=== PATIENT | male | born 1955 | race Caucasian/White ===

== ENCOUNTER → 2018-04-20 07:41 | Outpatient (CLI) | payer OTHER, SELFPAY ==
[2018-04-20 09:57] LABS: AST(SGOT) 35 U/L (15-37); Alanine Aminotransfer ALT/SGPT 36 U/L (16-61); Albumin, Serum 3.7 g/dL (3.2-5.0); Alkaline Phosphatase 50 U/L (45-117); Cholesterol 110 mg/dL (200); Globulin 3.1 g/dL (2.2-4.2); High Density Lipoprotein 46 mg/dL; Protein, Total 6.8 g/dL (6.4-8.2); Triglycerides 45 mg/dL; Very Low Density Lipoprotein 9 mg/dL (5-40)
== END ==
PROVIDERS: Family Provider Internal Medicine; PCP Internal Medicine; Visit Provider Internal Medicine Cardiovascular Disease
DX: I25.810 Atherosclerosis of coronary artery bypass graft(s) without angina pectoris (principal); E78.5 Hyperlipidemia, unspecified; I10 Essential (primary) hypertension; Z95.5 Presence of coronary angioplasty implant and graft
CPT/HCPCS: 36415; 80061; 80076

== ENCOUNTER → 2018-06-20 12:20 | Outpatient (CLI) | payer OTHER, SELFPAY ==
--- NOTE | 2018-06-20 12:24 | US_ITS ---
STUDY: RENAL ULTRASOUND - COMPLETE REASON FOR EXAM: Male, 62 years old. Frequency. Benign prostatic hypertrophy. TECHNIQUE: Ultrasound evaluation of the kidneys was performed with real-time and static belle-scale imaging. COMPARISON: None. FINDINGS: RIGHT KIDNEY: Normal location of the right kidney, which is normal in size. The right kidney measures 13.1 x 5.6 x 6.6 cm. There is a normal cortex of the right kidney. The renal cortex measures 2.1 cm. Simple parapelvic cyst measuring 2.2 x 2.0 x 1.4 cm There are no right renal calculi. There is no right hydronephrosis. DISTAL RIGHT URETER: There is non-visualization of the distal right ureter. There is no demonstrated right ureterovesical junction calculus. There is a visualized right ureteral jet. LEFT KIDNEY: Normal location of the left kidney, which is normal in size. The left kidney measures 12.4 x 5.4 x 6.6 cm. There is a normal cortex of the left kidney. The renal cortex measures 1.7 cm. There is no left renal mass or cyst. There are no left renal calculi. There is no left hydronephrosis. DISTAL LEFT URETER: There is non-visualization of the distal left ureter. There is no demonstrated left ureterovesical junction calculus. There is a visualized left ureteral jet. BLADDER: The distended urinary bladder has a volume of 211 ml. The empty urinary bladder has a volume of 70 ml. There is a normal wall thickness of the distended urinary bladder. There is no demonstrated mass within the urinary bladder. There are no demonstrated bladder calculi. US/Kidney and Bladder IMPRESSION: No hydronephrosis. Simple right renal cyst. No significant postvoid bladder residual. Electronically Signed: Luis F Rae MD at 6:05 EST , Service support ,
== END ==
PROVIDERS: Family Provider Internal Medicine; PCP Internal Medicine; Referring Provider Internal Medicine; Visit Provider Internal Medicine
DX: N40.1 Benign prostatic hyperplasia with lower urinary tract symptoms (principal)
CPT/HCPCS: 76770

== ENCOUNTER → 2018-08-17 09:05 | Outpatient (CLI) | payer OTHER, SELFPAY ==
--- NOTE | 2018-08-17 09:19 | RAD_ITS ---
STUDY: X-RAY - LEFT KNEE REASON FOR EXAM: Male, 63 years old. Pain TECHNIQUE: 4 view(s) of the knee. COMPARISON: None. FINDINGS: Normal visualized distal femur. Normal visualized proximal tibia and fibula. Normal proximal tibiofibular articulation. Normal medial femorotibial compartment. Normal lateral femorotibial compartment. Normal patellofemoral articulation. The soft tissue structures are unremarkable. RAD/Knee 4 or More Views IMPRESSION: Normal x-ray examination of the knee. No fracture. No osteoarthritis. Electronically Signed: Gopi Vera MD at 7:30 EST Tel , Service support ,
--- NOTE | 2018-08-17 09:19 | RAD_ITS ---
STUDY: X-RAY - LEFT HIP REASON FOR EXAM: Male, 63 years old. Pain TECHNIQUE: 2 views of the hip. COMPARISON: None. FINDINGS: The sacroiliac joints are normal. Moderate osteoarthritis of both hips with buttressing of the femoral necks and narrowing of the joint spaces. There are no acute fractures. Numerous springlike metallic densities projecting over the pelvis. RAD/HIP, UNI W/ Pelvis 2-3 Views IMPRESSION: Osteoarthritis of the hips. No fractures Electronically Signed: Gopi Vera MD at 7:13 EST Tel , Service support ,
== END ==
PROVIDERS: Family Provider Internal Medicine; PCP Internal Medicine
DX: M25.552 Pain in left hip (principal); M25.562 Pain in left knee
CPT/HCPCS: 73502; 73564

== ENCOUNTER → 2018-09-05 12:56 | Outpatient (CLI) | payer OTHER, SELFPAY ==
[2018-04-12 15:58] VITALS: BMI 28.1
--- NOTE | 2018-09-05 13:00 | CDU_ITS ---
Reason For Study: Carotid Stenosis Rt. Velocities/BP Lt. Velocities/BP Prox CCA 134/23.6 cm/sec. Prox CCA 137/25.9 cm/sec. Mid CCA 120/24.4 cm/sec. Mid CCA 127/31.4 cm/sec. Dist CCA 91.9/22 cm/sec. Dist CCA 109/33.8 cm/sec. Prox ICA 73.3/25.8 cm/sec. Prox ICA 50.3/16.9 cm/sec. Mid ICA 91.5/31.7 cm/sec. Mid ICA 84.4/31.7 cm/sec. Dist ICA 87.4/34 cm/sec. Dist ICA 85/34 cm/sec. Rt. ICA/CCA = 0.76. Lt. ICA/CCA = 0.67. Prox ECA 118/20.4 cm/sec. Prox ECA 125/33 cm/sec. Rt. Vert. 57/12.6 cm/sec. Lt. Vert. 54.6/17.7 cm/sec. Right Extracranial There is intimal thickening but no significant atherosclerotic plaque noted in the right common carotid artery. There is intimal thickening but no significant atherosclerotic plaque noted in the right internal carotid artery. There is intimal thickening but no significant atherosclerotic plaque noted in the right external carotid artery. Antegrade flow is noted in the right vertebral artery. Left Extracranial There is intimal thickening but no significant atherosclerotic plaque noted in the left common carotid artery. There is intimal thickening but no significant atherosclerotic plaque noted in the left internal carotid artery. There is no significant atherosclerotic plaque noted in the left external carotid artery. Antegrade flow is noted in the left vertebral artery. Procedure Carotid Duplex [id number]. Exam performed in department. Interpretation Summary Mild (<50%) stenosis right extracranial internal carotid. Mild (<50%) stenosis left extracranial internal carotid. Flow within the vertebral arteries is antegrade bilaterally. Ordering Physician: Ela Salgado Referring Physician: Ela Salgado Performed By: Elvia Wilson RVT and Student
--- OUTSIDE RECORDS SUMMARY | 2018-11-07 17:06 | XMS RPT_ITS | Continuity of Care Document ---
:1955 Author Organization [facility] Address [address] [facility] [address] [place] [address] Phone Care Team Providers Name Role Phone Ela Salgado MD Unavailable Laureen HERNANDEZ, Franky Lindsay Unavailable Ela Salgado MD Unavailable Bienvenido Kelly Unavailable Mariam Samuel Unavailable Unavailable JELANI Goodman Unavailable Unavailable Unavailable Unavailable Problems Name Dates Details Abnormal cardiac function test (R94.30, 794.30) Comments: seen with CAD. 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 Status: Active Allergic rhinitis (J30.9, 477.9) Comments: if not better in 1 weekt hen will get atb nasal rinses educate on allergies handout given told to get mattress voer hepa filter. Status: Active Back spasm (M62.830, 724.8) Comments: took muslce relaxant and help toradol help rest heat biofreeze Status: Active Backache (M54.9, 724.5) Comments: had in 20s herniated disc. on and off spasm since. acting up now use muscle relaxants prn and heat. tight hamstring and need to stretch. handout given on execises and [id number] if not better rexray send PT Status: Active BMI 28.0-28.9,adult (Z68.28, V85.24) Status: Active BPH (benign prostatic hypertrophy) with urinary obstruction (Renamed from BPH with urinary obstruction) (N40.1, 600.01) Comments: willhold testosterone not know that nees anymore anyways. will use flomax if completely block and cannot urinate then will go to ER Status: Active Carotid stenosis, asymptomatic, bilateral (I65.23, 433.10) Comments: 04-30 mild Status: Active Cervical strain, acute (S16.1XXA, 847.0) Comments: discussed cervical xray and PT not wanting at this time but if not improved with meds, will call or come back Status: Active Coronary artery disease (I25.10, 414.00) Comments: had CP with URI found 1995. Cath at [facility] 12-01-95 with coronary artery vasospasm (took adderall then), HI with PTCA, circ 2003, see Dr. sky 2016 stress good Status: Active Elevated LFTs (R94.5, 790.6) Status: Active Encounter for health maintenance examination with abnormal findings (Z00.01, V70.0) Comments: 08-10-17 [facility]. colonoscopy 05-30 good, PSA 07-31, Hep C screening negative, immunizations are up to date hep C test neg Status: Active Fatigue, unspecified type (R53.83, 780.79) Comments: more stamina off lexapro. better than was. 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 if aches backthen willstop reveiwed with patient recent tests and ldl back up and small ldl high. if still bother ? repathea. Status: Active Hyperlipidemia, unspecified (E78.5, 272.4) Comments: With elevated triglycerides Status: Active IBS (irritable bowel syndrome) (K58.9, 564.1) Comments: stable Status: Active IFG (impaired fasting glucose) (R73.01, 790.21) Status: Active Left hip pain (M25.552, 719.45) Status: Active Left knee pain (M25.562, 719.46) Status: Active Low back pain (M54.5, 724.2) Comments: stable on and off years nothing severe. if toradol and flexeril not help then xray nsaidssince 1976. had MRi in past. Status: Active Neck stiffness (M43.6, 723.5) Status: Active Need for prophylactic vaccination and inoculation against influenza (Z23, V04.81) Status: Active Need for Tdap vaccination (Renamed from Need for tkdbplklxy-fobqahg-iyrzpejfs (Tdap) vaccine, adult/adolescent) (Z23, V06.1) Status: Active Neoplasm of uncertain behavior of skin (D48.5, 238.2) Comments: two areas done: 4 mm on right thigh and 6 mm on back. these look abnormal. Status: Active Obesity (BMI 30.0-34.9) (E66.9, 278.00) Status: Active Pneumococcal vaccination given (Z23, V06.6) Status: Active Screening for prostate cancer (Z12.5, V76.44) Comments: scope 1-06 Status: Active Testosterone deficiency (E34.9, 257.2) Comments: better now symptoms and wellbeing on testosterone. notice more exercise stamina. Status: Active Tobacco abuse, in remission (Renamed from Tobacco dependence in remission) (F17.201, V15.82) Comments: quit over 15 years. no indication for LDCT. Status: Active Urinary frequency (R35.0, 788.41) Comments: had most of life so think related to irritable bladder. if bother and want treated. Status: Active Verrucous keratosis (L82.1, 702.8) Status: Active Vitamin D insufficiency (E55.9, 268.9) Status: Active Medications Name Dates Details Altace 2.5 MG Oral Capsule 1 Capsule AM for 0 days Quantity: 90 {Capsule} Refills: 3 Ordered:10-Aug-2018 Zackary HERNANDEZ, Ela Quigley MD, Ela Lr Start : 10-Aug-2018 Active ASPIRIN LOW DOSE, 81MG (Oral Tablet) 1 QD for 0 days Refills: 0 Ordered:27-Jun-2009 Sunni Coates Crestor 20 MG Oral Tablet 1 (one) Tablet qd for 0 days Quantity: 90 {Tablet} Refills: 0 Ordered:03-Apr-2018 Ela Salgado MD, MD, Dana M Start : 03-Apr-2018 Active Dispense as Written Comments: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 Dicyclomine HCl 10 MG Oral Capsule 1 Capsule qid/prn for 0 days Quantity: 30 {Capsule} Refills: 1 Ordered:28-Mar-2018 Ela Salgado MD, MD, Dana M Start : 28-Mar-2018 Active Comments:thirty Flomax 0.4 MG Oral Capsule 1 (one) Capsule start when get it and then one tonight and every night for 0 days Quantity: 30 {Capsule} Refills: 5 Ordered:19-Jun-2018 Ela Salgado MD, MD, Dana M Start : 19-Jun-2018 Active Mobic 7.5 MG Oral Tablet 1 (one) Tablet Tablet bid prn for 0 days Quantity: 30 {Tablet} Refills: 1 Ordered:23-Jan-2018 Ela Salgado MD, MD, Dana M Start : 23-Jan-2018 Active Toprol XL 25 MG Oral Tablet Extended Release 24 Hour 1 Tablet PM for 0 days Quantity: 90 {Tablet} Refills: 3 Ordered:10-Aug-2018 Ela Salgado MD, MD, Dana M Start : 10-Aug-2018 Active Vitamin D3 Super Strength 2000 UNIT Oral Capsule 1 (one) Capsule Capsule in am for 0 days Quantity: 30 {Capsule} Refills: 0 Ordered:12-Oct-2017 Slarb Aniyah POOL Start : 10-Aug-2017 Active Augmentin 875-125 MG Oral Tablet 1 (one) Tablet bid for 0 days Quantity: 20 {Tablet} Refills: 0 Ordered:04-Jan-2018 Antoni Kendrick Start : 18-Oct-2017 End : 04-Jan-2018 Inactive Comments:will call if need Benadryl Allergy 25 MG Oral Capsule 1 (one) Capsule at night for 0 days Quantity: 30 {Capsule} Refills: 0 Ordered:04-Jan-2018 Antoni Kendrick Start : 18-Oct-2017 End : 04-Jan-2018 Inactive Cyclobenzaprine HCl 10 MG Oral Tablet 1 (one) Tablet tid prn for muscle relaxation for 0 days Quantity: 20 {Tablet} Refills: 0 Ordered:19-Jun-2018 Mariam Samuel Start : 12-Jun-2018 End : 19-Jun-2018 Inactive , 16.2MG/5ML (Oral Elixir) 5-10 Elixir milliliters prn tid for 0 days Quantity: 1 {Bottle} Refills: 3 Ordered:23-Sep-2015 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 Staci L Start : 22-Apr-2014 End : 23-Sep-2015 Inactive Flonase 50 MCG/ACT Nasal Suspension 1 (one) Delphos 2 sprays each nostril daily for 0 days Quantity: 1 {Delphos} Refills: 2 Ordered:04-Jan-2018 Antoni Kendrick Start : 18-Oct-2017 End : 04-Jan-2018 Inactive Lexapro 10 MG Oral Tablet 1/2 (one half) Tablet QD for 0 days Quantity: 90 {Tablet} Refills: 3 Ordered:04-Jan-2018 Antoni Kendrick Start : 14-Sep-2016 End : 04-Jan-2018 Inactive MEDROL (ALEX), 4MG (Oral Tablet) 1 Tablet TAD for 0 days Quantity: 1 {Package(s)} Refills: 0 Ordered:23-Sep-2015 Geoff Spann LPNn L Start : 14-Nov-2012 End : 23-Sep-2015 Inactive Comments:take with food Medrol 4 MG Oral Tablet Therapy Pack 1 (one) Milligram Milligram TAD for 0 days Quantity: 1 {Package} Refills: 0 Ordered:19-Jun-2018 Mariam Samuel Start : 12-Jun-2018 End : 19-Jun-2018 Inactive Comments:take with food Multivitamin Oral Liquid for 0 days Refills: 0 Ordered:27-Apr-2016 JELANI Goodman End : 27-Apr-2016 Inactive NASACORT AQ, 55MCG/ACT (Nasal Aerosol Solution) 2 (two) Aerosol Soln qd for 0 days Refills: 0 Ordered:01-Jan-2009 JELANI Goodman Start : 01-Jan-2009 End : 07-May-2009 Inactive PredniSONE 20 MG Oral Tablet 1 (one) Tablet uad for 16 days Refills: 0 Ordered:18-Oct-2017 Ela Salgado MD, MD, Dana M Start : 18-Oct-2017 End : 03-Nov-2017 Inactive Comments:2 a d for 5 d, 1 a d for 5d, 1/2 a d for 6 d PROTONIX, 40MG (Oral Tablet Delayed Release) Tablet DR BID for 0 days Refills: 0 Ordered:18-Nov-2009 JELANI Goodman Start : 23-Jun-2009 Inactive ZETIA, 10MG (Oral Tablet) 1 qd (10 MG) Inactive ZyrTEC Allergy 10 MG Oral Tablet 1 (one) Tablet in am for 0 days Quantity: 30 {Tablet} Refills: 0 Ordered:04-Jan-2018 Antoni Kendrick Start : 18-Oct-2017 End : 04-Jan-2018 Inactive FLEXERIL, 10MG (Oral Tablet) 1 Tablet tid prn for 0 days Quantity: 30 {Tablet} Refills: 0 Ordered:14-Nov-2012 Staci Spann LPN Start : 14-Nov-2012 End : 23-Sep-2015 Discontinued Comments:This order discontinued per [facility]. LIPITOR, 40MG (Oral Tablet) 1 QD for 0 days Refills: 0 Ordered:16-Aug-2007 JELANI Goodman End : 16-Aug-2007 Discontinued Testosterone 25 MG/2.5GM (1%) Transdermal Gel uad Gel 2 pumps transdermally qd for 90 days Refills: 1 Ordered:19-Jun-2018 Ela Salgado MD, MD, Dana M Start : 19-Jun-2018 End : 19-Jun-2018 Discontinued Comments:DX: E34.9 Allergies and Adverse Reactions Name Dates Details Codeine/Codeine Derivatives (Allergy) Status: Active Morphine Derivatives (Allergy) Status: Active Past Medical History Name Dates Details Anxiety (F41.9, 300.00) Comments: right now off lexapro and seeoning how does. some sleep issue and some rlds atrt ngiht willsee how pans out in time. little ore iritabledominant father not like, marriage grown apart. Status: Resolved as of 10-Aug-2017 BMI 30.0-30.9,adult (Z68.30, V85.30) Comments: good at 190-195. will exercise cut back sweets starches Status: Resolved as of 10-Aug-2017 BMI 31.0-31.9,adult (Z68.31, V85.31) Status: Resolved as of 10-Aug-2017 Epigastric pain (R10.13, 789.06) Comments: ? PUD ? GB Status: Resolved as of 18-Nov-2009 Hemorrhoids (K64.9, 455.6) Status: Inactive as of 22-Mar-2016 Knee internal derangement, left (M23.92, 717.9) Comments: years ago pop and think tore disc when biking. at this point not want to work up further would need MRI and to orthosx seen jeanne in past. would want someone else like knapic Status: Resolved as of 10-Aug-2017 Left hip pain (M25.552, 719.45) Comments: not have good socket and see gesler and exercise alot to stabilize Status: Resolved as of 10-Aug-2017 Muscle spasm of back (724.8) Status: Inactive as of 22-Mar-2016 Need for hepatitis C screening test (Z11.59, V73.89) Status: Resolved as of 10-Aug-2017 Need for zoster vaccination (Z23, V04.89) Status: Resolved as of 10-Aug-2017 Nonsmoker (Z78.9, V49.89) Status: Resolved as of 10-Aug-2017 Nonsmoker (Z78.9, V49.89) Status: Resolved as of 03-Aug-2018 Numbness and tingling of right leg (R20.0, 782.0) Comments: ? meralgia paresthecia vs back pinched nerve will take aleve helps. ncs negative show old in past radiculopathy. Status: Resolved as of 10-Aug-2017 Pharyngitis, acute (J02.9, 462) Status: Resolved as of 03-Jan-2009 Prediabetes (R73.03, 790.29) Status: Resolved as of 10-Aug-2017 Sprain of right ankle, initial encounter (S93.401A, 845.00) Comments: think sprained EMILE willruleout fracture if not fracture will do camboot and then aircat and elastic wrap with partial weight bearing if fracture to orthosx Status: Resolved as of 10-Aug-2017 Tobacco use (Z72.0, 305.1) Comments: quit years ago Status: Resolved as of 18-Nov-2009 VASOSPASM, NOS Status: Inactive as of 22-Mar-2016 Wrist pain, acute, right (M25.531, 719.43) Comments: slept on wrong and been 2 weeks. not better. get wrist splint. Status: Resolved as of 10-Aug-2017 Procedures Procedure Dates Details COLONOSCOPY, NOS Completed Comments: 2003 Double Henia Repair Completed Comments: Inguinal Dr. Pretty Date Value Details 20-Jun-2018 Kidney and Bladder Result: Comments: See Note; NOTES: [facility] Imaging Services [address] [place] [address] Kidney and Bladder MR#: [id number] Acct: [id number] Name: DRAGAN FORREST Rep #: [id number] : 1955 M 62 From: Luis F Rae PCP: Ela Salgado MD Status: REG CLI Study: Kidney and Bladder Date of Exam: 06/20/18 Exam# [id number] Ordering Dr: Ela Salgado MD STUDY: RENAL ULTRASOUN D - COMPLETE REASON FOR EXAM: Male, 62 years old. Frequency. Benign prostatic hypertrophy. TECHNIQUE: Ultrasound evaluation of the kidneys was performed with real-time and static belle-scale imaging. COMPARISON: None. FINDINGS: RIGHT KIDNEY: Normal location of the right kidney, which is normal in size. The right kidney measures 13.1 x 5.6 x 6.6 cm. There is a no rmal cortex of the right kidney. The renal cortex measures 2.1 cm. Simple parapelvic cyst measuring 2.2 x 2.0 x 1.4 cm There are no right renal calculi. There is no right hydronephrosis. DISTAL RIGHT U RETER: There is non-visualization of the distal right ureter. There is no demonstrated right ureterovesical junction calculus. There is a visualized right ureteral jet. LEFT KIDNEY: Normal location of the left kidney, which is normal in size. The left kidney measures 12.4 x 5.4 x 6.6 cm. There is a normal cortex of the left kidney. The renal cortex measures 1.7 cm. There is no left renal mass or cyst . There are no left renal calculi. There is no left hydronephrosis. DISTAL LEFT URETER: There is non-visualization of the distal left ureter. There is no demonstrated left ureterovesical junction calcu hollis. There is a visualized left ureteral jet. BLADDER: The distended urinary bladder has a volume of 211 ml. The empty urinary bladder has a volume of 70 ml. There is a normal wall thickness of the dis tended urinary bladder. There is no demonstrated mass within the urinary bladder. There are no demonstrated bladder calculi. US/Kidney and Bladde r IMPRESSION: No hydronephrosis. Simple right renal cyst. No significant postvoid bladder residual. Electronically Signed: Luis F Rae MD at 6:05 EST , Service support , CC: Ela Salgado MD [employer] Cutting Machine Operator: Signed 12-Apr-2018 Cardiology Visit Report Result: Comments: See Note; NOTES: [facility] [address] [place] [address]. [address] [place] [address] OFFICE VISIT Date of Service: 04/12/18 MR#: [id number] Acct: [id number] Name: MEKA FORREST Rep #: [id number] : 1955 Provider: Barry Sky MD Age/Sex: 62/M [place] [facility] [place] Status: Signed HPI [facility] Chief Complaint: Follow-up visit. Details: DRAGAN FORREST, is a 62 M who presents to the office today for a yearly follow-up visit. He is a gentleman with a history of coronary artery disease status post angioplasty and stenting of the circumflex artery over 10 years ago. He returns for routine follow-up visit he says he has lost some weight since last visit. He still remains quite active on his bike. His last stress test was in 2013 where he exercised to a high metabolic workload without any symptoms. He denies any neck arm or jaw discomfort suggest angina no dizziness or diaphoresis no near syncope or syncope. His physical exam today demonstrates clear lung narayan regular rate and rhythm no pedal edema and his blood pressure is under excellent control. Intake Vital Signs04/12/18 Height 5 ft 11 in 04/12/18 Weight: 202 lb 04/12/18 Body Mass Index (BMI) 28.1 04/12/18 Blood Pre ssure 108/58 04/12/18 Respiratory Rate 16 04/12/18 Pulse Rate 60 Intake Visit Reasons: 1 Y FU (we r/s from 03-21) needs a Weds appt Allergies codeine Adverse Reaction (Verified 04/12/18 15:53) GI Upset morphine Adverse Reaction (Verified 04/12/18 15:53) GI Upset Medications aspirin 81 mg tablet,delayed release 81 mg PO DAILY 04/11/18 [History Confirmed 04/12/18] multivitamin tablet 1 tab PO DAILY 04/11/18 [History Confirmed 04/12/18] nitroglycerin 0.4 mg sublingual tablet 0.4 mg SUBLINGUAL Q5-15M PRN 04/11/18 [History Confirmed 04/12/18] ramipril 2.5 mg capsule 2.5 mg PO .QD 90 Days cap 04/11/18 [History Confirmed 04/12/18] metoprolol succinate ER 25 mg tablet,extended release 24 hr 25 mg PO QPM 90 Days #90 tab 04/12/18 [History Confirmed 04/12/18] rosuvastatin 20 mg tablet 20 mg PO DAILY 03/16 05/02 [History Confirmed 04/12/18] [facility] Medical History Hypertension (Chronic) Hyperlipidemia (Chronic) History of coronary artery stent placement (Reso lved 05/29/04) Atherosclerosis of coronary artery bypass graft without angina pectoris (Chronic) Surgical History H/O bilateral inguinal hernia repair ( Resolved) H/O hemorrhoidectomy (Resolved) Family History Father CAD (coronary artery disease) Mother CAD (coronary artery disease) Social History Smoki ng Status: Never smoker ROS Const Const: Negative for fatigue, weakness, difficulty sleeping, frequent falls, excessive sweating or headache(s) Eyes Eyes: Negative for loss of peripheral vision, tr ansient loss of vision, blurry vision, tunnel vision or double vision ENT ENT: Negative for headache(s), dizziness, Nosebleed/epistaxis or balance problems Cardio Chest Pain: No Palpitations: No Edema: None Muscle aches with walking: None Resp Respiratory: Negative for SOB with activity, SOB at rest, SOB orthopnea\SOB lying down, paroxysmal nocturnal dyspnea or Cough GI GI: Negative nausea, heartburn, black,tarry stools or vomiting : Negative for hematuria Musc Musc: Negative for balance problems, muscle aches/ myalgia, muscle weakness or joint pain Skin Skin: Negative non-healing lesions, unus ual bruising or rash Neuro Neuro: Negative for weakness, frequent falls, headache(s), blurry vision, double vision, dizziness, lightheadedness, orthostatic symptoms, near syncope, syncope or lack of severity of illness coordinator rdination Chris Hematologic/Lymphatic: Negative for easy bruising or easy bleeding Endo Endo: Negative for fatigue, excessive sweating or increased thirst/drinking Psych Psych: Negative for anxiety or de pression Allergy Allergy/Immunology: Negative for hives, Negative for rash Cardiology Exam Const Appearance: cooperative, healthy appearing, well developed, well groomed and no acute distress Nutritio nal Appearance: well nourished and average body habitus Orientation: alert, awake and oriented x3 Head Head: normal to inspection, normocephalic and atraumatic Ears: hearing grossly normal bilaterally a nd external ears normal Nose: external nose normal, nasal mucous membranes and turbinates normal, nares normal, septum normal, no nasal discharge Face and Sinus: face symmetric Mouth: oral mucosae francesca l, tongue normal, oropharynx normal and moist mucous membranes Teeth and gingiva: dentition normal Throat: posterior oropharynx normal, tonsils normal and uvula midline Eyes General: appearance normal, both eyes and all related structures Eyelids: eyelids normal Conjunctivae: conjunctivae normal Pupils: PERRL, normal by confrontation and accommodation normal EOM: EOM intact bilaterally Neck Neck: norm al visual inspection, trachea midline and no JVD JVD: +5 Carotids: normal carotid upstroke and bounding pulses Chest Chest inspection: normal inspection of the chest, symmetric chest movement and normal respiratory effort Auscultation: Bilateral: Clear to Auscultation Cardio Palpation: normal PMI Rate: regular rate Rhythm: regular rhythm Heart sounds: S1 normal, S2 normal and normal, physiologic split S2; negative rub, gallop or murmur GI GI: normal to inspection, soft, no hepatosplenomegaly and bowel sounds present Neuro General: alert, awake, oriented x3, no focal sensory deficit, gait normal and moves all extremities Skin Skin: no rashes or lesions noted Extremities Pulses: Normal: Right Femoral Pulse, Left Femoral Pulse, Right Dorsalis Pedis Pulse, Left Dorsalis Pedis Pulse, Right Posterior Ti bial Pulse, Left Posterior Tibial Pulse, Right Radial Pulse, Left Radial Pulse Lower Extremity Edema: None: Bilateral Musculoskel Musculoskeletal: No joint tenderness Psych Psychological: normal affect Assessment AND Plan 1. 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 Orders Orders: 2. Essential hypertension I10 Plan His blood pressure remains under excellent control on the current medical therapy and no changes will need to be made at this time. Orders Orders: 3. Pure hypercholesterolemia E78.00; E78.0 Plan He does have a history of hyperli pidemia and has been having lipid profiles performed through your office. He may however be prudent to obtain a more recent one. Overall he is doing remarkably well and I would not make any changes. Fidel nk you for allowing me to participate in his care. Plan Detail Other Orders Orders: Follow Up 1 Year (echo vasc tech) Coding Level of Care Code Off vis,est,level 3 Diagnoses History of coronary artery stent pl acement Z95.5 Essential hypertension I10 Hypertension type: essential hypertension Pure hypercholesterolemia E78.00; E78.0 Hyperlipidemia type: pure hypercholesterolemia Coding Level of Care Code Off vis,est,level 3 Diagnoses History of coronary artery stent placement Z95.5 Essential hypertension I10 Hypertension type: essential hypertension Pure hypercholesterolemia E78.00; E78.0 Hyperlipidemia ty pe: pure hypercholesterolemia 04/12/18 1615 <Electronically signed by Barry Sky MD> Date Barry Xavier Signature: Date (if applicable) CC: Ela Salgado MD 06-Jul-2017 Foot min 3 Views Result: Comments: See Note; NOTES: [facility] Imaging Services [address] [place] [address] Foot min 3 Views MR#: [id number] Acct: [id number] Name: DRAGAN FORREST Rep #: [id number] : 1955 M 61 From: Vikas Hummel MD PCP: Ela Salgado MD Status: REG CLI Study: Foot min 3 Views Date of Exam: 07/06/17 Exam# [id number] Ordering Dr: Agapito Don DO STUDY: X-RAY - RIG HT FOOT CLINICAL: Male, 61 years old. Lateral foot pain following injury. TECHNIQUE: 3 view(s) of the foot. COMPARISON: None. FINDINGS: There is an enthesophyte i nvolving the posterior superior calcaneus at the site of insertion of the Achilles tendon. Normal visualized subtalar, talonavicular, calcaneocuboid, tarsal and tarsometatarsal articulations. Normal m etatarsi. Normal metatarsophalangeal joint of the great toe. Normal tibial and fibular sesamoid bones. Normal interphalangeal joint of the great toe. Normal phalanges of the great toe. Normal second t hrough fifth metatarsophalangeal joints. Normal interphalangeal joints and phalanges of the lesser toes. The soft tissue structures are unremarkable. -0026 RAD/Foot min 3 Views IMPRESSION: No acute abnormality is seen. Electronically Signed: Vikas Hummel MD at 14:20 EST Tel [phone], Service support , Fax CC: Ela Salgado MD; Agapito Don DO [employer] Cutting Machine Operator: Signed 05-Jul-2017 Ankle min 3 Views Result: Comments: See Note; NOTES: [facility] Imaging Services [address] [place] [address] Ankle min 3 Views MR#: [id number] Acct: [id number] Name: DRAGAN FORREST Rep #: [id number] : 1955 M 61 From: Vikas Hummel MD PCP: Ela Salgado MD Status: REG CLI Study: Ankle min 3 Views Date of Exam: 07/05/17 Exam# [id number] Ordering Dr: Ela Salgado MD STUDY: X-RAY - R IGHT ANKLE REASON FOR EXAM: Male, 61 years old. Pain following a twisting injury. TECHNIQUE: 3 view(s) of the ankle. COMPARISON: None. FINDINGS: Normal visualized distal tibia and fibula. Normal medial and lateral malleoli. Normal tibiotalar articulation and ankle mortise. A spur is seen at the insertion of the Achilles tendon. Presents of an avulsion fracture arising from the lateral aspect of the tarsal navicular bone. Overlying soft tissue swelling. RAD/Ankle min 3 Views IMPRESSION: Avulsion fractu re overlying the lateral aspect of the tarsal navicular bone with overlying soft tissue swelling. Electronically Signed: Vikas Hummel MD at 15:29 EST Tel [phone], Service support [phone], CC: Ela Salgado MD [employer]ting Machine Operator: Signed 17-Feb-2017 NCS and/or EMG Patient Result: Comments: See Note; NOTES: [facility] Pulmonary Services/Neurology [address] [place] [address] NCS and/or EMG Patient MR#: [id number] Acct: [id number] Name: DRAGAN FORREST Rep #: [id number] : 1955 61 From: Donnie Smith Referring Dr: Ela Salgado MD Status: REG CLI Ordering Dr: Ela Salgado MD Date: 02/16/17 Location: [facility] Sex: M C DATE OF SERVICE: February 16, 2017 HISTORY: Dragan Forrest is a 61-year-old gentleman referred by Dr. Salgado for electrodiagnostic evaluation of the right leg. He reports numbness in the right thigh. ELECTRODIAGNOSTIC FINDINGS : Normal nerve stimulation studies in areas tested, right leg. There is some slowing of both H- reflexes which may correlate with previous disc disease. Normal EMG in areas tested, right leg and back without membrane irritability or motor unit changes. IMPRESSION: No significant electrodiagnostic findings of acute or chronic lumbosacral radiculopathy. No evidence of nerve entrapment or polyneuropa thy changes. The slowed H-reflexes are not felt to represent any evidence of significant S1 radiculopathy or polyneuropathy; most likely they reflect previous lumbar disc disease. In the absence of any significant electrodiagnostic abnormalities, consider referred paresthesias from lumbar, sacroiliac, inguinal or hip areas. He ll follow-up with Dr. Salgado for further review. Thank you for this refer ral. 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 One-month history of pain. TECHNIQUE: 4 view(s) of the wrist were obtained including the navicular view. COMPARISON: None. FINDINGS: Normal visualized distal radius and ulna. Normal radiocarpal articulation. Normal distal radioulnar articulation. Normal carpal bones. Normal carpal articulations. Normal carpometacarpal articulation of the thumb. Normal second through fifth carpometacarpal articulations. Normal visualized metacarpal bones. There is calcification of the triangular fibrocartilage. RAD/Wrist min 3 Views IMPRESSION: Calcification of the triangular fibrocartilage. Electronically Signed: Vikas Hummel MD at 12:[address] Tel [phone], Service support [phone], CC: Ela Salgado MD [employer] Machine Operator: Signed 12-May-2016 Carotid Duplex Ultrasound Result: Comments: See Note; NOTES: [facility] Cardiovascular Services [address] [place] [address] Carotid Duplex Ultrasound 05/05/16 1237 MR#: [id number] Acct: [id number] Name: DRAGAN FULLER Rep #: [id number] : 1955 60 From: Tyrone Daniels MD Attending Dr: Ela Salgado MD Status: REG CLI Ordering Dr: Ela Salgado MD Date: 05/05/16 Location: [facility] Sex: M C Admitted: Reason For Study: Abnormal cardiac function test Rt. Velocities/BP Lt. Velocities/BP Prox CCA 100.0/19.9 cm/sec. Prox CCA 111.0/27.6 cm/sec. Mid CCA 87.4/17.0 cm/sec. Mid CCA 104.0/22.9 cm/sec. Dis t CCA 80.3/21.1 cm/sec. Dist CCA 81.5/24.0 cm/sec. Prox ICA 71.5/25.8 cm/sec. Prox ICA 61.0/22.9 cm/sec. Mid ICA 73.9/25.2 cm/sec. Mid ICA 64.0/22.0 cm/sec. Dist ICA 70.9/27.0 cm/sec. Dist ICA 54.3/23.8 cm/sec. Rt. ICA/CCA = .85. Lt. ICA/CCA = .62. Prox ECA 93.8/16.4 cm/sec. Prox ECA 96.2/21.1 cm/sec. Rt. Vert. 38.7/12.3 cm/sec. Lt. Vert. 49.2/18.8 cm/sec. Right Extracranial There is intimal thickeni ng but no significant atherosclerotic plaque noted in the right common carotid artery. There is intimal thickening but no significant atherosclerotic plaque noted in the right internal carotid artery. T here is no significant atherosclerotic plaque noted in the right external carotid artery. Antegrade flow is noted in the right vertebral artery. Left Extracranial There is intimal thickening but no sig nificant atherosclerotic plaque noted in the left common carotid artery. There is intimal thickening but no significant atherosclerotic plaque noted in the left internal carotid artery. There is no sign ificant atherosclerotic plaque noted in the left external carotid artery. Antegrade flow is noted in the left vertebral artery. Procedure Carotid Duplex 89566. Exam performed in department. Interpreta tion Summary Mild (<50%) stenosis right extracranial internal carotid. Mild (<50%) stenosis left extracranial internal carotid. Flow within the vertebral arteries is antegrade bilaterall y. Ordering Physician: Ela Salgado Performed By: Elvia Wilson RVT 05/12/16 0843 Date Tyrone Daniels MD CC: Ela Salgado MD Date Dictated: 05/05/16 1237 Date Transcribed: 05/12/16842 [employer] Machine Operator: Signed Family History Unknown Family Member Name Dates Details Brother 1 Comments: lives [facility], lives with parents hx. Drug addiction Status: Active Daughter 1 Comments: lives in [place] Status: Active Daughter 2 Comments: lives in [place] Status: Active Father Comments: after age 60 had CABG, lung cancer (heavy smoker) emphysema Status: Active First Degree Relatives Comments: Heart/Lung dx, HBP, high cholesterol Status: Active Maternal Grandfather Comments: alcoholic Status: Active Mother Comments: Dementia, heart disease Status: Active Sister 1 Comments: Catalina Swanson Status: Active Social History Name Dates Details Alcohol Use Comments: from 16- 56yo drink. 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 18 years 11/2 pack stop at 36yo Status: Active Vital Signs Date Test Result Details [id number] Temperature 98.3 f Comments: Method: Temporal Pulse 72 /min Comments: Pattern: Regular Respiration Rate 16 /min Comments: Pattern: Unlabored O2 SAT 98 % Comments: Room air BP Systolic 142 mm[Hg] Comments: Patient Position: Sitting; Cuff Location: Left Arm; Cuff Size: Standard BP Diastolic 78 mm[Hg] Comments: Patient Position: Sitting; Cuff Location: Left Arm; Cuff Size: Standard Weight 207 lb Height 71 in Body Mass Index Calculated 28.87 kg/m2 Body Surface Area Calculated 2.14 m2 :00 Pulse 72 /min Comments: Pattern: Regular Respiration Rate 16 /min Comments: Pattern: Unlabored O2 SAT 98 % Comments: Room air BP Systolic 120 mm[Hg] Comments: Patient Position: Sitting; Cuff Location: Left Arm; Cuff Size: Standard BP Diastolic 62 mm[Hg] Comments: Patient Position: Sitting; Cuff Location: Left Arm; Cuff Size: Standard Weight 207 lb Height 71 in Body Mass Index Calculated 28.87 kg/m2 Body Surface Area Calculated 2.14 m2 :23 Temperature 97 f Pulse 62 /min Comments: Pattern: Regular Respiration Rate 18 /min Comments: Pattern: Unlabored O2 SAT 99 % Comments: Room air BP Systolic 106 mm[Hg] Comments: Patient Position: Sitting; Cuff Location: Left Arm; Cuff Size: Standard BP Diastolic 78 mm[Hg] Comments: Patient Position: Sitting; Cuff Location: Left Arm; Cuff Size: Standard Weight 207 lb Height 71 in Body Mass Index Calculated 28.87 kg/m2 Body Surface Area Calculated 2.14 m2 :37 Temperature 97.6 f Comments: Method: Temporal Pulse 76 /min Comments: Pattern: Regular Respiration Rate 20 /min Comments: Pattern: Unlabored O2 SAT 98 % Comments: Room air BP Systolic 120 mm[Hg] Comments: Patient Position: Sitting; Cuff Location: Left Arm; Cuff Size: Standard BP Diastolic 78 mm[Hg] Comments: Patient Position: Sitting; Cuff Location: Left Arm; Cuff Size: Standard Weight 207 lb Height 71 in Body Mass Index Calculated 28.87 kg/m2 Body Surface Area Calculated 2.14 m2 :13 Temperature 97.5 f Pulse 67 /min Comments: Pattern: Regular Respiration Rate 17 /min Comments: Pattern: Unlabored O2 SAT 98 % Comments: Room air BP Systolic 118 mm[Hg] Comments: Patient Position: Sitting; Cuff Location: Left Arm; Cuff Size: Standard BP Diastolic 78 mm[Hg] Comments: Patient Position: Sitting; Cuff Location: Left Arm; Cuff Size: Standard Weight 207 lb Height 71 in Body Mass Index Calculated 28.87 kg/m2 Body Surface Area Calculated 2.14 m2 :26 Temperature 97.9 f Comments: Method: Temporal Pulse 76 /min Comments: Pattern: Regular Respiration Rate 20 /min Comments: Pattern: Unlabored O2 SAT 98 % Comments: Room air BP Systolic 140 mm[Hg] Comments: Patient Position: Sitting; Cuff Location: Left Arm; Cuff Size: Standard BP Diastolic 78 mm[Hg] Comments: Patient Position: Sitting; Cuff Location: Left Arm; Cuff Size: Standard Weight 207 lb Height 71 in Body Mass Index Calculated 28.87 kg/m2 Body Surface Area Calculated 2.14 m2 :35 Pulse 60 /min Comments: Pattern: Regular Respiration Rate 16 /min Comments: Pattern: Unlabored O2 SAT 98 % Comments: Room air BP Systolic 142 mm[Hg] Comments: Patient Position: Sitting; Cuff Location: Left Arm; Cuff Size: Standard BP Diastolic 82 mm[Hg] Comments: Patient Position: Sitting; Cuff Location: Left Arm; Cuff Size: Standard Weight 216 lb :13 Temperature 97.8 f Comments: Method: Temporal Pulse 68 /min Comments: Pattern: Regular Respiration Rate 16 /min Comments: Pattern: Unlabored O2 SAT 98 % Comments: Room air BP Systolic 122 mm[Hg] Comments: Patient Position: Sitting; Cuff Location: Left Arm; Cuff Size: Standard BP Diastolic 68 mm[Hg] Comments: Patient Position: Sitting; Cuff Location: Left Arm; Cuff Size: Standard Weight 216 lb :38 Pulse 66 /min Comments: Pattern: Regular Respiration Rate 16 /min O2 SAT 96 % Comments: Room air BP Systolic 120 mm[Hg] Comments: Patient Position: Sitting BP Diastolic 60 mm[Hg] Comments: Patient Position: Sitting Weight 216 lb :21 Temperature 97.9 f Comments: Method: Temporal Pulse 70 /min Comments: Pattern: Regular Respiration Rate 20 /min Comments: Pattern: Unlabored O2 SAT 97 % Comments: Room air BP Systolic 120 mm[Hg] Comments: Patient Position: Sitting; Cuff Location: Left Arm; Cuff Size: Standard BP Diastolic 80 mm[Hg] Comments: Patient Position: Sitting; Cuff Location: Left Arm; Cuff Size: Standard Weight 222 lb Height 70 in Body Mass Index Calculated 31.85 kg/m2 Body Surface Area Calculated 2.18 m2 :32 Temperature 97.6 f Comments: Method: Temporal Pulse 74 /min Comments: Pattern: Regular Respiration Rate 20 /min Comments: Pattern: Unlabored O2 SAT 97 % Comments: Room air BP Systolic 120 mm[Hg] Comments: Patient Position: Sitting; Cuff Location: Left Arm; Cuff Size: Standard BP Diastolic 76 mm[Hg] Comments: Patient Position: Sitting; Cuff Location: Left Arm; Cuff Size: Standard Weight 211 lb Height 70 in Body Mass Index Calculated 30.28 kg/m2 Body Surface Area Calculated 2.14 m2 :23 Temperature 97.6 f Comments: Method: Temporal Pulse 74 /min Comments: Pattern: Regular Respiration Rate 18 /min Comments: Pattern: Unlabored O2 SAT 97 % Comments: Room air BP Systolic 140 mm[Hg] Comments: Patient Position: Sitting; Cuff Location: Left Arm; Cuff Size: Standard BP Diastolic 70 mm[Hg] Comments: Patient Position: Sitting; Cuff Location: Left Arm; Cuff Size: Standard Weight 211 lb Height 70 in Body Mass Index Calculated 30.28 kg/m2 Body Surface Area Calculated 2.14 m2 :39 Temperature 98 f Comments: Method: Temporal Pulse 67 /min Comments: Pattern: Regular Respiration Rate 16 /min Comments: Pattern: Unlabored O2 SAT 95 % Comments: Room air BP Systolic 122 mm[Hg] Comments: Patient Position: Sitting; Cuff Location: Left Arm; Cuff Size: Standard BP Diastolic 74 mm[Hg] Comments: Patient Position: Sitting; Cuff Location: Left Arm; Cuff Size: Standard Weight 211 lb Height 71.5 in Body Mass Index Calculated 29.02 kg/m2 Body Surface Area Calculated 2.17 m2 :11 Temperature 98 f Comments: Method: Oral Pulse 74 /min Comments: Pattern: Regular Respiration Rate 18 /min O2 SAT 97 % Comments: Room air BP Systolic 132 mm[Hg] Comments: Patient Position: Sitting; Cuff Location: Left Arm; Cuff Size: Standard BP Diastolic 80 mm[Hg] Comments: Patient Position: Sitting; Cuff Location: Left Arm; Cuff Size: Standard Weight 220 lb Height 71.5 in Body Mass Index Calculated 30.26 kg/m2 Body Surface Area Calculated 2.21 m2 :26 Temperature 97.8 f Comments: Method: Oral Pulse 70 /min Comments: Pattern: Regular Respiration Rate 18 /min Comments: Pattern: Unlabored BP Systolic 120 mm[Hg] Comments: Patient Position: Sitting; Cuff Location: Left Arm; Cuff Size: Standard BP Diastolic 76 mm[Hg] Comments: Patient Position: Sitting; Cuff Location: Left Arm; Cuff Size: Standard Weight 220 lb Height 71.5 in Body Mass Index Calculated 30.26 kg/m2 Body Surface Area Calculated 2.21 m2 :45 Temperature 97.6 f Comments: Method: Oral Pulse 68 /min Comments: Pattern: Regular Respiration Rate 18 /min Comments: Pattern: Unlabored BP Systolic 120 mm[Hg] Comments: Patient Position: Sitting; Cuff Location: Left Arm; Cuff Size: Standard BP Diastolic 74 mm[Hg] Comments: Patient Position: Sitting; Cuff Location: Left Arm; Cuff Size: Standard Weight 220 lb Height 71.5 in Body Mass Index Calculated 30.26 kg/m2 Body Surface Area Calculated 2.21 m2 :55 Pulse 68 /min Comments: Pattern: Regular Respiration Rate 18 /min Comments: Pattern: Unlabored BP Systolic 118 mm[Hg] Comments: Patient Position: Sitting; Cuff Location: Left Arm; Cuff Size: Standard BP Diastolic 78 mm[Hg] Comments: Patient Position: Sitting; Cuff Location: Left Arm; Cuff Size: Standard Weight 214 lb :12 Temperature 95.4 f Comments: Method: Oral Pulse 80 /min Comments: Pattern: Regular Respiration Rate 20 /min Comments: Pattern: Unlabored BP Systolic 124 mm[Hg] Comments: Patient Position: Sitting; Cuff Location: Left Arm; Cuff Size: Large BP Diastolic 82 mm[Hg] Comments: Patient Position: Sitting; Cuff Location: Left Arm; Cuff Size: Large Weight 214 lb Height 0 in Head Circumference 0.00 cm :06 Temperature 98.3 f Comments: Method: Oral Pulse 70 /min Comments: Pattern: Regular Respiration Rate 16 /min Comments: Pattern: Unlabored BP Systolic 120 mm[Hg] Comments: Patient Position: Sitting; Cuff Location: Left Arm; Cuff Size: Standard BP Diastolic 80 mm[Hg] Comments: Patient Position: Sitting; Cuff Location: Left Arm; Cuff Size: Standard Weight 0 lb Height 0 in Head Circumference 0.00 cm :51 Pulse 68 /min Comments: Pattern: Regular Respiration Rate 16 /min Comments: Pattern: Unlabored BP Systolic 114 mm[Hg] Comments: Patient Position: Sitting; Cuff Location: Left Arm; Cuff Size: Standard BP Diastolic 78 mm[Hg] Comments: Patient Position: Sitting; Cuff Location: Left Arm; Cuff Size: Standard Weight 214 lb Height 0 in Head Circumference 0.00 cm :08 Temperature 98.4 f Comments: Method: Oral Pulse 68 /min Comments: Pattern: Regular Respiration Rate 16 /min Comments: Pattern: Unlabored BP Systolic 112 mm[Hg] Comments: Patient Position: Sitting; Cuff Location: Left Arm; Cuff Size: Standard BP Diastolic 76 mm[Hg] Comments: Patient Position: Sitting; Cuff Location: Left Arm; Cuff Size: Standard Weight 211 lb Height 0 in Head Circumference 0.00 cm :40 Temperature 98.1 f Comments: Method: Undefined Pulse 84 /min Comments: Pattern: Regular Respiration Rate 16 /min Comments: Pattern: Undefined BP Systolic 124 mm[Hg] Comments: Patient Position: Sitting; Cuff Location: Left Arm; Cuff Size: Large BP Diastolic 90 mm[Hg] Comments: Patient Position: Sitting; Cuff Location: Left Arm; Cuff Size: Large Weight 0 lb Height 0 in Head Circumference 0.00 cm :57 Temperature 98.4 f Comments: Method: Oral Pulse 60 /min Comments: Pattern: Regular Respiration Rate 18 /min Comments: Pattern: Unlabored BP Systolic 122 mm[Hg] Comments: Patient Position: Sitting; Cuff Location: Left Arm; Cuff Size: Standard BP Diastolic 78 mm[Hg] Comments: Patient Position: Sitting; Cuff Location: Left Arm; Cuff Size: Standard Weight 212 lb Height 0 in Head Circumference 0.00 cm Results Date Description Value Details [id number] Urinalysis, Office (90732) UA - LEUKOCYTE ESTERASE Negative (Normal) UA - NITRITE Negative (Normal) URINE UROBILINGN DEE TIMED 2 mg/dL (Normal) UA - PROTEIN Negative mg/dL (Normal) UA - PH 6.5 (Normal) UA - BLOOD Hemolyzed Trace (Normal) UA - SPECIFIC GRAVITY 1.010 (Normal) UA - KETONES Negative mg/dL (Normal) UA - BILIRUBIN Negative (Normal) UA - GLUCOSE Negative (Normal) :43 Lipid Profile Comments: [facility] [id number] [place], [address] VLDL 9 mg/dL (Normal) Range: 5-40 LDL 55 mg/dL (Normal) Range: 0-130 HDL 46 mg/dL (Normal) Comments: The drugs N-Acetylcysteine and Metamizole may falselydepress this assay. Reference Range HDL <40 mg/dL Low HDL Cholesterol HDL >or= 60 mg/dL High HDL Cholesterol TRIG 45 mg/dL (Normal) Comments: The drugs N-Acetylcysteine and Metamizole may falselydepress this assay.Serum Triglycerides Reference Interval Normal <150 mg/dL Borderline high 150 - 199 mg/dL High 200 - 499 mg/dL Very High > or = 500 mg/dL CHOL 110 mg/dL (Normal) Comments: <200 mg/dL Desirable 200-240 mg/dL Borderline >240 mg/dL High Risk 20-Apr-20187:43 Liver Profile Comments: [facility] [id number] [place], [place], [address] D BILI 0.20 mg/dL (Normal) Range: 0.00-0.30 T BILI 0.70 mg/dL (Normal) Range: 0.20-1.00 ALT 36 U/L (Normal) Range: 16-61 ALK P 50 U/L (Normal) Range: 45-117 AST 35 U/L (Normal) Range: 15-37 GLOB 3.1 g/dL (Normal) Range: 2.2-4.2 ALB 3.7 g/dL (Normal) Range: 3.2-5.0 T PROT 6.8 g/dL (Normal) Range: 6.4-8.2 18-Oct-20179:22 Allergan with IGE Area 5 Comments: PATIENT NOT FASTINGPERFORMED BY: [facility] [id number] ([place]) ([address]) B014-CvA Mouse Urine <0.10 kU/L (Normal) D316-NuO Sheep [place] <0.10 kU/L (Normal) Q455-QpK Pigweed, Common <0.10 kU/L (Normal) J444-OhY Thistle, Egyptian <0.10 kU/L (Normal) P117-SrV Ragweed, Short <0.10 kU/L (Normal) V006-RoD White Lysite <0.10 kU/L (Normal) U776-CvH Pecan, [place] <0.10 kU/L (Normal) K723-SgY Joshua, White <0.10 kU/L (Normal) M719-SkO [place] <0.10 kU/L (Normal) B540-AiI Maple [place] <0.10 kU/L (Normal) G747-RxM [place] <0.10 kU/L (Normal) S792-PaL Elm, Ecuadorean <0.10 kU/L (Normal) H884-UaS [place], White <0.10 kU/L (Normal) A887-FfO [place], Mountain <0.10 kU/L (Normal) B906-OuJ Common Silver Birch <0.10 kU/L (Normal) Y659-IyZ Maple/[place] <0.10 kU/L (Normal) Q635-JgP Alternaria alternata <0.10 kU/L (Normal) S463-EjO Aspergillus fumigatus <0.10 kU/L (Normal) X356-RoC Cladosporium herbarum <0.10 kU/L (Normal) F856-GdB Penicillium chrysogen <0.10 kU/L (Normal) U087-NjB Cockroach, Citizen Of [place] <0.10 kU/L (Normal) Z683-QcY Soy Grass <0.10 kU/L (Normal) O679-RaQ [place] Grass <0.10 kU/L (Normal) R302-SpJ Dog Dander <0.10 kU/L (Normal) E929-GnQ Cat Dander <0.10 kU/L (Normal) H952-FaH D farinae <0.10 kU/L (Normal) T182-DjJ D pteronyssinus <0.10 kU/L (Normal) Immunoglobulin E, Total 33 {IU/mL} (Normal) Range: 0-100 Class Description SPRCS (Normal) Comments: Levels of Specific IgE Class Description of Class ----- < 0.10 0 Negative 0.10 - 0.31 0/I Equivocal/Low 0.32 - 0.55 I Low 0.56 - 1.40 II Moderate 1.41 - 3.90 III High 3.91 - 19.00 IV Very High 19.01 - 100.00 V Very High >100.00 Very High :48 TESTOSTERONE FREE (19444) Comments: PATIENT NOT FASTINGPERFORMED BY: [facility] [id number] BY: [address] [id number] Free Testosterone(Direct) 17.2 pg/mL (Normal) Range: 6.6-18.1 :48 HEPATITIS C ANTIBODY Comments: PATIENT NOT FASTINGPERFORMED BY: [facility] [id number] BY: [address] [id number] ([address]) Hep C Virus Ab <0.1 {s/co_ratio} (Normal) Range: 0.0-0.9 Comments: Negative: < 0.8 Indeterminate: 0.8 - 0.9 Positive: > 0.9 . The CDC recommends that a positive HCV antibody result be followed up with a HCV Nucleic Acid Amplification test (140068). :48 URINALYSIS (43011) Comments: PATIENT NOT FASTINGPERFORMED BY: [facility] [id number] BY: [address] [id number] Microscopic Examination MICNIP (Normal) Comments: Microscopic not indicated and not performed. Nitrite, Urine Negative (Normal) Urobilinogen,Semi-Qn 1.0 mg/dL (Normal) Range: 0.2-1.0 Bilirubin Negative (Normal) Occult Blood Negative (Normal) Ketones Negative (Normal) Glucose Negative (Normal) Protein Negative (Normal) WBC Esterase Negative (Normal) Appearance Clear (Normal) Urine-Color Yellow (Normal) pH 5.5 (Normal) Range: 5.0-7.5 Specific [place] 1.022 (Normal) Range: 1.005-1.030 :48 CBC WITH MANUAL DIFF Comments: PATIENT NOT FASTINGPERFORMED BY: [address] [id number] BY: BN [facility] [id number] Inf ormation: NURSE DRAW (54611) Immature Grans (Abs) 0.0 {x10E3/uL} (Normal) Range: 0.0-0.1 Immature Granulocytes 0 % (Normal) Baso (Absolute) 0.0 {x10E3/uL} (Normal) Range: 0.0-0.2 Eos (Absolute) 0.1 {x10E3/uL} (Normal) Range: 0.0-0.4 Monocytes(Absolute) 0.4 {x10E3/uL} (Normal) Range: 0.1-0.9 Lymphs (Absolute) 1.8 {x10E3/uL} (Normal) Range: 0.7-3.1 Neutrophils (Absolute) 4.1 {x10E3/uL} (Normal) Range: 1.4-7.0 Basos 0 % (Normal) Eos 1 % (Normal) Monocytes 7 % (Normal) Lymphs 28 % (Normal) Neutrophils 64 % (Normal) Platelets 258 {x10E3/uL} (Normal) Range: 150-379 RDW 13.5 % (Normal) Range: 12.3-15.4 MCHC 34.7 g/dL (Normal) Range: 31.5-35.7 MCH 32.4 pg (Normal) Range: 26.6-33.0 MCV 93 fL (Normal) Range: 79-97 Hematocrit 44.7 % (Normal) Range: 37.5-51.0 Hemoglobin 15.5 g/dL (Normal) Range: 13.0-17.7 Comments: Please note reference interval change RBC 4.79 {x10E6/uL} (Normal) Range: 4.14-5.80 WBC 6.5 {x10E3/uL} (Normal) Range: 3.4-10.8 2-Voy-322133:48 Metabolic Panel, Comments: PATIENT NOT FASTINGPERFORMED BY: [facility] [id number] [facility] [id number] BY: [facility] [id number] Comprehensive (75358) ALT (SGPT) 29 [iU]/L (Normal) Range: 0-44 AST (SGOT) 36 [iU]/L (Normal) Range: 0-40 Alkaline Phosphatase, S 55 [iU]/L (Normal) Range: 39-117 Bilirubin, Total 0.7 mg/dL (Normal) Range: 0.0-1.2 A/G Ratio 1.6 (Normal) Range: 1.2-2.2 Globulin, Total 2.6 g/dL (Normal) Range: 1.5-4.5 Albumin, Serum 4.2 g/dL (Normal) Range: 3.6-4.8 Protein, Total, Serum 6.8 g/dL (Normal) Range: 6.0-8.5 Calcium, Serum 9.7 mg/dL (Normal) Range: 8.6-10.2 Carbon Dioxide, Total 27 mmol/L (Normal) Range: 18-29 Chloride, Serum 99 mmol/L (Normal) Range: 96-106 Potassium, Serum 4.7 mmol/L (Normal) Range: 3.5-5.2 Sodium, Serum 140 mmol/L (Normal) Range: 134-144 BUN/Creatinine Ratio 16 (Normal) Range: 10-24 eGFR If Africn Am 102 mL/min/1.73 (Normal) eGFR If NonAfricn Am 88 mL/min/1.73 (Normal) Creatinine, Serum 0.93 mg/dL (Normal) Range: 0.76-1.27 BUN 15 mg/dL (Normal) Range: 8-27 Glucose, Serum 97 mg/dL (Normal) Range: 65-99 66-Thj-76144:33 CBC W/Diff, Automated Comments: [facility] [id number] [place], [place], [id number] ; will review on 02/28 Absolute Lymph 1.49 {X10_3/ul} (Normal) Range: 0.83-4.51 Absolute Neut 3.5 {X10_3/uL} (Normal) Range: 2.0-7.7 IM GRAN % 0.000 % (Normal) Range: 0.0-0.9 Comments: IG% - Immature Granulocytes (promyelocytes, myelocytes andmetamyelocytes) > 1% indicates that a LEFT SHIFT is Present. BASO% 0.2 % (Normal) Range: 0-1 EO% 1.5 % (Normal) Range: 0-5 MONO% 7.8 % (Normal) Range: 0-10 LY% 27.0 % (Normal) Range: 19-41 NEUT% 63.5 % (Normal) Range: 47-70 MPV 10.3 fL (Normal) Range: 6.2-12.0 PLT 226 K/mm3 (Normal) Range: 150-450 RDW SD 43.9 fL (Normal) Range: 35.1-43.9 RDW CV 12.8 % (Normal) Range: 11.6-14.6 MCHC 33.0 {g/gl} (Normal) Range: 32-36 MCH 31.0 pg (Normal) Range: 27.0-32.0 MCV 93.9 fL (Normal) Range: 80-94 HCT 44.5 % (Normal) Range: 40-54 HGB 14.7 g/dL (Normal) Range: 13.0-16.5 RBC 4.74 {M/mm3} (Normal) Range: 4.6-6.2 WBC 5.5 K/mm3 (Normal) Range: 4.4-11.0 19-Fpi-90347:33 Comprehensive Metabolic Profil Comments: [facility] [address] Re[place], [place], [id number] GAP 4 (Abnormal) Range: 5-15 CO2 29.0 mmol/L (Normal) Range: 21.0-32.0 CL 107 mmol/L (Normal) Range: 98-107 K 3.8 mmol/L (Normal) Range: 3.5-5.1 NA 140 mmol/L (Normal) Range: 136-145 T BILI 0.90 mg/dL (Normal) Range: 0.20-1.00 ALT 29 U/L (Normal) Range: 12-78 ALK P 55 U/L (Normal) Range: 45-117 AST 29 U/L (Normal) Range: 15-37 CA 9.0 mg/dL (Normal) Range: 8.5-10.1 A/G 1.1 {RATIO} (Normal) Range: 0.9-2.4 GLOB 3.2 g/dL (Normal) Range: 2.3-3.5 ALB 3.6 g/dL (Normal) Range: 3.4-5.0 T PROT 6.8 g/dL (Normal) Range: 6.4-8.2 BUN/CRE 17.1 {RATIO} (Normal) Range: 10-20 EST GFR - AA 113 mL/min (Normal) Comments: GFR Calc EST GFR 94 mL/min (Normal) Comments: Non- GFR Calc CREAT,SERUM 0.88 mg/dL (Normal) Range: 0.70-1.30 Comments: The validity of the calculated GFR AND GFRAA in patients over70 years has not been determined. Clinical correlation isessential. BUN 15 mg/dL (Normal) Range: 7-18 GLU 99 mg/dL (Normal) Range: 70-110 :33 CPK Total, Creatine Kinase Comments: [facility] [address] [facility]. [place], [place], [id number] CPK TOTAL 176 U/L (Normal) Range: 39-308 :33 Homocysteine Comments: [facility] [address] [facility]. [place], [place], [id number] HOMOCYSTEINE 7.1 umol/L (Normal) Range: 3.2-10.7 :33 NMR Lipoprofile Comments: [facility] (refer to report for specific site)refer to report for address and phone number; 02-28 LP-IR SCORE 84 (Abnormal) Comments: INSULIN RESISTANCE MARKER <--Insulin Sensitive Insulin Resistant--> Percentile in Reference PopulationInsulin Resistance ScoreLP-IR Score Low 25th 50th 75th High <27 27 45 63 >63LP-IR Score is inaccurate if patient is non-fasting.The LP-IR score is a laboratory developed index that hasbeen associated with insulin resistance and diabetes riskand should be used as one component of a physician'sclinical assessment. The LP-IR score listed above has notbeen cleared by the US Food and Drug Administration.Performed at: [facility] [address] [place] [id number] Director: Francois Davis MD, Phone: [phone] INS RES/DIAB RK . (Normal) LDL SIZE 20.2 nm (Normal) Comments: INTERPRETATIVE INFORMATION PARTICLE CONCENTRATION AND SIZE <--Lower CVD Risk Highe r CVD Risk--> LDL AND HDL PARTICLES Percentile in Reference Population HDL-P (total) High 75th 50th 25th Low >34.9 34.9 30.5 26.7 <26.7 Small LDL-P Low 25th 50th 75th High <117 117 527 839 >839 LDL Size <-Large (Pattern A)-> <-Small (Pattern B)-> 23.0 20.6 20.5 19.0 Small LDL-P and LDL Size are associated with CVD risk, butnot after LDL-P is taken into account .These assays were developed and their performancecharacteristics determined by [employer]. These assayshave not been cleared by the US Food and DrugAdministration. The clinical utility of these laboratoryvalues have not been fully established. SMALL LDL-P 1160 nmol/L (Abnormal) HDL-P TOTAL 29.5 umol/L (Abnormal) LD HD PARTICLES . (Normal) LDL-P 2173 nmol/L (Abnormal) Comments: Low < 1000 Moderate 1000 - 1299 Borderline-High 1300 - 1599 High 1600 - 2000 Very High > 2000 TRIGLYCERIDES 233 mg/dL (Abnormal) Range: 0-149 HDL-C 37 mg/dL (Abnormal) LDL-C 148 mg/dL (Abnormal) Range: 0-99 Comments: Optimal < 100 Above optimal 100 - 129 Borderline 130 - 159 High 160 - 189 Very high > 189LDL-C is inaccurate if patient is non-fasting. CHOLESTEROL TOT 232 mg/dL (Abnormal) Range: 100-199 LIPIDS . (Normal) 08-Vqm-70791:33 Testosterone Free Comments: [facility] (refer to report for specific site)refer to report for address and phone number TEST FR [id number] 15.2 pg/mL (Normal) Range: 6.6-18.1 Comments: Performed at: [address] [place] [id number] Director: Francois Davis MD, Phone: [phone] 17-May-20164:30 Pathology Report Comments: PERFORMED BY: [facility] [place] Cyto Hjppa64386 [facility] [id number] Information: [id number] See MATER Comments: Material submitted: .PART A: PUNCH BIOPSY BACKPART B: SKIN PUNCH BIOPSY THIGH RIGHTClinician provided ICD-10:D49.2Clinical history: Note (Normal) .A: CHANGING MOLE ON BACK, BLEED.B: DARK ABNORMAL MOLE.CLIENT CONTACTED. SPECIMEN B VERIFIED RIGHT THIGH ROSANNE Pablo 05/19/16 1115 KYT Diagnosis:PART A: BIOPSY BACK::HEMANGIOMA (BENIGN).PART B: THIGH RIGHT::HEMANGIOMA (BENIGN)...05/21/2016Elect ro nically signed: .Roberto Bazzi MD, PathologistGross description: .2 CONTAINERS, FORMALIN-FILLED, LABELED WITH PATIENT MAJO NTIFICATION.Part A: PUNCH BIOPSY BACK:1 PUNCH BIOPSY OF SOARES-YELLOW SKIN MEASURING 0.4 X 0.4 X 0.5 CM. ONTHE SURFACE IS A RAISED SOARES-YOU 0.3 CM LESION. THE SURGICAL MARGINIS INKED BLUE AND THE SPECIMEN IS BISECTED. THE SPECIMEN IS SUBMITTEDIN CASSETTE(S) A.Part B: SKIN PUNCH BIOPSY THIGH RIGHT:1 PUNCH BIOPSY OF SOARES-YELLOW SKIN MEASURING 0.3 X 0.3 X 0.5 CM. ONTHE SURFACE IS A RAISED SOARES-YOU 0.2 CM LES ION. THE SURGICAL MARGINIS INKED GREEN AND THE SPECIMEN IS BISECTED. THE SPECIMEN ISSUBMITTED IN CASSETTE(S) B./LMSLMS/LMSPathologist provided ICD-10:D18.01, L98.9, D49.2CPT .747173, 091181 95-Cfr-089903:31 ESTRADIOL (42226) Comments: recheck in 3 months; PATIENT NOT FASTINGPERFORMED BY: [facility] [id number] BY: Cuyana[address] [id number] Information: NURSE DRAW Estradiol 17.5 pg/mL (Normal) Range: 7.6-42.6 Comments: [employer] MooseIA methodology 91-Vnm-736890:31 TESTOSTERONE FREE (87555) Comments: recheck in 3 months; PATIENT NOT FASTINGPERFORMED BY: Bouflin6370 [facility] [id number] BY: Cuy[address] [id number] Free Testosterone(Direct) 14.6 pg/mL (Normal) Range: 6.6-18.1 30-Fcr-354710:31 PSA (Prostate Specific Comments: re check in 3 months; PATIENT NOT FASTINGPERFORMED BY: Bouflin6370 [facility] [id number] BY: Cuy[address] [id number]; 09-14 Antigen), Diagnostic (21804) Prostate Specific Ag, 0.6 ng/mL (Normal) Range: 0.0-4.0 Serum Comments: Tahir ECLIA methodology. .According to the [place] [employer], Serum PSA shoulddecrease and remain at undetectable levels after radicalprostatectomy. The AUA defines biochemical recurrence as an initialPSA value 0.2 ng/mL or greater followed by a subsequent confirmatoryPSA value 0.2 ng/mL or greater.Values obtained with d ifferent assay methods or kits cannot be usedinterchangeably. Results cannot be interpreted as absolute evidenceof the presence or absence of malignant disease. 59-Ciz-865144:05 FSH and LH Comments: PATIENT NOT FASTINGPERFORMED BY: [facility] Njgpsp[address] [place] [id number] Information: [id number], [id number]; will f/u on 05/17 FSH 9.6 m[iU]/mL Range: 1.5-12.4 (Normal) LH 6.3 m[iU]/mL Range: 1.7-8.6 (Normal) Written Authorization WAR (Normal) Comments: PATIENT NOT FASTINGPERFORMED BY: CB [facility] Ofnsxy2268 [address]za RoadDublin [place] [id number] 4:05 Comments: Written Authorization Received.Authorization received from SIGNATURE ON FILE [id number] by Yanna Matos :05 Methymalonic Acid, Serum Comments: PATIENT NOT FASTINGPERFORMED BY: [facility] [id number] BY: [facility] Cqlsfh[address] [facility] [place] [id number] ([address]) Methylmalonic Acid, Serum 202 nmol/L (Normal) Range: 0-378 42-Rzm-704090:05 Vitamin B-12 Comments: PATIENT NOT FASTINGPERFORMED BY: [facility] [address] [id number] BY: [facility] Rqdwza[address] [facility] [place] [id number] (cyanocobalamin) (03596) Vitamin B12 724 pg/mL (Normal) Range: 211-946 55-Php-081361:05 TESTOSTERONE FREE (66476) Comments: in am; PATIENT NOT FASTINGPERFORMED BY: [facility] [id number] BY: [facility] O[address]lb[address] [facility] [place] [id number] Information: [id number], [id number] Free Testosterone(Direct) 5.6 pg/mL (Abnormal) Range: 6.6-18.1 14-Eed-37114:44 PSA (Prostate Specific Comments: PATIENT NOT FASTINGPERFORMED BY: CB [facility] [address] [place] [id number] Information: [id number],NURSE DRAW Antigen), Screening (56609) Prostate Specific Ag, 0.6 ng/mL (Normal) Range: 0.0-4.0 Serum Comments: Tahir ECLIA methodology. .According to the [place] [employer], Serum PSA shoulddecrease and remain at undetectable levels after radicalprostatectomy. The AUA defines biochemical recurrence as an initialPSA value 0.2 ng/mL or greater followed by a subsequent confirmatoryPSA value 0.2 ng/mL or greater.Values obtained with d ifferent assay methods or kits cannot be usedinterchangeably. Results cannot be interpreted as absolute evidenceof the presence or absence of malignant disease. :19 Lipid Profile Comments: Test performed at:[facility] [address] [place] [address] VLDL 10 mg/dL (Normal) Range: 5-40 LDL 56 mg/dL (Normal) Range: 0-130 HDL 42 mg/dL (Normal) Comments: Reference Range HDL <40 mg/dL Low HDL Cholesterol HDL >or= 60 mg/dL High HDL Cholesterol TRIG 51 mg/dL (Normal) Range: 0-199 Comments: Serum Triglycerides Reference Interval Normal <150 mg/dL Borderline high 150 - 199 mg/dL High 200 - 499 mg/dL Very High > or = 500 mg/dL CHOL 108 mg/dL (Normal) Comments: <200 mg/dL Desirable 200-240 mg/dL Borderline >240 mg/dL High Risk :19 Liver Profile Comments: Test performed at:[facility] [address]orm[address] [facility]. [place], [place] [id number] D BILI 0.25 mg/dL (Normal) Range: 0.00-0.30 T BILI 1.00 mg/dL (Normal) Range: 0.20-1.00 ALT 45 U/L (Normal) Range: 12-78 ALK P 56 U/L (Normal) Range: 50-136 AST 41 U/L (Abnormal) Range: 15-37 GLOB 2.9 g/dL (Normal) Range: 2.7-4.2 ALB 3.9 g/dL (Normal) Range: 3.4-5.0 T PROT 6.8 g/dL (Normal) Range: 6.4-8.2 :12 A1C 5.9 % (Normal) Range: 4.2-6.3 :49 Hemoglobin Glyclated (HGB Comments: PATIENT NOT FASTINGPERFORMED BY: [facility] Uiakjq0106 [facility] [id number] Information: [id number] A1C) (54961) Hemoglobin A1c 6.0 % (Abnormal) Range: 4.8-5.6 Comments: . Increased risk for diabetes: 5.7 - 6.4 Diabetes: >6.4 Glycemic control for adults with diabetes: <7.0 :03 BMP CO2 30.0 mmol/L (Normal) Range: 21.0-32.0 GAP 9 (Normal) Range: 5-15 CL 104 mmol/L (Normal) Range: 98-107 K 4.6 mmol/L (Normal) Range: 3.5-5.1 NA 143 mmol/L (Normal) Range: 136-145 BC 14.0 {RATIO} (Normal) Range: 10-20 CA 9.4 mg/dL (Normal) Range: 8.5-10.1 GFRAA 99 mL/min (Normal) GFR 82 mL/min (Normal) CREAT 1.0 mg/dL (Normal) Range: 0.8-1.3 BUN 14 mg/dL (Normal) Range: 7-18 GLU 114 mg/dL (Abnormal) Range: 70-110 Comments: Fasting Glucose result from 110 to <126 mg/dLsuggests IMPAIRED HOMEOSTASIS per A.D.A. criteria. :03 CBC MPV 10.3 fL (Normal) Range: 6.2-12.0 PLT 240 K/mm3 (Normal) Range: 150-450 RDWCV 12.3 % (Normal) Range: 11.6-14.6 RDWSD 39.7 fL (Normal) Range: 35.1-43.9 MCHC 33.9 g/dL (Normal) Range: 32-36 MCH 30.4 pg (Normal) Range: 27.0-32.0 MCV 89.7 fL (Normal) Range: 80-94 HCT 44.5 % (Normal) Range: 40-54 HGB 15.1 g/dL (Normal) Range: 13.0-16.5 RBC 4.96 {M/mm3} (Normal) Range: 4.6-6.2 WBC 6.0 {k/mm3} (Normal) Range: 4.4-11.0 :03 LIPID VLDL 27 mg/dL (Normal) Range: 5-40 LDL 49 mg/dL (Normal) Range: 0-130 HDL 41 mg/dL (Normal) Comments: Reference RangeHDL <40 mg/dL Low HDL CholesterolHDL >or= 60 mg/dL High HDL Cholesterol TRIG 136 mg/dL (Normal) Comments: Serum Triglycerides Reference IntervalNormal <150 mg/dLBorderline high 150 - 199 mg/dLHigh 200 - 499 mg/ dLVery High > or = 500 mg/dL CHOL 117 mg/dL (Normal) Comments: <200 mg/dL Pqvooxvza110-560 mg/dL Borderline>240 mg/dL High Risk :03 LIVER BID 0.17 mg/dL (Normal) Range: 0.00-0.30 ALK 45 U/L (Abnormal) Range: 50-136 ALT 58 U/L (Normal) Range: 12-78 BIT 0.60 mg/dL (Normal) Range: 0.00-1.00 ALB 4.0 g/dL (Normal) Range: 3.4-5.0 AST 44 U/L (Abnormal) Range: 15-37 TPROT 7.0 g/dL (Normal) Range: 6.4-8.2 :03 PSA 0.66 ng/mL (Normal) Range: 0.00-4.00 :03 TSH 1.84 {uIU/mL} (Normal) Range: 0.358-3.74 :37 BMP GAP 7 (Normal) Range: 5-15 CO2 30.0 mmol/L (Normal) Range: 21.0-32.0 CL 103 mmol/L (Normal) Range: 98-107 K 4.3 mmol/L (Normal) Range: 3.5-5.1 NA 140 mmol/L (Normal) Range: 136-145 CA 9.6 mg/dL (Normal) Range: 8.5-10.1 BUN/CRE 14.5 {RATIO} (Normal) Range: 10-20 EST GFR - AA 90 mL/min (Normal) EST GFR 74 mL/min (Normal) CREAT,SERUM 1.1 mg/dL (Normal) Range: 0.8-1.3 BUN 16 mg/dL (Normal) Range: 7-18 GLU 108 mg/dL (Normal) Range: 70-110 :37 CBCD ABSOLUTE NEUT 4.6 3/uL (Normal) Range: 2.0-7.7 BASO% 0.3 % (Normal) Range: 0-1 EO% 2.0 % (Normal) Range: 0-5 MONO% 6.9 % (Normal) Range: 0-10 LY% 23.6 % (Normal) Range: 19-41 NEUT% 67.2 % (Normal) Range: 47-70 MPV 8.8 fL (Normal) Range: 6.5-12.0 PLT 236 K/mm3 (Normal) Range: 150-450 RDW 13.1 % (Normal) Range: 11.6-14.6 MCHC 34.9 g/dL (Normal) Range: 32-36 MCH 32.7 pg (Abnormal) Range: 27.0-32.0 MCV 93.8 fL (Normal) Range: 80-94 HCT 43.8 % (Normal) Range: 40-54 HGB 15.3 g/dL (Normal) Range: 14.0-18.0 RBC 4.67 {M/mm3} (Normal) Range: 4.6-6.2 WBC 6.8 K/mm3 (Normal) Range: 4.4-11.0 :37 LIPID VLDL 26 mg/dL (Normal) Range: 5-40 LDL 49 mg/dL (Normal) Range: 0-130 HDL 41 mg/dL (Normal) Comments: Reference Range HDL <40 mg/dL Low HDL Cholesterol HDL >or= 60 mg/dL High HDL Cholesterol TRIG 128 mg/dL (Normal) Comments: Serum Triglycerides Reference Interval Normal <150 mg/dL Borderline high 150 - 199 mg/dL High 200 - 499 mg/dL Very High > or = 500 mg/dL CHOL 116 mg/dL (Normal) Comments: <200 mg/dL Desirable 200-240 mg/dL Borderline >240 mg/dL High Risk :37 LIVER D BILI 0.17 mg/dL (Normal) Range: 0.00-0.30 T BILI 0.60 mg/dL (Normal) Range: 0.00-1.00 ALT 65 U/L (Normal) Range: 12-78 ALK P 66 U/L (Normal) Range: 50-136 AST 50 U/L (Abnormal) Range: 15-37 ALB 4.1 g/dL (Normal) Range: 3.4-5.0 T PROT 7.5 g/dL (Normal) Range: 6.4-8.2 :37 PSA, SCREEN 0.3 ng/mL (Normal) Range: 0.0-4.0 :37 TSH 3.04 {uIU/mL} (Normal) Range: 0.358-3.74 :43 LIPID HDL 42 mg/dL (Normal) Comments: Reference RangeHDL <40 mg/dL Low HDL CholesterolHDL >or= 60 mg/dL High HDL Cholesterol LDL 79 mg/dL (Normal) Range: 0-130 TRIG 120 mg/dL (Normal) Comments: Serum Triglycerides Reference IntervalNormal <150 mg/dLBorderline high 150 - 199 mg/dLHigh 200 - 499 mg/ dLVery High > or = 500 mg/dL VLDL 24 mg/dL (Normal) Range: 5-40 CHOL 145 mg/dL (Normal) Comments: <200 mg/dL Ynusmktsm228-316 mg/dL Borderline>240 mg/dL High Risk :43 LIVER D BILI 0.20 mg/dL (Normal) Range: 0.00-0.30 T BILI 0.80 mg/dL (Normal) Range: 0.00-1.00 ALB 3.9 g/dL (Normal) Range: 3.4-5.0 ALK P 63 U/L (Normal) Range: 50-136 ALT 45 U/L (Normal) Range: 12-78 AST 41 U/L (Abnormal) Range: 15-37 T PROT 7.4 g/dL (Normal) Range: 6.4-8.2 :50 LIPID VLDL 12 mg/dL (Normal) Range: 5-40 CHOL 100 mg/dL (Normal) Comments: <200 mg/dL Ubmnooafv584-924 mg/dL Borderline>240 mg/dL High Risk HDL 37 mg/dL (Normal) Comments: Reference RangeHDL <40 mg/dL Low HDL CholesterolHDL >or= 60 mg/dL High HDL Cholesterol LDL 51 mg/dL (Normal) Range: 0-130 TRIG 59 mg/dL (Normal) Comments: Serum Triglycerides Reference IntervalNormal <150 mg/dLBorderline high 150 - 199 mg/dLHigh 200 - 499 mg/ dLVery High > or = 500 mg/dL 02-Tzt-119555:50 LIVER ALT 49 U/L (Normal) Range: 12-78 D BILI 0.22 mg/dL (Normal) Range: 0.00-0.30 T BILI 0.80 mg/dL (Normal) Range: 0.00-1.00 ALB 3.7 g/dL (Normal) Range: 3.4-5.0 ALK P 49 U/L (Abnormal) Range: 50-136 AST 42 U/L (Abnormal) Range: 15-37 T PROT 7.0 g/dL (Normal) Range: 6.4-8.2 51-Pnl-287238:51 ACUTE ABDOMEN, INC CHEST ([place]) Radiology Report See Note (Normal) Comments: Exam Number: [id number] ACUTE ABDOMINAL SERIES WITH PA CHEST INDICATIONSevere abdominal pain. Pain radiating laterally to the right. FINDINGSPA chest is normal. There is no infiltrate or effusion. C ardiac andmediastinal outlines are unremarkable. Evaluation of the abdomen reveals a mild ileus pattern seen in theperiumbilical location. No free air, organomegaly, or pathologicupper abdominal calc ifications are present. In the pelvis, there is alarge calcification in the lower right pelvis and calcified pelvicphleboliths on the right. I suspect that the calcification at theright pelvis is also a calcified phlebolith; however, if symptomsreferable to possible ureteral calculus are present, CT urogram isrecommended for localization of this 1 cm x 0.5 cm calcification. IMPRESSION 1. Normal c hest. 2. Calcification in the low right pelvis, which conceivably couldrepresent a distal ureteral calculus. Clinical correlation isrecommended, and CT urogram is suggested for further evaluation ifc linical symptoms are suggestive of ureteral calculus. No renalcalculus identified. 3. Mild ileus pattern seen in the periumbilical location of theabdomen. Reported By: DEVIN SANDHU M.D. 61-Kcw-573109:55 ABDOMEN LIMITED US () Radiology Report See Note (Normal) Comments: Exam Number: [id number] LIMITED ABDOMINAL ULTRASOUND HISTORYRight upper quadrant pain. TECHNIQUEHigh- resolution, real-time sector images were obtained. FINDINGSThe gallbladder is within normal limit s in size. The wall is notthickened. No stones are seen. Common duct is normal at 5 mm. Theliver is homogeneous in echotexture. There are no dilatedintrahepatic ducts identified. What is seen of t he pancreas isnormal. The right kidney is normal in size. There is thinning ofright renal cortex. The right renal pelvis appear prominent; however,there is no dilatation of calices. This may therefo re represent anextrarenal pelvis as a normal variant. IMPRESSION 1. Gallbladder, liver, biliary duct and pancreas are within normallimits. 2. There is thinning of right renal cortex. 3. The right renal pelvis is prominent in size; however, there is nodilatation of calices, and this finding is likely to represent anextrarenal pelvis as a normal variant. Reported By: MELLISA BARRETO M.D. JAEL 29 U/L (Normal) Range: 25-115 :42 :42 CBCD,SMEAR DIFF CELLS COUNTED 100 (Normal) HCT 46.3 % (Normal) Range: 40-54 HGB 15.3 g/dL (Normal) Range: 14.0-18.0 LYMPH 36 % (Normal) Range: 19-41 MCH 32.0 pg (Normal) Range: 27.0-32.0 MCHC 32.9 g/dL (Normal) Range: 32-36 MCV 97.2 fL (Abnormal) Range: 80-94 MONOCYTE 6 % (Normal) Range: 0-10 PLT 222 K/mm3 (Normal) Range: 150-450 PLT EST SeeNote (Normal) Comments: Result: ADEQUATE RBC 4.77 {M/mm3} (Normal) Range: 4.6-6.2 RDW 12.7 % (Normal) Range: 11.6-14.6 RED CELL MORPH SeeNote {NORMAL} (Normal) Comments: Result: NORM C+C SEGS 58 % (Normal) Range: 47-70 WBC 5.8 K/mm3 (Normal) Range: 4.4-11.0 :42 COMP METABOLIC ALK P 53 U/L (Normal) Range: 50-136 ALT 60 U/L (Normal) Range: 30-65 CL 106 mmol/L (Normal) Range: 98-107 CO2 30.0 mmol/L (Normal) Range: 21.0-32.0 GAP 6 (Normal) Range: 5-15 K 4.6 mmol/L (Normal) Range: 3.5-5.1 NA 142 mmol/L (Normal) Range: 136-145 T BILI 0.50 mg/dL (Normal) Range: 0.00-1.00 A/G 1.3 {RATIO} (Normal) Range: 0.9-2.4 ALB 4.1 g/dL (Normal) Range: 3.4-5.0 AST 39 U/L (Abnormal) Range: 15-37 BUN 16 mg/dL (Normal) Range: 7-18 BUN/CRE 16.0 {RATIO} (Normal) Range: 10-20 CA 9.7 mg/dL (Normal) Range: 8.5-10.1 CREAT,SERUM 1.0 mg/dL (Normal) Range: 0.8-1.3 EST GFR 83 mL/min (Normal) EST GFR - AA 101 mL/min (Normal) GLOB 3.1 g/dL (Normal) Range: 2.7-4.2 GLU 101 mg/dL (Normal) Range: 70-110 T PROT 7.2 g/dL (Normal) Range: 6.4-8.2 :42 LIPASE 148 U/L (Normal) Range: 114-286 :25 CBCD Comments: DR. MENG ORDERED LIPID/LPDR.LIPID CMP CBCD PSA UA BASO% 0.3 % (Normal) Range: 0-1 EO% 0.8 % (Normal) Range: 0-5 LY% 32.8 % (Normal) Range: 19-41 MCHC 34.5 g/dL (Normal) Range: 32-36 MONO% 9.1 % (Normal) Range: 0-10 MPV 8.8 fL (Normal) Range: 6.5-12.0 NEUT% 57.0 % (Normal) Range: 47-70 PLT 230 K/mm3 (Normal) Range: 150-450 RDW 12.9 % (Normal) Range: 11.6-14.6 HCT 41.8 % (Normal) Range: 40-54 HGB 14.4 g/dL (Normal) Range: 14.0-18.0 MCH 31.8 pg (Normal) Range: 27.0-32.0 MCV 92.3 fL (Normal) Range: 80-94 RBC 4.53 {M/mm3} (Abnormal) Range: 4.6-6.2 WBC 5.3 K/mm3 (Normal) Range: 4.4-11.0 60-Ewr-002131:25 COMP METABOLIC Comments: DR. MENG ORDERED LIPID/LPDR.LIPID CMP CBCD PSA UA A/G 1.1 {RATIO} (Normal) Range: 0.9-2.4 ALB 3.8 g/dL (Normal) Range: 3.4-5.0 ALK P 65 U/L (Normal) Range: 50-136 ALT 50 U/L (Normal) Range: 30-65 AST 42 U/L (Abnormal) Range: 15-37 BUN 18 mg/dL (Normal) Range: 7-18 BUN/CRE 18.0 {RATIO} (Normal) Range: 10-20 CA 9.1 mg/dL (Normal) Range: 8.5-10.1 CL 104 mmol/L (Normal) Range: 98-107 CO2 27.0 mmol/L (Normal) Range: 21.0-32.0 CREAT,SERUM 1.0 mg/dL (Normal) Range: 0.8-1.3 EST GFR 83 mL/min (Normal) EST GFR - AA 101 mL/min (Normal) GAP 8 (Normal) Range: 5-15 GLOB 3.6 g/dL (Normal) Range: 2.7-4.2 GLU 93 mg/dL (Normal) Range: 70-110 K 4.1 mmol/L (Normal) Range: 3.5-5.1 NA 139 mmol/L (Normal) Range: 136-145 T BILI 0.80 mg/dL (Normal) Range: 0.00-1.00 T PROT 7.4 g/dL (Normal) Range: 6.4-8.2 66-Fmx-724268:25 D BILI 0.15 mg/dL (Normal) Comments: DR. MENG ORDERED LIPID/LPDR.LIPID CMP CBCD PSA UA Range: 0.00-0.30 18-Vnw-349390:25 LIPID Comments: DR. MENG ORDERED LIPID/LPDR.LIPID CMP CBCD PSA UA CHOL 141 mg/dL (Normal) Comments: <200 mg/dL Desirable 200-240 mg/dL Borderline >240 mg/dL High Risk HDL 46 mg/dL (Normal) Comments: Reference Range HDL <40 mg/dL Low HDL Cholesterol HDL >or= 60 mg/dL High HDL Cholesterol LDL 83 mg/dL (Normal) Range: 0-130 TRIG 60 mg/dL (Normal) Comments: Serum Triglycerides Reference Interval Normal <150 mg/dL Borderline high 150 - 199 mg/dL High 200 - 499 mg/dL Very High > or = 500 mg/dL VLDL 12 mg/dL (Normal) Range: 5-40 :25 PSA, SCREEN 0.3 ng/mL (Normal) Comments: DR. MENG ORDERED LIPID/LPDR.LIPID CMP CBCD PSA UA Range: 0.0-4.0 86-Rcy-438705:25 ROUTINE UA Comments: DR. MENG ORDERED LIPID/LPDR.LIPID CMP CBCD PSA UA BILIRUBIN URINE SeeNote (Normal) Comments: Result: NEGATIVE CLARITY CLEAR (Normal) COLOR YELLOW (Normal) GLUCOSE, UR SeeNote (Normal) Comments: Result: NEGATIVE KETONE UR SeeNote mg/dL Comments: Result: NEGATIVE (Normal) LEUK ESTERASE SeeNote (Normal) Comments: Result: NEGATIVE NITRITE UR SeeNote (Normal) Comments: Result: NEGATIVE OCCULT BLOOD-UR SeeNote (Normal) Comments: Result: NEGATIVE pH UR 6.0 (Normal) Range: 5.0-8.0 PROT DIPSTX SeeNote (Normal) Comments: Result: NEGATIVE SP.GR. DIPSTX 1.025 (Normal) Range: 1.002-1.030 UROBILI 0.2 EU/dl (Normal) Range: 0.2 - 1.0 : CULTURE, THROAT See Note (Normal) Comments: No Group A Beta Streptococcus isolated. # 1 Ampicillin can be used for Beta-Lactamase negativeisolates. Trimeth/Sulfa, Chloramphenicol, Cefotaxime, Ciprofloxacin,Amoxicillin/Clavulanic Acid,and Oral 2n 28 d/3rd GenerationCephlosporins are effective against both Beta-Lactamasepositive and Beta-Lactamase negative isolates. TRUPTI (REPORTABLE) NEGATIVE AMOUNT GROWTH 3+ ORGANISM 1: HAEMOPHILUS INFLUENZA [id number] Rapid Strep Test, Office ([id number]) Rapid Strep Test, Office Negative (Normal) :23 CBCD,SMEAR DIFF CELLS COUNTED 100 (Normal) LYMPH 40 % (Normal) Range: 19-41 MONOCYTE 4 % (Normal) Range: 0-10 PLT EST SeeNote (Normal) Comments: Result: ADEQUATE REACTIVE LYMPH RARE (Normal) RED CELL MORPH SeeNote {NORMAL} (Normal) Comments: Result: NORM C+C SEGS 56 % (Normal) Range: 47-70 HCT 42.1 % (Normal) Range: 40-54 HGB 15.0 g/dL (Normal) Range: 14.0-18.0 MCH 32.3 pg (Abnormal) Range: 27.0-32.0 MCHC 35.7 g/dL (Normal) Range: 32-36 MCV 90.5 fL (Normal) Range: 80-94 PLT 257 K/mm3 (Normal) Range: 150-450 RBC 4.66 {M/mm3} (Normal) Range: 4.6-6.2 RDW 12.3 % (Normal) Range: 11.6-14.6 WBC 4.7 K/mm3 (Normal) Range: 4.4-11.0 :23 COMP METABOLIC A/G 1.0 {RATIO} (Normal) Range: 0.9-2.4 ALB 3.6 g/dL (Normal) Range: 3.4-5.0 ALK P 67 U/L (Normal) Range: 50-136 ALT 61 [iU]/L (Normal) Range: 30-65 AST 52 U/L (Abnormal) Range: 15-37 BUN 20 mg/dL (Abnormal) Range: 7-18 BUN/CRE 18.2 {RATIO} (Normal) Range: 10-20 CA 9.6 mg/dL (Normal) Range: 8.5-10.1 CL 104 mmol/L (Normal) Range: 98-107 CO2 30.4 mmol/L (Normal) Range: 21.0-32.0 Comments: Please Note Reference Interval Change CREAT,SERUM 1.1 mg/dL (Normal) Range: 0.8-1.3 GAP 5 (Normal) Range: 5-15 GLOB 3.6 g/dL (Normal) Range: 2.7-4.2 Comments: Please Note Reference Interval Change GLU 100 mg/dL (Normal) Range: 70-110 K 4.3 mmol/L (Normal) Range: 3.5-5.1 NA 139 mmol/L (Normal) Range: 136-145 T BILI 0.66 mg/dL (Normal) Range: 0.00-1.00 T PROT 7.2 g/dL (Normal) Range: 6.4-8.2 :23 LIPID CHOL 150 mg/dL (Normal) Comments: <200 mg/dL Desirable 200-240 mg/dL Borderline >240 mg/dL High Risk HDL 35 mg/dL (Normal) Comments: Reference Range HDL <40 mg/dL Low HDL Cholesterol HDL >or= 60 mg/dL High HDL Cholesterol LDL 100 mg/dL (Normal) Range: 0-130 TRIG 74 mg/dL (Normal) Comments: Serum Triglycerides Reference Interval Normal <150 mg/dL Borderline high 150 - 199 mg/dL High 200 - 499 mg/dL Very High > or = 500 mg/dL VLDL 15 mg/dL (Normal) Range: 5-40 :23 PSA,TOT SCREEN 0.32 ng/mL (Normal) Range: 0.00-4.00 Comments: This test was performed using the TPSA method for the[employer] chemistry system.Values obtained with different assay methods cannot be usedinterchangably.When changing PSA assays in the course of monito ring apatient, additional sequential testing should be carriedout to confirm baseline values. Plan of Care Name Dates Details Instructions BPH (benign prostatic hypertrophy) with urinary obstruction (Renamed from BPH with urinary obstruction) : Eprescribed prescriptions (G8553) Indication: BPH (benign prostatic hypertrophy) with urinary obstruction (Renamed from BPH with urinary obstruction) Backache : Eprescribed prescriptions (G8553) Indication: Backache Low back pain : Eprescribed prescriptions (G8553) Indication: Low back pain Nonsmoker : Follow up if no improvement or if symptoms worsen Indication: Nonsmoker Neck stiffness : Eprescribed prescriptions (G8553) Indication: Neck stiffness Verrucous keratosis : Histofreeze - Wart Indication: Verrucous keratosis BMI 31.0-31.9,adult : Eprescribed prescriptions (G8553) Indication: BMI 31.0-31.9,adult Nonsmoker : Eprescribed prescriptions (G8553) Indication: Nonsmoker Neoplasm of uncertain behavior of skin : Punch Biopsy with Epi Indication: Neoplasm of uncertain behavior of skin Nonsmoker : Eprescribed prescriptions (G8553) Indication: Nonsmoker Need for prophylactic vaccination and inoculation against influenza : Flu (Influenza) *: flu Indication: Need for prophylactic vaccination and inoculation against influenza Need for prophylactic vaccination and inoculation against influenza : Flu (Influenza) *: flu shot Indication: Need for prophylactic vaccination and inoculation against influenza Muscle spasm of back : Follow up if no improvement or if symptoms worsen Indication: Muscle spasm of back Allergic rhinitis : Allergic Rhinitis *: allergic rhinitis Indication: Allergic rhinitis Epigastric pain : Reviewed Lab Indication: Epigastric pain Epigastric pain : GERD Education Indication: Epigastric pain Pharyngitis, acute : Antibiotic Usage Education - Male Indication: Pharyngitis, acute Pharyngitis, acute : Sore throat: diagnosis and treatment Indication: Pharyngitis, acute Planned Observations PSA (Prostate Specific Antigen), Screening (97388)Indication: Screening for prostate cancer On: 62-Twa-603995:50 Request URINALYSIS (17701)Indication: Elevated LFTs On: 42-Dpf-508478:48 Request Metabolic Panel, Comprehensive (67701)Indication: Elevated LFTs On: :48 Request CBC WITH MANUAL DIFF (52811)Indication: Elevated LFTs On: :48 Request CALCIFIDIOL (79270) VIT D 25Indication: Vitamin D insufficiency On: 94-Xnv-567763:44 Request METABOLIC PANEL, COMPREHENSIVE (62574)Indication: Hyperlipidemia, unspecified On: :43 Request LIPOPROTEIN, BLD, BY NMR (17392)Indication: Hyperlipidemia, unspecified On: :43 Request Homocysteine, Plasma (14038)Indication: Homozygous MTHFR mutation [id number] On: 13-Fgm-411882:40 Request METABOLIC PANEL, COMPREHENSIVE (43016)Indication: Hypercholesterolemia On: 7-Quk-359866:55 Request TESTOSTERONE FREE (20959)Indication: Testosterone deficiency On: :27 Request CBC, Platelets & Auto Diff (75400)Indication: Testosterone deficiency On: :27 Request Creatine Kinase Total (61881)Indication: Hypercholesterolemia On: :18 Request LIPOPROTEIN, BLD, BY NMR (43342)Indication: Hypercholesterolemia On: :18 Request Homocysteine, Plasma (76614)Indication: Homozygous MTHFR mutation [id number] On: :17 Request CBC WITH MANUAL DIFF (15665)Indication: Testosterone deficiency On: :41 Request Comments: re check in 3 months CBC with auto diff (06346)Indication: Elevated LFTs On: :49 Request Comments: copy to Dr. sky URINALYSIS, W/ MICRO ([id number])Indication: Coronary artery disease On: :39 Request METABOLIC PANEL, COMPREHENSIVE ([id number])Indication: Elevated LFTs On: :38 Request LIPID PANEL (48564)Indication: Coronary artery disease On: 3-Qyg-385657:38 Request Hemoglobin Glyclated (HGB A1C) (60199)Indication: IFG (impaired fasting glucose) On: :06 Request Comments: recheck in 3 months LIPID PANEL (39710)Indication: Hypercholesterolemia On: : Request PSA (PROSTATE SPECIFIC ANTIGEN) (V76.44)Indication: Encounter for health maintenance examination with abnormal findings On: : Request CBC (Auto) ([id number])Indication: Coronary artery disease On: : Request Metabolic Panel, Basic (95698)Indication: Coronary artery disease On: 5-Tyz-640576:01 Request TSH (36449)Indication: Anxiety On: : Request CBC & PLATELETS (AUTO) (24414)Indication: Hypercholesterolemia On: :56 Request LIPID PANEL (22183)Indication: Hypercholesterolemia On: :56 Request METABOLIC PANEL, COMPREHENSIVE (69377)Indication: Hypercholesterolemia On: :55 Request Metabolic Panel, Basic (17995)Indication: Hypercholesterolemia On: :31 Request Lipid Panel ([id number])Indication: Hypercholesterolemia On: 60-Iew-81426:30 Request PSA (PROSTATE SPECIFIC ANTIGEN) (V76.44)Indication: Encounter for health maintenance examination with abnormal findings On: : Request CBC (Auto) (59197)Indication: Coronary artery disease On: :28 Request Metabolic Panel, Basic (77190)Indication: Coronary artery disease On: :28 Request TSH (87834)Indication: Anxiety On: :28 Request PSA (PROSTATE SPECIFIC ANTIGEN) (V76.44)Indication: Encounter for health maintenance examination with abnormal findings On: :30 Request TSH ([id number])Indication: Anxiety On: :30 Request METABOLIC PANEL, COMPREHENSIVE (10203)Indication: Hypercholesterolemia On: 0-Rkd-022406:30 Request LIPID PANEL (41554)Indication: Hypercholesterolemia On: :30 Request CBC WITH MANUAL DIFF (75481)Indication: Hypercholesterolemia On: :30 Request Lipase (64389)Indication: Epigastric pain On: 1-Wng-796935:24 Request Amylase (92016)Indication: Epigastric pain On: 6-Jbe-113564:24 Request Metabolic Panel, Comprehensive ([id number])Indication: Epigastric pain On: 7-Hwr-104906:24 Request CBC with manual diff (75514)Indication: Epigastric pain On: 6-Drk-401117:24 Request Metabolic Panel, Comprehensive ([id number])Indication: Coronary artery disease On: 82-Mjh-427710:13 Request URINALYSIS (72833)Indication: Coronary artery disease On: 15-Bag-143267:30 Request CBC (Auto) (90353)Indication: Coronary artery disease On: 19-Cef-951629:30 Request Lipid Panel (06322)Indication: Coronary artery disease On: 40-Quv-074599:30 Request Metabolic Panel, Comprehensive ([id number])Indication: Coronary artery disease On: 53-Sfu-065987:30 Request PSA (PROSTATE SPECIFIC ANTIGEN) (V76.44)Indication: Screening for prostate cancer On: 72-Btl-913625:29 Request JOANA CULTURE-OTHER (86757)Indication: Pharyngitis, acute On: 55-Pxg-120367:46 Request PSA (PROSTATE SPECIFIC ANTIGEN)Indication: Screening for prostate cancer On: 9-Sua-604981:05 Request CBC WITH MANUAL DIFF ([id number])Indication: Coronary artery disease On: 4-Kcs-124610:05 Request LIPID PANEL ([id number])Indication: Coronary artery disease On: 6-Sgi-509494:05 Request METABOLIC PANEL, COMPREHENSIVE ([id number])Indication: Coronary artery disease On: 7-Lmy-677227:05 Request Planned Encounters Medical; [facility] (Doctor) - On: 04-Sep-2018 8:00 [facility] Ela Salgado MD, MD, Dana M Planned Procedures Radiology - Hip - LeftBy: Zackary On: 17-Aug-2018 Intent Ela HERNANDEZ MD, Dana M Comments: call with wet read [phone] Radiology - Knee - Left - Weight On: 17-Aug-2018 Intent BearingBy: lEa Salgado MD Comments: call with wet read [phone] Ela Salgado MD BLADDER ULTRASOUND SCAN WITH On: 19-Jun-2018 Intent MEASUREMENT OF POST-VOID RESIDUAL URINE VOLUME (68537)By: Ela Salgado MD, MD, Dana M Flu Vaccine (Quadrivalent) On: 12-Jun-2018 Intent [id number]: Ela Salgado MD Comments: Lot #[id number]/30/2019Site-L dltd, IMDose prefilled syringegiven by: CManchakVIS reviewed and ABN signed Ela Salgado MD Toradol Injection, 30 mg On: 12-Jun-2018 Intent (J1885)By: Ela Salgado MD Comments: lot: [id number]: 01/2020site/route: RGM/IMamt: 1mLVIS signed when applicableSAGE Becerra MD, Dana M Toradol Injection, 30 mg On: 04-Jan-2018 Intent (J1885)By: Ela Salgado MD, MD, Dana M Toradol Injection, 30 mg On: 12-Oct-2017 Intent (J1885)By: Zana LOOMIS, Negar Weber PNEUM VAC ADLT/IMUMNOSPR, On: 10-Aug-2017 Intent SBC/INTRM (01942)By: Zackary HERNANDEZ, Comments: lot:[id number]:IM right deltoid dose:0.5ml given by:CORINE Oconnor MD, Dana M Radiology - Ankle - RightBy: On: 05-Jul-2017 Intent Ela Salgado MD, MD, Comments: call wet read [phone] Dr. zackary Lr EMGBy: Ela Salgado MD On: 17-Jan-2017 Intent Ela HERNANDEZ Nerve ConductionBy: Zackary HERNANDEZ, On: 17-Jan-2017 Intent Ela Galarza MD Comments: right leg Radiology - Wrist - RightBy: On: 14-Sep-2016 Intent Ela Salgado MD, MD, Comments: do scaphoid views Ela Lr US DOPPLER CAROTID BILATERAL On: 27-Apr-2016 Intent ([id number])By: Ela Salgado MD, MD, Dana M ZOSTER VACC, SC ([id number])By: Zackary On: 27-Apr-2016 Intent Ela HERNANDEZ MD, Dana M Comments: lot:[id number]:22-31-9286owf:SC right arm dose:0.65mlgiven by:Praveen Casey LPN TDAP VACCINE >7 IM ([id number])By: On: 27-Apr-2016 Intent Ela Salgado MD, MD, Comments: lot:[id number]:09-05-18rte:IM left deltoid dose:0.5ml given by:CORINE Oconnor FLU VAC, SPLIT, >3 YEARS, On: 22-May-2013 Intent INTRAMUSC (85513)By: Lizzie, Comments: lot [id number] 2014site/route R erik, IMamt 0.5mlVIS and ABN signed when applicableChelsea, WEB[employer] COMMER[employer] DEVELOPER Mariam IMMUNIZ ADMNIN, 1 VAC, SNGL/COMBO On: 22-May-2013 Intent ([id number])By: Mariam Samuel Toradol Injection, 30 mg On: 14-Nov-2012 Intent (J1885)By: Negar Spann CNP Ultrasound - GallbladderBy: Joon On: 27-Jun-2009 Intent Cari BARRON Radiology - Abdomen SeriesBy: On: 27-Jun-2009 Intent Cari Dupree DO Planned Medications INJECTION, KETOROLAC TROMETHAMINE, PER 15 MG Ordered: 14-Nov-2012 Pending Negar Spann CNP INJECTION, KETOROLAC TROMETHAMINE, PER 15 MG Ordered: 12-Oct-2017 Pending Negar Spann CNP INJECTION, KETOROLAC TROMETHAMINE, PER 15 MG Ordered: 04-Jan-2018 Pending Zackary HERNANDEZ, Ela Salgado MD, Ela Lr INJECTION, KETOROLAC TROMETHAMINE, PER 15 MG Ordered: 12-Jun-2018 Pending Zackary HERNANDEZ, Ela Salgado MD, Ela Lr Instructions Name Dates Details BPH (benign prostatic hypertrophy) with urinary obstruction (Renamed from BPH with urinary obstruction) : How to access health information online Indication: BPH (benign prostatic hypertrophy) with urinary obstruction (Renamed from BPH with urinary obstruction) BPH (benign prostatic hypertrophy) with urinary obstruction (Renamed from BPH with urinary obstruction) : How to access health information online - Detail Indication: BPH (benign prostatic hypertrophy) with urinary obstruction (Renamed from BPH with urinary obstruction) BPH (benign prostatic hypertrophy) with urinary obstruction (Renamed from BPH with urinary obstruction) : Patient Instructions Indication: BPH (benign prostatic hypertrophy) with urinary obstruction (Renamed from BPH with urinary obstruction) Backache : How to access health information online Indication: Backache Backache : How to access health information online - Detail Indication: Backache Backache : Patient Instructions Indication: Backache Low back pain : How to access health information online Indication: Low back pain Low back pain : How to access health information online - Detail Indication: Low back pain Low back pain : Patient Instructions Indication: Low back pain Allergic rhinitis : How to access health information online Indication: Allergic rhinitis Allergic rhinitis : How to access health information online - Detail Indication: Allergic rhinitis Allergic rhinitis : Patient Instructions Indication: Allergic rhinitis Neck stiffness : How to access health information online Indication: Neck stiffness Neck stiffness : How to access health information online - Detail Indication: Neck stiffness Neck stiffness : Patient Instructions Indication: Neck stiffness BMI 31.0-31.9,adult : How to access health information online Indication: BMI 31.0-31.9,adult BMI 31.0-31.9,adult : How to access health information online - Detail Indication: BMI 31.0-31.9,adult BMI 31.0-31.9,adult : Patient Instructions Indication: BMI 31.0-31.9,adult Nonsmoker : How to access health information online Indication: Nonsmoker Nonsmoker : How to access health information online - Detail Indication: Nonsmoker Nonsmoker : Patient Instructions Indication: Nonsmoker Hypercholesterolemia : Patient Instructions Indication: Hypercholesterolemia BMI 31.0-31.9,adult : How to access health information online Indication: BMI 31.0-31.9,adult BMI 31.0-31.9,adult : How to access health information online - Detail Indication: BMI 31.0-31.9,adult BMI 31.0-31.9,adult : Patient Instructions Indication: BMI 31.0-31.9,adult Encounter for health maintenance examination with abnormal findings : How to access health information online Indication: Encounter for health maintenance examination with abnormal findings Encounter for health maintenance examination with abnormal findings : How to access health information online - Detail Indication: Encounter for health maintenance examination with abnormal findings Encounter for health maintenance examination with abnormal findings : Patient Instructions Indication: Encounter for health maintenance examination with abnormal findings Nonsmoker : How to access health information online Indication: Nonsmoker Nonsmoker : How to access health information online - Detail Indication: Nonsmoker Nonsmoker : Patient Instructions Indication: Nonsmoker Allergic rhinitis : Patient Instructions Indication: Allergic rhinitis Advance Directives Name Dates Details Living Will - Effective on 07/03/2018. Expiration Effective: 03-Jul-2018 date unspecified. Scanned Document is available upon request. Encounters Phone Encounter On: 17-Aug-2018 8:55 Encounter Diagnosis: Left knee pain, Left hip pain End: 17-Aug-2018 9:00 [facility] Lab Order On: 03-Aug-2018 14:47 Encounter Diagnosis: Elevated LFTs, Screening for prostate cancer End: 03-Aug-2018 14:51 [facility] Office Visit On: 19-Jun-2018 10:28 Encounter Reason: Polyuria - The onset of the polyuria has been gradual (last week) and has been occurring in a persistent pattern. The course has been increasing. The volume of urine per voiding is small. The symptoms h End: 19-Jun-2018 11:03 ave been associated with change in character of stream (has the feeling and urgency to go but will not produce a large amont of urine), while the symptoms have not been associated with chills, dysuria or suprapubic pain.Encounter Diagnosis: BMI 28.0-28.9,adult, BPH (benign prostatic hypertrophy) with urinary obstruction (Renamed from BPH with urinary obstruction), Urinary frequency [facility] Office Visit On: 12-Jun-2018 8:57 Encounter Reason: Back Pain Lumbar, Chronic - This condition occurred without any known injury. Symptoms include pain, stiffness and decreased range of motion. Symptoms are located in the low back. There is no radiation. End: 13-Jun-2018 15:07 The patient describes the pain as sharp. Onset was 3 day(s) ago. The patient describes symptoms as unchanged. Current treatment includes muscle relaxants.Encounter Diagnosis: BMI 28.0-28.9,adult, Nonsmoker, Backache, Need for prophylactic vaccination and inoculation against influenza [facility] Office Visit On: 04-Jan-2018 8:22 Encounter Reason: Muscle pain - The onset of the muscle pain has been sudden and has been occurring in a persistent pattern for 3 days. The course has been increasing. The muscle pain is described as a moderate cramping. End: 04-Jan-2018 8:49 The symptoms have no aggravating factors. The symptoms have no relieving factors. The symptoms have been associated with muscle cramps, while the symptoms have not been associated with cough, fatigue o r headache. Note for Muscle pain: Lower back spasm ??do alot standing and walking doing work on concrete floor. ??put fence around pool doing alot. no b/b incontinence. nothing down legs no leg weakne ss. at times gets sciatica does piriformis stretchesEncounter Diagnosis: BMI 28.0- 28.9,adult, Nonsmoker, Low back pain, Back spasm [facility] Office Visit On: 18-Oct-2017 8:36 Encounter Reason: Allergy Evaluation - Symptoms include itchy eyes, red eyes, nasal itching, nasal congestion, rhinorrhea and sneezing.Encounter Diagnosis: BMI 28.0-28.9,adult, Allergic rhinitis End: 18-Oct-2017 9:17 [facility] Annotation/Addendum On: 12-Oct-2017 16:16 Encounter Diagnosis: Low back pain End: 12-Oct-2017 16:19 [facility] Office Visit On: 12-Oct-2017 8:04 Encounter Reason: Neck Stiffness - The onset of the neck stiffness has been sudden and has been occurring in a persistent pattern for 3 days. Associated features include: neck pain. Note for Neck stiffness: Fell asleep End: 12-Oct-2017 8:51 with head down watching Olympics for about an hour. Thereafter, unable to move head. No tingling or weakness in arms. Just unable to turn head.Taking aleve.Encounter Diagnosis: BMI 28.0-28.9,adult, Nonsmoker, Neck stiffness, Cervical strain, acute [facility] Office Visit On: 10-Aug-2017 13:26 Encounter Reason: Physical male exam - Last seen between 1-3 months ago. General health: feels well with minor complaints and is sleeping well. The patient's appetite is normal. Nutrition: normal/adequate. Exercises 0 da End: 11-Aug-2017 13:27 ys per week. Sleeps on average 7 hours per night. Normal bowel and bladder habits. Safety measures include appropriate use of safety belts and home smoke detectors. Current emotional problems include an xiety. The patient's libido is absent. Preventative measures done by patient are screening, colonoscopy (2015) and PSA (2016).Encounter Diagnosis: Carotid stenosis, asymptomatic, bilateral, GERD (gastroesophageal reflux disease), IBS (irritable bowel syndrome), Neoplasm of uncertain behavior of skin, IFG (impaired fasting glucose), Abnormal cardiac function test, Fatigue, unspecified type, Tobacco abuse, in remission (Renamed from Tobacco dependence in remission), Elevated LFTs, Allergic rhinitis, Alcohol abuse, in remission, Coronary artery disease, Low back pain, Testosterone deficiency, Homozygous MTHFR mutation [id number], Encounter for health maintenance examination with abnormal findings, BMI 28.0-28.9,adult , Pneumococcal vaccination given, Hyperlipidemia, unspecified, Vitamin D insufficiency, Verrucous keratosis [facility] Lab Order On: 13-Jul-2017 15:37 Encounter Diagnosis: Coronary artery disease, Homozygous MTHFR mutation [id number], Need for hepatitis C screening test, Testosterone deficiency End: 13-Jul-2017 15:43 [facility] Office Visit On: 05-Jul-2017 14:30 Encounter Reason: Ankle Sprain/Strain - The patient sustained an injury to the right ankle. This occurred hour(s) ago at home. The injury resulted from twisting the ankle. Symptoms include pain and swelling. Symptoms are End: 05-Jul-2017 15:02 located in the right ankle. The patient describes the pain as aching. Onset was immediately after the injury. The patient describes symptoms as worsening. Associated symptoms include instability at the ankle, stiffness at the ankle, difficulty bearing weight and difficulty ambulating.Encounter Diagnosis: Nonsmoker, BMI 31.0-31.9,adult, Sprain of right ankle, initial encounter [facility] Office Visit On: 28-Feb-2017 10:09 Encounter Reason: Follow up tests - Date: (02/23 blood work and 02/17 EMG).Encounter Diagnosis: BMI 30.0-30.9,adult, Nonsmoker, Hypercholesterolemia, Carotid stenosis, asymptomatic, bilateral, Numbness and tingling of right leg, Testosterone deficiency End: 28-Feb-2017 10:48 , Coronary artery disease [facility] Office Visit On: 17-Jan-2017 15:32 Encounter Diagnosis: Tobacco abuse, in remission (Renamed from Tobacco dependence in remission), Prediabetes, Fatigue, unspecified type, Elevated LFTs, Alcohol abuse, in remission, Allergic rhinitis, Obesity (BMI 30.0-34.9), LOW BACK PAIN (724.2), End: 17-Jan-2017 16:45 Knee internal derangement, left, Abnormal cardiac function test, Left hip pain, Coronary artery disease, GERD (gastroesophageal reflux disease), Anxiety, Testosterone deficiency, Homozygous MTHFR mutation [id number], Wrist pain, acute, right, Hypercholesterolemia, BMI 31.0-31.9,adult, IFG (impaired fasting glucose), IBS (irritable bowel syndrome), Nonsmoker, Neoplasm of uncertain behavior of skin, Carotid stenosis, asymptomatic, bilateral, BMI 30.0-30.9,adult, Numbness and tingling of right leg [facility] Office Visit On: 14-Sep-2016 11:21 Encounter Reason: Follow up, Diagnostic Procedure Results - Diagnostic tests include other ([facility] ). Date: (09-05-16). Current symptoms include joint pains (right wrist ).Encounter Diagnosis: BMI 31.0-31.9,adult, Hypercholesterolemia, End: 14-Sep-2016 12:27 Wrist pain, acute, right, Testosterone deficiency, Anxiety, Homozygous MTHFR mutation [id number] [facility] Office Visit On: 17-May-2016 15:32 Encounter Diagnosis: Neoplasm of uncertain behavior of skin End: 18-May-2016 12:30 [facility] Lab Order On: 13-May-2016 7:40 Encounter Diagnosis: Testosterone deficiency End: 13-May-2016 7:46 [facility] Historical Summary On: 12-May-2016 20:38 Encounter Diagnosis: Carotid stenosis, asymptomatic, bilateral End: 12-May-2016 20:41 [facility] Office Visit On: 27-Apr-2016 13:22 Encounter Diagnosis: Encounter for health maintenance examination with abnormal findings, Tobacco abuse, in remission (Renamed from Tobacco dependence in remission), BMI 30.0-30.9,adult, End: 30-Apr-2016 7:00 Need for Tdap vaccination (Renamed from Need for hckispurhk-wlyiwtz-blnpyhcpm (Tdap) vaccine, adult/adolescent), Need for zoster vaccination, Elevated LFTs, Allergic rhinitis, Coronary artery disease, Alcohol abuse, in remission, GERD (gastroesophageal reflux disease), Nonsmoker, Hypercholesterolemia, IFG (impaired fasting glucose), IBS (irritable bowel syndrome), Anxiety, Obesity (BMI 30.0- 34.9), LOW BACK PAIN (724.2), Backache, Knee internal derangement, left, Left hip pain , Fatigue, unspecified type, Prediabetes, Abnormal cardiac function test [facility] Lab Order On: 02-Apr-2016 7:25 Encounter Diagnosis: Screening for prostate cancer End: 02-Apr-2016 7:26 [facility] Office Visit On: 23-Sep-2015 14:34 Encounter Reason: Follow up for chronic medical issues - The patient feels well with minor complaints, has good energy level and is sleeping well. Patient has been compliant with instructions. Current medication use: no End: 23-Sep-2015 15:49 side effects, compliant with dosing regimen and considered effective by patient. Patient sleeps 7 hours per night. Impact of disease: emotional impact-mild. Nutrition: balanced diet and supplemental vit amins. The medical issues the patient is following up for include gastric reflux, high cholesterol and other (anxiety, allergic rhinitis, elevated lft's, IBS).Encounter Diagnosis: Hypercholesterolemia, Alcohol abuse, in remission, GERD (gastroesophageal reflux disease), Nonsmoker, Muscle spasm of back (724.8), LOW BACK PAIN (724.2), Irritable bowel syndrome (564.1), Impaired fasting blood sugar (790.21), Anxiety (300.00), Elevated LFTs, Coronary artery disease, Allergic rhinitis, Backache, Obesity (BMI 30.0-34.9) [facility] Phone Encounter On: 14-Jun-2013 10:56 Encounter Diagnosis: Anxiety (300.00) End: 14-Jun-2013 11:04 [facility] Office Visit On: 22-May-2013 14:26 Encounter Reason: Injections - The medication the patient is here to receive is other (influenza).Encounter Diagnosis: NEED FOR PROPHYLACTIC VACCINATION AND INOCULATION AGAINST INFLUENZA (V04.81) End: 22-May-2013 17:38 [facility] Office Visit On: 14-Nov-2012 9:05 Encounter Reason: Muscle pain - The onset of the muscle pain has been sudden and has been occurring in a persistent pattern for 4 days. The course has been increasing. The muscle pain is described as a moderate cramping. End: 14-Nov-2012 9:53 The muscle pain is located in the foot. The symptoms have no aggravating factors. The symptoms have no relieving factors. The symptoms have been associated with muscle cramps, while the symptoms have n ot been associated with cough, fatigue or headache.Encounter Diagnosis: LOW BACK PAIN (724.2), Muscle spasm of back (724.8) [facility] Lab Order On: 10-Nov-2012 8:06 Encounter Diagnosis: Impaired fasting blood sugar (790.21) End: 10-Nov-2012 8:08 [facility] Lab Order On: 07-Nov-2012 10:06 Encounter Diagnosis: Impaired fasting blood sugar (790.21) End: 07-Nov-2012 10:07 [facility] Office Visit On: 15-Sep-2012 10:23 Encounter Reason: Follow up for chronic medical issues - The patient feels well with minor complaints, has good energy level and is sleeping well. Patient has been compliant with instructions. Current medication use: no End: 19-Sep-2012 8:03 side effects, compliant with dosing regimen and considered effective by patient. Patient sleeps 7 hours per night. Impact of disease: emotional impact-mild. Nutrition: balanced diet and supplemental vit amins. The medical issues the patient is following up for include gastric reflux, high cholesterol and other (anxiety, allergic rhinitis, elevated lft's, IBS).Encounter Diagnosis: Irritable bowel syndrome (564.1), Allergic Rhinitis(477.9), GERD (530.81), Hemorrhoids (455.8), VASOSPASM, NOS, Elevated LFT (790.6), Coronary Artery Disease (414.00), Hypercholesterolemia (272.0), Backache, unspecified (724.5), Anxiety (300.00), ABUSE, ALCOHOL, IN REMISSION (305.03), Well Male Exam (V70.0) [facility] Phone Encounter On: 29-Feb-2012 12:55 Encounter Diagnosis: Hypercholesterolemia (272.0) End: 29-Feb-2012 12:56 [facility] Phone Encounter On: 04-May-2011 9:29 Encounter Diagnosis: Hypercholesterolemia (272.0) End: 04-May-2011 9:31 [facility] Office Visit On: 23-Feb-2011 11:45 Encounter Reason: Follow up for chronic medical issues - The patient feels well with no complaints, has good energy level and is sleeping well. Patient has been compliant with instructions. Current medication use: no odilon End: 23-Feb-2011 12:29 e effects, compliant with dosing regimen and considered effective by patient. Patient sleeps 8 hours per night. Impact of disease: emotional impact-mild. Nutrition: balanced diet and supplemental vitami ns. The medical issues the patient is following up for include cardiac issues, depression (anxiety), gastric reflux, high blood pressure, high cholesterol and other (IBS, elevated LFT's ).Encounter Diagnosis: Anxiety (300.00), Irritable bowel syndrome (564.1), Coronary Artery Disease (414.00), Hypercholesterolemia (272.0), Well Male Exam (V70.0) [facility] Office Visit On: 18-Nov-2009 9:55 Encounter Reason: Follow up for chronic medical issues - The patient feels well with no complaints ,has good energy level and is sleeping well. Patient has been compliant with instructions. Current medication use: no odilon End: 18-Nov-2009 10:36 e effects ,compliant with dosing regimen and considered effective by patient. Patient sleeps 7 hours per night. Impact of disease: emotional impact-mild. Nutrition: balanced diet and supplemental vitami ns. The medical issues the patient is following up for include cardiac issues ,depression (anxiety) ,gastric reflux ,high blood pressure ,high cholesterol and other (IBS, elevated lft's). Encounter Diagnosis: Hypercholesterolemia (272.0), Hyperlipidemia, Unspecified (272.4), Backache, unspecified (724.5), GERD (530.81), Anxiety (300.00), Tobacco Use (305.1), Irritable bowel syndrome (564.1), Epigastric pain (789.06), Hemorrhoids (455.8), Allergic Rhinitis(477.9), Coronary Artery Disease (414.00), VASOSPASM, NOS, Elevated LFT (790.6), Well Male Exam (V70.0) [facility] Office Visit On: 27-Jun-2009 13:09 Encounter Reason: Abdominal pain - The onset of the pain has been gradual and has been occurring in a persistent pattern for weeks. The course has been constant. The pain is described as a severe burning ,sharp pain ,sta End: 27-Jun-2009 13:47 bbing and crampy. The pain is described as being located in the entire abdomen. The pain radiates to the back. The symptoms are aggravated by meals (1/2 to 1 hour after eating). The symptoms have no rel ieving factors. There has been no associated bloating ,constipation or diarrhea. Encounter Diagnosis: Epigastric pain (789.06) [facility] Office Visit On: 23-Jun-2009 10:04 Encounter Diagnosis: Epigastric pain (789.06), Anxiety (300.00) End: 23-Jun-2009 10:30 [facility] Office Visit On: 07-May-2009 9:51 Encounter Reason: Follow up for chronic medical issues - The patient feels well with no complaints ,has good energy level and is sleeping well. Patient has been compliant with instructions. Current medication use: no odilon End: 07-May-2009 10:15 e effects ,compliant with dosing regimen and considered effective by patient. Patient sleeps 7 hours per night. Impact of disease: emotional impact-mild. Nutrition: balanced diet and supplemental vitami ns. The medical issues the patient is following up for include cardiac issues ,depression (anxiety) ,gastric reflux ,high blood pressure ,high cholesterol and other (IBS, tob. use ). Encounter Diagnosis: Irritable bowel syndrome (564.1), GERD (530.81), Anxiety (300.00), Hyperlipidemia, Unspecified (272.4), Tobacco Use (305.1), Coronary Artery Disease (414.00), Elevated LFT (790.6), Well Male Exam (V70.0) [facility] Office Visit On: 03-Jan-2009 14:04 Encounter Reason: Follow up for chronic medical issues - The patient feels well with minor complaints (getting over sore throat--on augmentin). Patient has been compliant with instructions. Current medication use: no odilon End: 03-Jan-2009 14:37 e effects. Patient sleeps 8 hours per night. Nutrition: balanced diet. The medical issues the patient is following up for include All identified problems below ,gastric reflux ,high blood pressure ,high cholesterol and other (IBS). Encounter Diagnosis: GERD (530.81), ACUTE PHARYNGITIS (462.), Hyperlipidemia, Unspecified (272.4), Backache, unspecified (724.5), Tobacco Use (305.1), Hemorrhoids (455.8), Coronary Artery Disease (414.00), VASOSPASM, NOS, Allergic Rhinitis(477.9), Irritable bowel syndrome (564.1), Anxiety (300.00), Hypercholesterolemia (272.0), SCREENING FOR CANCER OF THE PROSTATE (V76.44), Urinary frequency (788.41) [facility] Office Visit On: 01-Jan-2009 15:40 Encounter Reason: Sore throat - The onset of the sore throat has been gradual and has been occurring in a persistent pattern for 4 days. The course has been worsening. The symptoms have been associated with cough ,diffic End: 01-Jan-2009 16:07 ulty in swallowing ,ear pain ,post-nasal drip ,purulent sputum ,runny nose ,sinus pain and swelling of neck glands, while the symptoms have not been associated with change in voice ,chills ,fever ,non-p urulent sputum or recent contact with a person with sore throat. Encounter Diagnosis: ACUTE PHARYNGITIS (462.) [facility] Office Visit On: 16-Aug-2007 9:56 Encounter Reason: Follow up for chronic medical issues - The patient feels well with minor complaints ,has decreased energy level and is sleeping well. Patient has been compliant with instructions. Current medication use End: 16-Aug-2007 10:12 : no side effects ,compliant with dosing regimen and considered effective by patient. Patient sleeps 8 hours per night. Impact of disease: emotional impact-mild. Nutrition: balanced diet. The medical is sues the patient is following up for include cardiac issues ,depression ,gastric reflux ,high blood pressure and high cholesterol. Encounter Diagnosis: GERD (530.81), Allergic Rhinitis(477.9), Hemorrhoids (455.8), Coronary Artery Disease (414.00), VASOSPASM, NOS, Hyperlipidemia, Unspecified (272.4), Backache, unspecified (724.5), Anxiety (300.00), Tobacco Use (305.1), Irritable bowel syndrome (564.1), SCREENING FOR CANCER OF THE PROSTATE (V76.44) [facility] Historical Summary On: 11-Aug-2007 8:26 [facility] End: 11-Aug-2007 8:35 Historical Summary On: 19-Dec-2006 16:40 [facility] End: 19-Dec-2006 16:40 [facility] Mignon FORREST; randi guarantor
--- OUTSIDE RECORDS SUMMARY | 2018-11-07 17:07 | XMS RPT_ITS | Continuity of Care Document ---
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 Status: Active Allergic rhinitis (J30.9, 477.9) Comments: if not better in 1 weekt hen will get atb nasal rinses educate on allergies handout given told to get mattress voer hepa filter. Status: Active Back spasm (M62.830, 724.8) Comments: took muslce relaxant and help toradol help rest heat biofreeze Status: Active BMI 28.0-28.9,adult (Z68.28, V85.24) Status: Active BMI 30.0-30.9,adult (Z68.30, V85.30) Comments: good at 190-195. will exercise cut back sweets starches Status: Active BMI 31.0-31.9,adult (Z68.31, V85.31) Status: Active BPH (benign prostatic hypertrophy) with urinary obstruction (Renamed from BPH with urinary obstruction) (N40.1, 600.01) Comments: willhold testosterone not know that nees anymore anyways. will use flomax if completely block and cannot urinate then will go to ER Status: Active Carotid stenosis, asymptomatic, bilateral (I65.23, 433.10) Comments: 9- mild Status: Active Cervical strain, acute (S16.1XXA, 847.0) Comments: discussed cervical xray and PT not wanting at this time but if not improved with meds, will call or come back Status: Active Coronary artery disease (I25.10, 414.00) Comments: had CP with URI found 1995. Cath at [facility] 12-01-95 with coronary artery vasospasm (took adderall then), [place] with PTCA, circ 2003, see Dr. sky 2016 stress good Status: Active Elevated LFTs (R94.5, 790.6) Status: Active Encounter for health maintenance examination with abnormal findings (Z00.01, V70.0) Comments: 09-04-18 [facility]. colonoscopy - good, PSA , Hep C screening negative, immunizations are up to date, 6CIT= Status: Active Fatigue, unspecified type (R53.83, 780.79) Comments: more stamina off lexapro. better than was. 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 not change aches. back on now. Status: Active Hyperlipidemia, unspecified (E78.5, 272.4) Comments: With elevated triglycerides Status: Active IBS (irritable bowel syndrome) (K58.9, 564.1) Comments: stable Status: Active IFG (impaired fasting glucose) (R73.01, 790.21) Status: Active Knee internal derangement, left (M23.92, 717.9) Comments: years ago pop and think tore disc when biking. at this point not want to work up further would need MRI and to orthosx seen jeanne in past. would want someone else like kamla will start with PT in knee then MRI Status: Active Left hip pain (M25.552, 719.45) Comments: seen Dr. angel years ago xray not cartilage there. with leg muscle strengthing with biking help alot. on and off if not rife Status: Active Left knee pain (M25.562, 719.46) Comments: on and off pull knee on bike ride years ago still have issue with completely bend it.? tear meniscus Status: Active Low back pain (M54.5, 724.2) Comments: stable on and off years nothing severe. if toradol and flexeril not help then xray nsaidssince 1976. had MRi in past. Status: Active Neck stiffness (M43.6, 723.5) Status: Active Need for hepatitis C screening test (Z11.59, V73.89) Status: Active Need for Tdap vaccination (Renamed from Need for ntzgzurqrs-aqrpphs-ejqfbuduz (Tdap) vaccine, adult/adolescent) (Z23, V06.1) Status: Active Nonsmoker (Z78.9, V49.89) Status: Active Numbness and tingling of right leg (R20.0, 782.0) Comments: ? meralgia paresthecia vs back pinched nerve will take aleve helps. ncs negative show old in past radiculopathy. Status: Active Obesity (BMI 30.0-34.9) (E66.9, 278.00) Status: Active Plantar fasciitis, bilateral (M72.2, 728.71) Comments: seen Dr. kingsley and on and off Status: Active Pneumococcal vaccination given (Z23, V06.6) Status: Active Prediabetes (R73.03, 790.29) Status: Active Sprain of right ankle, initial encounter (S93.401A, 845.00) Comments: think sprained EMILE willruleout fracture if not fracture will do camboot and then aircat and elastic wrap with partial weight bearing if fracture to orthosx Status: Active Testosterone deficiency (E34.9, 257.2) Comments: off testosterone notice more exercise stamina. Status: Active Tobacco abuse, in remission (Renamed from Tobacco dependence in remission) (F17.201, V15.82) Comments: quit over 15 years. no indication for LDCT. Status: Active Verrucous keratosis (L82.1, 702.8) Status: Active Vitamin D insufficiency (E55.9, 268.9) Status: Active Wrist pain, acute, right (M25.531, 719.43) Comments: slept on wrong and been 2 weeks. not better. get wrist splint. Status: Active Medications Name Dates Details Altace 2.5 MG Oral Capsule 1 Capsule AM for 0 days Quantity: 90 {Capsule} Refills: 3 Ordered:21-Aug-2018 Zackary HERNANDEZ, Ela Pizano MD Start : 21-Aug-2018 Active ASPIRIN LOW DOSE, 81MG (Oral Tablet) 1 QD for 0 days Refills: 0 Ordered:27-Jun-2009 Sunni Coatestive Crestor 20 MG Oral Tablet 1 (one) Tablet qd for 0 days Quantity: 90 {Tablet} Refills: 0 Ordered:03-Apr-2018 Zackary HERNANDEZ, Ela Pizano MD Start : 03-Apr-2018 Active Dispense as Written Comments: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 Dicyclomine HCl 10 MG Oral Capsule 1 Capsule qid/prn for 0 days Quantity: 30 {Capsule} Refills: 1 Ordered:28-Mar-2018 Zackary HERNANDEZ, Ela Pizano MD Start : 28-Mar-2018 Active Comments:thirty Toprol XL 25 MG Oral Tablet Extended Release 24 Hour 1 Tablet PM for 0 days Quantity: 90 {Tablet} Refills: 3 Ordered:21-Aug-2018 Ela Salgado MD, MD, Dana M Start : 21-Aug-2018 Active Vitamin D3 Super Strength 2000 UNIT Oral Capsule 1 (one) Capsule Capsule in am for 0 days Quantity: 30 {Capsule} Refills: 0 Ordered:12-Oct-2017 Aniyah Morejon LPN Start : 10-Aug-2017 Active Augmentin 875-125 MG [...] 0 days Quantity: 20 {Tablet} Refills: 0 Ordered:04-Sep-2018 Ela Salgado MD, MD, Ela Lr Start : 04-Sep-2018 End : 04-Sep-2018 Inactive , 16.2MG/5ML (Oral Elixir) 5-10 Elixir milliliters prn tid for 0 days Quantity: 1 {Bottle} Refills: 3 Ordered:23-Sep-2015 Staci Spann LPN Start : 22-Apr-2014 End : 23-Sep-2015 Inactive Flomax 0.4 MG Oral Capsule 1 (one) Capsule start when get it and then one tonight and every night for 0 days Quantity: 30 {Capsule} Refills: 5 Ordered:04-Sep-2018 JELANI Goodman Start : 19-Jun-2018 End : 04-Sep-2018 Inactive Flonase 50 MCG/ACT Nasal Suspension 1 (one) [place] 2 sprays each nostril daily for 0 days Quantity: 1 {[place]} Refills: 2 Ordered:04-Jan-2018 Antoni Kendrick Start : 18-Oct-2017 End : 04-Jan-2018 Inactive Lexapro 10 MG Oral Tablet 1/2 (one half) Tablet QD for 0 days Quantity: 90 {Tablet} Refills: 3 Ordered:04-Jan-2018 Antoni Kendrick Start : 14-Sep-2016 End : 04-Jan-2018 Inactive MEDROL (ALEX), 4MG (Oral Tablet) 1 Tablet TAD for 0 days Quantity: 1 {Package(s)} Refills: 0 Ordered:23-Sep-2015 Staci Spann LPN Start : 14-Nov-2012 End : 23-Sep-2015 Inactive Comments:take with food Medrol 4 MG Oral Tablet Therapy Pack 1 (one) Milligram Milligram TAD for 0 days Quantity: 1 {Package} Refills: 0 Ordered:19-Jun-2018 Mariam Samuel Start : 12-Jun-2018 End : 19-Jun-2018 Inactive Comments:take with food Mobic 7.5 MG Oral Tablet 1 (one) Tablet Tablet bid prn for 0 days Quantity: 30 {Tablet} Refills: 1 Ordered:04-Sep-2018 JELANI Goodman Start : 23-Jan-2018 End : 04-Sep-2018 Inactive Multivitamin Oral Liquid for 0 days Refills: 0 Ordered:27-Apr-2016 JELANI Goodman End : 27-Apr-2016 Inactive NASACORT AQ, 55MCG/ACT (Nasal Aerosol Solution) 2 (two) Aerosol Soln qd for 0 days Refills: 0 Ordered:01-Jan-2009 JELANI Goodman Start : 01-Jan-2009 End : 07-May-2009 Inactive PredniSONE 20 MG Oral Tablet 1 (one) Tablet uad for 16 days Refills: 0 Ordered:18-Oct-2017 Zackary HERNANDEZ, Ela Quigley MD, Ela Lr Start : 18-Oct-2017 End : 03-Nov-2017 Inactive [...] days Quantity: 30 {Tablet} Refills: 0 Ordered:14-Nov-2012 Long [employer], Staci L Start : 14-Nov-2012 End : 23-Sep-2015 Discontinued Comments:This order discontinued per [employer]. LIPITOR, 40MG (Oral Tablet) 1 QD for 0 days Refills: 0 Ordered:16-Aug-2007 JELANI Goodman End : 16-Aug-2007 Discontinued Testosterone 25 MG/2.5GM (1%) Transdermal Gel uad Gel 2 pumps transdermally qd for 90 days Refills: 1 Ordered:19-Jun-2018 Zackary HERNANDEZ, Ela Quigley MD, Ela Lr Start : 19-Jun-2018 End : 19-Jun-2018 Discontinued Comments:DX: E34.9 Allergies and Adverse Reactions Name Dates Details Codeine/Codeine Derivatives (Allergy) Status: Active Morphine Derivatives (Allergy) Status: Active Past Medical History Name Dates Details Abnormal cardiac function test (R94.30, 794.30) Comments: seen with CAD. needs carotids Status: Resolved as of 04-Sep-2018 Anxiety (F41.9, 300.00) Comments: right now off lexapro and seeoning how does. some sleep issue and some rlds atrt ngiht willsee how pans out in time. little ore iritabledominant father not like, marriage grown apart. Status: Resolved as of 10-Aug-2017 Backache (M54.9, 724.5) Comments: had in 20s herniated disc. on and off spasm since. acting up now use muscle relaxants prn and heat. tight hamstring and need to stretch. handout given on execises and [id number] if not better rexray send PT Status: Resolved as of 04-Sep-2018 Epigastric pain (R10.13, 789.06) Comments: ? PUD ? GB Status: Resolved as of 18-Nov-2009 Hemorrhoids (K64.9, 455.6) Status: Inactive as of 22-Mar-2016 Left hip pain (M25.552, 719.45) Comments: not have good socket and see gesler and exercise alot to stabilize Status: Resolved as of 10-Aug-2017 Muscle spasm of back (724.8) Status: Inactive as of 22-Mar-2016 Need for prophylactic vaccination and inoculation against influenza (Z23, V04.81) Status: Resolved as of 04-Sep-2018 Need for zoster vaccination (Z23, V04.89) Status: Resolved as of 10-Aug-2017 Neoplasm of uncertain behavior of skin (D48.5, 238.2) Comments: two areas done: 4 mm on right thigh and 6 mm on back. these look abnormal. Status: Resolved as of 04-Sep-2018 Nonsmoker (Z78.9, V49.89) Status: Resolved as of 10-Aug-2017 Pharyngitis, acute (J02.9, 462) Status: Resolved as of 03-Jan-2009 Screening for prostate cancer (Z12.5, V76.44) Comments: scope 08-20 Status: Resolved as of 04-Sep-2018 Tobacco use (Z72.0, 305.1) Comments: quit years ago Status: Resolved as of 18-Nov-2009 Urinary frequency (R35.0, 788.41) Comments: had most of life so think related to irritable bladder. if bother and want treated. Status: Resolved as of 04-Sep-2018 VASOSPASM, NOS Status: Inactive as of 22-Mar-2016 Procedures Procedure Dates Details COLONOSCOPY, NOS Completed Comments: 2003 Double Henia Repair Completed Comments: Inguinal Dr. Pretty Date Value Details 17-Aug-2018 HIP, UNI W/ Pelvis 2-3 Views Result: Comments: See Note; NOTES: [facility] Services [address] [place] [address] HIP, UNI W/ Pelvis 2-3 Views MR#: [id number] Acct: [id number] Name: DRAGAN FORREST Rep #: [id number] : 1955 63 From: Gopi Vera MD PCP: Ela Salgado MD Status: REG CLI Study: HIP, UNI W/ Pelvis 2-3 Views Date of Exam: 08/17/18 Exam# [id number] Ordering Dr: Berto Salgado MD STUDY: X-RAY - LEFT HIP REASON FOR EXAM: Male, 63 years old. Pain TECHNIQUE: 2 views of the hip. COMPARISON: None. FINDINGS: The sacroiliac joints are n ormal. Moderate osteoarthritis of both hips with buttressing of the femoral necks and narrowing of the joint spaces. There are no acute fractures. Numerous springlike metallic densities projecting over the pelvis. RAD/HIP, UNI W/ Pelvis 2-3 Views IMPRESSION: Osteoarthritis of the hips. No fractures Electronically Signed: Gopi Vera MD at 7:13 EST Tel , Service support , CC: Ela Salgado MD Blocker Hand: Signed 17-Aug-2018 Knee 4 or More Views Result: Comments: See Note; NOTES: [facility] Imaging Services [address] [place] [address] Knee 4 or More Views MR#: [id number] Acct: [id number] Name: DRAGAN FORREST Rep #: [id number] : 1955 M 63 From: Gopi Vera MD PCP: Ela Salgado MD Status: REG CLI Study: Knee 4 or More Views Date of Exam: 08/17/18 Exam# [id number] Ordering Dr: Ela Salgado MD STUDY: X-RAY - LEFT KNEE REASON FOR EXAM: Male, 63 years old. Pain TECHNIQUE: 4 view(s) of the knee. COMPARISON: None. FINDINGS: Normal visualized distal femur. Normal v isualized proximal tibia and fibula. Normal proximal tibiofibular articulation. Normal medial femorotibial compartment. Normal lateral femorotibial compartment. Normal patellofemoral articulation. The soft tissue structures are unremarkable. RAD/Knee 4 or More Views IMPRESSION: Normal x-ray examination of the knee. No fracture. No osteoarthrit is. Electronically Signed: Gopi Vera MD at 7:30 EST Tel , Service support , CC: Ela Salgado MD Blocker Hand: Signed 20-Jun-2018 Kidney and Bladder Result: Comments: See Note; NOTES: [facility] [address] [place] [address] Kidney and Bladder MR#: [id number] Acct: [id number] Name: DRAGAN FORREST Rep #: [id number] : 1955 M 62 From: Luis F Rae PCP: Ela Salgado MD Status: REG CLI Study: Kidney and Bladder Date of Exam: 06/20/18 Exam# [id number] Ordering Dr: Ela Salgado MD STUDY: RENAL [...] are no demonstrated bladder calculi. US/Kidney and Fredo r IMPRESSION: No hydronephrosis. Simple right renal cyst. No significant postvoid bladder residual. Electronically Signed: Luis F Rae MD at 6:05 EST , Service support , CC: Ela Salgado MD Blocker Hand: Signed 12-Apr-2018 Cardiology Visit Report Result: Comments: See Note; NOTES: [facility] [address] [place] [address] OFFICE VISIT Date of Service: 04/12/18 MR#: [id number] Acct: [id number] Name: MEKA FORREST Rep #: [id number] : 1955 Provider: Barry Sky MD Age/Sex: 62/M [place] [facility] [place] Status: Signed HPI HPI Chief Complaint: Follow-up visit. 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) Coding Level of Care Code Off vis,est,level [...] signed by Barry Sky MD> Date Barry Sky MD Cosigner Signature: Date (if applicable) CC: Ela Salgado MD 06-Jul-2017 Foot min 3 Views Result: Comments: See Note; NOTES: [facility] Imaging Services [address] [place] [address] Foot min 3 Views MR#: [id number] Acct: [id number] Name: DRAGAN FORREST Rep #: [id number] : 1955 M 61 From: Vikas Hummel MD PCP: Ela Salgado MD Status: REG CLI Study: Foot min 3 Views Date of Exam: 07/06/17 Exam# [id number] Ordering Dr: Agapito Don DO STUDY: X-RAY [...] Vikas Hummel MD at 14:20 EST Tel [phone], Service support , Fax CC: Ela Salgado MD; Agapito Don DO Blocker Hand: Signed 05-Jul-2017 Ankle min 3 Views Result: Comments: See Note; NOTES: [facility] Imaging Services [address] [place] [address] Ankle min 3 Views MR#: [id number] Acct: [id number] Name: DRAGAN FORREST Rep #: [id number] : 1955 M 61 From: Vikas Hummel MD PCP: Ela Salgado MD Status: REG CLI Study: Ankle min 3 Views Date of Exam: 07/05/17 Exam# [id number] Ordering Dr: Ela Salgado MD STUDY: X-RAY [...] Vikas Hummel MD at 15:29 EST Tel [phone], Service support [phone], CC: Ela Salgado MD Blocker Hand: Signed 17-Feb-2017 NCS and/or EMG Patient Result: Comments: See Note; NOTES: [facility] Pulmonary Services/Neurology [address] [place] [address] NCS and/or EMG Patient MR#: [id number] Acct: [id number] Name: DRAGAN FORREST Rep #: [id number] : 1955 61 From: Donnie Smith Referring Dr: Ela Salgado MD Status: REG CLI Ordering Dr: Ela Salgado MD Date: 02/16/17 Location: [facility] Sex: M C DATE OF SERVICE: February [...] Date Dictated: 02/17/17 Date Transcribed: 02/17/17 0710 Blocker Hand: LEYDI Signed 14-Sep-2016 Wrist min 3 Views Result: Comments: See Note; NOTES: [facility] Imaging Services [address] [place] [address] Verda 4d Wrist min 3 Views MR#: [id number] Acct: [id number] Name: DRAGAN FORREST Rep #: [id number] : 1955 M 61 From: Vikas Hummel MD PCP: Ela Salgado MD Status: REG CLI Study: Wrist min 3 Views Date of Exam: 09/14/16 Exam# [id number] Ordering Dr: Ela Salgado MD STUDY : [...] Hummel MD at 12:[address] Tel [phone], Service support [phone], CC: Ela Salgado MD Blocker Hand: Signed 12-May-2016 Carotid Duplex Ultrasound Result: Comments: See Note; NOTES: [facility] Cardiovascular Services [address] [place] [address] Carotid Duplex Ultrasound 05/05/16 1237 MR#: [id number] Acct: [id number] Name: RK MARIODRAGAN Bergman Rep #: [id number] : 1955 60 From: Tyrone Daniels MD Attending Dr: Ela Salgado MD Status: REG CLI Ordering Dr: Ela Salgado MD Date: 05/05/16 Location: [facility] Sex: M C Admitted: Reason For [...] the left vertebral artery. Procedure Carotid Duplex 69029. Exam performed in department. Interpreta tion Summary Mild (<50%) stenosis right extracranial internal carotid. Mild (<50%) stenosis left extracranial internal carotid. Flow within the vertebral arteries is antegrade bilaterall y. Ordering Physician: Ela Salgado Performed By: Elvia Wilson RVT 05/12/16 0843 Date Tyrone Daniels MD CC: Ela Salgado MD Date Dictated: 05/05/16 1237 Date Transcribed: 05/12/16 0843 Blocker Hand: Signed Family History Unknown Family Member Name Dates Details Brother 1 Comments: lives in area, lives with parents hx. Drug addiction Status: Active Daughter 1 Comments: lives in [place] Status: Active Daughter 2 Comments: lives in [place] Status: Active Father Comments: after age 60 [...] Living Situation Comments: , heterosexual, grow apart. 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 18 years / pack stop at 36yo Status: Active Vital Signs Date Test Result Details :52 Temperature 97.6 f Comments: Method: Temporal Pulse 64 /min Comments: Pattern: Regular Respiration Rate 20 /min Comments: Pattern: Unlabored O2 SAT 98 % Comments: Room air BP Systolic 120 mm[Hg] Comments: Patient Position: Sitting; Cuff Location: Left Arm; Cuff Size: Standard BP Diastolic 76 mm[Hg] Comments: Patient Position: Sitting; Cuff Location: Left Arm; Cuff Size: Standard Weight 201 lb Height 71 in Body Mass Index Calculated 28.03 kg/m2 Body Surface Area Calculated 2.11 m2 :30 Temperature 98.3 f Comments: Method: Temporal Pulse [...] 0.00 cm Results Date Description Value Details :23 PSA (Prostate Specific Comments: PATIENT NOT FASTINGPERFORMED BY: [email or web address] [place] [id number] Antigen), Screening (90124) Prostate Specific Ag, 0.7 ng/mL (Normal) Range: 0.0-4.0 Serum Comments: LabMindsIA methodology. .According to the [place] [employer], Serum PSA shoulddecrease and remain at undetectable levels after radicalprostatectomy. The AUA defines biochemical recurrence as an initialPSA value 0.2 ng/mL or greater followed by a subsequent confirmatoryPSA value 0.2 ng/mL or greater.Values obtained with d ifferent assay methods or kits cannot be usedinterchangeably. Results cannot be interpreted as absolute evidenceof the presence or absence of malignant disease. [id number] URINALYSIS (56583) Comments: PATIENT NOT FASTINGPERFORMED BY: [email or web address] [place] [id number] Microscopic Examination MICNIP (Normal) Comments: Microscopic not indicated and not performed. Nitrite, Urine Negative (Normal) Urobilinogen,Semi-Qn 0.2 mg/dL (Normal) Range: 0.2-1.0 Bilirubin Negative (Normal) Occult Blood Negative (Normal) Ketones Negative (Normal) Glucose Negative (Normal) Protein Negative (Normal) WBC Esterase Negative (Normal) Appearance Clear (Normal) Urine-Color Yellow (Normal) pH 7.0 (Normal) Range: 5.0-7.5 Specific [place] 1.019 (Normal) Range: 1.005-1.030 [id number]-[id number] Metabolic Panel, Comprehensive Comments: PATIENT NOT FASTINGPERFORMED BY: [facility] [id number] [facility] [id number] (85089) ALT (SGPT) 30 [iU]/L (Normal) Range: 0-44 AST (SGOT) 34 [iU]/L (Normal) Range: 0-40 Alkaline Phosphatase 67 [iU]/L (Normal) Range: 39-117 Bilirubin, Total 0.9 mg/dL (Normal) Range: 0.0-1.2 A/G Ratio 1.8 (Normal) Range: 1.2-2.2 Globulin, Total 2.5 g/dL (Normal) Range: 1.5-4.5 Albumin 4.4 g/dL (Normal) Range: 3.6-4.8 Protein, Total 6.9 g/dL (Normal) Range: 6.0-8.5 Calcium 10.3 mg/dL (Abnormal) Range: 8.6-10.2 Carbon Dioxide, Total 24 mmol/L (Normal) Range: 20-29 Chloride 102 mmol/L (Normal) Range: 96-106 Potassium 4.5 mmol/L (Normal) Range: 3.5-5.2 Sodium 142 mmol/L (Normal) Range: 134-144 BUN/Creatinine Ratio 17 (Normal) Range: 10-24 eGFR If Africn Am 105 mL/min/1.73 (Normal) eGFR If NonAfricn Am 91 mL/min/1.73 (Normal) Creatinine 0.89 mg/dL (Normal) Range: 0.76-1.27 BUN 15 mg/dL (Normal) Range: 8-27 Glucose 98 mg/dL (Normal) Range: 65-99 [id number]-[id number] CBC WITH MANUAL DIFF Comments: PATIENT NOT FASTINGPERFORMED BY: [employer] [id number] [facility] [id number] Information: NURSE DRAW (90328) Immature Grans (Abs) 0.0 {x10E3/uL} (Normal) Range: 0.0-0.1 Immature Granulocytes 0 % (Normal) Baso (Absolute) 0.0 {x10E3/uL} (Normal) Range: 0.0-0.2 Eos (Absolute) 0.0 {x10E3/uL} (Normal) Range: 0.0-0.4 Monocytes(Absolute) 0.6 {x10E3/uL} (Normal) Range: 0.1-0.9 Lymphs (Absolute) 1.5 {x10E3/uL} (Normal) Range: 0.7-3.1 Neutrophils (Absolute) 4.1 {x10E3/uL} (Normal) Range: 1.4-7.0 Basos 0 % (Normal) Eos 1 % (Normal) Monocytes 10 % (Normal) Lymphs 24 % (Normal) Neutrophils 65 % (Normal) Platelets 263 {x10E3/uL} (Normal) Range: 150-379 RDW 13.5 % (Normal) Range: 12.3-15.4 MCHC 33.9 g/dL (Normal) Range: 31.5-35.7 MCH 32.4 pg (Normal) Range: 26.6-33.0 MCV 95 fL (Normal) Range: 79-97 Hematocrit 45.4 % (Normal) Range: 37.5-51.0 Hemoglobin 15.4 g/dL (Normal) Range: 13.0-17.7 RBC 4.76 {x10E6/uL} (Normal) Range: 4.14-5.80 WBC 6.3 {x10E3/uL} (Normal) Range: 3.4-10.8 6-Dse-[id number]:52 Urinalysis, Office (80237) UA - LEUKOCYTE ESTERASE Negative (Normal) UA - NITRITE Negative (Normal) URINE UROBILINGN DEE TIMED 2 mg/dL (Normal) UA - PROTEIN Negative mg/dL (Normal) UA - PH 6.5 (Normal) UA - BLOOD Hemolyzed Trace (Normal) UA - SPECIFIC GRAVITY 1.010 (Normal) UA - KETONES Negative mg/dL (Normal) UA - BILIRUBIN Negative (Normal) UA - GLUCOSE Negative (Normal) :43 Lipid Profile Comments: [facility] [id number] [place], [place], [address] VLDL 9 mg/dL (Normal) Range: 5-40 LDL [...] 200-240 mg/dL Borderline >240 mg/dL High Risk :43 Liver Profile Comments: [facility] [id number] [place], [place], [address] D BILI 0.20 mg/dL (Normal) Range: 0.00-0.30 T BILI 0.70 mg/dL (Normal) Range: 0.20-1.00 ALT 36 U/L (Normal) Range: 16-61 ALK P 50 U/L (Normal) Range: 45-117 AST 35 U/L (Normal) Range: 15-37 GLOB 3.1 g/dL (Normal) Range: 2.2-4.2 ALB 3.7 g/dL (Normal) Range: 3.2-5.0 T PROT 6.8 g/dL (Normal) Range: 6.4-8.2 :22 Allergan with IGE Area 5 Comments: PATIENT NOT FASTINGPERFORMED BY: [facility] [address] [id number] ([place]) ([address]) [id number] Mouse Urine <0.10 kU/L (Normal) Y471-EqQ Sheep [place] <0.10 kU/L (Normal) Q480-HaQ Pigweed, Common <0.10 kU/L (Normal) H234-LbJ Thistle, Palauan <0.10 kU/L (Normal) C946-TqD Ragweed, Short <0.10 kU/L (Normal) U512-LqT White [place] <0.10 kU/L (Normal) N916-FiC Pecan, Antelope <0.10 kU/L (Normal) K107-UwX Joshua, White <0.10 kU/L (Normal) O264-RtO George <0.10 kU/L (Normal) C886-GrE Maple [place] <0.10 kU/L (Normal) R435-EeP [place] <0.10 kU/L (Normal) H857-GuI Elm, Nam[place]ian <0.10 kU/L (Normal) B776-DyB Gary, White <0.10 kU/L (Normal) C794-JwO Hinds, Mountain <0.10 kU/L (Normal) H019-VyJ Common Silver Birch <0.10 kU/L (Normal) M469-AbF Maple/[place] <0.10 kU/L (Normal) C775-HuR Alternaria alternata <0.10 kU/L (Normal) Q544-LaS Aspergillus fumigatus <0.10 kU/L (Normal) Z985-WkP Cladosporium herbarum <0.10 kU/L (Normal) N452-VkG Penicillium chrysogen <0.10 kU/L (Normal) I581-ZbC Cockroach, Swiss <0.10 kU/L (Normal) O020-CkF Soy Grass <0.10 kU/L (Normal) Q817-TpG Bermuda Grass <0.10 kU/L (Normal) F068-MxA Dog Dander <0.10 kU/L (Normal) Q605-BkW Cat Dander <0.10 kU/L (Normal) H695-DzD D farinae <0.10 kU/L (Normal) U766-WlJ D pteronyssinus <0.10 kU/L (Normal) Immunoglobulin E, [...] High >100.00 Very High :48 TESTOSTERONE FREE (22247) Comments: PATIENT NOT FASTINGPERFORMED BY: [employer] [facility] [id number] BY: [employer] [id number] Free Testosterone(Direct) 17.2 pg/mL (Normal) Range: 6.6-18.1 :48 HEPATITIS C ANTIBODY Comments: PATIENT NOT FASTINGPERFORMED BY: [facility] [id number] BY: [employer] [id number] (94337) Hep C Virus Ab <0.1 {s/co_ratio} (Normal) Range: 0.0-0.9 Comments: Negative: < 0.8 Indeterminate: 0.8 - 0.9 Positive: > 0.9 . The CDC recommends that a positive HCV antibody result be followed up with a HCV Nucleic Acid Amplification test (978996). 2-Dsn-161857:48 URINALYSIS (75770) Comments: PATIENT NOT FASTINGPERFORMED BY: GHash.IO70 [facility] [id number] BY: [facility] [id number] Microscopic Examination MICNIP (Normal) Comments: Microscopic not indicated and not performed. Nitrite, Urine Negative (Normal) Urobilinogen,Semi-Qn 1.0 mg/dL (Normal) Range: 0.2-1.0 Bilirubin Negative (Normal) Occult Blood Negative (Normal) Ketones Negative (Normal) Glucose Negative (Normal) Protein Negative (Normal) WBC Esterase Negative (Normal) Appearance Clear (Normal) Urine-Color Yellow (Normal) pH 5.5 (Normal) Range: 5.0-7.5 Specific [place] 1.022 (Normal) Range: 1.005-1.030 9-Smg-074862:48 CBC WITH MANUAL DIFF Comments: PATIENT NOT FASTINGPERFORMED BY: CB [facility] Wgvdtb4537 [facility] [id number] BY: BN [facility] Vlrhshwquk0097 [facility] [id number] Inf ormation: NURSE DRAW (30869) Immature Grans (Abs) 0.0 {x10E3/uL} (Normal) Range: [...] 4.14-5.80 WBC 6.5 {x10E3/uL} (Normal) Range: 3.4-10.8 :48 Metabolic Panel, Comments: PATIENT NOT FASTINGPERFORMED BY: CB [facility] Pyaiaj4919 [place] [id number] BY: BN [facility] Vutqewleev6178 [facility] [id number] Comprehensive (01267) ALT (SGPT) 29 [iU]/L (Normal) Range: 0-44 [...] Glucose, Serum 97 mg/dL (Normal) Range: 65-99 :33 CBC W/Diff, Automated Comments: [facility] Bcpbjjwbuf1117 [address] [place], [place], [id number] ; will review on 02/28 Absolute Lymph [...] 4.6-6.2 WBC 5.5 K/mm3 (Normal) Range: 4.4-11.0 69-Cub-87533:33 Comprehensive Metabolic Profil Comments: [facility] Lrierxnhjk3411 [address] [place], [place], [id number] GAP 4 (Abnormal) Range: 5-15 CO2 29.0 [...] 70-110 :33 CPK Total, Creatine Kinase Comments: [facility] Qnqqxtrhgr0552 [facility]. [place], [place], [id number] CPK TOTAL 176 U/L (Normal) Range: 39-308 :33 Homocysteine Comments: [facility] Aneqkvkuaq2572 [facility]. [place], [place], [id number] HOMOCYSTEINE 7.1 umol/L (Normal) Range: 3.2-10.7 :33 NMR Lipoprofile Comments: [facility] (refer to report for specific site)refer to report for address and phone number; 7 LP-IR SCORE 84 (Abnormal) Comments: INSULIN RESISTANCE [...] the US Food and Drug Administration.Performed at: [facility] [id number] [place], [place] [id number] Director: Francois Davis MD, Phone: [phone] INS RES/DIAB RK . (Normal) LDL SIZE [...] mg/dL (Abnormal) Range: 100-199 LIPIDS . (Normal) 01-Hdd-26371:33 Testosterone Free Comments: [facility] (refer to report for specific site)refer to report for address and phone number TEST FR 254640 15.2 pg/mL (Normal) Range: 6.6-18.1 Comments: Performed at: [facility] Lab[address] [id number] Director: Francois Davis MD, Phone: [phone] 17-May-20164:30 Pathology Report Comments: PERFORMED BY: [facility] LabCoARH [facility] Sczho84171 [facility] [id number] Information: [id number] See MATER Comments: Material submitted: .PART A: [...] IN CASSETTE(S) B./LMSLMS/LMSPathologist provided ICD-10:D18.01, L98.9, D49.2CPT .153018, 458645 46-Xoj-431109:31 ESTRADIOL (54190) Comments: recheck in 3 months; PATIENT NOT FASTINGPERFORMED BY: [employer] [facility] [id number] BY: rumr [address] [id number] Information: NURSE DRAW Estradiol 17.5 pg/mL (Normal) Range: 7.6-42.6 Comments: Tahir ECLIA methodology 17-Gao-413021:31 TESTOSTERONE FREE (70824) Comments: recheck in 3 months; PATIENT NOT FASTINGPERFORMED BY: [facility] [id number] BY: [employer] [address] [id number] Free Testosterone(Direct) 14.6 pg/mL (Normal) Range: 6.6-18.1 63-Ujr-856058:31 PSA (Prostate Specific Comments: re check in 3 months; PATIENT NOT FASTINGPERFORMED BY: [facility] [id number] BY: rumr [address] [id number]; 09-14 Antigen), Diagnostic (20473) Prostate Specific Ag, 0.6 ng/mL (Normal) Range: 0.0-4.0 Serum Comments: Tahir ECLIA methodology. .According to the [place] U[employer] Association, Serum PSA shoulddecrease and remain at undetectable levels after radicalprostatectomy. The AUA defines biochemical recurrence as an initialPSA value 0.2 ng/mL or greater followed by a subsequent confirmatoryPSA value 0.2 ng/mL or greater.Values obtained with d ifferent assay methods or kits cannot be usedinterchangeably. Results cannot be interpreted as absolute evidenceof the presence or absence of malignant disease. 76-Fud-189051:05 FSH and LH Comments: PATIENT NOT FASTINGPERFORMED BY: [employer] Klzmav0545 Pedroza RoadDublin [place] [id number] Information: [id number], 169622; will f/u on 05/17 FSH 9.6 m[iU]/mL Range: 1.5-12.4 (Normal) LH 6.3 m[iU]/mL Range: 1.7-8.6 (Normal) Written Authorization WAR (Normal) Comments: PATIENT NOT FASTINGPERFORMED BY: [facility] Ceqvpc8579 Pedroza RoadDublin [place] [id number] 4:05 Comments: Written Authorization Received.Authorization received from SIGNATURE ON FILE [id number] by Yanna Matos :05 Methymalonic Acid, Serum Comments: PATIENT NOT FASTINGPERFORMED BY: [employer] Nxctrnskli0417 [facility] [id number] BY: [facility] Bhxuep4876 [address] EnergyClimate Solutionsblin [place] [id number] (15616) Methylmalonic Acid, Serum 202 nmol/L (Normal) Range: 0-378 22-Mph-801437:05 Vitamin B-12 Comments: PATIENT NOT FASTINGPERFORMED BY: [employer] Pikwzunsgu1994 [facility] [id number] BY: [facility] Jududi[address] [facility] [place] [id number] (cyanocobalamin) (35961) Vitamin B12 724 pg/mL (Normal) Range: 211-946 83-Trl-495120:05 TESTOSTERONE FREE (56491) Comments: in am; PATIENT NOT FASTINGPERFORMED BY: [facility]1447 [facility] [id number] BY: [facility]6370 [facility] [id number] Information: R72198, 646310 Free Testosterone(Direct) 5.6 pg/mL (Abnormal) Range: 6.6-18.1 05-Adh-65586:44 PSA (Prostate Specific Comments: PATIENT NOT FASTINGPERFORMED BY: LabCoVirt[facility] MarltonPestjd7712 [facility] [id number] Information: C06111,NURSE DRAW Antigen), Screening (91831) Prostate Specific Ag, 0.6 ng/mL (Normal) Range: 0.0-4.0 Serum Comments: LabMindsIA methodology. .According to the [place] U[employer] Association, Serum PSA shoulddecrease and remain [...] disease. :19 Lipid Profile Comments: Test performed at:[facility] Rtffqsaypw6232 [facility]. [place], [place] [address] VLDL 10 mg/dL (Normal) Range: 5-40 LDL [...] Risk :19 Liver Profile Comments: Test performed at:[facility] Lfntzzmyiu8965 [facility] [place] [address] D BILI 0.25 mg/dL (Normal) Range: 0.00-0.30 [...] Comments: PATIENT NOT FASTINGPERFORMED BY: EDNA [facility] Nlpsai3909 [facility] [id number] Information: 677018,[id number] A1C) (49056) Hemoglobin A1c 6.0 % (Abnormal) Range: 4.8-5.6 [...] CHOL 117 mg/dL (Normal) Comments: <200 mg/dL Mamkgwvar229-743 mg/dL Borderline>240 mg/dL High Risk :03 LIVER [...] CHOL 145 mg/dL (Normal) Comments: <200 mg/dL Qxnksylfq385-858 mg/dL Borderline>240 mg/dL High Risk :43 LIVER D BILI 0.20 mg/dL (Normal) Range: 0.00-0.30 T BILI 0.80 mg/dL (Normal) Range: 0.00-1.00 ALB 3.9 g/dL (Normal) Range: 3.4-5.0 ALK P 63 U/L (Normal) Range: 50-136 ALT 45 U/L (Normal) Range: 12-78 AST 41 U/L (Abnormal) Range: 15-37 T PROT 7.4 g/dL (Normal) Range: 6.4-8.2 93-Gzs-024001:50 LIPID VLDL 12 mg/dL (Normal) Range: 5-40 CHOL 100 mg/dL (Normal) Comments: <200 mg/dL Vmkpadxhr072-578 mg/dL Borderline>240 mg/dL High Risk HDL 37 mg/dL (Normal) Comments: Reference RangeHDL <40 mg/dL Low HDL CholesterolHDL >or= 60 mg/dL High HDL Cholesterol LDL 51 mg/dL (Normal) Range: 0-130 TRIG 59 mg/dL (Normal) Comments: Serum Triglycerides Reference IntervalNormal <150 mg/dLBorderline high 150 - 199 mg/dLHigh 200 - 499 mg/ dLVery High > or = 500 mg/dL 77-Ist-424732:50 LIVER ALT 49 U/L (Normal) Range: 12-78 D BILI 0.22 mg/dL (Normal) Range: 0.00-0.30 T BILI 0.80 mg/dL (Normal) Range: 0.00-1.00 ALB 3.7 g/dL (Normal) Range: 3.4-5.0 ALK P 49 U/L (Abnormal) Range: 50-136 AST 42 U/L (Abnormal) Range: 15-37 T PROT 7.0 g/dL (Normal) Range: 6.4-8.2 06-Ikz-497534:51 ACUTE ABDOMEN, INC CHEST (MT) Radiology Report See Note (Normal) Comments: Exam Number: [id number] ACUTE ABDOMINAL SERIES WITH PA CHEST INDICATIONSevere [...] of theabdomen. Reported By: DEVIN SANDHU M.D. 32-Yow-647556:55 ABDOMEN LIMITED US () Radiology Report See Note (Normal) Comments: Exam Number: [id number] LIMITED ABDOMINAL ULTRASOUND HISTORYRight upper quadrant pain. [...] T PROT 7.2 g/dL (Normal) Range: 6.4-8.2 6-Cwi-317508:42 LIPASE 148 U/L (Normal) Range: 114-286 04-Tae-697551:25 CBCD Comments: DR. MENG ORDERED LIPID/LPDR.LIPID CMP [...] 4.6-6.2 WBC 5.3 K/mm3 (Normal) Range: 4.4-11.0 04-Jqq-956516:25 COMP METABOLIC Comments: DR. MENG ORDERED LIPID/LPDR.LIPID [...] T PROT 7.4 g/dL (Normal) Range: 6.4-8.2 :25 D BILI 0.15 mg/dL (Normal) Comments: DR. MENG ORDERED LIPID/LPDR.LIPID CMP CBCD PSA UA Range: 0.00-0.30 :25 LIPID Comments: DR. MENG ORDERED LIPID/LPDR.LIPID CMP [...] LIPID/LPDR.LIPID CMP CBCD PSA UA Range: 0.0-4.0 :25 ROUTINE UA Comments: DR. MENG ORDERED LIPID/LPDR.LIPID [...] AMOUNT GROWTH 3+ ORGANISM 1: HAEMOPHILUS INFLUENZA :46 Rapid Strep Test, Office (54155) Rapid Strep Test, Office Negative (Normal) :23 [...] was performed using the TPSA method for theDimension chemistry system.Values obtained with different assay methods [...] and treatment Indication: Pharyngitis, acute Planned Observations HGB A1C (94043)Indication: IFG (impaired fasting glucose) On: :37 Request LIPID PANEL (95616)Indication: Coronary artery disease On: :36 Request METABOLIC PANEL, COMPREHENSIVE (29896)Indication: Coronary artery disease On: :36 Request CALCIFIDIOL (90384) VIT D 25Indication: Vitamin D insufficiency On: 24-Gpy-872062:44 Request METABOLIC PANEL, COMPREHENSIVE (89469)Indication: Hyperlipidemia, unspecified On: 02-Mkd-681381:43 Request LIPOPROTEIN, BLD, BY NMR (91131)Indication: Hyperlipidemia, unspecified On: :43 Request Homocysteine, Plasma (52041)Indication: Homozygous MTHFR mutation C1234L On: 79-Itb-655815:40 Request METABOLIC PANEL, COMPREHENSIVE (90485)Indication: Hypercholesterolemia On: 7-Zfd-457498:55 Request TESTOSTERONE FREE (31169)Indication: Testosterone deficiency On: : Request CBC, Platelets & Auto Diff (23234)Indication: Testosterone deficiency On: : Request Creatine Kinase Total (67953)Indication: Hypercholesterolemia On: :18 Request LIPOPROTEIN, BLD, BY NMR (28247)Indication: Hypercholesterolemia On: :18 Request Homocysteine, Plasma (79792)Indication: Homozygous MTHFR mutation L7501H On: :17 Request CBC WITH MANUAL DIFF (76367)Indication: Testosterone deficiency On: :41 Request Comments: re check in 3 months CBC with auto diff (81529)Indication: Elevated LFTs On: :49 Request Comments: copy to Dr. sky URINALYSIS, W/ MICRO (68004)Indication: Coronary artery disease On: :39 Request METABOLIC PANEL, COMPREHENSIVE (61394)Indication: Elevated LFTs On: 0-Ezk-687290:38 Request LIPID PANEL (96628)Indication: Coronary artery disease On: 5-Oeq-394272:38 Request Hemoglobin Glyclated (HGB A1C) (36269)Indication: IFG (impaired fasting glucose) On: :06 Request Comments: recheck in 3 months LIPID PANEL (28399)Indication: Hypercholesterolemia On: : Request PSA (PROSTATE SPECIFIC ANTIGEN) (V76.44)Indication: Encounter for health maintenance examination with abnormal findings On: : Request CBC (Auto) (11815)Indication: Coronary artery disease On: : Request Metabolic Panel, Basic (23138)Indication: Coronary artery disease On: : Request TSH (76290)Indication: Anxiety On: :01 Request CBC & PLATELETS (AUTO) (28004)Indication: Hypercholesterolemia On: :56 Request LIPID PANEL (39864)Indication: Hypercholesterolemia On: :56 Request METABOLIC PANEL, COMPREHENSIVE (98597)Indication: Hypercholesterolemia On: 52-F[address]-921784:55 Request Metabolic Panel, Basic (83731)Indication: Hypercholesterolemia On: :31 Request Lipid Panel (10903)Indication: Hypercholesterolemia On: :30 Request PSA (PROSTATE SPECIFIC ANTIGEN) (V76.44)Indication: Encounter for health maintenance examination with abnormal findings On: :28 Request CBC (Auto) (58000)Indication: Coronary artery disease On: :28 Request Metabolic Panel, Basic (93652)Indication: Coronary artery disease On: :28 Request TSH (88981)Indication: Anxiety On: :28 Request PSA (PROSTATE SPECIFIC ANTIGEN) (V76.44)Indication: Encounter for health maintenance examination with abnormal findings On: 4-Xil-711912:30 Request TSH (47032)Indication: Anxiety On: 0-Lxj-882531:30 Request METABOLIC PANEL, COMPREHENSIVE (82802)Indication: Hypercholesterolemia On: 8-Bwt-542709:30 Request LIPID PANEL (40960)Indication: Hypercholesterolemia On: 6-Zak-615983:30 Request CBC WITH MANUAL DIFF (55358)Indication: Hypercholesterolemia On: 0-Coj-925491:30 Request Lipase (94223)Indication: Epigastric pain On: 9-Fov-932065:24 Request Amylase (26979)Indication: Epigastric pain On: 8-Hub-328940:24 Request Metabolic Panel, Comprehensive (71555)Indication: Epigastric pain On: 2-Ily-044402:24 Request CBC with manual diff (04796)Indication: Epigastric pain On: 4-Cdp-057891:24 Request Metabolic Panel, Comprehensive (35795)Indication: Coronary artery disease On: 11-Plj-825871:13 Request URINALYSIS (30989)Indication: Coronary artery disease On: 30-Gop-523306:30 Request CBC (Auto) (72318)Indication: Coronary artery disease On: 72-Hbt-351592:30 Request Lipid Panel (52197)Indication: Coronary artery disease On: 10-Rol-955378:30 Request Metabolic Panel, Comprehensive (50876)Indication: Coronary artery disease On: 05-Aet-410902:30 Request PSA (PROSTATE SPECIFIC ANTIGEN) (V76.44)Indication: Screening for prostate cancer On: 79-Hlj-895925:29 Request JOANA CULTURE-OTHER (64780)Indication: Pharyngitis, acute On: 07-Ztq-182276:46 Request PSA (PROSTATE SPECIFIC ANTIGEN)Indication: Screening for prostate cancer On: 8-Iyx-630355:05 Request CBC WITH MANUAL DIFF (72722)Indication: Coronary artery disease On: 2-Wjz-614039:05 Request LIPID PANEL (64607)Indication: Coronary artery disease On: 9-Vkh-361885:05 Request METABOLIC PANEL, COMPREHENSIVE (74026)Indication: Coronary artery disease On: 9-Yaz-929523:05 Request Planned Encounters Medical; [facility] 6 Month Fu - On: 08-Mar-2019 8:45 [facility] Ela Salgado MD, MD, Dana M Planned Procedures US DOPPLER CAROTID BILATERAL On: 04-Sep-2018 Intent (62520)By: Ela Salgado MD, MD, Dana M Radiology - Hip - LeftBy: Zackary On: 17-Aug-2018 Intent Ela HERNANDEZ MD, Dana M Comments: call with wet read [phone] Radiology - Knee - Left - Weight On: 17-Aug-2018 Intent BearingBy: Ela Salgado MD Comments: call with wet read [phone] Ela Salgado MD BLADDER ULTRASOUND SCAN WITH On: 19-Jun-2018 Intent MEASUREMENT OF POST-VOID RESIDUAL URINE VOLUME (97380)By: Ela Salgado MD, MD, Dana M Flu Vaccine (Quadrivalent) On: 12-Jun-2018 Intent 29422Gt: Ela Salgado MD Comments: Lot #[id number]/30/2019Site-L dltd, IMDose prefilled syringegiven by: CManchakVIS reviewed and ABN signed Ela Salgado MD Toradol Injection, 30 mg On: 12-Jun-2018 Intent (J1885)By: Ela Salgado MD Comments: lot: [id number]: 01/2020site/route: RGM/IMamt: 1mLVIS signed when applicableSAGE Becerra MD, Dana M Toradol Injection, 30 mg On: 04-Jan-2018 Intent (J1885)By: Ela Salgado MD, MD, Dana M Toradol Injection, 30 mg On: 12-Oct-2017 Intent (J1885)By: Zana LOOMIS, Aga PNEUM VAC ADLT/IMUMNOSPR, On: 10-Aug-2017 Intent SBC/INTRM (56280)By: Zackary HERNANDEZ, Comments: lot:[id number]:4-08-7259txy:IM right deltoid dose:0.5ml given by:CORINE Oconnor MD, Dana M Radiology - Ankle - RightBy: On: 05-Jul-2017 Intent Ela Salgado MD, MD, Comments: call wet read [phone] Dr. zackary Lr EMGBy: Ela Salgado MD On: 17-Jan-2017 Intent Ela HERNANDEZ Nerve ConductionBy: Zackary HERNANDEZ, On: 17-Jan-2017 Intent Ela Galarza MD Comments: right leg Radiology - Wrist - RightBy: On: 14-Sep-2016 Intent Ela Salgado MD, MD, Comments: do scaphoid views Ela Lr US DOPPLER CAROTID BILATERAL On: 27-Apr-2016 Intent (43909)By: Ela Salgado MD, MD, Dana M ZOSTER VACC, SC (63530)By: Zackary On: 27-Apr-2016 Intent Ela HERNANDEZ MD, Dana M Comments: lot:[id number]:82-17-2875brp:SC right arm dose:0.65mlgiven by:Praveen signedER, CORINE TDAP VACCINE >7 IM (38742)By: On: 27-Apr-2016 Intent Ela Salgado MD, MD, Comments: lot:[id number]:09-05-18rte:IM left deltoid dose:0.5ml given by:mayra LUZ signedER, CORINE Lr FLU VAC, SPLIT, >3 YEARS, On: 22-May-2013 Intent INTRAMUSC (49849)By: Lizzie, Comments: lot [id number] 2014site/route R erik, IMamt 0.5mlVIS and ABN signed when applicableChelsbrittani, SAGE Mariam IMMUNIZ ADMNIN, 1 VAC, SNGL/COMBO On: 22-May-2013 Intent (51210)By: Mariam Samuel Toradol Injection, 30 mg On: [...] MG Ordered: 04-Jan-2018 Pending Zackary HERNANDEZ, Ela Galarza MD INJECTION, KETOROLAC TROMETHAMINE, PER 15 MG Ordered: 12-Jun-2018 Pending Zackary HERNANDEZ, Ela Galarza MD Instructions Name Dates Details Encounter for health maintenance examination with abnormal [...] for health maintenance examination with abnormal findings BPH (benign prostatic hypertrophy) with urinary obstruction [...] Scanned Document is available upon request. Encounters Review On: 04-Sep-2018 7:51 Encounter Reason: Physical male exam - Last seen between 3-6 months ago. General health: feels well with minor complaints, has good energy level and is sleeping well. The patient's appetite is normal. Nutrition: normal/a dequate. Exercises 0 days per week. Sleeps on average 7 hours per night. Normal bowel and bladder habits. Safety measures include appropriate use of safety belts and home smoke detectors. Current emotio nal problems include anxiety. The patient's libido is absent. Preventative measures done by patient are PSA (08-18-18).Encounter Diagnosis: BMI 28.0-28.9,adult, Encounter for health maintenance examination with abnormal findings, Tobacco abuse, in remission (Renamed from Tobacco dependence in remission), GERD (gastroesophageal reflux disease), Verrucous keratosis, Hyperlipidemia, unspecified, Coronary artery disease, Vitamin D insufficiency, Alcohol abuse, in remission, Carotid stenosis, asymptomatic, bilateral, Homozygous MTHFR mutation U4545A, Testosterone deficiency, Obesity (BMI 30.0-34.9), IFG (impaired fasting glucose), IBS (irritable bowel syndrome), BPH (benign prostatic hypertrophy) with urinary obstruction (Renamed from BPH with urinary obstruction), Neck stiffness, Left knee pain, Elevated LFTs, Allergic rhinitis, Cervical strain, acute, Low back pain, Fatigue, unspecified type, Back spasm, Numbness and tingling of right leg, Need for hepatitis C screening test, Knee internal derangement, left, BMI 30.0-30.9,adult, BMI 31.0-31.9,adult, Sprain of right ankle, initial encounter, Hypercholesterolemia, Nonsmoker, Left hip pain, Wrist pain, acute, right, Prediabetes, Plantar fasciitis, bilateral [facility] Phone Encounter On: 17-Aug-2018 8:55 Encounter Diagnosis: [...] patient are screening, colonoscopy (2015) and PSA (2017).Encounter Diagnosis: Carotid stenosis, asymptomatic, bilateral, GERD (gastroesophageal reflux disease), IBS (irritable bowel syndrome), Neoplasm of uncertain behavior of skin, IFG (impaired fasting glucose), Abnormal cardiac function test, Fatigue, unspecified type, Tobacco abuse, in remission (Renamed from Tobacco dependence in remission), Elevated LFTs, Allergic rhinitis, Alcohol abuse, in remission, Coronary artery disease, Low back pain, Testosterone deficiency, Homozygous MTHFR mutation R1778T, Encounter for health maintenance examination with abnormal findings, BMI 28.0-28.9,adult , Pneumococcal vaccination given, Hyperlipidemia, unspecified, Vitamin D insufficiency, Verrucous keratosis [facility] Lab Order On: 13-Jul-2017 15:37 Encounter Diagnosis: Coronary artery disease, Homozygous MTHFR mutation P5915N, Need for hepatitis C screening test, Testosterone [...] disease), Anxiety, Testosterone deficiency, Homozygous MTHFR mutation Q2223O, Wrist pain, acute, right, Hypercholesterolemia, BMI 31.0-31.9,adult, [...] right, Testosterone deficiency, Anxiety, Homozygous MTHFR mutation B7033F [facility] Office Visit On: 17-May-2016 [...] for Tdap vaccination (Renamed from Need for ndmopyjtna-bkeebbo-vncsilwdf (Tdap) vaccine, adult/adolescent), Need for zoster vaccination, [...] 16:40 [facility] End: 19-Dec-2006 16:40 Payers [facility] [place] [facility] [employer]; randi guarantor
--- OUTSIDE RECORDS SUMMARY | 2018-11-07 17:08 | XMS RPT_ITS | Continuity of Care Document ---
:1955 Author Organization [facility] Address [address] [facility] [address] [place] [address] Phone Care Team Providers Name Role Phone [...] CP with URI found 1995. Cath at [place] 12-01-95 with coronary artery vasospasm (took adderall then), [place] with PTCA, circ 2003, see Dr. sky 2016 stress good Status: Active Elevated LFTs (R94.5, 790.6) Status: Active Encounter for health maintenance examination with abnormal findings (Z00.01, V70.0) Comments: 08-10-17 M[facility] Wellness Physical. colonoscopy 05-30 good, PSA 07-31, Hep C screening negative, immunizations are up to date hep C test neg Status: Active Fatigue, unspecified type (R53.83, 780.79) Comments: more stamina off lexapro. better than was. 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 if toradol and flexeril not help then xray nsaidssince 1976. had MRi in past. Status: Active Neck stiffness (M43.6, 723.5) Status: Active Need for Tdap vaccination (Renamed from Need for cdfnobakiz-mwuggyf-kurzmpisd (Tdap) vaccine, adult/adolescent) (Z23, V06.1) Status: Active Obesity (BMI 30.0-34.9) (E66.9, 278.00) Status: Active Pneumococcal vaccination given (Z23, V06.6) Status: Active Testosterone deficiency (E34.9, 257.2) Comments: [...] days Quantity: 90 {Capsule} Refills: 3 Ordered:21-Aug-2018 Ela Salgado MD, MD, Dana M Start : 21-Aug-2018 Active ASPIRIN LOW DOSE, [...] days Quantity: 90 {Tablet} Refills: 3 Ordered:21-Aug-2018 Zackary HERNANDEZ, Ela Quigley MD, Ela Lr Start : 21-Aug-2018 Active Vitamin D3 Super Strength 2000 UNIT Oral Capsule 1 (one) Capsule Capsule in am for 0 days Quantity: 30 {Capsule} Refills: 0 Ordered:12-Oct-2017 Slarb CORINE Aniyah Start : 10-Aug-2017 Active Augmentin 875-125 MG [...] Quantity: 1 {Bottle} Refills: 3 Ordered:23-Sep-2015 Long ORACLE DEVELOPER, Staci L Start : 22-Apr-2014 End : 23-Sep-2015 Inactive Flonase 50 MCG/ACT Nasal Suspension 1 (one) Seward 2 sprays each nostril daily for 0 days Quantity: 1 {Seward} Refills: 2 Ordered:04-Jan-2018 Antoni Kendrick Start : [...] to stretch. handout given on execises and lhymr8nsy if not better rexray send PT Status: Resolved as of 04-Sep-2018 BMI 30.0-30.9,adult (Z68.30, V85.30) Comments: good at 190-195. will exercise cut back sweets starches Status: Resolved as of 10-Aug-2017 BMI 31.0-31.9,adult (Z68.31, V85.31) Status: Resolved as of 10-Aug-2017 Epigastric pain (R10.13, 789.06) Comments: ? PUD ? GB Status: Resolved as of 18-Nov-2009 Hemorrhoids (K64.9, 455.6) Status: Inactive as of 22-Mar-2016 Hypercholesterolemia (E78.00, 272.0) Comments: have muscle aches crestor 40 mg...will get through summer then restart in fall with coenzyme q10. if aches backthen willstop reveiwed with patient recent tests and ldl back up and small ldl high. if still bother ? repathea. Status: Resolved as of 17-Aug-2018 Knee internal derangement, left (M23.92, 717.9) Comments: years ago pop and think tore disc when biking. at this point not want to work up further would need MRI and to orthosx seen jeanne in past. would want someone else like knapic Status: Resolved as of 10-Aug-2017 Left hip pain (M25.552, 719.45) Status: Resolved as of 04-Sep-2018 Left hip pain (M25.552, 719.45) Comments: not have good socket and see gesler and exercise alot to stabilize Status: Resolved as of 10-Aug-2017 Muscle spasm of back (724.8) Status: Inactive as of 22-Mar-2016 Need for hepatitis C screening test (Z11.59, V73.89) Status: Resolved as of 10-Aug-2017 Need for prophylactic vaccination and inoculation against [...] (Z78.9, V49.89) Status: Resolved as of 03-Aug-2018 Nonsmoker (Z78.9, V49.89) Status: Resolved as of 10-Aug-2017 Numbness and tingling of right leg (R20.0, 782.0) Comments: ? meralgia paresthecia vs back pinched nerve will take aleve helps. ncs negative show old in past radiculopathy. Status: Resolved as of 10-Aug-2017 Pharyngitis, acute (J02.9, 462) Status: Resolved as of 03-Jan-2009 Prediabetes (R73.03, 790.29) Status: Resolved as of 10-Aug-2017 Screening for prostate cancer (Z12.5, V76.44) Comments: scope 1-06 Status: Resolved as of 04-Sep-2018 Sprain of right ankle, initial encounter (S93.401A, [...] 2-3 Views Result: Comments: See Note; NOTES: [facility] Imaging Services [address] [place] [address] HIP, UNI W/ Pelvis 2-3 Views MR#: [id number] Acct: [id number] Name: DRAGAN FORREST Rep #: [id number] : 1955 M 63 From: Gopi Vera MD PCP: Ela Salgado MD Status: REG CLI Study: HIP, UNI W/ Pelvis 2-3 Views Date of Exam: 08/17/18 Exam# [id number] Ordering Dr: Berto Salgado MD STUDY: X-RAY [...] Service support , CC: Ela Salgado MD Price Economist: Signed 17-Aug-2018 Knee 4 or More Views Result: Comments: See Note; NOTES: [facility] Imaging Services [address] [place] [address] Knee 4 or More Views MR#: [id number] Acct: [id number] Name: DRAGAN FORREST Rep #: [id number] : 1955 63 From: Gopi Vera MD PCP: Ela Salgado MD Status: REG CLI Study: Knee 4 or More Views Date of Exam: 08/17/18 Exam# [id number] Ordering Dr: Ela Salgado MD STUDY: X-RAY [...] Service support , CC: Ela Salgado MD Price Economist: Signed 20-Jun-2018 Kidney and Bladder Result: Comments: See Note; NOTES: [facility] Imaging Services [address] [place] [address] Kidney and Bladder MR#: [id number] Acct: [id number] Name: DRAGAN FORREST Rep #: [id number] : 1955 M 62 From: Luis F Rae PCP: Ela Salgado MD Status: REG CLI Study: Kidney and Bladder Date of Exam: 06/20/18 Exam# [id number] Ordering Dr: Ela Salgado MD STUDY: RENAL [...] Service support , CC: Ela Salgado MD Price Economist: Signed 12-Apr-2018 Cardiology Visit Report Result: Comments: See Note; NOTES: [facility] [address] [place] [address]. [address] [place] [address] OFFICE VISIT Date of Service: 04/12/18 MR#: [id number] Acct: [id number] Name: MEKA FORREST Rep #: [id number] : 1955 Provider: Barry Sky MD Age/Sex: 62/M Location: [facility] Status: Signed HPI HPI Chief Complaint: Follow-up [...] PO DAILY 03/16 05/02 [History Confirmed 04/12/18] [facility] Medical History Hypertension (Chronic) Hyperlipidemia (Chronic) History [...] symptoms, near syncope, syncope or lack of corn cooker rdination Chris Hematologic/Lymphatic: Negative for easy bruising [...] PCI- Cx w/ 3.0 x 24 mm Hide Salter Stent Plan He is status post coronary [...] Other Orders Orders: 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) Coding Level of Care Code Off vis,est,level [...] 3 Views Result: Comments: See Note; NOTES: [facility] Imaging Services [address] [place] [address] Foot min 3 Views MR#: [id number] Acct: [id number] Name: DRAGAN FORREST Rep #: [id number] : 1955 M 61 From: Vikas Hummel MD PCP: Ela Salgado MD Status: REG CLI Study: Foot min 3 Views Date of Exam: 07/06/17 Exam# [id number] Ordering Dr: Agapito Don DO STUDY: X-RAY [...] Vikas Hummel MD at 14:20 EST Tel [phone], Service support , Fax CC: Ela Salgado MD; Agapito Don DO Price Economist: Signed 05-Jul-2017 Ankle min 3 Views Result: Comments: See Note; NOTES: [facility] Imaging Services [address] [place] [address] Ankle min 3 Views MR#: [id number] Acct: [id number] Name: DRAGAN FORREST Rep #: [id number] : 1955 M 61 From: Vikas Hummel MD PCP: Ela Salgado MD Status: REG CLI Study: Ankle min 3 Views Date of Exam: 07/05/17 Exam# [id number] Ordering Dr: Ela Salgado MD STUDY: X-RAY [...] Vikas Hummel MD at 15:29 EST Tel [phone], Service support [phone], CC: Ela Salgado MD Price Economist: Signed 17-Feb-2017 NCS and/or EMG Patient Result: Comments: See Note; NOTES: [facility] Pulmonary Services/Neurology [address] [place] [address] NCS and/or EMG Patient MR#: [id number] Acct: [id number] Name: DRAGAN FORREST Rep #: [id number] : 1955 61 From: Donnie Smith Referring [...] Date Dictated: 02/17/17 Date Transcribed: 02/17/17 0710 Price Economist: MB Signed 14-Sep-2016 Wrist min 3 Views Result: Comments: See Note; NOTES: [facility] Imaging Services [address] [place] [address] Verdana 4d Wrist min 3 Views MR#: [id number] Acct: [id number] Name: DRAGAN FORREST Rep #: [id number] : 1955 M 61 From: Vikas Hummel MD PCP: Ela Salgado MD Status: REG CLI Study: Wrist min 3 Views Date of Exam: 09/14/16 Exam# [id number] Ordering Dr: Ela Salgado MD STUDY : [...] Hummel MD at 12:[address] Tel [phone], Service support [phone], CC: Ela Salgado MD Price Economist: Signed 12-May-2016 Carotid Duplex Ultrasound Result: Comments: See Note; NOTES: [facility] Cardiovascular Services [address] [place] [address] Carotid Duplex Ultrasound 05/05/16 1237 MR#: [id number] Acct: [id number] Name: DRAGAN FULLER Rep #: [id number] : 1955 60 From: Tyrone Daniels MD Attending Dr: Ela Salgado MD Status: REG I Ordering Dr: Ela Salgado MD Date: 05/05/16 Location: [facility] Sex: M C Admitted: Reason For Study: [...] the left vertebral artery. Procedure Carotid Duplex 18444. Exam performed in department. Interpreta tion Summary Mild (<50%) stenosis right extracranial internal carotid. Mild (<50%) stenosis left extracranial internal carotid. Flow within the vertebral arteries is antegrade bilaterall y. Ordering Physician: Ela Salgado Performed By: Elvia Wilson RVT 05/12/16 0843 Date Tyrone Daniels MD CC: Ela Salgado MD Date Dictated: 05/05/16 1237 Date Transcribed: 05/12/16 0843 Price Economist: Signed Family History Unknown Family Member Name Dates Details Brother 1 Comments: lives in area, lives with parents hx. Drug addiction Status: Active Daughter 1 Comments: lives in [place] Status: Active Daughter 2 Comments: [place] in [place] Status: Active Father Comments: after age 60 [...] Living Situation Comments: , heterosexual, grow apart. 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 18 years 11/2 pack stop at 36yo Status: Active Vital Signs Date Test Result Details :52 Weight 201 lb Height 71 in Body Mass Index Calculated 28.03 kg/m2 Body Surface Area Calculated 2.11 m2 7-Geh-560721:30 Temperature 98.3 f Comments: Method: Temporal Pulse [...] Height 0 in Head Circumference 0.00 cm 00-Gjn-925274:40 Temperature 98.1 f Comments: Method: Undefined Pulse [...] 0.00 cm Results Date Description Value Details 2-Vpy-770782:23 PSA (Prostate Specific Comments: PATIENT NOT FASTINGPERFORMED BY: [employer] [place] [id number] Antigen), Screening (38763) Prostate Specific Ag, 0.7 ng/mL (Normal) Range: 0.0-4.0 Serum Comments: STORYS.JPIA methodology. .According to the [employer] [employer] Association, Serum PSA shoulddecrease and remain at undetectable levels after radicalprostatectomy. The AUA defines biochemical recurrence as an initialPSA value 0.2 ng/mL or greater followed by a subsequent confirmatoryPSA value 0.2 ng/mL or greater.Values obtained with d ifferent assay methods or kits cannot be usedinterchangeably. Results cannot be interpreted as absolute evidenceof the presence or absence of malignant disease. 6-Ojk-885000:23 URINALYSIS (55696) Comments: PATIENT NOT FASTINGPERFORMED BY: Spark Authors6370 [facility]ble[facility] TechnologiesCritical access hospital [id number] Microscopic Examination MICNIP (Normal) Comments: Microscopic not indicated and not performed. Nitrite, Urine Negative (Normal) Urobilinogen,Semi-Qn 0.2 mg/dL (Normal) Range: 0.2-1.0 Bilirubin Negative (Normal) Occult Blood Negative (Normal) Ketones Negative (Normal) Glucose Negative (Normal) Protein Negative (Normal) WBC Esterase Negative (Normal) Appearance Clear (Normal) Urine-Color Yellow (Normal) pH 7.0 (Normal) Range: 5.0-7.5 Specific Mena 1.019 (Normal) Range: 1.005-1.030 8-Uzm-109818:23 Metabolic Panel, Comprehensive Comments: PATIENT NOT FASTINGPERFORMED BY: PostRocketWe[facility] Rehabilitation HospitalBtgadn1017 [facility] [id number] (86691) ALT (SGPT) 30 [iU]/L (Normal) Range: 0-44 [...] 8-27 Glucose 98 mg/dL (Normal) Range: 65-99 9-Awf-917184:23 CBC WITH MANUAL DIFF Comments: PATIENT NOT FASTINGPERFORMED BY: PostRocketWe[facility] Rehabilitation HospitalTbwlmi0577 [facility] [id number] Information: NURSE DRAW (24221) Immature Grans (Abs) 0.0 {x10E3/uL} (Normal) Range: [...] 4.14-5.80 WBC 6.3 {x10E3/uL} (Normal) Range: 3.4-10.8 2-Scw-592305:52 Urinalysis, Office (60569) UA - LEUKOCYTE ESTERASE Negative (Normal) UA - NITRITE Negative (Normal) URINE UROBILINGN DEE TIMED 2 mg/dL (Normal) UA - PROTEIN Negative mg/dL (Normal) UA - PH 6.5 (Normal) UA - BLOOD Hemolyzed Trace (Normal) UA - SPECIFIC GRAVITY 1.010 (Normal) UA - KETONES Negative mg/dL (Normal) UA - BILIRUBIN Negative (Normal) UA - GLUCOSE Negative (Normal) 20-Apr-20187:43 Lipid Profile Comments: [facility] [address] [place], [place], [id number] VLDL 9 mg/dL (Normal) Range: 5-40 LDL [...] mg/dL High Risk :43 Liver Profile Comments: [facility] Jzjmnfaheo5996 [facility] [address] [place], [place], [id number] D BILI 0.20 mg/dL (Normal) Range: 0.00-0.30 T BILI 0.70 mg/dL (Normal) Range: 0.20-1.00 ALT 36 U/L (Normal) Range: 16-61 ALK P 50 U/L (Normal) Range: 45-117 AST 35 U/L (Normal) Range: 15-37 GLOB 3.1 g/dL (Normal) Range: 2.2-4.2 ALB 3.7 g/dL (Normal) Range: 3.2-5.0 T PROT 6.8 g/dL (Normal) Range: 6.4-8.2 18-Oct-20179:22 Allergan with IGE Area 5 Comments: PATIENT NOT FASTINGPERFORMED BY: [facility] [id number] ([place]) ([address]) F967-PtA Mouse Urine <0.10 kU/L (Normal) O213-ZtW Sheep Perrin <0.10 kU/L (Normal) F944-KbG Pigweed, Common <0.10 kU/L (Normal) H825-OsA Thistle, Kazakh <0.10 kU/L (Normal) W788-MeK Ragweed, Short <0.10 kU/L (Normal) P281-AvQ White [place] <0.10 kU/L (Normal) U632-ZhO Pecan, [place] <0.10 kU/L (Normal) J682-RwQ Joshua, White <0.10 kU/L (Normal) S074-FeJ Coles <0.10 kU/L (Normal) Q338-HeU Maple [place] <0.10 kU/L (Normal) I538-KyW Wolford <0.10 kU/L (Normal) C664-FmP Elm, Georgian <0.10 kU/L (Normal) W402-AjM Swoope, White <0.10 kU/L (Normal) Y762-IrS [place], Mountain <0.10 kU/L (Normal) E835-BlL Common Silver Birch <0.10 kU/L (Normal) M752-IcH Maple/[place] <0.10 kU/L (Normal) L871-FzW Alternaria alternata <0.10 kU/L (Normal) A932-PnE Aspergillus fumigatus <0.10 kU/L (Normal) M926-MhG Cladosporium herbarum <0.10 kU/L (Normal) T588-ZbC Penicillium chrysogen <0.10 kU/L (Normal) F937-IxR Cockroach, Kuwaiti <0.10 kU/L (Normal) F345-EwK Soy Grass <0.10 kU/L (Normal) A208-DbL Bermuda Grass <0.10 kU/L (Normal) R822-HyI Dog Dander <0.10 kU/L (Normal) J808-GmW Cat Dander <0.10 kU/L (Normal) D360-JbG D farinae <0.10 kU/L (Normal) M334-AfW D pteronyssinus <0.10 kU/L (Normal) Immunoglobulin E, [...] High >100.00 Very High :48 TESTOSTERONE FREE (00685) Comments: PATIENT NOT FASTINGPERFORMED BY: [address] [id number] BY: [address] [id number] Free Testosterone(Direct) 17.2 pg/mL (Normal) Range: 6.6-18.1 :48 HEPATITIS C ANTIBODY Comments: PATIENT NOT FASTINGPERFORMED BY: [address] [id number] BY: [address] [id number] (69424) Hep C Virus Ab <0.1 {s/co_ratio} (Normal) Range: 0.0-0.9 Comments: Negative: < 0.8 Indeterminate: 0.8 - 0.9 Positive: > 0.9 . The CDC recommends that a positive HCV antibody result be followed up with a HCV Nucleic Acid Amplification test (846240). :48 URINALYSIS (36241) Comments: PATIENT NOT FASTINGPERFORMED BY: [address] [id number] BY: [address] [id number] Microscopic Examination MICNIP (Normal) Comments: Microscopic not indicated and not performed. Nitrite, Urine Negative (Normal) Urobilinogen,Semi-Qn 1.0 mg/dL (Normal) Range: 0.2-1.0 Bilirubin Negative (Normal) Occult Blood Negative (Normal) Ketones Negative (Normal) Glucose Negative (Normal) Protein Negative (Normal) WBC Esterase Negative (Normal) Appearance Clear (Normal) Urine-Color Yellow (Normal) pH 5.5 (Normal) Range: 5.0-7.5 Specific Mena 1.022 (Normal) Range: 1.005-1.030 :48 CBC WITH MANUAL DIFF Comments: PATIENT NOT FASTINGPERFORMED BY: PostRocketWe[facility] Rehabilitation HospitalBqjavv2727 [facility] [id number] BY: [place] 09[address] [facility][1] [id number] Inf ormation: NURSE DRAW (41471) Immature Grans (Abs) 0.0 {x10E3/uL} (Normal) Range: [...] Metabolic Panel, Comments: PATIENT NOT FASTINGPERFORMED BY: [facility]ocketWe[facility] Rehabilitation HospitalWumkso4516 [facility] [id number] BY: [facility] [address] [id number] [facility] (58575) ALT (SGPT) 29 [iU]/L (Normal) Range: 0-44 [...] Glucose, Serum 97 mg/dL (Normal) Range: 65-99 73-Cht-68097:33 CBC W/Diff, Automated Comments: [facility] [address] [place], [place], [id number] ; will review on 02/28 Absolute Lymph [...] 4.6-6.2 WBC 5.5 K/mm3 (Normal) Range: 4.4-11.0 97-Otq-03215:33 Comprehensive Metabolic Profil Comments: [facility] [address] [place], [address] GAP 4 (Abnormal) Range: 5-15 CO2 29.0 [...] 70-110 :33 CPK Total, Creatine Kinase Comments: [facility] Authpcrouy[address] [facility] [address] [place], [place], [address] CPK TOTAL 176 U/L (Normal) Range: 39-308 :33 Homocysteine Comments: [facility] [address] [place], [place], [id number] HOMOCYSTEINE 7.1 umol/L (Normal) Range: 3.2-10.7 :33 [...] the US Food and Drug Administration.Performed at: [address] [id number] Director: Francois Davis MD, Phone: [phone] INS RES/DIAB RK . (Normal) LDL SIZE [...] mg/dL (Abnormal) Range: 100-199 LIPIDS . (Normal) :33 Testosterone Free Comments: [facility] (refer to report for specific site)refer to report for address and phone number TEST FR [id number] 15.2 pg/mL (Normal) Range: 6.6-18.1 Comments: Performed at: [facility] [address] [id number] Director: Francois Davis MD, Phone: [phone] 17-May-20164:30 Pathology Report Comments: PERFORMED BY: [facility] Hjnry94772 [facility] [id number] Information: [id number] See MATER Comments: Material submitted: .PART A: [...] IN CASSETTE(S) B./LMSLMS/LMSPathologist provided ICD-10:D18.01, L98.9, D49.2CPT .836554, 848748 21-Ani-895783:31 ESTRADIOL (89984) Comments: recheck in 3 months; PATIENT NOT FASTINGPERFORMED BY: [facility] [id number] BY: [employer] [address] [id number] Information: NURSE DRAW Estradiol 17.5 pg/mL (Normal) Range: 7.6-42.6 Comments: STORYS.JPIA methodology 34-Uvs-429721:31 TESTOSTERONE FREE (77227) Comments: recheck in 3 months; PATIENT NOT FASTINGPERFORMED BY: [facility] [id number] BY: [employer] [address] [id number] Free Testosterone(Direct) 14.6 pg/mL (Normal) Range: 6.6-18.1 29-Ykt-649027:31 PSA (Prostate Specific Comments: re check in 3 months; PATIENT NOT FASTINGPERFORMED BY: [facility] [id number] BY: [employer] [address] [id number]; fu 09-14 Antigen), Diagnostic (25979) Prostate Specific Ag, 0.6 ng/mL (Normal) Range: 0.0-4.0 Serum Comments: Tahir ECLIA methodology. .According to the [employer] Association, Serum PSA shoulddecrease and remain at undetectable levels after radicalprostatectomy. The AUA defines biochemical recurrence as an initialPSA value 0.2 ng/mL or greater followed by a subsequent confirmatoryPSA value 0.2 ng/mL or greater.Values obtained with d ifferent assay methods or kits cannot be usedinterchangeably. Results cannot be interpreted as absolute evidenceof the presence or absence of malignant disease. 90-Ddc-331040:05 FSH and LH Comments: PATIENT NOT FASTINGPERFORMED BY: CB [facility] Qcsism6866 [address]za RoadDublin [place] [id number] Information: S60446, 440995; will f/u on 05/17 FSH 9.6 m[iU]/mL Range: 1.5-12.4 (Normal) LH 6.3 m[iU]/mL Range: 1.7-8.6 (Normal) Written Authorization WAR (Normal) Comments: PATIENT NOT FASTINGPERFORMED BY: CB [facility] Noegxu2991 Pedroza RoadDublin [place] [id number] 4:05 Comments: Written Authorization Received.Authorization received from SIGNATURE ON FILE 13-21-5728Vzcfwt by Yanna Maots 53-Tdf-977076:05 Methymalonic Acid, Serum Comments: PATIENT NOT FASTINGPERFORMED BY: [facility] [id number] BY: [facility] Ralhmm0626 [address] RoadDublin [place] [id number] ([address]554) Methylmalonic Acid, Serum 202 nmol/L (Normal) Range: 0-378 34-Ahb-985466:05 Vitamin B-12 Comments: PATIENT NOT FASTINGPERFORMED BY: [facility] [id number] BY: [facility] Vduwow4[address]Dublin [place] [id number] (cyanocobalamin) (48089) Vitamin B12 724 pg/mL (Normal) Range: 211-946 34-Ccm-858454:05 TESTOSTERONE FREE (56183) Comments: in am; PATIENT NOT FASTINGPERFORMED BY: [facility] [id number] BY: [facility] Jlnqjh9[address] RoadDublin [place] [id number] Information: [id number], 745888 Free Testosterone(Direct) 5.6 pg/mL (Abnormal) Range: 6.6-18.1 82-Rgl-73059:44 PSA (Prostate Specific Comments: PATIENT NOT FASTINGPERFORMED BY: [facility] [address] [place] [id number] Information: U75002,NURSE DRAW Antigen), Screening (85473) Prostate Specific Ag, 0.6 ng/mL (Normal) Range: 0.0-4.0 Serum Comments: Lima ECLIA methodology. .According to the [employer], Serum PSA shoulddecrease and remain [...] disease. :19 Lipid Profile Comments: Test performed at:[facility] [address]fxfbkcpca[address] [facility] [place] [address] VLDL 10 mg/dL (Normal) Range: [...] Risk :19 Liver Profile Comments: Test performed at:[facility] Nzseozuhwq16[address] [place] [address] D BILI 0.25 mg/dL (Normal) Range: 0.00-0.30 [...] (HGB Comments: PATIENT NOT FASTINGPERFORMED BY: EDNA LabCoWeisman [facility] Rehabilitation HospitalTkaqtt9264 [facility] [id number] Information: 307295,Y59229 A1C) (26706) Hemoglobin A1c 6.0 % (Abnormal) Range: 4.8-5.6 [...] CHOL 117 mg/dL (Normal) Comments: <200 mg/dL Jurfjbkbe908-313 mg/dL Borderline>240 mg/dL High Risk :03 LIVER [...] 4.6-6.2 WBC 6.8 K/mm3 (Normal) Range: 4.4-11.0 39-Sdn-536227:37 LIPID VLDL 26 mg/dL (Normal) Range: 5-40 [...] CHOL 145 mg/dL (Normal) Comments: <200 mg/dL Csffpyvuq029-240 mg/dL Borderline>240 mg/dL High Risk :43 LIVER D BILI 0.20 mg/dL (Normal) Range: 0.00-0.30 T BILI 0.80 mg/dL (Normal) Range: 0.00-1.00 ALB 3.9 g/dL (Normal) Range: 3.4-5.0 ALK P 63 U/L (Normal) Range: 50-136 ALT 45 U/L (Normal) Range: 12-78 AST 41 U/L (Abnormal) Range: 15-37 T PROT 7.4 g/dL (Normal) Range: 6.4-8.2 59-Zdf-269614:50 LIPID VLDL 12 mg/dL (Normal) Range: 5-40 CHOL 100 mg/dL (Normal) Comments: <200 mg/dL Vmizthdha672-043 mg/dL Borderline>240 mg/dL High Risk HDL 37 mg/dL (Normal) Comments: Reference RangeHDL <40 mg/dL Low HDL CholesterolHDL >or= 60 mg/dL High HDL Cholesterol LDL 51 mg/dL (Normal) Range: 0-130 TRIG 59 mg/dL (Normal) Comments: Serum Triglycerides Reference IntervalNormal <150 mg/dLBorderline high 150 - 199 mg/dLHigh 200 - 499 mg/ dLVery High > or = 500 mg/dL 21-Dog-787370:50 LIVER ALT 49 U/L (Normal) Range: 12-78 D BILI 0.22 mg/dL (Normal) Range: 0.00-0.30 T BILI 0.80 mg/dL (Normal) Range: 0.00-1.00 ALB 3.7 g/dL (Normal) Range: 3.4-5.0 ALK P 49 U/L (Abnormal) Range: 50-136 AST 42 U/L (Abnormal) Range: 15-37 T PROT 7.0 g/dL (Normal) Range: 6.4-8.2 60-Ypw-913700:51 ACUTE ABDOMEN, INC CHEST (MT) Radiology Report See Note (Normal) Comments: Exam Number: [id number] ACUTE ABDOMINAL SERIES WITH PA CHEST INDICATIONSevere [...] of theabdomen. Reported By: DEVIN SANDHU M.D. 55-Vjp-560416:55 ABDOMEN LIMITED US () Radiology Report See Note (Normal) Comments: Exam Number: [id number] LIMITED ABDOMINAL ULTRASOUND HISTORYRight upper quadrant pain. [...] JAEL 29 U/L (Normal) Range: 25-115 :42 4-Gis-229522:42 CBCD,SMEAR DIFF CELLS COUNTED 100 (Normal) HCT [...] 4.6-6.2 WBC 5.3 K/mm3 (Normal) Range: 4.4-11.0 65-Imq-051311:25 COMP METABOLIC Comments: DR. MENG ORDERED LIPID/LPDR.LIPID [...] AMOUNT GROWTH 3+ ORGANISM 1: HAEMOPHILUS INFLUENZA 08-Uqa-866837:46 Rapid Strep Test, Office (12889) Rapid Strep Test, Office Negative (Normal) :23 [...] was performed using the TPSA method for the[employer] chemistry system.Values obtained with different assay methods [...] and treatment Indication: Pharyngitis, acute Planned Observations CALCIFIDIOL (24039) VIT D 25Indication: Vitamin D insufficiency On: 86-Pnu-980416:44 Request METABOLIC PANEL, COMPREHENSIVE (73563)Indication: Hyperlipidemia, unspecified On: 42-Rym-865807:43 Request LIPOPROTEIN, BLD, BY NMR ([id number])Indication: Hyperlipidemia, unspecified On: 87-Zin-335915:43 Request Homocysteine, Plasma (77550)Indication: Homozygous MTHFR mutation P6271B On: 84-Tar-832845:40 Request METABOLIC PANEL, COMPREHENSIVE (37854)Indication: Hypercholesterolemia On: 5-Lpd-365558:55 Request TESTOSTERONE FREE (54489)Indication: Testosterone deficiency On: :27 Request CBC, Platelets & Auto Diff (39599)Indication: Testosterone deficiency On: :27 Request Creatine Kinase Total (06263)Indication: Hypercholesterolemia On: 37-Yec-234703:18 Request LIPOPROTEIN, BLD, BY NMR (86157)Indication: Hypercholesterolemia On: 04-Yjb-208956:18 Request Homocysteine, Plasma (26823)Indication: Homozygous MTHFR mutation B5940S On: :17 Request CBC WITH MANUAL DIFF (11333)Indication: Testosterone deficiency On: :41 Request Comments: re check in 3 months CBC with auto diff (19280)Indication: Elevated LFTs On: :49 Request Comments: copy to Dr. sky URINALYSIS, W/ MICRO (58001)Indication: Coronary artery disease On: :39 Request METABOLIC PANEL, COMPREHENSIVE (48439)Indication: Elevated LFTs On: :38 Request LIPID PANEL (74116)Indication: Coronary artery disease On: :38 Request Hemoglobin Glyclated (HGB A1C) (31149)Indication: IFG (impaired fasting glucose) On: :06 Request Comments: recheck in 3 months LIPID PANEL (03302)Indication: Hypercholesterolemia On: 0-Tmq-822814: Request PSA (PROSTATE SPECIFIC ANTIGEN) (V76.44)Indication: Encounter for health maintenance examination with abnormal findings On: : Request CBC (Auto) (36988)Indication: Coronary artery disease On: 1-Aqu-652388:01 Request Metabolic Panel, Basic (26471)Indication: Coronary artery disease On: 8-Zxi-823785:01 Request TSH (73071)Indication: Anxiety On: 7-Kvb-698558:01 Request CBC & PLATELETS (AUTO) (80815)Indication: Hypercholesterolemia On: 04-Wpd-190503:56 Request LIPID PANEL (06189)Indication: Hypercholesterolemia On: 36-Sog-347841:56 Request METABOLIC PANEL, COMPREHENSIVE (67695)Indication: Hypercholesterolemia On: :55 Request Metabolic Panel, Basic (84994)Indication: Hypercholesterolemia On: :31 Request Lipid Panel (27558)Indication: Hypercholesterolemia On: :30 Request PSA (PROSTATE SPECIFIC ANTIGEN) (V76.44)Indication: Encounter for health maintenance examination with abnormal findings On: :28 Request CBC (Auto) (45542)Indication: Coronary artery disease On: :28 Request Metabolic Panel, Basic (88447)Indication: Coronary artery disease On: :28 Request TSH (17227)Indication: Anxiety On: :28 Request PSA (PROSTATE SPECIFIC ANTIGEN) (V76.44)Indication: Encounter for health maintenance examination with abnormal findings On: 6-Ytw-087042:30 Request TSH (62652)Indication: Anxiety On: 3-Bju-189979:30 Request METABOLIC PANEL, COMPREHENSIVE (96785)Indication: Hypercholesterolemia On: 3-Vyl-093174:30 Request LIPID PANEL (40258)Indication: Hypercholesterolemia On: :30 Request CBC WITH MANUAL DIFF ([id number])Indication: Hypercholesterolemia On: 8-Yqj-598418:30 Request Lipase (53644)Indication: Epigastric pain On: 1-Gjw-505806:24 Request Amylase (48347)Indication: Epigastric pain On: 9-Nmz-072163:24 Request Metabolic Panel, Comprehensive (45303)Indication: Epigastric pain On: 8-Pbn-148545:24 Request CBC with manual diff (88662)Indication: Epigastric pain On: 6-Lny-356660:24 Request Metabolic Panel, Comprehensive (11284)Indication: Coronary artery disease On: 41-Yel-561418:13 Request URINALYSIS (51012)Indication: Coronary artery disease On: 94-Jcn-291525:30 Request CBC (Auto) (30091)Indication: Coronary artery disease On: 11-Amo-162028:30 Request Lipid Panel (68777)Indication: Coronary artery disease On: 93-Fcr-365732:30 Request Metabolic Panel, Comprehensive ([id number])Indication: Coronary artery disease On: 55-Zde-704166:30 Request PSA (PROSTATE SPECIFIC ANTIGEN) (V76.44)Indication: Screening for prostate cancer On: 40-Ulw-581555:29 Request JOANA CULTURE-OTHER (26057)Indication: Pharyngitis, acute On: 36-Hti-318675:46 Request PSA (PROSTATE SPECIFIC ANTIGEN)Indication: Screening for prostate cancer On: 2-Tvr-945461:05 Request CBC WITH MANUAL DIFF (28446)Indication: Coronary artery disease On: 4-Wfn-053864:05 Request LIPID PANEL (93338)Indication: Coronary artery disease On: 6-Lyf-420077:05 Request METABOLIC PANEL, COMPREHENSIVE (39202)Indication: Coronary artery disease On: 2-Zpn-882392:05 Request Planned Procedures Radiology - Hip - LeftBy: Zackary On: 17-Aug-2018 Intent Ela HERNANDEZ MD, Dana M Comments: call with wet read [phone] Radiology - Knee - Left - Weight On: 17-Aug-2018 Intent BearingBy: Ela Salgado MD Comments: call with wet read [phone] Ela Salgado MD BLADDER ULTRASOUND SCAN WITH On: 19-Jun-2018 Intent MEASUREMENT OF POST-VOID RESIDUAL URINE VOLUME (58596)By: Ela Salgado MD, MD, Dana M Flu Vaccine (Quadrivalent) On: 12-Jun-2018 Intent 60985Lq: Ela Salgado MD Comments: Lot #[id number]/30/2019Site-L dltd, IMDose prefilled syringegiven by: CekVIS reviewed and ABN signed Ela Salgado MD Toradol Injection, 30 mg On: 12-Jun-2018 Intent (J1885)By: Ela Salgado MD Comments: lot: [id number]: 01/2020site/route: RGM/IMamt: 1mLVIS signed when applicableChelsSAGE peter MD, Dana M Toradol Injection, 30 mg On: 04-Jan-2018 Intent (J1885)By: Ela Salgado MD, MD, Dana M Toradol Injection, 30 mg On: 12-Oct-2017 Intent (J1885)By: Zana LOOMIS, Aga PNEUM VAC ADLT/IMUMNOSPR, On: 10-Aug-2017 Intent SBC/INTRM (80960)By: Zackary HERNANDEZ, Comments: lot:[id number]:[id number]:IM right deltoid dose:0.5ml given by:mayra ABN signedER, Ela Grewal MD Radiology - Ankle - RightBy: On: 05-Jul-2017 Intent Ela Salgado MD, MD, Comments: call wet read [phone] Dr. zackary Lr EMGBy: Ela Salgado MD On: 17-Jan-2017 Intent Ela HERNANDEZ Nerve ConductionBy: Zackary HERNANDEZ, On: 17-Jan-2017 Intent Ela Galarza MD Comments: right leg Radiology - Wrist - RightBy: On: 14-Sep-2016 Intent Ela Salgado MD, MD, Comments: do scaphoid views Ela Lr US DOPPLER CAROTID BILATERAL On: 27-Apr-2016 Intent (08462)By: Ela Salgado MD, MD, Dana M ZOSTER VACC, SC (10638)By: Zackary On: 27-Apr-2016 Intent Ela HERNANDEZ MD, Dana M Comments: lot:[id number]:13-44-0710fdz:SC right arm dose:0.65mlgiven by:Praveen Casey LPN TDAP VACCINE >7 IM (58626)By: On: 27-Apr-2016 Intent Ela Salgado MD, MD, Comments: lot:[id number]:09-05-18rte:IM left deltoid dose:0.5ml given by:mayra LUZ signedERCORINE FLU VAC, SPLIT, >3 YEARS, On: 22-May-2013 Intent INTRAMUSC (56854)By: Lizzie, Comments: lot [id number]/route R erik, IMamt 0.5mlVIS and ABN signed when applicableChelsea, SCREEDMAN Mariam IMMUNIZ ADMNIN, 1 VAC, SNGL/COMBO On: 22-May-2013 Intent (00479)By: Mariam Samuel Toradol Injection, 30 mg On: 14-Nov-2012 Intent (J1885)By: Zana LOOMIS, Negar Weber Ultrasound - GallbladderBy: Joon On: 27-Jun-2009 Intent Cari BARRON Radiology - Abdomen SeriesBy: On: 27-Jun-2009 Intent Joon DO, Cari Planned Medications INJECTION, KETOROLAC TROMETHAMINE, PER 15 MG Ordered: 14-Nov-2012 Pending Zana LOOMIS Aga INJECTION, KETOROLAC TROMETHAMINE, PER 15 MG Ordered: 12-Oct-2017 Pending Zana LOOMIS Aga INJECTION, KETOROLAC TROMETHAMINE, PER 15 MG Ordered: 04-Jan-2018 Pending Zackary HERNANDEZ, Ela Galarza MD INJECTION, KETOROLAC TROMETHAMINE, PER 15 MG Ordered: 12-Jun-2018 Pending Ela Salgado MD, MD, Dana M Instructions Name Dates Details Encounter for health [...] request. Encounters Review On: 04-Sep-2018 7:51 Encounter Diagnosis: BMI 28.0-28.9,adult, Encounter for health maintenance examination with abnormal findings, Tobacco abuse, in remission (Renamed from Tobacco dependence in remission) [facility] Phone Encounter On: 17-Aug-2018 [...] back pain, Testosterone deficiency, Homozygous MTHFR mutation X8296N, Encounter for health maintenance examination with abnormal findings, BMI 28.0-28.9,adult , Pneumococcal vaccination given, Hyperlipidemia, unspecified, Vitamin D insufficiency, Verrucous keratosis [facility] Lab Order On: 13-Jul-2017 15:37 Encounter Diagnosis: Coronary artery disease, Homozygous MTHFR mutation X7210S, Need for hepatitis C screening test, Testosterone [...] disease), Anxiety, Testosterone deficiency, Homozygous MTHFR mutation C5669Z, Wrist pain, acute, right, Hypercholesterolemia, BMI 31.0-31.9,adult, [...] right, Testosterone deficiency, Anxiety, Homozygous MTHFR mutation U8350Q [facility] Office Visit On: 17-May-2016 [...] for Tdap vaccination (Renamed from Need for qsqrcdzksb-cefjfgk-wucjkxoon (Tdap) vaccine, adult/adolescent), Need for zoster vaccination, [...] Internal Medicine End: 19-Dec-2006 16:40 Payers [employer]; randi guarantor
--- OUTSIDE RECORDS SUMMARY | 2018-11-07 17:08 | XMS RPT_ITS | Continuity of Care Document ---
:1955 Author Organization [facility] Address [address] [facility] [address] [place] [address] Phone Care Team Providers Name Role Phone [...] to stretch. handout given on execises and zrfya9vpg if not better rexray send PT Status: [...] CP with URI found 1995. Cath at [facility] 12-01-95 with coronary artery vasospasm (took adderall then), [place] with PTCA, circ 2003, see Dr. 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 these look abnormal. Status: Active Obesity (BMI 30.0-34.9) (E66.9, 278.00) Status: Active Pneumococcal vaccination given (Z23, V06.6) Status: Active Screening for prostate cancer (Z12.5, V76.44) Comments: scope 08-20 Status: Active Testosterone deficiency (E34.9, 257.2) Comments: [...] {Capsule} Refills: 3 Ordered:21-Aug-2018 Zackary HERNANDEZ, Ela Quigley MD, Ela Lr Start : 21-Aug-2018 Active ASPIRIN LOW DOSE, 81MG (Oral Tablet) 1 QD for 0 days Refills: 0 Ordered:27-Jun-2009 Sunni Coates LPNActive Crestor 20 MG Oral Tablet 1 (one) Tablet qd for 0 days Quantity: 90 {Tablet} Refills: 0 Ordered:03-Apr-2018 BonezzEla paul MD, MD, Dana M Start : 03-Apr-2018 Active Dispense as Written Comments: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 Dicyclomine HCl 10 MG Oral Capsule 1 Capsule qid/prn for 0 days Quantity: 30 {Capsule} Refills: 1 Ordered:28-Mar-2018 Zackary HERNANDEZ, Ela Quigley MD, Ela Lr Start : 28-Mar-2018 Active Comments:thirty Flomax 0.4 MG Oral Capsule 1 (one) Capsule start when get it and then one tonight and every night for 0 days Quantity: 30 {Capsule} Refills: 5 Ordered:19-Jun-2018 Zackary HERNANDEZ, Ela Quigley MD, Ela Lr Start : 19-Jun-2018 Active Mobic 7.5 MG [...] days Quantity: 30 {Capsule} Refills: 0 Ordered:12-Oct-2017 SlaAniyah macedo LPN Start : 10-Aug-2017 Active Augmentin 875-125 [...] days Quantity: 20 {Tablet} Refills: 0 Ordered:19-Jun-2018 Mairam Samuel Start : 12-Jun-2018 End : 19-Jun-2018 Inactive , 16.2MG/5ML (Oral Elixir) 5-10 Elixir milliliters prn tid for 0 days Quantity: 1 {Bottle} Refills: 3 Ordered:23-Sep-2015 Zana CORINEGeoffn Eugenia Start : 22-Apr-2014 End : 23-Sep-2015 Inactive Flonase 50 MCG/ACT Nasal Suspension 1 (one) [place] 2 sprays each nostril daily for 0 days Quantity: 1 {Framingham} Refills: 2 Ordered:04-Jan-2018 Antoni Kendrick Start : 18-Oct-2017 End : 04-Jan-2018 Inactive Lexapro 10 MG Oral Tablet 1/2 (one half) Tablet QD for 0 days Quantity: 90 {Tablet} Refills: 3 Ordered:04-Jan-2018 Antoni Kendrick Start : 14-Sep-2016 End : 04-Jan-2018 Inactive MEDROL (ALEX), 4MG (Oral Tablet) 1 Tablet TAD for 0 days Quantity: 1 {Package(s)} Refills: 0 Ordered:23-Sep-2015 Zana POOLGeoffsvetlana Bello Start : 14-Nov-2012 End : 23-Sep-2015 Inactive [...] Quantity: 30 {Tablet} Refills: 0 Ordered:14-Nov-2012 Long Staci POOL L Start : 14-Nov-2012 End : 23-Sep-2015 [...] 2-3 Views Result: Comments: See Note; NOTES: [facility] Imaging Services [address] [place] [address] HIP, UNI W/ Pelvis 2-3 Views MR#: [id number] Acct: [id number] Name: ANALY FORREST Rep #: [id number] : 1955 63 From: Gopi Vera MD PCP: Ela Salgado MD Status: REG CLI Study: HIP, UNI W/ Pelvis 2-3 Views Date of Exam: 08/17/18 Exam# [id number] Ordering Dr: Berto Salgado MD STUDY: X-RAY [...] Service support , CC: Ela Salgado MD Circuit Board Inspector: Signed 17-Aug-2018 Knee 4 or More Views Result: Comments: See Note; NOTES: [facility] Imaging Services [address] [place] [address] Knee 4 or More Views MR#: [id number] Acct: [id number] Name: ANALY FORREST Rep #: [id number] : 1955 M 63 From: Gopi Vera MD PCP: Ela Salgado MD Status: REG CLI Study: Knee 4 or More Views Date of Exam: 08/17/18 Exam# [id number] Ordering Dr: Ela Salgado MD STUDY: X-RAY [...] Service support , CC: Ela Salgado MD Circuit Board Inspector: Signed 20-Jun-2018 Kidney and Bladder Result: Comments: See Note; NOTES: [facility] Imaging Services [address] [place] [address] Kidney and Bladder MR#: [id number] Acct: [id number] Name: ANALY FORREST Rep #: [id number] : 1955 M 62 From: Luis F Rae PCP: Ela Salgado MD Status: REG CLI Study: Kidney and Bladder Date of Exam: 06/20/18 Exam# [id number] Ordering Dr: Ela Salgado MD STUDY: RENAL [...] Service support , CC: Ela Salgado MD Circuit Board Inspector: Signed 12-Apr-2018 Cardiology Visit Report Result: Comments: See Note; NOTES: [facility] [address] [place] [address] OFFICE VISIT Date of Service: 04/12/18 MR#: [id number] Acct: [id number] Name: MEKA FORREST Rep #: [id number] : 1955 Provider: Barry Sky MD Age/Sex: 62/M Location: [facility] Status: Signed HPI HPI Chief Complaint: Follow-up visit. 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 Stent Plan He is status post coronary [...] Other Orders Orders: Follow Up 1 Year (sap bw architect) Coding Level of Care Code Off vis,est,level [...] 3 Views Result: Comments: See Note; NOTES: [facility] Imaging Services [address] [place] [address] Foot min 3 Views MR#: [id number] Acct: [id number] Name: ANALY FORREST Rep #: [id number] : 1955 M 61 From: Vikas Hummel MD PCP: Ela Salgado MD Status: REG CLI Study: Foot min 3 Views Date of Exam: 07/06/17 Exam# [id number] Ordering Dr: Agapito Don DO STUDY: X-RAY [...] Vikas Hummel MD at 14:20 EST Tel [phone], Service support , Fax CC: Ela Salgado MD; Agapito Don DO Circuit Board Inspector: Signed 05-Jul-2017 Ankle min 3 Views Result: Comments: See Note; NOTES: [facility] Imaging Services [address] [place] [address] Ankle min 3 Views MR#: [id number] Acct: [id number] Name: ANALY FORREST Rep #: [id number] : 1955 M 61 From: Vikas Hummel MD PCP: Ela Salgado MD Status: REG CLI Study: Ankle min 3 Views Date of Exam: 07/05/17 Exam# [id number] Ordering Dr: Ela Salgado MD STUDY: X-RAY [...] Vikas Hummel MD at 15:29 EST Tel [phone], Service support [phone], CC: Ela Salgado MD Circuit Board Inspector: Signed 17-Feb-2017 NCS and/or EMG Patient Result: Comments: See Note; NOTES: [facility] Pulmonary Services/Neurology [address] [place] [address] NCS and/or EMG Patient MR#: [id number] Acct: [id number] Name: ANALY FORREST Rep #: [id number] : 1955 61 From: Donnie Smith Referring Dr: Ela Salgado MD Status: REG CLI Ordering Dr: Ela Salgado MD Date: 02/16/17 Location: [facility] Sex: M C DATE OF SERVICE: February 16, 2017 HISTORY: Analy Forrest is a 61-year-old gentleman referred by [...] Date Dictated: 02/17/17 Date Transcribed: 02/17/17 0710 Circuit Board Inspector: LEYDI Signed 14-Sep-2016 Wrist min 3 Views Result: Comments: See Note; NOTES: [facility] Imaging Services [address] [place] [address] Verdana 4d Wrist min 3 Views MR#: [id number] Acct: [id number] Name: ANALY FORREST Rep #: [id number] : 1955 61 From: Vikas Hummel MD PCP: Ela Salgado MD Status: REG CLI Study: Wrist min 3 Views Date of Exam: 09/14/16 Exam# [id number] Ordering Dr: Ela Salgado MD STUDY : [...] Hummel MD at 12:[address] Tel [phone], Service support [phone], CC: Ela Salgado MD Circuit Board Inspector: Signed 12-May-2016 Carotid Duplex Ultrasound Result: Comments: See Note; NOTES: [facility] Cardiovascular Services [address] [place] [address] Carotid Duplex Ultrasound 05/05/16 1237 MR#: [id number] Acct: [id number] Name: RK MARIOANALY Madalyn Rep #: [id number] : 1955 60 From: Tyrone Daniels MD Attending Dr: Ela Salgado MD Status: REG CLI Ordering Dr: Ela Salgado MD Date: 05/05/16 Location: [facility] Sex: M C Admitted: Reason For [...] the left vertebral artery. Procedure Carotid Duplex 58607. Exam performed in department. Interpreta tion Summary Mild (<50%) stenosis right extracranial internal carotid. Mild (<50%) stenosis left extracranial internal carotid. Flow within the vertebral arteries is antegrade bilaterall y. Ordering Physician: Ela Salgado Performed By: Elvia Wilson RVT 05/12/16 0843 Date Tyorne Daniels MD CC: Ela Salgado MD Date Dictated: 05/05/16 1237 Date Transcribed: 05/12/16 0843 Circuit Board Inspector: Signed Family History Unknown Family Member Name Dates Details Brother 1 Comments: lives in [facility] [place], lives with parents hx. Drug addiction Status: Active Daughter 1 Comments: lives in [place] Status: Active Daughter 2 Comments: lives in [place] Status: Active Father Comments: after age 60 [...] Living Situation Comments: , heterosexual, grow apart. 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 18 years / pack stop at 36yo Status: Active Vital Signs Date Test Result Details :30 Temperature 98.3 f Comments: Method: Temporal [...] (Prostate Specific Comments: PATIENT NOT FASTINGPERFORMED BY: [facility] [id number] Antigen), Screening (02152) Prostate Specific Ag, 0.7 ng/mL (Normal) Range: 0.0-4.0 Serum Comments: Narvii ECLIA methodology. .According to the [place] [employer], Serum PSA shoulddecrease and remain at undetectable levels after radicalprostatectomy. The AUA defines biochemical recurrence as an initialPSA value 0.2 ng/mL or greater followed by a subsequent confirmatoryPSA value 0.2 ng/mL or greater.Values obtained with d ifferent assay methods or kits cannot be usedinterchangeably. Results cannot be interpreted as absolute evidenceof the presence or absence of malignant disease. :23 URINALYSIS (98347) Comments: PATIENT NOT FASTINGPERFORMED BY: EventMama6370 [place] [facility] [id number] Microscopic Examination MICNIP (Normal) Comments: Microscopic not indicated and not performed. Nitrite, Urine Negative (Normal) Urobilinogen,Semi-Qn 0.2 mg/dL (Normal) Range: 0.2-1.0 Bilirubin Negative (Normal) Occult Blood Negative (Normal) Ketones Negative (Normal) Glucose Negative (Normal) Protein Negative (Normal) WBC Esterase Negative (Normal) Appearance Clear (Normal) Urine-Color Yellow (Normal) pH 7.0 (Normal) Range: 5.0-7.5 Specific [place] 1.019 (Normal) Range: 1.005-1.030 2-Jjm-779521:23 Metabolic Panel, Comprehensive Comments: PATIENT NOT FASTINGPERFORMED BY: LabCoJFK Johnson Rehabilitation InstituteMsrpja7353 [facility] [id number] (42300) ALT (SGPT) 30 [iU]/L (Normal) Range: 0-44 [...] 8-27 Glucose 98 mg/dL (Normal) Range: 65-99 8-Sxg-820592:23 CBC WITH MANUAL DIFF Comments: PATIENT NOT FASTINGPERFORMED BY: LabCoJFK Johnson Rehabilitation InstituteYdhqup2857 [facility] [id number] Information: NURSE DRAW (60959) Immature Grans (Abs) 0.0 {x10E3/uL} (Normal) Range: [...] 4.14-5.80 WBC 6.3 {x10E3/uL} (Normal) Range: 3.4-10.8 9-Jvx-707305:52 Urinalysis, Office (35289) UA - LEUKOCYTE ESTERASE Negative (Normal) UA - NITRITE Negative (Normal) URINE UROBILINGN DEE TIMED 2 mg/dL (Normal) UA - PROTEIN Negative mg/dL (Normal) UA - PH 6.5 (Normal) UA - BLOOD Hemolyzed Trace (Normal) UA - SPECIFIC GRAVITY 1.010 (Normal) UA - KETONES Negative mg/dL (Normal) UA - BILIRUBIN Negative (Normal) UA - GLUCOSE Negative (Normal) 20-Apr-20187:43 Lipid Profile Comments: [facility] [address] [place], [address] VLDL 9 mg/dL (Normal) Range: 5-40 LDL [...] mg/dL High Risk :43 Liver Profile Comments: [facility] [address] [place], [address] D BILI 0.20 mg/dL (Normal) Range: 0.00-0.30 [...] 5 Comments: PATIENT NOT FASTINGPERFORMED BY: [facility] [address] [id number] ([place]) ([address]) M455-SjV Mouse Urine <0.10 kU/L (Normal) J833-DyS Sheep [place]a [place] <0.10 kU/L (Normal) I516-GaD Pigweed, Common <0.10 kU/L (Normal) K305-YiY Thistle, Wallisian <0.10 kU/L (Normal) X435-HsB Ragweed, Short <0.10 kU/L (Normal) T355-NyN [place] <0.10 kU/L (Normal) O217-WeE Pecan, Kennebec <0.10 kU/L (Normal) C326-XuH Joshua, White <0.10 kU/L (Normal) N231-RmD Elaine <0.10 kU/L (Normal) T236-DyD Maple Concrete Dougherty <0.10 kU/L (Normal) B866-RxP [place] <0.10 kU/L (Normal) V195-CnI Elm, Zimbabwean <0.10 kU/L (Normal) K863-BsY [place], White <0.10 kU/L (Normal) F300-SxA Lansing, Mountain <0.10 kU/L (Normal) Y974-EcS Common Silver Birch <0.10 kU/L (Normal) H599-LxY Maple/Hurst <0.10 kU/L (Normal) G049-JpQ Alternaria alternata <0.10 kU/L (Normal) V528-FqD Aspergillus fumigatus <0.10 kU/L (Normal) P336-BiK Cladosporium herbarum <0.10 kU/L (Normal) O043-XgJ Penicillium chrysogen <0.10 kU/L (Normal) L396-OdJ Cockroach, Yakut <0.10 kU/L (Normal) N827-BhR Soy Grass <0.10 kU/L (Normal) L647-XuG Bermuda Grass <0.10 kU/L (Normal) J219-BrW Dog Dander <0.10 kU/L (Normal) I987-HmZ Cat Dander <0.10 kU/L (Normal) A979-VvJ D farinae <0.10 kU/L (Normal) O945-UiG D pteronyssinus <0.10 kU/L (Normal) Immunoglobulin E, [...] 100.00 V Very High >100.00 Very High 2-Nxw-418282:48 TESTOSTERONE FREE (96346) Comments: PATIENT NOT FASTINGPERFORMED BY: The [facility] BakerTerri V[place] 2665570 [facility] [id number] BY: [address] [id number] Free Testosterone(Direct) 17.2 pg/mL (Normal) Range: 6.6-18.1 0-Gfa-745586:48 HEPATITIS C ANTIBODY Comments: PATIENT NOT FASTINGPERFORMED BY: [facility] [employer] Baker[address] [id number] BY: [address] [id number] ([address]) Hep C Virus Ab <0.1 {s/co_ratio} (Normal) Range: 0.0-0.9 Comments: Negative: < 0.8 Indeterminate: 0.8 - 0.9 Positive: > 0.9 . The CDC recommends that a positive HCV antibody result be followed up with a HCV Nucleic Acid Amplification test (671050). :48 URINALYSIS (75040) Comments: PATIENT NOT FASTINGPERFORMED BY: [employer] Smart Baker[address] [id number] BY: [address] [id number] Microscopic Examination MICNIP (Normal) Comments: Microscopic not indicated and not performed. Nitrite, Urine Negative (Normal) Urobilinogen,Semi-Qn 1.0 mg/dL (Normal) Range: 0.2-1.0 Bilirubin Negative (Normal) Occult Blood Negative (Normal) Ketones Negative (Normal) Glucose Negative (Normal) Protein Negative (Normal) WBC Esterase Negative (Normal) Appearance Clear (Normal) Urine-Color Yellow (Normal) pH 5.5 (Normal) Range: 5.0-7.5 Specific [place] 1.022 (Normal) Range: 1.005-1.030 :48 CBC WITH MANUAL DIFF Comments: PATIENT NOT FASTINGPERFORMED BY: [address] [id number] BY: [address] [id number] Inf ormation: NURSE DRAW (39424) Immature Grans (Abs) 0.0 {x10E3/uL} (Normal) Range: [...] 4.14-5.80 WBC 6.5 {x10E3/uL} (Normal) Range: 3.4-10.8 7-Dal-548440:48 Metabolic Panel, Comments: PATIENT NOT FASTINGPERFORMED BY: CB [facility] Vecmgt6834 [facility] [id number] BY: BN [facility] [address] [id number] Comprehensive (60274) ALT (SGPT) 29 [iU]/L (Normal) Range: 0-44 [...] Glucose, Serum 97 mg/dL (Normal) Range: 65-99 26-Xtc-48695:33 CBC W/Diff, Automated Comments: [facility] [address] [place], [place], [address] ; will review on 02/28 Absolute Lymph [...] 4.6-6.2 WBC 5.5 K/mm3 (Normal) Range: 4.4-11.0 27-Fkt-89130:33 Comprehensive Metabolic Profil Comments: [facility] [address] [place], [address] GAP 4 (Abnormal) Range: 5-15 CO2 29.0 [...] 70-110 :33 CPK Total, Creatine Kinase Comments: [facility] [address] [facility]. [place], [place], [address] CPK TOTAL 176 U/L (Normal) Range: 39-308 :33 Homocysteine Comments: [facility] [address] [place], [place], [address] HOMOCYSTEINE 7.1 umol/L (Normal) Range: 3.2-10.7 :33 [...] the US Food and Drug Administration.Performed at: [facility] n14[address] [place], [place] [id number] Director: Francois Davis MD, Phone: [phone] INS RES/DIAB RK . (Normal) LDL SIZE [...] LIPIDS . (Normal) :33 Testosterone Free Comments: [facility] (refer to report for specific site)refer to report for address and phone number TEST FR 647575 15.2 pg/mL (Normal) Range: 6.6-18.1 Comments: Performed at: [address] [id number] Director: Francois Davis MD, Phone: [phone] 17-May-20164:30 Pathology Report Comments: PERFORMED BY: [facility] [place] Cyto Hxbma71852 [facility] [id number] Information: [id number] See MATER Comments: Material submitted: .PART A: [...] IN CASSETTE(S) B./LMSLMS/LMSPathologist provided ICD-10:D18.01, L98.9, D49.2CPT .364289, 459496 88-Dyb-431088:31 ESTRADIOL (00643) Comments: recheck in 3 months; PATIENT NOT FASTINGPERFORMED BY: [employer] K[address]ed[address] [place] [id number] BY: CoWare[address] [id number] Information: NURSE DRAW Estradiol 17.5 pg/mL (Normal) Range: 7.6-42.6 Comments: [employer]IA methodology 56-Oah-348593:31 TESTOSTERONE FREE (87682) Comments: recheck in 3 months; PATIENT NOT FASTINGPERFORMED BY: Ebid.[employer].zw LabDigitalsmithsrp [address] [place] [id number] BY: [address] [id number] Free Testosterone(Direct) 14.6 pg/mL (Normal) Range: 6.6-18.1 01-Alo-424190:31 PSA (Prostate Specific Comments: re check in 3 months; PATIENT NOT FASTINGPERFORMED BY: RIGID70 [place] [facility] [id number] BY: CoW[address] [id number]; fu 1 Antigen), Diagnostic (45198) Prostate Specific Ag, 0.6 ng/mL (Normal) Range: 0.0-4.0 Serum Comments: [employer]IA methodology. .According to the [place] [employer], Serum PSA shoulddecrease and remain at undetectable levels after radicalprostatectomy. The AUA defines biochemical recurrence as an initialPSA value 0.2 ng/mL or greater followed by a subsequent confirmatoryPSA value 0.2 ng/mL or greater.Values obtained with d ifferent assay methods or kits cannot be usedinterchangeably. Results cannot be interpreted as absolute evidenceof the presence or absence of malignant disease. 76-Apg-021204:05 FSH and LH Comments: PATIENT NOT FASTINGPERFORMED BY: RIGID70 [facility] [id number] Information: L93109, 951016; will f/u on 05/17 FSH 9.6 m[iU]/mL Range: 1.5-12.4 (Normal) LH 6.3 m[iU]/mL Range: 1.7-8.6 (Normal) Written Authorization WAR (Normal) Comments: PATIENT NOT FASTINGPERFORMED BY: [facility] Rdogzt[address] [facility] [place] [id number] 4:05 Comments: Written Authorization Received.Authorization received from SIGNATURE ON FILE [id number] by Yanna Matos 13-Kyl-777238:05 Methymalonic Acid, Serum Comments: PATIENT NOT FASTINGPERFORMED BY: The Smart BakerCo[address] [id number] BY: [facility] Ggojco[address] [facility] [id number] (95039) Methylmalonic Acid, Serum 202 nmol/L (Normal) Range: 0-378 77-Cwb-343779:05 Vitamin B-12 Comments: PATIENT NOT FASTINGPERFORMED BY: [facility] [id number] BY: [facility] Ygljjb[address] [facility] [place] [id number] (cyanocobalamin) (72679) Vitamin B12 724 pg/mL (Normal) Range: 211-946 82-Pxw-721543:05 TESTOSTERONE FREE (89215) Comments: in am; PATIENT NOT FASTINGPERFORMED BY: [facility] [id number] BY: [facility] Ucvtbg7[address] [facility] [place] [id number] Information: K33127, 186597 Free Testosterone(Direct) 5.6 pg/mL (Abnormal) Range: 6.6-18.1 83-Aig-69572:44 PSA (Prostate Specific Comments: PATIENT NOT FASTINGPERFORMED BY: [facility] Ajkkus[address] [facility] [id number] Information: Q55591,NURSE DRAW Antigen), Screening (52096) Prostate Specific Ag, 0.6 ng/mL (Normal) Range: 0.0-4.0 Serum Comments: Tahir ECLIA methodology. .According to the [place] U[employer] Association, Serum PSA shoulddecrease and remain [...] disease. :19 Lipid Profile Comments: Test performed at:[facility] [address] [place], [place] [address] VLDL 10 mg/dL (Normal) Range: 5-40 LDL [...] Risk :19 Liver Profile Comments: Test performed at:[facility] [address]zumntt[address] [facility]. [place], [place] [address] D BILI 0.25 mg/dL (Normal) Range: 0.00-0.30 T BILI 1.00 mg/dL (Normal) Range: 0.20-1.00 ALT 45 U/L (Normal) Range: 12-78 ALK P 56 U/L (Normal) Range: 50-136 AST 41 U/L (Abnormal) Range: 15-37 GLOB 2.9 g/dL (Normal) Range: 2.7-4.2 ALB 3.9 g/dL (Normal) Range: 3.4-5.0 T PROT 6.8 g/dL (Normal) Range: 6.4-8.2 95-Bxi-656408:12 A1C 5.9 % (Normal) Range: 4.2-6.3 :49 Hemoglobin Glyclated (HGB Comments: PATIENT NOT FASTINGPERFORMED BY: E[facility] R[address]vqc[address] [place] [id number] Information: 856174,L90088 A1C) (36391) Hemoglobin A1c 6.0 % (Abnormal) Range: 4.8-5.6 [...] CHOL 117 mg/dL (Normal) Comments: <200 mg/dL Zukkebbbj694-389 mg/dL Borderline>240 mg/dL High Risk :03 LIVER [...] CHOL 145 mg/dL (Normal) Comments: <200 mg/dL Lnbnkvdjr415-007 mg/dL Borderline>240 mg/dL High Risk :43 LIVER [...] CHOL 100 mg/dL (Normal) Comments: <200 mg/dL Kustdyvmr250-891 mg/dL Borderline>240 mg/dL High Risk HDL 37 mg/dL (Normal) Comments: Reference RangeHDL <40 mg/dL Low HDL CholesterolHDL >or= 60 mg/dL High HDL Cholesterol LDL 51 mg/dL (Normal) Range: 0-130 TRIG 59 mg/dL (Normal) Comments: Serum Triglycerides Reference IntervalNormal <150 mg/dLBorderline high 150 - 199 mg/dLHigh 200 - 499 mg/ dLVery High > or = 500 mg/dL 14-Smc-676087:50 LIVER ALT 49 U/L (Normal) Range: 12-78 D BILI 0.22 mg/dL (Normal) Range: 0.00-0.30 T BILI 0.80 mg/dL (Normal) Range: 0.00-1.00 ALB 3.7 g/dL (Normal) Range: 3.4-5.0 ALK P 49 U/L (Abnormal) Range: 50-136 AST 42 U/L (Abnormal) Range: 15-37 T PROT 7.0 g/dL (Normal) Range: 6.4-8.2 01-Exe-461286:51 ACUTE ABDOMEN, INC CHEST (MT) Radiology Report See Note (Normal) Comments: Exam Number: [id number] ACUTE ABDOMINAL SERIES WITH PA CHEST INDICATIONSevere [...] the periumbilical location of theabdomen. Reported By: DEIVN SANDHU M.D. 92-Zxd-815005:55 ABDOMEN LIMITED US () Radiology Report See Note (Normal) Comments: Exam Number: [id number] LIMITED ABDOMINAL ULTRASOUND HISTORYRight upper quadrant pain. [...] JAEL 29 U/L (Normal) Range: 25-115 :42 4-Cli-683553:42 CBCD,SMEAR DIFF CELLS COUNTED 100 (Normal) HCT [...] :42 LIPASE 148 U/L (Normal) Range: 114-286 89-Tmw-483527:25 CBCD Comments: DR. MENG ORDERED LIPID/LPDR.LIPID CMP [...] 4.6-6.2 WBC 5.3 K/mm3 (Normal) Range: 4.4-11.0 17-Pis-939067:25 COMP METABOLIC Comments: DR. MENG ORDERED LIPID/LPDR.LIPID [...] LIPID/LPDR.LIPID CMP CBCD PSA UA Range: 0.00-0.30 29-Qko-635208:25 LIPID Comments: DR. MENG ORDERED LIPID/LPDR.LIPID CMP [...] LIPID/LPDR.LIPID CMP CBCD PSA UA Range: 0.0-4.0 78-Cxu-347887:25 ROUTINE UA Comments: DR. MENG ORDERED LIPID/LPDR.LIPID [...] AMOUNT GROWTH 3+ ORGANISM 1: HAEMOPHILUS INFLUENZA 07-Vmg-017576:46 Rapid Strep Test, Office (22007) Rapid Strep Test, Office Negative (Normal) :23 [...] was performed using the TPSA method for the[facility] chemistry system.Values obtained with different assay methods [...] treatment Indication: Pharyngitis, acute Planned Observations CALCIFIDIOL (26780) VIT D 25Indication: Vitamin D insufficiency On: 90-Qwa-182332:44 Request METABOLIC PANEL, COMPREHENSIVE (95309)Indication: Hyperlipidemia, unspecified On: 43-Zks-420480:43 Request LIPOPROTEIN, BLD, BY NMR ([id number])Indication: Hyperlipidemia, unspecified On: 16-Pfq-370969:43 Request Homocysteine, Plasma (23113)Indication: Homozygous MTHFR mutation X2710Y On: 64-Wiu-159188:40 Request METABOLIC PANEL, COMPREHENSIVE (29912)Indication: Hypercholesterolemia On: 2-Bem-167224:55 Request TESTOSTERONE FREE (27305)Indication: Testosterone deficiency On: 75-Tmv-990899:27 Request CBC, Platelets & Auto Diff (22328)Indication: Testosterone deficiency On: 69-Jgw-564264:27 Request Creatine Kinase Total (95789)Indication: Hypercholesterolemia On: 39-Dcx-171922:18 Request LIPOPROTEIN, BLD, BY NMR ([id number])Indication: Hypercholesterolemia On: 56-Tyl-650996:18 Request Homocysteine, Plasma (78457)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 sky URINALYSIS, W/ MICRO ([id number])Indication: Coronary artery disease On: :39 Request METABOLIC PANEL, COMPREHENSIVE ([id number])Indication: Elevated LFTs On: :38 Request LIPID PANEL (65050)Indication: Coronary artery disease On: :38 Request Hemoglobin Glyclated (HGB A1C) (26436)Indication: IFG (impaired fasting glucose) On: :06 Request Comments: recheck in 3 months LIPID PANEL (47747)Indication: Hypercholesterolemia On: : Request PSA (PROSTATE SPECIFIC ANTIGEN) (V76.44)Indication: Encounter for health maintenance examination with abnormal findings On: : Request CBC (Auto) (89960)Indication: Coronary artery disease On: : Request Metabolic Panel, Basic (08591)Indication: Coronary artery disease On: : Request TSH (50369)Indication: Anxiety On: : Request CBC & PLATELETS (AUTO) (66743)Indication: Hypercholesterolemia On: 62-Ajp-086957:56 Request LIPID PANEL (46588)Indication: Hypercholesterolemia On: :56 Request METABOLIC PANEL, COMPREHENSIVE (03716)Indication: Hypercholesterolemia On: 74-Aet-245979:55 Request Metabolic Panel, Basic (41384)Indication: Hypercholesterolemia On: :31 Request Lipid Panel (85891)Indication: Hypercholesterolemia On: 42-Fim-45839:30 Request PSA (PROSTATE SPECIFIC ANTIGEN) (V76.44)Indication: Encounter for health maintenance examination with abnormal findings On: : Request CBC (Auto) ([id number])Indication: Coronary artery disease On: :28 Request Metabolic Panel, Basic (37730)Indication: Coronary artery disease On: :28 Request TSH (74404)Indication: Anxiety On: 66-Qmt-274585:28 Request PSA (PROSTATE SPECIFIC ANTIGEN) (V76.44)Indication: Encounter for health maintenance examination with abnormal findings On: 2-Xdy-972858:30 Request TSH (25188)Indication: Anxiety On: 5-Lic-075432:30 Request METABOLIC PANEL, COMPREHENSIVE (39827)Indication: Hypercholesterolemia On: 1-Eep-906975:30 Request LIPID PANEL (00317)Indication: Hypercholesterolemia On: 9-Smo-664753:30 Request CBC WITH MANUAL DIFF ([id number])Indication: Hypercholesterolemia On: 4-Gen-200397:30 Request Lipase (77888)Indication: Epigastric pain On: 5-Jez-908507:24 Request Amylase (69058)Indication: Epigastric pain On: 1-Amq-146536:24 Request Metabolic Panel, Comprehensive ([id number])Indication: Epigastric pain On: 2-Cow-888078:24 Request CBC with manual diff ([id number])Indication: Epigastric pain On: 2-Huy-905652:24 Request Metabolic Panel, Comprehensive ([id number])Indication: Coronary artery disease On: 84-Lsf-164450:13 Request URINALYSIS ([id number])Indication: Coronary artery disease On: 68-Mmh-442502:30 Request CBC (Auto) ([id number])Indication: Coronary artery disease On: 38-Frz-013713:30 Request Lipid Panel (93035)Indication: Coronary artery disease On: 49-Mds-938479:30 Request Metabolic Panel, Comprehensive (17287)Indication: Coronary artery disease On: 54-Vnl-530979:30 Request PSA (PROSTATE SPECIFIC ANTIGEN) (V76.44)Indication: Screening for prostate cancer On: 92-Tui-424379:29 Request JOANA CULTURE-OTHER (03941)Indication: Pharyngitis, acute On: 42-Sha-374676:46 Request PSA (PROSTATE SPECIFIC ANTIGEN)Indication: Screening for prostate cancer On: 7-Glu-300229:05 Request CBC WITH MANUAL DIFF ([id number])Indication: Coronary artery disease On: 9-Fxb-590111:05 Request LIPID PANEL (55222)Indication: Coronary artery disease On: 9-Txp-824148:05 Request METABOLIC PANEL, COMPREHENSIVE ([id number])Indication: Coronary artery disease On: 3-Eyl-124618:05 Request Planned Encounters Medical; [facility] (Doctor) - On: 04-Sep-2018 8:00 [facility] Ela Salgado MD, MD, Dana M Planned Procedures Radiology - Hip - LeftBy: Zackary On: 17-Aug-2018 Intent Ela HERNANDEZ MD, Dana M Comments: call with wet read [phone] Radiology - Knee - Left - Weight On: 17-Aug-2018 Intent BearingBy: Ela Salgado MD Comments: call with wet read [phone] Ela Saglado MD BLADDER ULTRASOUND SCAN WITH On: 19-Jun-2018 Intent MEASUREMENT OF POST-VOID RESIDUAL URINE VOLUME (41381)By: Ela Salgado MD, MD, Dana M Flu Vaccine (Quadrivalent) On: 12-Jun-2018 Intent [id number]: Ela Salgado MD Comments: Lot #[id number]-5/30/2019Site-L dltd, IMDose prefilled syringegiven by: EssienchakVIS reviewed and ABN signed Ela Salgado MD Toradol Injection, 30 mg On: 12-Jun-2018 Intent (J1885)By: Ela Salgado MD Comments: lot: [id number]: 01/2020site/route: RGM/IMamt: 1mLVIS signed when applicableESSIE Becerra MD, Dana M Toradol Injection, 30 mg On: 04-Jan-2018 Intent (J1885)By: Ela Salgado MD, MD, Dana M Toradol Injection, 30 mg On: 12-Oct-2017 Intent (J1885)By: Zana LOOMIS, Negar Weber PNEUM VAC ADLT/IMUMNOSPR, On: 10-Aug-2017 Intent SBC/INTRM (12021)By: Zackary HERNANDEZ, Comments: lot:[id number]:6-22-5030lwx:IM right deltoid dose:0.5ml given by:mayra ABN signedER, Ela Grewal MD Radiology - Ankle - RightBy: On: 05-Jul-2017 Intent Ela Salgado MD, MD, Comments: call wet read [phone] Dr. zackary Lr EMGBy: Ela Salgado MD On: 17-Jan-2017 Intent Ela HERNANDEZ Nerve ConductionBy: Zackary HERNANDEZ, On: 17-Jan-2017 Intent Ela Galarza MD Comments: right leg Radiology - Wrist - RightBy: On: 14-Sep-2016 Intent Ela Salgado MD, MD, Comments: do scaphoid views Ela Lr US DOPPLER CAROTID BILATERAL On: 27-Apr-2016 Intent ([id number])By: Zackary HERNANDEZ, Ela Galarza MD ZOSTER VACC, [place] ([id number])By: Zackary On: 27-Apr-2016 Intent Ela HERNANDEZ MD, Dana M Comments: lot:[id number]:01-09-6008lgp:SC right arm dose:0.65mlgiven by:Praveen signedERCORINE TDAP VACCINE >7 IM (73247)By: On: 27-Apr-2016 Intent Ela Salgado MD, MD, Comments: lot:[id number]:09-05-18rte:IM left deltoid dose:0.5ml given by:mayra LUZ signedERCORINE FLU VAC, SPLIT, >3 YEARS, On: 22-May-2013 Intent INTRAMUSC (44851)By: Lizzie, Comments: lot [id number] 2014site/route R erik, IMamt 0.5mlVIS and ABN signed when applicableChelsea, [employer] Mariam IMMUNIZ ADMNIN, 1 VAC, SNGL/COMBO On: 22-May-2013 Intent (07200)By: Mariam Samuel Toradol Injection, 30 mg On: [...] back pain, Testosterone deficiency, Homozygous MTHFR mutation Z5842M, Encounter for health maintenance examination with abnormal findings, BMI 28.0-28.9,adult , Pneumococcal vaccination given, Hyperlipidemia, unspecified, Vitamin D insufficiency, Verrucous keratosis [facility] Lab Order On: 13-Jul-2017 15:37 Encounter Diagnosis: Coronary artery disease, Homozygous MTHFR mutation B1341G, Need for hepatitis C screening test, Testosterone [...] disease), Anxiety, Testosterone deficiency, Homozygous MTHFR mutation I1142V, Wrist pain, acute, right, Hypercholesterolemia, BMI 31.0-31.9,adult, [...] right, Testosterone deficiency, Anxiety, Homozygous MTHFR mutation T5931Q [facility] Office Visit On: 17-May-2016 [...] for Tdap vaccination (Renamed from Need for lewhzcbbvu-qqrtoof-rxapufmbo (Tdap) vaccine, adult/adolescent), Need for zoster vaccination, [...] Internal Medicine End: 19-Dec-2006 16:40 Payers [facility] [employer]; madalyn guarantor
--- OUTSIDE RECORDS SUMMARY | 2018-11-07 17:09 | XMS RPT_ITS | Continuity of Care Document ---
:1955 Author Organization [facility] Address [address] [facility] [address] [place] [address] Phone Care Team Providers Name Role Phone [...] to stretch. handout given on execises and oprnd3fws if not better rexray send PT Status: [...] CP with URI found 1995. Cath at [place] 12-01-95 with coronary artery vasospasm (took adderall then), ME with PTCA, circ 2003, see Dr. 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 (E72.12, 270.4) Comments: homocystiene slightly elevated so [...] for Tdap vaccination (Renamed from Need for uwmnvwdbby-voujlpk-gmmcjlrrs (Tdap) vaccine, adult/adolescent) (Z23, V06.1) Status: Active [...] {Capsule} Refills: 5 Ordered:19-Jun-2018 Zackary HERNANDEZ, Ela Pizano MD Start : 19-Jun-2018 Active Mobic 7.5 MG Oral Tablet 1 (one) Tablet Tablet bid prn for 0 days Quantity: 30 {Tablet} Refills: 1 Ordered:23-Jan-2018 Ela Salgado MD, MD, Dana M Start : 23-Jan-2018 Active Toprol XL 25 MG Oral Tablet Extended Release 24 Hour 1 Tablet PM for 0 days Quantity: 90 {Tablet} Refills: 3 Ordered:10-Aug-2018 Zackary HERNANDEZ, Ela Quigley MD, Ela Lr Start : 10-Aug-2018 Active Vitamin D3 Super [...] Flonase 50 MCG/ACT Nasal Suspension 1 (one) [place] 2 sprays each nostril daily for 0 days Quantity: 1 {[place]} Refills: 2 Ordered:04-Jan-2018 Antoni Kendrick Start : [...] and Bladder Result: Comments: See Note; NOTES: [facility] Imaging Services [address] [place] [address] Kidney and Bladder MR#: [id number] Acct: [id number] Name: DRAGAN FORREST Rep #: [id number] : 1955 M 62 From: Luis F Rae PCP: Ela Salgado MD Status: REG CLI Study: Kidney and Bladder Date of Exam: 06/20/18 Exam# [id number] Ordering Dr: Ela Salgado MD STUDY: RENAL [...] Service support , CC: Ela Salgado MD Auto Machinist: Signed 12-Apr-2018 Cardiology Visit Report Result: Comments: See Note; NOTES: [facility] [place] [address] OFFICE VISIT Date of Service: 04/12/18 MR#: [id number] Acct: [id number] Name: MEKA FORREST Rep #: [id number] : 1955 Provider: Barry Sky MD Age/Sex: 62/M Location[facility] Status: Signed HPI HPI Chief [...] DAILY 03/16 05/02 [History Confirmed 04/12/18] [facility] Medical History Hypertension (Chronic) Hyperlipidemia (Chronic) [...] symptoms, near syncope, syncope or lack of furnace cooler rdination Chris Hematologic/Lymphatic: Negative for easy bruising [...] PCI- Cx w/ 3.0 x 24 mm Shelter Monitor Stent Plan He is status post coronary [...] Other Orders Orders: Follow Up 1 Year (etched circuit processor) Coding Level of Care Code Off vis,est,level [...] 3 Views Result: Comments: See Note; NOTES: [facility] Imaging Services [address] [place] [address] Foot min 3 Views MR#: [id number] Acct: [id number] Name: DRAGAN FORREST Rep #: [id number] : 1955 M 61 From: Vikas Hummel MD PCP: Ela Salgado MD Status: REG CLI Study: Foot min 3 Views Date of Exam: 07/06/17 Exam# [id number] Ordering Dr: Agapito Don DO STUDY: X-RAY [...] Vikas Hummel MD at 14:20 EST Tel [phone], Service support , Fax CC: Ela Salgado MD; Agapito Don DO Auto Machinist: Signed 05-Jul-2017 Ankle min 3 Views Result: Comments: See Note; NOTES: [facility] Imaging Services [address] [facility] [place] [address] Ankle min 3 Views MR#: [id number] Acct: [id number] Name: DRAGAN FORREST Rep #: [id number] : 1955 61 From: Vikas Hummel MD PCP: Ela Salgado MD Status: REG CLI Study: Ankle min 3 Views Date of Exam: 07/05/17 Exam# [id number] Ordering Dr: Ela Salgado MD STUDY: X-RAY [...] Vikas Hummel MD at 15:29 EST Tel [phone], Service support [phone], CC: Ela Salgado MD Auto Machinist: Signed 17-Feb-2017 NCS and/or EMG Patient Result: Comments: See Note; NOTES: [facility] Pulmonary Services/Neurology [address] [place] [address] NCS and/or EMG Patient MR#: [id number] Acct: [id number] Name: DRAGAN FORREST Rep #: [id number] : 1955 61 From: Donnie Smith Referring Dr: Ela Salgado MD Status: REG CLI Ordering Dr: Ela Salgado MD Date: 02/16/17 Location: [facility] Sex: M C DATE OF SERVICE: February [...] Date Dictated: 02/17/17 Date Transcribed: 02/17/17 0710 Auto Machinist: LEYDI Signed 14-Sep-2016 Wrist min 3 Views Result: Comments: See Note; NOTES: [facility] Imaging Services [address] [place] [address] Verdana 4d Wrist min 3 Views MR#: [id number] Acct: [id number] Name: DRAGAN FORREST Rep #: [id number] : 1955 M 61 From: Vikas Hummel MD PCP: Ela Salgado MD Status: REG CLI Study: Wrist min 3 Views Date of Exam: 09/14/16 Exam# [id number] Ordering Dr: Ela Salgado MD STUDY : [...] Hummel MD at 12:[address] Tel [phone], Service support [phone], CC: Ela Salgado MD Auto Machinist: Signed 12-May-2016 Carotid Duplex Ultrasound Result: Comments: See Note; NOTES: [facility] Cardiovascular Services [address] [place] [address] Carotid Duplex Ultrasound 05/05/16 1237 MR#: [id number] Acct: [id number] Name: DRAGAN FULLER Rep #: [id number] : 1955 60 From: Tyrone Daniels MD Attending Dr: Ela Salgado MD Status: REG CLI Ordering Dr: Ela Salgado MD Date: 05/05/16 Location: [facility] Sex: M C Admitted: Reason For [...] the left vertebral artery. Procedure Carotid Duplex 20638. Exam performed in department. Interpreta tion Summary Mild (<50%) stenosis right extracranial internal carotid. Mild (<50%) stenosis left extracranial internal carotid. Flow within the vertebral arteries is antegrade bilaterall y. Ordering Physician: Ela Salgado Performed By: Elvia Wilson RVT 05/12/16 0843 Date Tyrone Daniels MD CC: Ela Salgado MD Date Dictated: 05/05/16 1237 Date Transcribed: 05/12/16 0843 Auto Machinist: Signed Family History Unknown Family Member Name Dates Details Brother 1 Comments: lives [place], lives with parents hx. Drug addiction Status: Active Daughter 1 Comments: lives in [place] Status: Active Daughter 2 Comments: lives in [place] Status: Active Father Comments: after age 60 [...] Living Situation Comments: , heterosexual, grow apart. 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 18 years 11/2 pack stop at 36yo Status: Active Vital Signs Date Test Result Details 1-Itx-366391:30 Temperature 98.3 f Comments: Method: Temporal Pulse [...] 0.00 cm Results Date Description Value Details 6-Twh-169664:52 Urinalysis, Office (46977) UA - LEUKOCYTE ESTERASE Negative (Normal) UA - NITRITE Negative (Normal) URINE UROBILINGN DEE TIMED 2 mg/dL (Normal) UA - PROTEIN Negative mg/dL (Normal) UA - PH 6.5 (Normal) UA - BLOOD Hemolyzed Trace (Normal) UA - SPECIFIC GRAVITY 1.010 (Normal) UA - KETONES Negative mg/dL (Normal) UA - BILIRUBIN Negative (Normal) UA - GLUCOSE Negative (Normal) :43 Lipid Profile Comments: [facility] [address] [place], [place], [address](661) VLDL 9 mg/dL (Normal) Range: 5-40 LDL [...] mg/dL High Risk :43 Liver Profile Comments: [facility] [address] [place], [address] D BILI 0.20 mg/dL (Normal) Range: 0.00-0.30 T BILI 0.70 mg/dL (Normal) Range: 0.20-1.00 ALT 36 U/L (Normal) Range: 16-61 ALK P 50 U/L (Normal) Range: 45-117 AST 35 U/L (Normal) Range: 15-37 GLOB 3.1 g/dL (Normal) Range: 2.2-4.2 ALB 3.7 g/dL (Normal) Range: 3.2-5.0 T PROT 6.8 g/dL (Normal) Range: 6.4-8.2 18-Oct-20179:22 Allergan with IGE Area 5 Comments: PATIENT NOT FASTINGPERFORMED BY: [facility] [id number] ([place]) ([address]) F846-SnM Mouse Urine <0.10 kU/L (Normal) L403-GlO Sheep Chamois <0.10 kU/L (Normal) Q945-BfV Pigweed, Common <0.10 kU/L (Normal) L039-AgF Thistle, Djiboutian <0.10 kU/L (Normal) K547-JlE Ragweed, Short <0.10 kU/L (Normal) T114-FmT White [place] <0.10 kU/L (Normal) I317-WcI Pecan, Wilbarger <0.10 kU/L (Normal) C738-RnJ Joshua, White <0.10 kU/L (Normal) M277-KvK Hedley <0.10 kU/L (Normal) M277-QlA Maple Bergen [place] <0.10 kU/L (Normal) N238-MlB Brandamore <0.10 kU/L (Normal) W873-YlH Elm, Haitian <0.10 kU/L (Normal) P295-JtD [place], White <0.10 kU/L (Normal) Q850-MdS Mccurtain, Mountain <0.10 kU/L (Normal) R981-EsX Common Silver Birch <0.10 kU/L (Normal) Q732-FfU Maple/Gaston <0.10 kU/L (Normal) N840-GrV Alternaria alternata <0.10 kU/L (Normal) K976-GwL Aspergillus fumigatus <0.10 kU/L (Normal) H362-SqP Cladosporium herbarum <0.10 kU/L (Normal) G748-VlX Penicillium chrysogen <0.10 kU/L (Normal) L923-NhU Cockroach, Comoran <0.10 kU/L (Normal) B686-ErP Soy Grass <0.10 kU/L (Normal) H843-IrY Bermuda Grass <0.10 kU/L (Normal) F159-YvK Dog Dander <0.10 kU/L (Normal) H742-TlS Cat Dander <0.10 kU/L (Normal) Y047-LkZ D farinae <0.10 kU/L (Normal) A029-VbV D pteronyssinus <0.10 kU/L (Normal) Immunoglobulin E, [...] High >100.00 Very High :48 TESTOSTERONE FREE (16471) Comments: PATIENT NOT FASTINGPERFORMED BY: [facility] [id number] BY: [address] [id number] Free Testosterone(Direct) 17.2 pg/mL (Normal) Range: 6.6-18.1 :48 HEPATITIS C ANTIBODY Comments: PATIENT NOT FASTINGPERFORMED BY: [facility] [id number] BY: [facility] [id number] ([address]) Hep C Virus Ab <0.1 {s/co_ratio} (Normal) Range: 0.0-0.9 Comments: Negative: < 0.8 Indeterminate: 0.8 - 0.9 Positive: > 0.9 . The CDC recommends that a positive HCV antibody result be followed up with a HCV Nucleic Acid Amplification test (634895). :48 URINALYSIS (86564) Comments: PATIENT NOT FASTINGPERFORMED BY: [employer] [id number] BY: [address] [id number] Microscopic Examination MICNIP (Normal) Comments: Microscopic not indicated and not performed. Nitrite, Urine Negative (Normal) Urobilinogen,Semi-Qn 1.0 mg/dL (Normal) Range: 0.2-1.0 Bilirubin Negative (Normal) Occult Blood Negative (Normal) Ketones Negative (Normal) Glucose Negative (Normal) Protein Negative (Normal) WBC Esterase Negative (Normal) Appearance Clear (Normal) Urine-Color Yellow (Normal) pH 5.5 (Normal) Range: 5.0-7.5 Specific Caspian 1.022 (Normal) Range: 1.005-1.030 :48 CBC WITH MANUAL DIFF Comments: PATIENT NOT FASTINGPERFORMED BY: [facility] [id number] BY: [facility] [id number] Inf ormation: NURSE DRAW (94177) Immature Grans (Abs) 0.0 {x10E3/uL} (Normal) Range: [...] 4.14-5.80 WBC 6.5 {x10E3/uL} (Normal) Range: 3.4-10.8 5-Qdh-068825:48 Metabolic Panel, Comments: PATIENT NOT FASTINGPERFORMED BY: [facility]CoSaint [facility] CenterSohvho27[address] [facility] [id number] BY: [facility] [id number] Comprehensive (02912) ALT (SGPT) 29 [iU]/L (Normal) Range: 0-44 [...] Glucose, Serum 97 mg/dL (Normal) Range: 65-99 02-Ujr-36328:33 CBC W/Diff, Automated Comments: [facility] [address] [place], [place], [id number] ; will review on 02/28 Absolute Lymph [...] 4.6-6.2 WBC 5.5 K/mm3 (Normal) Range: 4.4-11.0 12-Pxg-80606:33 [facility] Metabolic Profil Comments: [facility] [address] [place], [place], [address] GAP 4 (Abnormal) Range: 5-15 CO2 29.0 [...] 70-110 :33 CPK Total, Creatine Kinase Comments: [facility] [address] [facility]. [place], [place], [address] CPK TOTAL 176 U/L (Normal) Range: 39-308 :33 Homocysteine Comments: [facility] [address] [facility]. [place], [place], [address] HOMOCYSTEINE 7.1 umol/L (Normal) Range: 3.2-10.7 :33 [...] the US Food and Drug Administration.Performed at: [facility] [address] [place], [place] [address]Xbo Director: Francois Davis MD, Phone: [phone] INS RES/DIAB RK . (Normal) LDL SIZE [...] for address and phone number TEST FR 493029 15.2 pg/mL (Normal) Range: 6.6-18.1 Comments: Performed at: [facility] [place] [address] [place], [place] [address]Vsh Director: Francois Davis MD, Phone: [phone] 17-May-20164:30 Pathology Report Comments: PERFORMED BY: [facility] Cyto Nsklw[address]19 [facility] [id number] Information: [id number] See MATER Comments: Material submitted: .PART A: PUNCH BIOPSY BACKPART B: SKIN PUNCH BIOPSY THIGH RIGHTClinician provided ICD-10:D49.2Clinical history: Note (Normal) .A: CHANGING MOLE ON BACK, BLEED.B: DARK ABNORMAL MOLE.CLIENT CONTACTED. SPECIMEN B VERIFIED RIGHT THIGH ROSANNE Pablo 05/19/16 1115 KYT Diagnosis:PART A: BIOPSY BACK::HEMANGIOMA (BENIGN).PART B: THIGH RIGHT::HEMANGIOMA (BENIGN).../05/21/2016Elect ro nically signed: .Roberto Bazzi MD, PathologistGross [...] IN CASSETTE(S) B./LMSLMS/LMSPathologist provided ICD-10:D18.01, L98.9, D49.2CPT .356509, 070765 47-Zyv-293953:31 ESTRADIOL (43805) Comments: recheck in 3 months; PATIENT NOT FASTINGPERFORMED BY: [employer] [facility] [id number] BY: [employer] [id number] Information: NURSE DRAW Estradiol 17.5 pg/mL (Normal) Range: 7.6-42.6 Comments: SyC[employer] LocalIA methodology 79-Tkv-793143:31 TESTOSTERONE FREE (25753) Comments: recheck in 3 months; PATIENT NOT FASTINGPERFORMED BY: [employer] [facility] [id number] BY: [employer] [id number] Free Testosterone(Direct) 14.6 pg/mL (Normal) Range: 6.6-18.1 23-Ppb-819313:31 PSA (Prostate Specific Comments: re check in 3 months; PATIENT NOT FASTINGPERFORMED BY: [employer] [facility] [id number] BY: [employer] [id number]; 09-14 Antigen), Diagnostic (12379) Prostate Specific Ag, 0.6 ng/mL (Normal) Range: 0.0-4.0 Serum Comments: Tahir ECLIA methodology. .According to the [place] U[employer] Association, Serum PSA shoulddecrease and remain at undetectable levels after radicalprostatectomy. The AUA defines biochemical recurrence as an initialPSA value 0.2 ng/mL or greater followed by a subsequent confirmatoryPSA value 0.2 ng/mL or greater.Values obtained with d ifferent assay methods or kits cannot be usedinterchangeably. Results cannot be interpreted as absolute evidenceof the presence or absence of malignant disease. 70-Mdp-596185:05 FSH and LH Comments: PATIENT NOT FASTINGPERFORMED BY: [facility] [address]ycw[address] [place] [id number] Information: [id number], 728782; will f/u on 05/17 FSH 9.6 m[iU]/mL Range: 1.5-12.4 (Normal) LH 6.3 m[iU]/mL Range: 1.7-8.6 (Normal) Written Authorization WAR (Normal) Comments: PATIENT NOT FASTINGPERFORMED BY: CB [facility] Jwlvzx3346 [address]za RoadDublin [place] [id number] 4:05 Comments: Written Authorization Received.Authorization received from SIGNATURE ON FILE [id number] by Yanna Matos :05 Methymalonic Acid, Serum Comments: PATIENT NOT FASTINGPERFORMED BY: [employer] [id number] BY: [facility] Hwqptt[address] [facility] [place] [id number] ([address]) Methylmalonic Acid, Serum 202 nmol/L (Normal) Range: 0-378 90-Zji-458446:05 Vitamin B-12 Comments: PATIENT NOT FASTINGPERFORMED BY: [facility] [address] [id number] BY: [facility] Zvdlbm[address] [facility] [place] [id number] (cyanocobalamin) (51470) Vitamin B12 724 pg/mL (Normal) Range: 211-946 77-Chf-999496:05 TESTOSTERONE FREE (09576) Comments: in am; PATIENT NOT FASTINGPERFORMED BY: [facility] [id number] BY: [facility] Fkaosn[address] [facility] [place] [id number] Information: [id number], 962221 Free Testosterone(Direct) 5.6 pg/mL (Abnormal) Range: 6.6-18.1 27-Swg-15167:44 PSA (Prostate Specific Comments: PATIENT NOT FASTINGPERFORMED BY: [facility] [address] [place] [id number] Information: M00299,NURSE DRAW Antigen), Screening (59283) Prostate Specific Ag, 0.6 ng/mL (Normal) Range: 0.0-4.0 Serum Comments: Tahir ECLIA methodology. .According to the [place] U[employer] Association, Serum PSA shoulddecrease and remain [...] disease. :19 Lipid Profile Comments: Test performed at:[facility] Orftxoeoag[address] [facility] [place] [address] VLDL 10 mg/dL (Normal) Range: [...] Risk :19 Liver Profile Comments: Test performed at:[facility] [address] [place], [place] [address] D BILI 0.25 mg/dL (Normal) Range: 0.00-0.30 [...] Glyclated (HGB Comments: PATIENT NOT FASTINGPERFORMED BY: [facility]CoSaint [facility]abas Medical CenterZppduw16[address] [facility] [id number] Information: [id number],V29614 A1C) (64335) Hemoglobin A1c 6.0 % (Abnormal) Range: 4.8-5.6 [...] CHOL 117 mg/dL (Normal) Comments: <200 mg/dL Dxorpzzdh921-157 mg/dL Borderline>240 mg/dL High Risk :03 LIVER [...] CHOL 145 mg/dL (Normal) Comments: <200 mg/dL Vglqjvbsk308-849 mg/dL Borderline>240 mg/dL High Risk :43 LIVER [...] CHOL 100 mg/dL (Normal) Comments: <200 mg/dL Iolgtgebv679-987 mg/dL Borderline>240 mg/dL High Risk HDL 37 mg/dL (Normal) Comments: Reference RangeHDL <40 mg/dL Low HDL CholesterolHDL >or= 60 mg/dL High HDL Cholesterol LDL 51 mg/dL (Normal) Range: 0-130 TRIG 59 mg/dL (Normal) Comments: Serum Triglycerides Reference IntervalNormal <150 mg/dLBorderline high 150 - 199 mg/dLHigh 200 - 499 mg/ dLVery High > or = 500 mg/dL 50-Fot-040387:50 LIVER ALT 49 U/L (Normal) Range: 12-78 D BILI 0.22 mg/dL (Normal) Range: 0.00-0.30 T BILI 0.80 mg/dL (Normal) Range: 0.00-1.00 ALB 3.7 g/dL (Normal) Range: 3.4-5.0 ALK P 49 U/L (Abnormal) Range: 50-136 AST 42 U/L (Abnormal) Range: 15-37 T PROT 7.0 g/dL (Normal) Range: 6.4-8.2 14-Yjw-653546:51 ACUTE ABDOMEN, INC CHEST (MT) Radiology Report See Note (Normal) Comments: Exam Number: [id number] ACUTE ABDOMINAL SERIES WITH PA CHEST INDICATIONSevere [...] of theabdomen. Reported By: DEVIN SANDHU M.D. 91-Rkx-158286:55 ABDOMEN LIMITED US () Radiology Report See Note (Normal) Comments: Exam Number: [id number] LIMITED ABDOMINAL ULTRASOUND HISTORYRight upper quadrant pain. [...] JAEL 29 U/L (Normal) Range: 25-115 :42 4-Mwj-127416:42 CBCD,SMEAR DIFF CELLS COUNTED 100 (Normal) HCT [...] 4.6-6.2 WBC 5.3 K/mm3 (Normal) Range: 4.4-11.0 66-Sbf-629010:25 COMP METABOLIC Comments: DR. MENG ORDERED LIPID/LPDR.LIPID [...] LIPID/LPDR.LIPID CMP CBCD PSA UA Range: 0.00-0.30 50-Lus-093950:25 LIPID Comments: DR. MENG ORDERED LIPID/LPDR.LIPID CMP [...] AMOUNT GROWTH 3+ ORGANISM 1: HAEMOPHILUS INFLUENZA 21-Vts-080125:46 Rapid Strep Test, Office (97981) Rapid Strep Test, Office Negative (Normal) :23 [...] was performed using the TPSA method for the[employer] chemistry system.Values obtained with different assay methods [...] Planned Observations PSA (Prostate Specific Antigen), Screening (32953)Indication: Screening for prostate cancer On: :50 Request URINALYSIS (50599)Indication: Elevated LFTs On: :48 Request Metabolic Panel, Comprehensive (51364)Indication: Elevated LFTs On: :48 Request CBC WITH MANUAL DIFF (54211)Indication: Elevated LFTs On: :48 Request CALCIFIDIOL (16506) VIT D 25Indication: Vitamin D insufficiency On: 47-Wrg-514837:44 Request METABOLIC PANEL, COMPREHENSIVE (54820)Indication: Hyperlipidemia, unspecified On: :43 Request LIPOPROTEIN, BLD, BY NMR (72927)Indication: Hyperlipidemia, unspecified On: :43 Request Homocysteine, Plasma (48459)Indication: Homozygous MTHFR mutation Z1887N On: 11-Ebw-609935:40 Request METABOLIC PANEL, COMPREHENSIVE (13685)Indication: Hypercholesterolemia On: 1-Ktu-290964:55 Request TESTOSTERONE FREE (20557)Indication: Testosterone deficiency On: :27 Request CBC, Platelets & Auto Diff (92301)Indication: Testosterone deficiency On: :27 Request Creatine Kinase Total (40180)Indication: Hypercholesterolemia On: :18 Request LIPOPROTEIN, BLD, BY NMR (34770)Indication: Hypercholesterolemia On: :18 Request Homocysteine, Plasma (87676)Indication: Homozygous MTHFR mutation A7691Y On: :17 Request CBC WITH MANUAL DIFF (64374)Indication: Testosterone deficiency On: :41 Request Comments: re check in 3 months CBC with auto diff (45382)Indication: Elevated LFTs On: :49 Request Comments: copy to Dr. sky URINALYSIS, W/ MICRO (92456)Indication: Coronary artery disease On: :39 Request METABOLIC PANEL, COMPREHENSIVE (74905)Indication: Elevated LFTs On: :38 Request LIPID PANEL (98046)Indication: Coronary artery disease On: 9-Wdx-653693:38 Request Hemoglobin Glyclated (HGB A1C) (41153)Indication: IFG (impaired fasting glucose) On: :06 Request Comments: recheck in 3 months LIPID PANEL (88364)Indication: Hypercholesterolemia On: : Request PSA (PROSTATE SPECIFIC ANTIGEN) (V76.44)Indication: Encounter for health maintenance examination with abnormal findings On: : Request CBC (Auto) (80750)Indication: Coronary artery disease On: : Request Metabolic Panel, Basic (64828)Indication: Coronary artery disease On: : Request TSH (70013)Indication: Anxiety On: : Request CBC & PLATELETS (AUTO) (87652)Indication: Hypercholesterolemia On: :56 Request LIPID PANEL (11668)Indication: Hypercholesterolemia On: :56 Request METABOLIC PANEL, COMPREHENSIVE (99087)Indication: Hypercholesterolemia On: :55 Request Metabolic Panel, Basic (03963)Indication: Hypercholesterolemia On: :31 Request Lipid Panel (38975)Indication: Hypercholesterolemia On: :30 Request PSA (PROSTATE SPECIFIC ANTIGEN) (V76.44)Indication: Encounter for health maintenance examination with abnormal findings On: : Request CBC (Auto) (57815)Indication: Coronary artery disease On: : Request Metabolic Panel, Basic (30344)Indication: Coronary artery disease On: : Request TSH (77267)Indication: Anxiety On: : Request PSA (PROSTATE SPECIFIC ANTIGEN) (V76.44)Indication: Encounter for health maintenance examination with abnormal findings On: :30 Request TSH (59657)Indication: Anxiety On: :30 Request METABOLIC PANEL, COMPREHENSIVE (33753)Indication: Hypercholesterolemia On: :30 Request LIPID PANEL (57911)Indication: Hypercholesterolemia On: :30 Request CBC WITH MANUAL DIFF (84012)Indication: Hypercholesterolemia On: :30 Request Lipase (71922)Indication: Epigastric pain On: 8-Qxf-754352:24 Request Amylase (67712)Indication: Epigastric pain On: 3-Fao-244827:24 Request Metabolic Panel, Comprehensive (80468)Indication: Epigastric pain On: 0-Quk-773776:24 Request CBC with manual diff (90054)Indication: Epigastric pain On: 7-Opv-943596:24 Request Metabolic Panel, Comprehensive (22039)Indication: Coronary artery disease On: 25-Pkl-000464:13 Request URINALYSIS (31611)Indication: Coronary artery disease On: 66-Rjr-321681:30 Request CBC (Auto) (71793)Indication: Coronary artery disease On: 79-Rsa-817596:30 Request Lipid Panel (06689)Indication: Coronary artery disease On: 40-Cbi-299346:30 Request Metabolic Panel, Comprehensive (96134)Indication: Coronary artery disease On: 40-Ysa-296966:30 Request PSA (PROSTATE SPECIFIC ANTIGEN) (V76.44)Indication: Screening for prostate cancer On: 09-Xen-441179:29 Request JOANA CULTURE-OTHER (33707)Indication: Pharyngitis, acute On: 49-Nlt-134710:46 Request PSA (PROSTATE SPECIFIC ANTIGEN)Indication: Screening for prostate cancer On: 0-Pwr-899438:05 Request CBC WITH MANUAL DIFF (95142)Indication: Coronary artery disease On: 5-Soi-779224:05 Request LIPID PANEL (47276)Indication: Coronary artery disease On: 1-Oag-435892:05 Request METABOLIC PANEL, COMPREHENSIVE (00895)Indication: Coronary artery disease On: 5-Gge-644458:05 Request Planned Encounters Medical; [facility] Exam (Doctor) - On: 04-Sep-2018 8:00 [facility] Ela Salgado MD, MD, Dana M Planned Procedures Radiology - Hip - LeftBy: Zackary On: 17-Aug-2018 Intent Ela HERNANDEZ MD, Dana M Comments: call with wet read [phone] Radiology - Knee - Left - Weight On: 17-Aug-2018 Intent BearingBy: Ela Salgado MD Comments: call with wet read [phone] Ela Salgado MD BLADDER ULTRASOUND SCAN WITH On: 19-Jun-2018 Intent MEASUREMENT OF POST-VOID RESIDUAL URINE VOLUME (75423)By: Ela Salgado MD, MD, Dana M Flu Vaccine (Quadrivalent) On: 12-Jun-2018 Intent [id number]: Ela Salgado MD Comments: Lot #[id number]/30/2019Site-L dltd, IMDose prefilled syringegiven by: CManchakVIS reviewed and ABN signed Ela Salgado MD Toradol Injection, 30 mg On: 12-Jun-2018 Intent (J1885)By: Ela Salgado MD Comments: lot: [id number]: 01/2020site/route: RGM/IMamt: 1mLVIS signed when applicableSAGE Becerra MD, Dana M Toradol Injection, 30 mg On: 04-Jan-2018 Intent (J1885)By: Ela Salgado MD, MD, Dana M Toradol Injection, 30 mg On: 12-Oct-2017 Intent (J1885)By: Zana LOOMIS, Aga PNEUM VAC ADLT/IMUMNOSPR, On: 10-Aug-2017 Intent SBC/INTRM (03926)By: Zackary HERNANDEZ, Comments: lot:[id number]:IM right deltoid dose:0.5ml given by:mayra LUZ signedERCORINE MD, Dana M Radiology - Ankle - RightBy: On: 05-Jul-2017 Intent Ela Salgado MD, MD, Comments: call wet read [phone] Dr. zackary Lr EMGBy: Ela Salgado MD On: 17-Jan-2017 Intent Ela HERNANDEZ Nerve ConductionBy: Zackary HERNANDEZ, On: 17-Jan-2017 Intent Ela Galarza MD Comments: right leg Radiology - Wrist - RightBy: On: 14-Sep-2016 Intent Ela Salgado MD, MD, Comments: do scaphoid views Ela Lr US DOPPLER CAROTID BILATERAL On: 27-Apr-2016 Intent ([id number])By: Ela Salgado MD, MD, Dana M ZOSTER VACC, [place] ([id number])By: Zackary On: 27-Apr-2016 Intent Ela HERNANDEZ MD, Dana M Comments: lot:[id number]:SC right arm dose:0.65mlgiven by:Praveen Casey LPN TDAP VACCINE >7 IM ([id number])By: On: 27-Apr-2016 Intent Ela Salgado MD, MD, Comments: lot:[id number]:[id number]:IM left deltoid dose:0.5ml given by:mayra LUZ signedERCORINE FLU VAC, SPLIT, >3 YEARS, On: 22-May-2013 Intent INTRAMUSC (84668)By: Lizzie, Comments: lot [id number] 2014site/route R erik, IMamt 0.5mlVIS and ABN signed when applicableChelsea, CLIENT SERVICE REPRESENTATIVE Mariam IMMUNIZ ADMNIN, 1 VAC, SNGL/COMBO On: 22-May-2013 Intent ([id number])By: Mariam Samuel Toradol Injection, 30 mg On: [...] back pain, Testosterone deficiency, Homozygous MTHFR mutation [id number], Encounter for health maintenance examination with abnormal findings, BMI 28.0-28.9,adult , Pneumococcal vaccination given, Hyperlipidemia, unspecified, Vitamin D insufficiency, Verrucous keratosis [facility] Lab Order On: 13-Jul-2017 15:37 Encounter Diagnosis: Coronary artery disease, Homozygous MTHFR mutation [id number], Need for hepatitis C screening test, Testosterone [...] disease), Anxiety, Testosterone deficiency, Homozygous MTHFR mutation [id number], Wrist pain, acute, right, Hypercholesterolemia, BMI 31.0-31.9,adult, [...] wrist ).Encounter Diagnosis: BMI 31.0-31.9,adult, Hypercholesterolemia, End: 31-Harsh-2017 12:27 Wrist pain, acute, right, Testosterone deficiency, Anxiety, Homozygous MTHFR mutation Q8150L [facility] Office Visit On: 17-May-2016 [...] for Tdap vaccination (Renamed from Need for uzdntefnkv-onjiajd-lzrojgwqx (Tdap) vaccine, adult/adolescent), Need for zoster vaccination, [...] 16:40 [facility] End: 19-Dec-2006 16:40 [facility] Mignon FORREST; randi guarantor
--- OUTSIDE RECORDS SUMMARY | 2018-11-07 17:10 | XMS RPT_ITS | Continuity of Care Document ---
:1955 Author Organization [facility] Address [address] [place] [address] Phone Care Team Providers Name Role Phone [...] to stretch. handout given on execises and cfbnb7zun if not better rexray send PT Status: [...] CP with URI found 1995. Cath at [facility] 12-01-95 with coronary artery vasospasm (took adderall then), NE with PTCA, circ 2003, see Dr. 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 if toradol and flexeril not help then xray nsaidssince 1976. had MRi in past. Status: Active Neck stiffness (M43.6, 723.5) Status: Active Need for prophylactic vaccination and inoculation against influenza (Z23, V04.81) Status: Active Need for Tdap vaccination (Renamed from Need for ifbjskoniu-smdpkuf-dgpehniie (Tdap) vaccine, adult/adolescent) (Z23, V06.1) Status: Active [...] for 0 days Quantity: 90 {Capsule} Refills: 0 Ordered:28-Mar-2018 Zackary HERNANDEZ, Ela Quigley MD, Ela Lr Start : 28-Mar-2018 Active ASPIRIN LOW DOSE, 81MG (Oral Tablet) [...] 0 days Quantity: 90 {Tablet} Refills: 0 Ordered:28-Mar-2018 Ela Salgado MD, MD, Dana M Start : 28-Mar-2018 Active Vitamin D3 Super Strength 2000 UNIT [...] Flonase 50 MCG/ACT Nasal Suspension 1 (one) Fisher 2 sprays each nostril daily for 0 days Quantity: 1 {Fisher} Refills: 2 Ordered:04-Jan-2018 Antoni Kendrick Start : 18-Oct-2017 End : 04-Jan-2018 Inactive Lexapro 10 MG Oral Tablet 1/2 (one half) Tablet QD for 0 days Quantity: 90 {Tablet} Refills: 3 Ordered:04-Jan-2018 Antoni Kendrick Start : 14-Sep-2016 End : 04-Jan-2018 Inactive MEDROL (ALEX), 4MG (Oral Tablet) 1 Tablet TAD for 0 days Quantity: 1 {Package(s)} Refills: 0 Ordered:23-Sep-2015 Staic Spann LPN Start : 14-Nov-2012 End : [...] {Tablet} Refills: 0 Ordered:14-Nov-2012 Long Staci POOL Start : 14-Nov-2012 End : 23-Sep-2015 Discontinued [...] Comments: not have good socket and see jeanne and exercise alot to stabilize Status: Resolved [...] and Bladder Result: Comments: See Note; NOTES: [facility] Imaging Services [address] [place] [address] Kidney and Bladder MR#: [id number] Acct: [id number] Name: DRAGAN FORREST Rep #: [id number] : 1955 M 62 From: Luis F Rae PCP: Ela Salgado MD Status: REG CLI Study: Kidney and Bladder Date of Exam: 06/20/18 Exam# [id number] Ordering Dr: Ela Salgado MD STUDY: RENAL [...] Service support , CC: Ela Salgado MD Preschool Assistant Teacher: Signed 12-Apr-2018 Cardiology Visit Report Result: Comments: See Note; NOTES: [facility] [place] [address] OFFICE VISIT Date of Service: 04/12/18 MR#: [id number] Acct: [id number] Name: MEKA FORREST Rep #: [id number] : 1955 Provider: Barry Sky MD Age/Sex: 62/M [place] [facility] [place] Signed [facility] Chief Complaint: Follow-up visit. 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) Coding Level of Care Code Off vis,est,level [...] 3 Views Result: Comments: See Note; NOTES: [facility] Imaging Services [address] [place] [address] Foot min 3 Views MR#: [id number] Acct: [id number] Name: DRAGAN FORREST Rep #: [id number] : 1955 M 61 From: Vikas Hummel MD PCP: Ela Salgado MD Status: REG CLI Study: Foot min 3 Views Date of Exam: 07/06/17 Exam# [id number] Ordering Dr: Agapito Don DO STUDY: X-RAY [...] Vikas Hummel MD at 14:20 EST Tel [phone], Service support , Fax CC: Ela Salgado MD; Agapito Don DO Preschool Assistant Teacher: Signed 05-Jul-2017 Ankle min 3 Views Result: Comments: See Note; NOTES: [facility] Imaging Services [address] [place] [address] Ankle min 3 Views MR#: [id number] Acct: [id number] Name: DRAGAN FORREST Rep #: [id number] : 1955 M 61 From: Vikas Hummel MD PCP: Ela Salgado MD Status: REG CLI Study: Ankle min 3 Views Date of Exam: 07/05/17 Exam# [id number] Ordering Dr: Ela Salgado MD STUDY: X-RAY [...] Vikas Hummel MD at 15:29 EST Tel [phone], Service support [phone], CC: Ela Salgado MD Preschool Assistant Teacher: Signed 17-Feb-2017 NCS and/or EMG Patient Result: Comments: See Note; NOTES: [facility] Pulmonary Services/Neurology [address] [place] [address] NCS and/or EMG Patient MR#: [id number] Acct: [id number] Name: DRAGAN FORREST Rep #: [id number] : 1955 61 From: Donnie Smith Referring [...] Date Dictated: 02/17/17 Date Transcribed: 02/17/17 0710 Preschool Assistant Teacher: LEYDI Signed 14-Sep-2016 Wrist min 3 Views Result: Comments: See Note; NOTES: [facility] Imaging Services [address] [place] [address] Verdana 4d Wrist min 3 Views MR#: [id number] Acct: [id number] Name: DRAGAN FORREST Rep #: [id number] : 1955 M 61 From: Vikas Hummel MD PCP: Ela Salgado MD Status: REG CLI Study: Wrist min 3 Views Date of Exam: 09/14/16 Exam# [id number] Ordering Dr: Ela Salgado MD STUDY : [...] Hummel MD at 12:[address] Tel [phone], Service support [phone], CC: Ela Salgado MD Preschool Assistant Teacher: Signed 12-May-2016 Carotid Duplex Ultrasound Result: Comments: See Note; NOTES: [facility] Cardiovascular Services [address] [place] [address] Carotid Duplex Ultrasound 05/05/16 1237 MR#: [id number] Acct: [id number] Name: RK MARIODRAGAN Bergman Rep #: [id number] : 1955 60 From: Tyrone Daniels MD Attending Dr: Ela Salgado MD Status: REG CLI Ordering Dr: Ela Salgado MD Date: 05/05/16 Location: [facility] Sex: M C Admitted: Reason For Study: [...] the left vertebral artery. Procedure Carotid Duplex 22940. Exam performed in department. Interpreta tion Summary Mild (<50%) stenosis right extracranial internal carotid. Mild (<50%) stenosis left extracranial internal carotid. Flow within the vertebral arteries is antegrade bilaterall y. Ordering Physician: Ela Salgado Performed By: Elvia Wilson RVT 05/12/16 0843 Date Tyrone Daniels MD CC: Ela Salgado MD Date Dictated: 05/05/16 1237 Date Transcribed: 05/12/16 0843 Preschool Assistant Teacher: Signed Family History Unknown Family Member Name Dates Details Brother 1 Comments: lives in [facility], lives with parents hx. Drug addiction Status: Active Daughter 1 Comments: lives in [place] Status: Active Daughter 2 Comments: lives in [place] Status: Active Father Comments: after age 60 [...] Living Situation Comments: , heterosexual, grow apart. gnosticism important Status: Active Most Recent Primary Occupation [...] 0.00 cm Results Date Description Value Details :52 Urinalysis, Office (27534) UA - LEUKOCYTE ESTERASE Negative (Normal) UA - NITRITE Negative (Normal) URINE UROBILINGN DEE TIMED 2 mg/dL (Normal) UA - PROTEIN Negative mg/dL (Normal) UA - PH 6.5 (Normal) UA - BLOOD Hemolyzed Trace (Normal) UA - SPECIFIC GRAVITY 1.010 (Normal) UA - KETONES Negative mg/dL (Normal) UA - BILIRUBIN Negative (Normal) UA - GLUCOSE Negative (Normal) :43 Lipid Profile Comments: [facility] [address] [place], [address] VLDL 9 mg/dL (Normal) Range: 5-40 LDL [...] mg/dL High Risk :43 Liver Profile Comments: [facility] [address] [place], [address] D BILI 0.20 mg/dL (Normal) Range: 0.00-0.30 T BILI 0.70 mg/dL (Normal) Range: 0.20-1.00 ALT 36 U/L (Normal) Range: 16-61 ALK P 50 U/L (Normal) Range: 45-117 AST 35 U/L (Normal) Range: 15-37 GLOB 3.1 g/dL (Normal) Range: 2.2-4.2 ALB 3.7 g/dL (Normal) Range: 3.2-5.0 T PROT 6.8 g/dL (Normal) Range: 6.4-8.2 :22 Allergan with IGE Area 5 Comments: PATIENT NOT FASTINGPERFORMED BY: [facility] [id number] ([place]) ([address]) Q131-WwN Mouse Urine <0.10 kU/L (Normal) G534-FdO Sheep [place] <0.10 kU/L (Normal) D612-WyO Pigweed, Common <0.10 kU/L (Normal) M944-PbK Thistle, Somali <0.10 kU/L (Normal) C084-SpF Ragweed, Short <0.10 kU/L (Normal) W811-AsS White [place] <0.10 kU/L (Normal) U055-KaD Pecan, [place] <0.10 kU/L (Normal) H559-JvH Joshua, White <0.10 kU/L (Normal) U994-JcQ [place] <0.10 kU/L (Normal) I842-XjH Maple [place] <0.10 kU/L (Normal) Z186-AvI [place] <0.10 kU/L (Normal) B689-IiO Elm, Sierra Leonean <0.10 kU/L (Normal) U580-RsV [place], White <0.10 kU/L (Normal) S539-AnX [place]ie, Mountain <0.10 kU/L (Normal) O311-JkJ Common Silver Birch <0.10 kU/L (Normal) T055-LeY Maple/Archer <0.10 kU/L (Normal) K574-UhQ Alternaria alternata <0.10 kU/L (Normal) N482-SwW Aspergillus fumigatus <0.10 kU/L (Normal) B226-HiP Cladosporium herbarum <0.10 kU/L (Normal) Z502-SnW Penicillium chrysogen <0.10 kU/L (Normal) S658-GhD Cockroach, Serbian <0.10 kU/L (Normal) U574-EzI Soy Grass <0.10 kU/L (Normal) M652-UyF Bermuda Grass <0.10 kU/L (Normal) G549-KeB Dog Dander <0.10 kU/L (Normal) I115-ZaN Cat Dander <0.10 kU/L (Normal) L442-UoK D farinae <0.10 kU/L (Normal) V013-QhN D pteronyssinus <0.10 kU/L (Normal) Immunoglobulin E, [...] 100.00 V Very High >100.00 Very High 9-Kwo-223403:48 TESTOSTERONE FREE (61043) Comments: PATIENT NOT FASTINGPERFORMED BY: [facility] I[address]24 [place] [id number] BY: [address] [id number] Free Testosterone(Direct) 17.2 pg/mL (Normal) Range: 6.6-18.1 :48 HEPATITIS C ANTIBODY Comments: PATIENT NOT FASTINGPERFORMED BY: [address] [id number] BY: [address] [id number] ([address]) Hep C Virus Ab <0.1 {s/co_ratio} (Normal) Range: 0.0-0.9 Comments: Negative: < 0.8 Indeterminate: 0.8 - 0.9 Positive: > 0.9 . The CDC recommends that a positive HCV antibody result be followed up with a HCV Nucleic Acid Amplification test (148890). :48 URINALYSIS (86326) Comments: PATIENT NOT FASTINGPERFORMED BY: [place] 0604270 [facility] [id number] BY: [address] [id number] Microscopic Examination MICNIP (Normal) Comments: Microscopic not indicated and not performed. Nitrite, Urine Negative (Normal) Urobilinogen,Semi-Qn 1.0 mg/dL (Normal) Range: 0.2-1.0 Bilirubin Negative (Normal) Occult Blood Negative (Normal) Ketones Negative (Normal) Glucose Negative (Normal) Protein Negative (Normal) WBC Esterase Negative (Normal) Appearance Clear (Normal) Urine-Color Yellow (Normal) pH 5.5 (Normal) Range: 5.0-7.5 Specific Energy 1.022 (Normal) Range: 1.005-1.030 :48 CBC WITH MANUAL DIFF Comments: PATIENT NOT FASTINGPERFORMED BY: [place] 0604270 [facility] [id number] BY: [address] [id number] Inf ormation: NURSE DRAW (40373) Immature Grans (Abs) 0.0 {x10E3/uL} (Normal) Range: [...] 4.14-5.80 WBC 6.5 {x10E3/uL} (Normal) Range: 3.4-10.8 8-Ofn-318535:48 Metabolic Panel, Comments: PATIENT NOT FASTINGPERFORMED BY: CB [facility] Vovxid1781 [facility] [id number] BY: BN [facility] Nkplvzjnas6450 [facility] [id number] [facility] ([address]) ALT (SGPT) 29 [iU]/L (Normal) Range: 0-44 [...] Glucose, Serum 97 mg/dL (Normal) Range: 65-99 63-Ulw-00733:33 CBC W/Diff, Automated Comments: [facility] [address] [place], [place], [id number] ; will review on 02/28 Absolute Lymph [...] 4.6-6.2 WBC 5.5 K/mm3 (Normal) Range: 4.4-11.0 80-Mvz-25249:33 Comprehensive Metabolic Profil Comments: [facility] [address] [place], [place], [id number] GAP 4 (Abnormal) Range: 5-15 CO2 29.0 [...] 70-110 :33 CPK Total, Creatine Kinase Comments: [facility] [address] [place], [place], [address] CPK TOTAL 176 U/L (Normal) Range: 39-308 :33 Homocysteine Comments: [facility] [address] [place], [place], [address] HOMOCYSTEINE 7.1 umol/L (Normal) Range: 3.2-10.7 :33 [...] the [place] Food and Drug Administration.Performed at: [facility] [address] [place], [place] [address]Vrw Director: Francois Davis MD, Phone: [phone] INS RES/DIAB RK . (Normal) LDL SIZE [...] LIPIDS . (Normal) :33 Testosterone Free Comments: [facility] (refer to report for specific site)refer to report for address and phone number TEST FR 341926 15.2 pg/mL (Normal) Range: 6.6-18.1 Comments: Performed at: [address] [id number] Director: Francois Davis MD, Phone: [phone] 17-May-20164:30 Pathology Report Comments: PERFORMED BY: [facility] [place] [address] Oadts[address] [facility] [id number] Information: [id number] See MATER Comments: Material submitted: .PART A: PUNCH BIOPSY BACKPART B: SKIN PUNCH BIOPSY THIGH RIGHTClinician provided ICD-10:D49.2Clinical history: Note (Normal) .A: CHANGING MOLE ON BACK, BLEED.B: DARK ABNORMAL MOLE.CLIENT CONTACTED. SPECIMEN B VERIFIED RIGHT THIGH ROSANNE Pablo 05/19/16 1115 KYT Diagnosis:PART A: BIOPSY BACK::HEMANGIOMA (BENIGN).PART B: THIGH RIGHT::HEMANGIOMA (BENIGN)...MUR/05/21/2016Elect ro nically signed: .Roberto Bazzi MD, PathologistGross [...] IN CASSETTE(S) B./LMSLMS/LMSPathologist provided ICD-10:D18.01, L98.9, D49.2CPT .196151, 245513 91-Gtm-237182:31 ESTRADIOL (24426) Comments: recheck in 3 months; PATIENT NOT FASTINGPERFORMED BY: [facility] Hiuwhx5326 [facility] [id number] BY: Cash[address] [id number] Information: NURSE DRAW Estradiol 17.5 pg/mL (Normal) Range: 7.6-42.6 Comments: WHI SolutionIA methodology 62-Lmi-446302:31 TESTOSTERONE FREE (15972) Comments: recheck in 3 months; PATIENT NOT FASTINGPERFORMED BY: InComm LabQderoPateo Communicationsrp Eqpefa0293 [facility]osignNov[facility] [id number] BY: [address] [id number] Free Testosterone(Direct) 14.6 pg/mL (Normal) Range: 6.6-18.1 05-Ecw-297384:31 PSA (Prostate Specific Comments: re check in 3 months; PATIENT NOT FASTINGPERFORMED BY: Bioquimica6370 [facility]ignNov[facility] [id number] BY: [address] [id number]; fu 09-14 Antigen), Diagnostic (38147) Prostate Specific Ag, 0.6 ng/mL (Normal) Range: 0.0-4.0 Serum Comments: WHI SolutionIA methodology. .According to the [place] U[employer] Association, Serum PSA shoulddecrease and remain at undetectable levels after radicalprostatectomy. The AUA defines biochemical recurrence as an initialPSA value 0.2 ng/mL or greater followed by a subsequent confirmatoryPSA value 0.2 ng/mL or greater.Values obtained with d ifferent assay methods or kits cannot be usedinterchangeably. Results cannot be interpreted as absolute evidenceof the presence or absence of malignant disease. 90-Eej-883076:05 FSH and LH Comments: PATIENT NOT FASTINGPERFORMED BY: LabQderoPateo Communicationsrp Prrygd2528 [facility] [id number] Information: V38899, 308928; will f/u on 05/17 FSH 9.6 m[iU]/mL Range: 1.5-12.4 (Normal) LH 6.3 m[iU]/mL Range: 1.7-8.6 (Normal) Written Authorization WAR (Normal) Comments: PATIENT NOT FASTINGPERFORMED BY: CB [facility] Mpqskn7837 Pedroza RoadDublin [place] [id number] 4:05 Comments: Written Authorization Received.Authorization received from SIGNATURE ON FILE [id number] by Yanna Matos 84-Hvs-253219:05 Methymalonic Acid, Serum Comments: PATIENT NOT FASTINGPERFORMED BY: LabQderoPateo Communicationsrp [address] [id number] BY: [facility] Dylowq6937 Pedroza RoadNovant Health / [place]rmcin [place] [id number] ([address]) Methylmalonic Acid, Serum 202 nmol/L (Normal) Range: 0-378 29-Fqi-907107:05 Vitamin B-12 Comments: PATIENT NOT FASTINGPERFORMED BY: [facility] [address] [id number] BY: [facility] Bbynlm[address] [facility] [place] [id number] (cyanocobalamin) (56702) Vitamin B12 724 pg/mL (Normal) Range: 211-946 32-Psb-214769:05 TESTOSTERONE FREE (99091) Comments: in am; PATIENT NOT FASTINGPERFORMED BY: [facility] [address] [id number] BY: [facility] Yoavpb[address]197 [address] [facility] Hospitalin [place] [id number] Information: [id number], 227073 Free Testosterone(Direct) 5.6 pg/mL (Abnormal) Range: 6.6-18.1 13-Dxq-62895:44 PSA (Prostate Specific Comments: PATIENT NOT FASTINGPERFORMED BY: CB [facility] Zchbws7545 [address] [facility] [place] [id number] Information: [id number],NURSE DRAW Antigen), Screening (19632) Prostate Specific Ag, 0.6 ng/mL (Normal) Range: 0.0-4.0 Serum Comments: Tahir ECLIA methodology. .According to the [place] Urological Association, Serum PSA shoulddecrease and remain [...] disease. :19 Lipid Profile Comments: Test performed at:[facility] [address] [place], [place] [address] VLDL 10 mg/dL (Normal) Range: 5-40 LDL [...] Risk :19 Liver Profile Comments: Test performed at:[facility] [address] [place], [place] [address] D BILI 0.25 mg/dL (Normal) Range: 0.00-0.30 T BILI 1.00 mg/dL (Normal) Range: 0.20-1.00 ALT 45 U/L (Normal) Range: 12-78 ALK P 56 U/L (Normal) Range: 50-136 AST 41 U/L (Abnormal) Range: 15-37 GLOB 2.9 g/dL (Normal) Range: 2.7-4.2 ALB 3.9 g/dL (Normal) Range: 3.4-5.0 T PROT 6.8 g/dL (Normal) Range: 6.4-8.2 67-Yhl-604690:12 A1C 5.9 % (Normal) Range: 4.2-6.3 :49 Hemoglobin Glyclated (HGB Comments: PATIENT NOT FASTINGPERFORMED BY: EDNA [facility] Fngyib[address] [place] [id number] Information: [id number],K75045 A1C) (60815) Hemoglobin A1c 6.0 % (Abnormal) Range: 4.8-5.6 [...] CHOL 117 mg/dL (Normal) Comments: <200 mg/dL Gcyktfrmg209-970 mg/dL Borderline>240 mg/dL High Risk :03 LIVER [...] CHOL 145 mg/dL (Normal) Comments: <200 mg/dL Nozxdmcno595-269 mg/dL Borderline>240 mg/dL High Risk :43 LIVER [...] CHOL 100 mg/dL (Normal) Comments: <200 mg/dL Uahtednzl701-712 mg/dL Borderline>240 mg/dL High Risk HDL 37 mg/dL (Normal) Comments: Reference RangeHDL <40 mg/dL Low HDL CholesterolHDL >or= 60 mg/dL High HDL Cholesterol LDL 51 mg/dL (Normal) Range: 0-130 TRIG 59 mg/dL (Normal) Comments: Serum Triglycerides Reference IntervalNormal <150 mg/dLBorderline high 150 - 199 mg/dLHigh 200 - 499 mg/ dLVery High > or = 500 mg/dL 16-Awb-885391:50 LIVER ALT 49 U/L (Normal) Range: 12-78 D BILI 0.22 mg/dL (Normal) Range: 0.00-0.30 T BILI 0.80 mg/dL (Normal) Range: 0.00-1.00 ALB 3.7 g/dL (Normal) Range: 3.4-5.0 ALK P 49 U/L (Abnormal) Range: 50-136 AST 42 U/L (Abnormal) Range: 15-37 T PROT 7.0 g/dL (Normal) Range: 6.4-8.2 45-Ahu-889955:51 ACUTE ABDOMEN, INC CHEST (MT) Radiology Report See Note (Normal) Comments: Exam Number: [id number] ACUTE ABDOMINAL SERIES WITH PA CHEST INDICATIONSevere [...] of theabdomen. Reported By: DEVIN SANDHU M.D. 82-Zsb-935582:55 ABDOMEN LIMITED US () Radiology Report See Note (Normal) Comments: Exam Number: [id number] LIMITED ABDOMINAL ULTRASOUND HISTORYRight upper quadrant pain. [...] 4.6-6.2 WBC 5.3 K/mm3 (Normal) Range: 4.4-11.0 55-Wmv-796640:25 COMP METABOLIC Comments: DR. MENG ORDERED LIPID/LPDR.LIPID [...] LIPID/LPDR.LIPID CMP CBCD PSA UA Range: 0.00-0.30 54-Vfk-606927:25 LIPID Comments: DR. MENG ORDERED LIPID/LPDR.LIPID CMP [...] AMOUNT GROWTH 3+ ORGANISM 1: HAEMOPHILUS INFLUENZA 19-Ruo-206353:46 Rapid Strep Test, Office (80931) Rapid Strep Test, Office Negative (Normal) :23 [...] was performed using the TPSA method for theSekal AS chemistry system.Values obtained with different assay methods [...] Planned Observations PSA (Prostate Specific Antigen), Screening (93202)Indication: Screening for prostate cancer On: 65-Mpw-980590:50 Request URINALYSIS (74570)Indication: Elevated LFTs On: :48 Request Metabolic Panel, Comprehensive (20172)Indication: Elevated LFTs On: :48 Request CBC WITH MANUAL DIFF (94920)Indication: Elevated LFTs On: :48 Request CALCIFIDIOL (17932) VIT D 25Indication: Vitamin D insufficiency On: :44 Request METABOLIC PANEL, COMPREHENSIVE (74544)Indication: Hyperlipidemia, unspecified On: 16-Hjr-709020:43 Request LIPOPROTEIN, BLD, BY NMR (08379)Indication: Hyperlipidemia, unspecified On: 79-Hfk-909665:43 Request Homocysteine, Plasma (76219)Indication: Homozygous MTHFR mutation H2060Z On: 70-Jey-407051:40 Request METABOLIC PANEL, COMPREHENSIVE (34385)Indication: Hypercholesterolemia On: 3-Tnc-903803:55 Request TESTOSTERONE FREE (03680)Indication: Testosterone deficiency On: :27 Request CBC, Platelets & Auto Diff (99542)Indication: Testosterone deficiency On: :27 Request Creatine Kinase Total (79497)Indication: Hypercholesterolemia On: 02-Voi-153988:18 Request LIPOPROTEIN, BLD, BY NMR (18151)Indication: Hypercholesterolemia On: 86-Ema-996112:18 Request Homocysteine, Plasma (24426)Indication: Homozygous MTHFR mutation N5445D On: 72-Akn-439954:17 Request CBC WITH MANUAL DIFF (30879)Indication: Testosterone deficiency On: :41 Request Comments: re check in 3 months CBC with auto diff (30970)Indication: Elevated LFTs On: :49 Request Comments: copy to Dr. sky URINALYSIS, W/ MICRO (52766)Indication: Coronary artery disease On: :39 Request METABOLIC PANEL, COMPREHENSIVE (94320)Indication: Elevated LFTs On: :38 Request LIPID PANEL (19816)Indication: Coronary artery disease On: :38 Request Hemoglobin Glyclated (HGB A1C) (59995)Indication: IFG (impaired fasting glucose) On: :06 Request Comments: recheck in 3 months LIPID PANEL (81535)Indication: Hypercholesterolemia On: : Request PSA (PROSTATE SPECIFIC ANTIGEN) (V76.44)Indication: Encounter for health maintenance examination with abnormal findings On: 7-Gos-472825: Request CBC (Auto) (63383)Indication: Coronary artery disease On: : Request Metabolic Panel, Basic (42789)Indication: Coronary artery disease On: 2-Ycj-739043:01 Request TSH (12045)Indication: Anxiety On: 0-Xfs-919972:01 Request CBC & PLATELETS (AUTO) (55461)Indication: Hypercholesterolemia On: 82-Wmp-069129:56 Request LIPID PANEL (49499)Indication: Hypercholesterolemia On: 22-Jvn-709565:56 Request METABOLIC PANEL, COMPREHENSIVE (64894)Indication: Hypercholesterolemia On: 94-Gpm-912193:55 Request Metabolic Panel, Basic (50341)Indication: Hypercholesterolemia On: :31 Request Lipid Panel (38792)Indication: Hypercholesterolemia On: :30 Request PSA (PROSTATE SPECIFIC ANTIGEN) (V76.44)Indication: Encounter for health maintenance examination with abnormal findings On: :28 Request CBC (Auto) (98646)Indication: Coronary artery disease On: :28 Request Metabolic Panel, Basic (36762)Indication: Coronary artery disease On: :28 Request TSH (92976)Indication: Anxiety On: :28 Request PSA (PROSTATE SPECIFIC ANTIGEN) (V76.44)Indication: Encounter for health maintenance examination with abnormal findings On: :30 Request TSH (74718)Indication: Anxiety On: :30 Request METABOLIC PANEL, COMPREHENSIVE (26151)Indication: Hypercholesterolemia On: :30 Request LIPID PANEL (15687)Indication: Hypercholesterolemia On: :30 Request CBC WITH MANUAL DIFF (96520)Indication: Hypercholesterolemia On: :30 Request Lipase (79431)Indication: Epigastric pain On: 7-Rzs-597661:24 Request Amylase (96446)Indication: Epigastric pain On: 8-Obg-292301:24 Request Metabolic Panel, Comprehensive (87780)Indication: Epigastric pain On: 7-Fgj-657627:24 Request CBC with manual diff (14604)Indication: Epigastric pain On: 0-Rcp-727909:24 Request Metabolic Panel, Comprehensive (86503)Indication: Coronary artery disease On: 84-Qus-389595:13 Request URINALYSIS (06098)Indication: Coronary artery disease On: 27-Ukq-226458:30 Request CBC (Auto) ([id number])Indication: Coronary artery disease On: 21-Bxg-620001:30 Request Lipid Panel ([id number])Indication: Coronary artery disease On: 41-Oee-429208:30 Request Metabolic Panel, Comprehensive ([id number])Indication: Coronary artery disease On: 62-Lbx-127681:30 Request PSA (PROSTATE SPECIFIC ANTIGEN) (V76.44)Indication: Screening for prostate cancer On: 17-Uyg-531311:29 Request JOANA CULTURE-OTHER ([id number])Indication: Pharyngitis, acute On: 19-Pqr-581308:46 Request PSA (PROSTATE SPECIFIC ANTIGEN)Indication: Screening for prostate cancer On: 4-Nej-010256:05 Request CBC WITH MANUAL DIFF ([id number])Indication: Coronary artery disease On: 6-Vfc-208043:05 Request LIPID PANEL ([id number])Indication: Coronary artery disease On: 3-Pdr-469358:05 Request METABOLIC PANEL, COMPREHENSIVE ([id number])Indication: Coronary artery disease On: 9-Vvx-922743:05 Request Planned Encounters Medical; [facility] Pre Wellness Exam (DB Nurse) - On: 17-Aug-2018 8:15 [facility] JELANI Goodman; [facility] Wellness Exam (Doctor) - On: 04-Sep-2018 8:00 [facility] Ela Salgado MD, MD, Dana M Planned Procedures BLADDER ULTRASOUND SCAN WITH On: 19-Jun-2018 Intent MEASUREMENT OF POST-VOID RESIDUAL URINE VOLUME ([id number])By: Ela Salgado MD, MD, Dana M Flu Vaccine (Quadrivalent) On: 12-Jun-2018 Intent [id number]: Ela Salgado MD Comments: Lot #[id number]/30/2019Site-L dltd, IMDose prefilled syringegiven by: SamuelVIS reviewed and ABN signed Ela Salgado MD Toradol Injection, 30 mg On: 12-Jun-2018 Intent (J1885)By: Ela Salgado MD Comments: lot: [id number]: 01/2020site/route: RGM/IMamt: 1mLVIS signed when applicableSAGE Becerra MD, Dana M Toradol Injection, 30 mg On: 04-Jan-2018 Intent (J1885)By: Ela Salgado MD, MD, Dana M Toradol Injection, 30 mg On: 12-Oct-2017 Intent (J1885)By: Zana LOOMIS, Aga PNEUM VAC ADLT/IMUMNOSPR, On: 10-Aug-2017 Intent SBC/INTRM ([id number])By: Zackary HERNANDEZ, Comments: lot:[id number]:IM right deltoid dose:0.5ml given by:mayra LUZ signedER, Ela Grewal MD Radiology - Ankle - RightBy: On: 05-Jul-2017 Intent Ela Salgado MD, MD, Comments: call wet read [phone] Dr. zackary Lr EMGBy: Ela Salgado MD On: 17-Jan-2017 Intent Ela HERNANDEZ Nerve ConductionBy: Zackary HERNANDEZ, On: 17-Jan-2017 Intent Ela Galarza MD Comments: right leg Radiology - Wrist - RightBy: On: 14-Sep-2016 Intent Zackary HERNANDEZ, Ela Salgado MD, Comments: do scaphoid views Ela Lr US DOPPLER CAROTID BILATERAL On: 27-Apr-2016 Intent ([id number])By: Zackary HERNANDEZ, Ela Salgado MD, Ela Lr ZOSTER VACC, [place] ([id number])By: Zackary On: 27-Apr-2016 Intent Ela HERNANDEZ MD, Dana M Comments: lot:[id number]:SC right arm dose:0.65mlgiven by:Praveen newmanERCORINE TDAP VACCINE >7 IM ([id number])By: On: 27-Apr-2016 Intent Ela Salgado MD, MD, Comments: lot:[id number]:09-05-18rte:IM left deltoid dose:0.5ml given by:mayra newmanERCORINE FLU VAC, SPLIT, >3 YEARS, On: 22-May-2013 Intent INTRAMUSC (10033)By: Lizzie, Comments: lot [id number] 2014site/route R erik, IMamt 0.5mlVIS and ABN signed when applicableChelsea, BROADCASTING EQUIPMENT MECHANIC Mariam IMMUNIZ ADMNIN, 1 VAC, SNGL/COMBO On: 22-May-2013 Intent ([id number])By: Mariam Samuel Toradol Injection, 30 mg On: [...] Scanned Document is available upon request. Encounters Lab Order On: 03-Aug-2018 14:47 Encounter Diagnosis: [...] back pain, Testosterone deficiency, Homozygous MTHFR mutation G3140K, Encounter for health maintenance examination with abnormal findings, BMI 28.0-28.9,adult , Pneumococcal vaccination given, Hyperlipidemia, unspecified, Vitamin D insufficiency, Verrucous keratosis [facility] Lab Order On: 13-Jul-2017 15:37 Encounter Diagnosis: Coronary artery disease, Homozygous MTHFR mutation E4033D, Need for hepatitis C screening test, Testosterone [...] disease), Anxiety, Testosterone deficiency, Homozygous MTHFR mutation S9260M, Wrist pain, acute, right, Hypercholesterolemia, BMI 31.0-31.9,adult, [...] right, Testosterone deficiency, Anxiety, Homozygous MTHFR mutation B1074M [facility] Office Visit On: 17-May-2016 [...] for Tdap vaccination (Renamed from Need for fokdolckkf-tsolyvd-mfvjpgwjd (Tdap) vaccine, adult/adolescent), Need for zoster vaccination, [...] Internal Medicine End: 19-Dec-2006 16:40 Payers [facility] [place] [facility] [place] [employer]; randi guarantor
--- OUTSIDE RECORDS SUMMARY | 2018-11-07 17:10 | XMS RPT_ITS | Continuity of Care Document ---
:1955 Author Organization [facility] Address [address] [facility] [address] [place] [address] Phone Care Team Providers Name Role Phone [...] to stretch. handout given on execises and ebzxs8uds if not better rexray send PT Status: [...] CP with URI found 1995. Cath at [facility] 12-01-95 with coronary artery vasospasm (took adderall then), MD with PTCA, circ 2003, see Dr. 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 these look abnormal. Status: Active Nonsmoker (Z78.9, V49.89) Status: Active Obesity (BMI 30.0-34.9) (E66.9, 278.00) [...] days Quantity: 20 {Tablet} Refills: 0 Ordered:19-Jun-2018 Marcomatijeremiah Mariam Start : 12-Jun-2018 End : 19-Jun-2018 Inactive , 16.2MG/5ML (Oral Elixir) 5-10 Elixir milliliters prn tid for 0 days Quantity: 1 {Bottle} Refills: 3 Ordered:23-Sep-2015 Staci Spann LPN L Start : 22-Apr-2014 End : 23-Sep-2015 Inactive Flonase 50 MCG/ACT Nasal Suspension 1 (one) Bandana 2 sprays each nostril daily for 0 days Quantity: 1 {Bandana} Refills: 2 Ordered:04-Jan-2018 Antoni Kendrick Start : 18-Oct-2017 End : 04-Jan-2018 Inactive Lexapro 10 MG Oral Tablet 1/2 (one half) Tablet QD for 0 days Quantity: 90 {Tablet} Refills: 3 Ordered:04-Jan-2018 Antoni Kendrick Start : 14-Sep-2016 End : 04-Jan-2018 Inactive MEDROL (ALEX), 4MG (Oral Tablet) 1 Tablet TAD for 0 days Quantity: 1 {Package(s)} Refills: 0 Ordered:23-Sep-2015 Staci Spann LPN L Start : 14-Nov-2012 End : 23-Sep-2015 [...] cancer (Z12.5, V76.44) Comments: scope 1-06 Status: Inactive as of 27-Apr-2016 Sprain of right ankle, initial encounter (S93.401A, [...] of 22-Mar-2016 Wrist pain, acute, right (M25.531, 099.43) Comments: slept on wrong and been 2 weeks. not better. get wrist splint. Status: Resolved as of 10-Aug-2017 Procedures Procedure Dates Details COLONOSCOPY, NOS Completed Comments: 2003 Double Henia Repair Completed Comments: Inguinal Dr. Pretty Date Value Details 12-Apr-2018 Cardiology Visit Report Result: Comments: See Note; NOTES: [facility] [address] [place] [address] OFFICE VISIT Date of Service: 04/12/18 MR#: [id number] Acct: [id number] Name: MEKA FORREST Rep #: [id number] : 1955 Provider: Barry Sky MD Age/Sex: 62/M Location: [facility] Status: Signed HPI HPI Chief Complaint: [...] Reasons: 1 Y FU (we r/s from -) needs a Weds appt Allergies codeine Adverse [...] PO DAILY 03/16 05/02 [History Confirmed 04/12/18] [facility] Medical History Hypertension (Chronic) Hyperlipidemia (Chronic) [...] symptoms, near syncope, syncope or lack of conference coordinator rdination Chris Hematologic/Lymphatic: Negative for easy [...] PCI- Cx w/ 3.0 x 24 mm 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 He is status post coronary [...] Other Orders Orders: Follow Up 1 Year (router tender) Coding Level of Care Code Off vis,est,level [...] Views Result: Comments: See Note; NOTES: [facility] Imaging Services [address] [place] [address] Foot min 3 Views MR#: [id number] Acct: [id number] Name: BERNADETTEBLAIREDARGAN Randi Rep #: [id number] : 1955 M 61 From: Vikas Hummel MD PCP: Ela Salgado MD Status: REG CLI Study: Foot min 3 Views Date of Exam: 07/06/17 Exam# [id number] Ordering Dr: Agapito Don DO STUDY: X-RAY [...] Vikas Hummel MD at 14:20 EST Tel [phone], Service support , Fax CC: Ela Salgado MD; Agapito Don DO Metallurgical Inspector: Signed 05-Jul-2017 Ankle min 3 Views Result: Comments: See Note; NOTES: [facility] Imaging Services [address] [place] [address] Ankle min 3 Views MR#: [id number] Acct: [id number] Name: DRAGAN FORREST Rep #: [id number] : 1955 M 61 From: Vikas Hummel MD PCP: Ela Salgado MD Status: REG CLI Study: Ankle min 3 Views Date of Exam: 07/05/17 Exam# [id number] Ordering Dr: Ela Salgado MD STUDY: X-RAY [...] Vikas Hummel MD at 15:29 EST Tel [phone], Service support [phone], CC: Ela Salgado MD Metallurgical Inspector: Signed 17-Feb-2017 NCS and/or EMG Patient Result: Comments: See Note; NOTES: [facility] Pulmonary Services/Neurology [address] [place] [address] NCS and/or EMG Patient MR#: [id number] Acct: [id number] Name: DRAGAN FORREST Rep #: [id number] : 1955 61 From: Donnie Smith Referring Dr: Ela Salgado MD Status: REG CLI Ordering Dr: Ela Salgado MD Date: 02/16/17 Location: [facility] Sex: M C DATE OF SERVICE: [...] Date Dictated: 02/17/17 Date Transcribed: 02/17/17 0710 Metallurgical Inspector: MB Signed 14-Sep-2016 Wrist min 3 Views Result: Comments: See Note; NOTES: [facility] Imaging Services [address] [place] [address] Verda 4d Wrist min 3 Views MR#: [id number] Acct: [id number] Name: DRAGAN FORREST Rep #: [id number] : 1955 61 From: Vikas Hummel MD PCP: Ela Salgado MD Status: REG CLI Study: Wrist min 3 Views Date of Exam: 09/14/16 Exam# [id number] Ordering Dr: Ela Salgado MD STUDY : [...] Hummel MD at 12:[address] Tel [phone], Service support [phone], CC: Ela Salgado MD Metallurgical Inspector: Signed 12-May-2016 Carotid Duplex Ultrasound Result: Comments: See Note; NOTES: [facility] Cardiovascular Services [address] [place] [address] Carotid Duplex Ultrasound 05/05/16 1237 MR#: [id number] Acct: [id number] Name: DRAGAN FULLER Rep #: [id number] : 1955 60 From: Tyrone Daniels MD Attending Dr: Ela Salgado MD Status: REG CLI Ordering Dr: Ela Salgado MD Date: 05/05/16 Location: [facility] Sex: M C Admitted: Reason For [...] the left vertebral artery. Procedure Carotid Duplex 91276. Exam performed in department. Interpreta tion Summary Mild (<50%) stenosis right extracranial internal carotid. Mild (<50%) stenosis left extracranial internal carotid. Flow within the vertebral arteries is antegrade bilaterall y. Ordering Physician: Ela Salgado Performed By: Elvia Wilson RVT 05/12/16 0843 Date Tyrone Daniels MD CC: Ela Salgado MD Date Dictated: 05/05/16 1237 Date Transcribed: 05/12/16 0843 Metallurgical Inspector: Signed Family History Unknown Family Member Name Dates Details Brother 1 Comments: lives in [facility], lives with parents hx. Drug addiction Status: Active Daughter 1 Comments: lives in [place] Status: Active Daughter 2 Comments: lives in [place] Status: Active Father Comments: after age 60 [...] Living Situation Comments: , heterosexual, grow apart. 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 Tobacco Use Comments: Remotely [...] kg/m2 Body Surface Area Calculated 2.14 m2 99-Vex-114249:35 Pulse 60 /min Comments: Pattern: Regular Respiration [...] 0.00 cm Results Date Description Value Details 7-Agf-598953:52 Urinalysis, Office (58562) UA - LEUKOCYTE ESTERASE Negative (Normal) UA - NITRITE Negative (Normal) URINE UROBILINGN DEE TIMED 2 mg/dL (Normal) UA - PROTEIN Negative mg/dL (Normal) UA - PH 6.5 (Normal) UA - BLOOD Hemolyzed Trace (Normal) UA - SPECIFIC GRAVITY 1.010 (Normal) UA - KETONES Negative mg/dL (Normal) UA - BILIRUBIN Negative (Normal) UA - GLUCOSE Negative (Normal) :43 Lipid Profile Comments: [facility] [address] [place], [place], [id number] VLDL 9 mg/dL (Normal) Range: 5-40 LDL [...] mg/dL High Risk :43 Liver Profile Comments: [facility] [address] [place], [place], [id number] D BILI 0.20 mg/dL (Normal) Range: 0.00-0.30 T BILI 0.70 mg/dL (Normal) Range: 0.20-1.00 ALT 36 U/L (Normal) Range: 16-61 ALK P 50 U/L (Normal) Range: 45-117 AST 35 U/L (Normal) Range: 15-37 GLOB 3.1 g/dL (Normal) Range: 2.2-4.2 ALB 3.7 g/dL (Normal) Range: 3.2-5.0 T PROT 6.8 g/dL (Normal) Range: 6.4-8.2 18-Oct-20179:22 Allergan with IGE Area 5 Comments: PATIENT NOT FASTINGPERFORMED BY: [facility] [id number] ([place]) ([address]) D185-SyC Mouse Urine <0.10 kU/L (Normal) C992-TlC Sheep [place] <0.10 kU/L (Normal) M811-MsE Pigweed, Common <0.10 kU/L (Normal) A645-PeU Thistle, Lebanese <0.10 kU/L (Normal) S717-KzN Ragweed, Short <0.10 kU/L (Normal) S884-UeV White [place] <0.10 kU/L (Normal) N585-HnS Pecan, Denison <0.10 kU/L (Normal) Z093-MaW Joshua, White <0.10 kU/L (Normal) G412-EcR Amity <0.10 kU/L (Normal) Q574-NhA Maple Ashippun [place] <0.10 kU/L (Normal) I675-XnR Interlaken <0.10 kU/L (Normal) I637-MnU Elm, Cameroonian <0.10 kU/L (Normal) V295-ZsB Quemado, White <0.10 kU/L (Normal) E584-RiT Buffalo, Mountain <0.10 kU/L (Normal) B411-PkM Common Silver Birch <0.10 kU/L (Normal) Q188-UwW Maple/Willernie <0.10 kU/L (Normal) I478-ToJ Alternaria alternata <0.10 kU/L (Normal) C696-FvH Aspergillus fumigatus <0.10 kU/L (Normal) K931-WnR Cladosporium herbarum <0.10 kU/L (Normal) E648-ArU Penicillium chrysogen <0.10 kU/L (Normal) G877-OuP Cockroach, Italian <0.10 kU/L (Normal) M829-VmV Soy Grass <0.10 kU/L (Normal) K326-DbW Bermuda Grass <0.10 kU/L (Normal) W585-ByO Dog Dander <0.10 kU/L (Normal) Z434-CwU Cat Dander <0.10 kU/L (Normal) J364-YtY D farinae <0.10 kU/L (Normal) K838-VgJ D pteronyssinus <0.10 kU/L (Normal) Immunoglobulin E, [...] 100.00 V Very High >100.00 Very High 1-Jup-946895:48 TESTOSTERONE FREE (01135) Comments: PATIENT NOT FASTINGPERFORMED BY: [facility] [id number] BY: [facility] [id number] Free Testosterone(Direct) 17.2 pg/mL (Normal) Range: 6.6-18.1 2-Ngc-866558:48 HEPATITIS C ANTIBODY Comments: PATIENT NOT FASTINGPERFORMED BY: [facility] [id number] BY: Sojern[address] [id number] ([address]) Hep C Virus Ab <0.1 {s/co_ratio} (Normal) Range: 0.0-0.9 Comments: Negative: < 0.8 Indeterminate: 0.8 - 0.9 Positive: > 0.9 . The CDC recommends that a positive HCV antibody result be followed up with a HCV Nucleic Acid Amplification test (272324). :48 URINALYSIS (66440) Comments: PATIENT NOT FASTINGPERFORMED BY: [place] [facility] [id number] BY: So[address] [id number] Microscopic Examination MICNIP (Normal) Comments: Microscopic not indicated and not performed. Nitrite, Urine Negative (Normal) Urobilinogen,Semi-Qn 1.0 mg/dL (Normal) Range: 0.2-1.0 Bilirubin Negative (Normal) Occult Blood Negative (Normal) Ketones Negative (Normal) Glucose Negative (Normal) Protein Negative (Normal) WBC Esterase Negative (Normal) Appearance Clear (Normal) Urine-Color Yellow (Normal) pH 5.5 (Normal) Range: 5.0-7.5 Specific [place] 1.022 (Normal) Range: 1.005-1.030 :48 CBC WITH MANUAL DIFF Comments: PATIENT NOT FASTINGPERFORMED BY: [place] [facility] [id number] BY: [address] [id number] Inf ormation: NURSE DRAW (12448) Immature Grans (Abs) 0.0 {x10E3/uL} (Normal) Range: [...] 4.14-5.80 WBC 6.5 {x10E3/uL} (Normal) Range: 3.4-10.8 7-Rrz-912925:48 Metabolic Panel, Comments: PATIENT NOT FASTINGPERFORMED BY: CB [facility] Sbhfno5040 [facility] [id number] BY: BN [facility] [address] [id number] [facility] (03512) ALT (SGPT) 29 [iU]/L (Normal) Range: 0-44 [...] Range: 65-99 :33 CBC W/Diff, Automated Comments: [facility] [address] [place], [place], [address] ; will review on 02/28 Absolute Lymph [...] 4.6-6.2 WBC 5.5 K/mm3 (Normal) Range: 4.4-11.0 :33 Comprehensive Metabolic Profil Comments: [facility] [address] [place], [place], [phone] GAP 4 (Abnormal) Range: 5-15 CO2 29.0 [...] 70-110 :33 CPK Total, Creatine Kinase Comments: [facility] [address] [place], [place], [address] CPK TOTAL 176 U/L (Normal) Range: 39-308 :33 Homocysteine Comments: [facility] [address] [place], [place], [phone] HOMOCYSTEINE 7.1 umol/L (Normal) Range: 3.2-10.7 :33 [...] the US Food and Drug Administration.Performed at: [address] [id number] Director: Francois Davis MD, Phone: [phone] INS RES/DIAB RK . (Normal) LDL SIZE [...] mg/dL (Abnormal) Range: 100-199 LIPIDS . (Normal) 66-Imi-42229:33 Testosterone Free Comments: [facility] (refer to report for specific site)refer to report for address and phone number TEST FR 877540 15.2 pg/mL (Normal) Range: 6.6-18.1 Comments: Performed at: [address] [id number] Director: Francois Davis MD, Phone: [phone] 17-May-20164:30 Pathology Report Comments: PERFORMED BY: [facility] Cyto Ipndi36008 [facility] [id number] Information: [id number] See MATER Comments: Material submitted: .PART A: [...] IN CASSETTE(S) B./LMSLMS/LMSPathologist provided ICD-10:D18.01, L98.9, D49.2CPT .609271, 102455 14-Esl-559620:31 ESTRADIOL (34922) Comments: recheck in 3 months; PATIENT NOT FASTINGPERFORMED BY: CB [facility] Zmdybd7443 [facility] [id number] BY: BN [facility] Tcpjogpxco9602 [facility] [id number] Information: NURSE DRAW Estradiol 17.5 pg/mL (Normal) Range: 7.6-42.6 Comments: Tahir ECLIA methodology 09-Pjd-897668:31 TESTOSTERONE FREE (19239) Comments: recheck in 3 months; PATIENT NOT FASTINGPERFORMED BY: [employer] [facility] Nvrxui8038 [facility]zaAggredyneAt[facility] [id number] BY: Sojern[address] [id number] Free Testosterone(Direct) 14.6 pg/mL (Normal) Range: 6.6-18.1 70-Noo-340304:31 PSA (Prostate Specific Comments: re check in 3 months; PATIENT NOT FASTINGPERFORMED BY: CB [facility] Ndzcfv7681 [facility] [id number] BY: [facility] [id number]; fu 09-14 Antigen), Diagnostic (28618) Prostate Specific Ag, 0.6 ng/mL (Normal) Range: 0.0-4.0 Serum Comments: Soniqplay ECLIA methodology. .According to the Camero[place] Urological Association, Serum PSA shoulddecrease and remain at undetectable levels after radicalprostatectomy. The AUA defines biochemical recurrence as an initialPSA value 0.2 ng/mL or greater followed by a subsequent confirmatoryPSA value 0.2 ng/mL or greater.Values obtained with d ifferent assay methods or kits cannot be usedinterchangeably. Results cannot be interpreted as absolute evidenceof the presence or absence of malignant disease. 04-Sbj-939766:05 FSH and LH Comments: PATIENT NOT FASTINGPERFORMED BY: [place] [facility] Officerp Phvjji4046 [facility] [id number] Information: E47435, 356532; will f/u on 05/17 FSH 9.6 m[iU]/mL Range: 1.5-12.4 (Normal) LH 6.3 m[iU]/mL Range: 1.7-8.6 (Normal) Written Authorization WAR (Normal) Comments: PATIENT NOT FASTINGPERFORMED BY: [place] [facility] Officerp Luemnc6386 [facility] [id number] 4:05 Comments: Written Authorization Received.Authorization received from SIGNATURE ON FILE 89-24-0816Uheeal by Yanna Matos 47-Mty-832900:05 Methymalonic Acid, Serum Comments: PATIENT NOT FASTINGPERFORMED BY: ClinverseMaria [place] 808287 [facility] [id number] BY: SojernCoHoboken University Medical CenterTxuija3157 Pedroza [facility] [place] [id number] (81877) Methylmalonic Acid, Serum 202 nmol/L (Normal) Range: 0-378 58-Klq-021782:05 Vitamin B-12 Comments: PATIENT NOT FASTINGPERFORMED BY: LabCo[facility] [place] 808287 [facility] [id number] BY: ClinverseHoboken University Medical CenterAsmsyh1276 Pedroza [facility] [id number] (cyanocobalamin) (17938) Vitamin B12 724 pg/mL (Normal) Range: 211-946 93-Ibd-981694:05 TESTOSTERONE FREE (67905) Comments: in am; PATIENT NOT FASTINGPERFORMED BY: [place] 808287 [facility] [id number] BY: LabBeacon PowerHoboken University Medical CenterXciycr4704 [facility] [id number] Information: W33095, 438091 Free Testosterone(Direct) 5.6 pg/mL (Abnormal) Range: 6.6-18.1 :44 PSA (Prostate Specific Comments: PATIENT NOT FASTINGPERFORMED BY: [facility] Cbgohs3571 Pedroza [facility] [place] [id number] Information: E63923,NURSE DRAW Antigen), Screening (34689) Prostate Specific Ag, 0.6 ng/mL (Normal) Range: 0.0-4.0 Serum Comments: Tahir ECLIA methodology. .According to the Cameroonian Urological Association, Serum PSA shoulddecrease and remain [...] disease. :19 Lipid Profile Comments: Test performed at:[facility] Egicflkuvp[address] [facility] [place], [place] [address] VLDL 10 mg/dL (Normal) Range: 5-40 LDL [...] Risk :19 Liver Profile Comments: Test performed at:[facility] Fun[address]zswl[address] [place], [place] [address] D BILI 0.25 mg/dL (Normal) Range: 0.00-0.30 [...] Glyclated (HGB Comments: PATIENT NOT FASTINGPERFORMED BY: LabCoHoboken [facility] Medical CenterOdless4697 [facility] [id number] Information: 960914,[id number] A1C) (85304) Hemoglobin A1c 6.0 % (Abnormal) Range: 4.8-5.6 [...] CHOL 117 mg/dL (Normal) Comments: <200 mg/dL Yralxdwaf384-431 mg/dL Borderline>240 mg/dL High Risk :03 LIVER [...] CHOL 145 mg/dL (Normal) Comments: <200 mg/dL Qebplhviu054-875 mg/dL Borderline>240 mg/dL High Risk :43 LIVER [...] CHOL 100 mg/dL (Normal) Comments: <200 mg/dL Nlqisbuhq385-428 mg/dL Borderline>240 mg/dL High Risk HDL 37 mg/dL (Normal) Comments: Reference RangeHDL <40 mg/dL Low HDL CholesterolHDL >or= 60 mg/dL High HDL Cholesterol LDL 51 mg/dL (Normal) Range: 0-130 TRIG 59 mg/dL (Normal) Comments: Serum Triglycerides Reference IntervalNormal <150 mg/dLBorderline high 150 - 199 mg/dLHigh 200 - 499 mg/ dLVery High > or = 500 mg/dL :50 LIVER ALT 49 U/L (Normal) Range: 12-78 D BILI 0.22 mg/dL (Normal) Range: 0.00-0.30 T BILI 0.80 mg/dL (Normal) Range: 0.00-1.00 ALB 3.7 g/dL (Normal) Range: 3.4-5.0 ALK P 49 U/L (Abnormal) Range: 50-136 AST 42 U/L (Abnormal) Range: 15-37 T PROT 7.0 g/dL (Normal) Range: 6.4-8.2 89-Pag-183814:51 ACUTE ABDOMEN, INC CHEST (MT) Radiology Report See Note (Normal) Comments: Exam Number: [id number] ACUTE ABDOMINAL SERIES WITH PA CHEST INDICATIONSevere [...] of theabdomen. Reported By: DEVIN SANDHU M.D. 38-Kjs-698526:55 ABDOMEN LIMITED US (HP) Radiology Report See Note (Normal) Comments: Exam Number: [id number] LIMITED ABDOMINAL ULTRASOUND HISTORYRight upper quadrant pain. [...] 4.6-6.2 WBC 5.3 K/mm3 (Normal) Range: 4.4-11.0 :25 COMP METABOLIC Comments: DR. MENG ORDERED LIPID/LPDR.LIPID [...] T PROT 7.4 g/dL (Normal) Range: 6.4-8.2 78-Cso-699431:25 D BILI 0.15 mg/dL (Normal) Comments: DR. MENG ORDERED LIPID/LPDR.LIPID CMP CBCD PSA UA Range: 0.00-0.30 33-Zpl-742008:25 LIPID Comments: DR. MENG ORDERED LIPID/LPDR.LIPID CMP [...] mg/dL VLDL 12 mg/dL (Normal) Range: 5-40 92-Vxe-040418:25 PSA, SCREEN 0.3 ng/mL (Normal) Comments: DR. MENG ORDERED LIPID/LPDR.LIPID CMP CBCD PSA UA Range: 0.0-4.0 66-Cpp-957050:25 ROUTINE UA Comments: DR. MENG ORDERED LIPID/LPDR.LIPID [...] AMOUNT GROWTH 3+ ORGANISM 1: HAEMOPHILUS INFLUENZA 62-Boj-284217:46 Rapid Strep Test, Office (49920) Rapid Strep Test, Office Negative (Normal) 47-Ovi-81654:23 CBCD,SMEAR DIFF CELLS COUNTED 100 (Normal) LYMPH [...] was performed using the TPSA method for Pro Breath MD chemistry system.Values obtained with different assay methods [...] treatment Indication: Pharyngitis, acute Planned Observations CALCIFIDIOL (76772) VIT D 25Indication: Vitamin D insufficiency On: :44 Request METABOLIC PANEL, COMPREHENSIVE (56193)Indication: Hyperlipidemia, unspecified On: :43 Request LIPOPROTEIN, BLD, BY NMR (58731)Indication: Hyperlipidemia, unspecified On: :43 Request Homocysteine, Plasma (13356)Indication: Homozygous MTHFR mutation C7600D On: :40 Request METABOLIC PANEL, COMPREHENSIVE (21357)Indication: Hypercholesterolemia On: 2-Pcp-968169:55 Request TESTOSTERONE FREE (68008)Indication: Testosterone deficiency On: :27 Request CBC, Platelets & Auto Diff (42146)Indication: Testosterone deficiency On: :27 Request Creatine Kinase Total (27488)Indication: Hypercholesterolemia On: :18 Request LIPOPROTEIN, BLD, BY NMR (64204)Indication: Hypercholesterolemia On: :18 Request Homocysteine, Plasma (95583)Indication: Homozygous MTHFR mutation P5694A On: :17 Request CBC WITH MANUAL DIFF (33753)Indication: Testosterone deficiency On: :41 Request Comments: re check in 3 months CBC with auto diff (14104)Indication: Elevated LFTs On: :49 Request Comments: copy to Dr. sky URINALYSIS, W/ MICRO (50167)Indication: Coronary artery disease On: :39 Request METABOLIC PANEL, COMPREHENSIVE (07615)Indication: Elevated LFTs On: :38 Request LIPID PANEL (06508)Indication: Coronary artery disease On: :38 Request Hemoglobin Glyclated (HGB A1C) (87276)Indication: IFG (impaired fasting glucose) On: :06 Request Comments: recheck in 3 months LIPID PANEL (65326)Indication: Hypercholesterolemia On: : Request PSA (PROSTATE SPECIFIC ANTIGEN) (V76.44)Indication: Encounter for health maintenance examination with abnormal findings On: : Request CBC (Auto) (71642)Indication: Coronary artery disease On: : Request Metabolic Panel, Basic (32294)Indication: Coronary artery disease On: : Request TSH (62888)Indication: Anxiety On: : Request CBC & PLATELETS (AUTO) (49522)Indication: Hypercholesterolemia On: :56 Request LIPID PANEL (15310)Indication: Hypercholesterolemia On: :56 Request METABOLIC PANEL, COMPREHENSIVE (91689)Indication: Hypercholesterolemia On: :55 Request Metabolic Panel, Basic (11290)Indication: Hypercholesterolemia On: :31 Request Lipid Panel (12914)Indication: Hypercholesterolemia On: :30 Request PSA (PROSTATE SPECIFIC ANTIGEN) (V76.44)Indication: Encounter for health maintenance examination with abnormal findings On: :28 Request CBC (Auto) (94811)Indication: Coronary artery disease On: :28 Request Metabolic Panel, Basic (23549)Indication: Coronary artery disease On: :28 Request TSH (74849)Indication: Anxiety On: :28 Request PSA (PROSTATE SPECIFIC ANTIGEN) (V76.44)Indication: Encounter for health maintenance examination with abnormal findings On: :30 Request TSH (68867)Indication: Anxiety On: :30 Request METABOLIC PANEL, COMPREHENSIVE (89883)Indication: Hypercholesterolemia On: :30 Request LIPID PANEL (64528)Indication: Hypercholesterolemia On: :30 Request CBC WITH MANUAL DIFF (92848)Indication: Hypercholesterolemia On: :30 Request Lipase (88228)Indication: Epigastric pain On: 7-Sqf-321742:24 Request Amylase (63220)Indication: Epigastric pain On: 4-Woh-641138:24 Request Metabolic Panel, Comprehensive (20882)Indication: Epigastric pain On: 0-Ifh-862882:24 Request CBC with manual diff (95130)Indication: Epigastric pain On: 6-Zty-147422:24 Request Metabolic Panel, Comprehensive (14057)Indication: Coronary artery disease On: 92-Tek-481297:13 Request URINALYSIS (81478)Indication: Coronary artery disease On: 01-Uem-249916:30 Request CBC (Auto) (29402)Indication: Coronary artery disease On: :30 Request Lipid Panel (19047)Indication: Coronary artery disease On: :30 Request Metabolic Panel, Comprehensive (16418)Indication: Coronary artery disease On: :30 Request PSA (PROSTATE SPECIFIC ANTIGEN) (V76.44)Indication: Screening for prostate cancer On: :29 Request JOANA CULTURE-OTHER (04806)Indication: Pharyngitis, acute On: 35-Tqj-947874:46 Request PSA (PROSTATE SPECIFIC ANTIGEN)Indication: Screening for prostate cancer On: 3-Uyp-323332:05 Request CBC WITH MANUAL DIFF (92122)Indication: Coronary artery disease On: 1-Hhd-208057:05 Request LIPID PANEL (07050)Indication: Coronary artery disease On: 1-Ors-161138:05 Request METABOLIC PANEL, COMPREHENSIVE (17849)Indication: Coronary artery disease On: 5-Axu-729069:05 Request Planned [facility]; [facility] Pre Wellness Exam (DB Nurse) - On: 17-Aug-2018 8:15 [facility] JELANI Goodman; [facility] Wellness Exam (Doctor) - On: 04-Sep-2018 8:00 [facility] Ela Salgado MD, MD, Dana M Planned Procedures BLADDER ULTRASOUND SCAN WITH On: 19-Jun-2018 Intent MEASUREMENT OF POST-VOID RESIDUAL URINE VOLUME (68406)By: Ela Salgado MD, MD, Dana M Flu Vaccine (Quadrivalent) On: 12-Jun-2018 Intent [id number]: Ela Salgado MD Comments: Lot #[id number]/30/[id number]-L dltd, IMDose prefilled syringegiven by: CManchakVIS reviewed and ABN signed Ela Salgado MD Toradol Injection, 30 mg On: 12-Jun-2018 Intent (J1885)By: Ela Salgado MD Comments: lot: [id number]: 01/2020site/route: RGM/IMamt: 1mLVIS signed when applicableSAGE Becerra MD, Dana M Toradol Injection, 30 mg On: 04-Jan-2018 Intent (J1885)By: Ela Salgado MD, MD, Dana M Toradol Injection, 30 mg On: 12-Oct-2017 Intent (J1885)By: Zana LOOMIS, Aga PNEUM VAC ADLT/IMUMNOSPR, On: 10-Aug-2017 Intent SBC/INTRM ([id number])By: Zackary HERNANDEZ, Comments: lot:[id number]:3726fwn:IM right deltoid dose:0.5ml given by:CORINE Oconnor MD, Dana M Radiology - Ankle - RightBy: On: 05-Jul-2017 Intent Ela Salgado MD, MD, Comments: call wet read [phone] Dr. zackary Lr EMGBy: Ela Salgado MD On: 17-Jan-2017 Intent Ela HERNANDEZ Nerve ConductionBy: Zackary HERNANDEZ, On: 17-Jan-2017 Intent Ela Galarza MD Comments: right leg Radiology - Wrist - RightBy: On: 14-Sep-2016 Intent Ela Salgado MD, MD, Comments: do scaphoid views Ela Lr US DOPPLER CAROTID BILATERAL On: 27-Apr-2016 Intent ([id number])By: Ela Salgado MD, MD, Dana M ZOSTER VACC, [place] ([id number])By: Zackary On: 27-Apr-2016 Intent Ela HERNANDEZ MD, Dana M Comments: lot:[id number]:[id number]:SC right arm dose:0.65mlgiven by:Praveen signedERCORINE TDAP VACCINE >7 IM ([id number])By: On: 27-Apr-2016 Intent Zackary HERNANDEZ, Ela Salgado MD, Comments: lot:[id number]:09-05-18rte:IM left deltoid dose:0.5ml given by:mayra LUZ signedER, CORINE Lr FLU VAC, SPLIT, >3 YEARS, On: 22-May-2013 Intent INTRAMUSC ([id number])By: Lizzie, Comments: lot [id number]/route R erik, IMamt 0.5mlVIS and ABN signed when applicableChelsea, SAGE Mariam IMMUNIZ ADMNIN, 1 VAC, SNGL/COMBO On: 22-May-2013 Intent ([id number])By: Mariam Samuel Toradol Injection, 30 mg On: [...] TROMETHAMINE, PER 15 MG Ordered: 04-Jan-2018 Pending Ela Salgado MD, MD, Ela Lr INJECTION, KETOROLAC TROMETHAMINE, PER 15 MG Ordered: 12-Jun-2018 Pending Ela Salgado MD, MD, Ela Lr Instructions Name Dates Details [...] rhinitis : Patient Instructions Indication: Allergic rhinitis Encounters Office Visit On: 19-Jun-2018 10:28 Encounter Reason: [...] back pain, Testosterone deficiency, Homozygous MTHFR mutation R5673H, Encounter for health maintenance examination with abnormal findings, BMI 28.0-28.9,adult , Pneumococcal vaccination given, Hyperlipidemia, unspecified, Vitamin D insufficiency, Verrucous keratosis [facility] Lab Order On: 13-Jul-2017 15:37 Encounter Diagnosis: Coronary artery disease, Homozygous MTHFR mutation [id number], Need for hepatitis C screening test, Testosterone [...] disease), Anxiety, Testosterone deficiency, Homozygous MTHFR mutation G8761K, Wrist pain, acute, right, Hypercholesterolemia, BMI 31.0-31.9,adult, [...] right, Testosterone deficiency, Anxiety, Homozygous MTHFR mutation R7434A [facility] Office Visit On: 17-May-2016 [...] for Tdap vaccination (Renamed from Need for btlpjezjfg-otzgjcj-glgpqdrme (Tdap) vaccine, adult/adolescent), Need for zoster vaccination, [...] [facility] End: 19-Dec-2006 16:40 Payers [facility] Mignon FORREST; randi guarantor
--- OUTSIDE RECORDS SUMMARY | 2018-11-07 17:11 | XMS RPT_ITS | Continuity of Care Document ---
:1955 Author Organization [facility] Address [address] [facility] [address] [place] [address] Phone Care Team Providers Name Role Phone [...] to stretch. handout given on execises and kcjye1bzg if not better rexray send PT Status: [...] CP with URI found 1995. 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 not better. get wrist splint. Status: Resolved as of 10-Aug-2017 Procedures Procedure Dates Details COLONOSCOPY, NOS Completed Comments: 2003 Double Henia Repair Completed Comments: Inguinal Dr. Pretty Date Value Details 12-Apr-2018 Cardiology Visit Report Result: Comments: See Note; NOTES: [facility] 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 He is status post coronary [...] Other Orders Orders: 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) Coding Level of Care Code Off vis,est,level [...] 3 Views Result: Comments: See Note; NOTES: [facility] Imaging Services [address] [place] [address] Foot min 3 Views MR#: [id number] Acct: [id number] Name: BERNADETTEBLAIREDRAGAN Randi Rep #: [id number] : 1955 M 61 From: Vikas Hummel MD PCP: Ela Salgado MD Status: REG CLI Study: Foot min 3 Views Date of Exam: 07/06/17 Exam# [id number] Ordering Dr: Agapito Don DO STUDY: X-RAY [...] Vikas Hummel MD at 14:20 EST Tel [phone], Service support , Fax CC: Ela Salgado MD; Agapito Don DO Manager Enrollment: Signed 05-Jul-2017 Ankle min 3 Views Result: Comments: See Note; NOTES: [facility] Imaging Services [address] [place] [address] Ankle min 3 Views MR#: [id number] Acct: [id number] Name: DRAGAN FORREST Rep #: [id number] : 1955 M 61 From: Vikas Hummel MD PCP: Ela Salgado MD Status: REG CLI Study: Ankle min 3 Views Date of Exam: 07/05/17 Exam# [id number] Ordering Dr: Ela Salgado MD STUDY: X-RAY [...] Vikas Hummel MD at 15:29 EST Tel [phone], Service support [phone], CC: Ela Salgado MD Manager Enrollment: Signed 17-Feb-2017 NCS and/or EMG Patient Result: Comments: See Note; NOTES: [facility] Pulmonary Services/Neurology [address] [place] [address] NCS and/or EMG Patient MR#: [id number] Acct: [id number] Name: DRAGAN FORREST Rep #: [id number] : 1955 61 From: Donnie Smith Referring Dr: Ela Salgado MD Status: REG CLI Ordering Dr: Ela Salgado MD Date: 02/16/17 Location: [facility] Sex: M C DATE OF SERVICE: [...] Date Dictated: 02/17/17 Date Transcribed: 02/17/17 0710 Manager Enrollment: MB Signed 14-Sep-2016 Wrist min 3 Views Result: Comments: See Note; NOTES: [facility] Imaging Services [address] [place] [address] Verda 4d Wrist min 3 Views MR#: [id number] Acct: [id number] Name: DRAGAN FORREST Rep #: [id number] : 1955 61 From: Vikas Hummel MD PCP: Ela Salgado MD Status: REG CLI Study: Wrist min 3 Views Date of Exam: 09/14/16 Exam# [id number] Ordering Dr: Ela Salgado MD STUDY : [...] Hummel MD at 12:[address] Tel [phone], Service support [phone], CC: Ela Salgado MD Manager Enrollment: Signed 12-May-2016 Carotid Duplex Ultrasound Result: Comments: See Note; NOTES: [facility] Cardiovascular Services [address] [place] [address] Carotid Duplex Ultrasound 05/05/16 1237 MR#: [id number] Acct: [id number] Name: DRAGAN FULLER Rep #: [id number] : 1955 60 From: Tyrone Daniels MD Attending Dr: Ela Salgado MD Status: REG CLI Ordering Dr: Ela Salgado MD Date: 05/05/16 Location: [facility] Sex: M C Admitted: Reason For [...] the left vertebral artery. Procedure Carotid Duplex 84516. Exam performed in department. Interpreta tion Summary Mild (<50%) stenosis right extracranial internal carotid. Mild (<50%) stenosis left extracranial internal carotid. Flow within the vertebral arteries is antegrade bilaterall y. Ordering Physician: Ela Salgado Performed By: Elvia Wilson RVT 05/12/16 0843 Date Tyrone Daniels MD CC: Ela Salgado MD Date Dictated: 05/05/16 1237 Date Transcribed: 05/12/16 0843 Manager Enrollment: Signed Family History Unknown Family Member Name Dates Details Brother 1 Comments: lives in [facility], lives with parents hx. Drug addiction Status: Active Daughter 1 Comments: lives in [place] Status: Active Daughter 2 Comments: lives in [place] Status: Active Father Comments: after age 60 [...] Living Situation Comments: , heterosexual, grow apart. congregation important Status: Active Most Recent Primary Occupation Comments: [employer] Status: Active Tobacco Use Comments: Remotely [...] kg/m2 Body Surface Area Calculated 2.14 m2 78-Llw-194700:35 Pulse 60 /min Comments: Pattern: Regular Respiration [...] 0.00 cm Results Date Description Value Details 5-Luw-201526:52 Urinalysis, Office (06615) UA - LEUKOCYTE ESTERASE Negative (Normal) UA - NITRITE Negative (Normal) URINE UROBILINGN DEE TIMED 2 mg/dL (Normal) UA - PROTEIN Negative mg/dL (Normal) UA - PH 6.5 (Normal) UA - BLOOD Hemolyzed Trace (Normal) UA - SPECIFIC GRAVITY 1.010 (Normal) UA - KETONES Negative mg/dL (Normal) UA - BILIRUBIN Negative (Normal) UA - GLUCOSE Negative (Normal) :43 Lipid Profile Comments: [facility] [address] [place], [place], [id number] VLDL 9 mg/dL (Normal) Range: 5-40 LDL [...] mg/dL High Risk :43 Liver Profile Comments: [facility] [address] [place], [place], [id number] D BILI 0.20 mg/dL (Normal) Range: 0.00-0.30 T BILI 0.70 mg/dL (Normal) Range: 0.20-1.00 ALT 36 U/L (Normal) Range: 16-61 ALK P 50 U/L (Normal) Range: 45-117 AST 35 U/L (Normal) Range: 15-37 GLOB 3.1 g/dL (Normal) Range: 2.2-4.2 ALB 3.7 g/dL (Normal) Range: 3.2-5.0 T PROT 6.8 g/dL (Normal) Range: 6.4-8.2 18-Oct-20179:22 Allergan with IGE Area 5 Comments: PATIENT NOT FASTINGPERFORMED BY: [facility] [id number] ([place]) ([address]) S153-DxZ Mouse Urine <0.10 kU/L (Normal) E021-NrN Sheep Andres <0.10 kU/L (Normal) F871-WgT Pigweed, Common <0.10 kU/L (Normal) K332-ZqP Thistle, Ghanaian <0.10 kU/L (Normal) K006-HxC Ragweed, Short <0.10 kU/L (Normal) W215-MxR White [place] <0.10 kU/L (Normal) O144-GhV Pecan, Erlanger <0.10 kU/L (Normal) M729-DdR Joshua, White <0.10 kU/L (Normal) V978-EzO [place] <0.10 kU/L (Normal) S672-KlI Maple Magness [place] <0.10 kU/L (Normal) M866-JaG [place] <0.10 kU/L (Normal) X220-RhE Elm, Taiwanese <0.10 kU/L (Normal) O495-XqT [place], White <0.10 kU/L (Normal) W024-SmH Berrien, Mountain <0.10 kU/L (Normal) U118-EiY Common Silver Birch <0.10 kU/L (Normal) D372-IdO Maple/[place] <0.10 kU/L (Normal) P209-BzP Alternaria alternata <0.10 kU/L (Normal) C144-NlS Aspergillus fumigatus <0.10 kU/L (Normal) P384-BbP Cladosporium herbarum <0.10 kU/L (Normal) X511-VeN Penicillium chrysogen <0.10 kU/L (Normal) F998-CaT Cockroach, Sri Lankan <0.10 kU/L (Normal) P550-EzZ Soy Grass <0.10 kU/L (Normal) N043-SfS Bermuda Grass <0.10 kU/L (Normal) Q363-PcZ Dog Dander <0.10 kU/L (Normal) Y488-GqB Cat Dander <0.10 kU/L (Normal) H987-YuG D farinae <0.10 kU/L (Normal) E503-NrF D pteronyssinus <0.10 kU/L (Normal) Immunoglobulin E, [...] 100.00 V Very High >100.00 Very High 7-Fsf-628418:48 TESTOSTERONE FREE (36084) Comments: PATIENT NOT FASTINGPERFORMED BY: [employer] [facility] [id number] BY: Guidefitter[address] [id number] Free Testosterone(Direct) 17.2 pg/mL (Normal) Range: 6.6-18.1 0-Kvr-385483:48 HEPATITIS C ANTIBODY Comments: PATIENT NOT FASTINGPERFORMED BY: [employer] [facility] [id number] BY: Grovo[address] [id number] ([address]) Hep C Virus Ab <0.1 {s/co_ratio} (Normal) Range: 0.0-0.9 Comments: Negative: < 0.8 Indeterminate: 0.8 - 0.9 Positive: > 0.9 . The CDC recommends that a positive HCV antibody result be followed up with a HCV Nucleic Acid Amplification test (676055). :48 URINALYSIS (56604) Comments: PATIENT NOT FASTINGPERFORMED BY: Lookery[address] [id number] BY: Grovo[address] [id number] Microscopic Examination MICNIP (Normal) Comments: Microscopic not indicated and not performed. Nitrite, Urine Negative (Normal) Urobilinogen,Semi-Qn 1.0 mg/dL (Normal) Range: 0.2-1.0 Bilirubin Negative (Normal) Occult Blood Negative (Normal) Ketones Negative (Normal) Glucose Negative (Normal) Protein Negative (Normal) WBC Esterase Negative (Normal) Appearance Clear (Normal) Urine-Color Yellow (Normal) pH 5.5 (Normal) Range: 5.0-7.5 Specific [place] 1.022 (Normal) Range: 1.005-1.030 :48 CBC WITH MANUAL DIFF Comments: PATIENT NOT FASTINGPERFORMED BY: Lookery[address] [id number] BY: [address] [id number] Inf ormation: NURSE DRAW (21255) Immature Grans (Abs) 0.0 {x10E3/uL} (Normal) Range: [...] 4.14-5.80 WBC 6.5 {x10E3/uL} (Normal) Range: 3.4-10.8 9-Ael-716705:48 Metabolic Panel, Comments: PATIENT NOT FASTINGPERFORMED BY: CB [facility] Myovpm5641 [facility] [id number] BY: BN [facility] [address] [id number] [facility] ([address]) ALT (SGPT) 29 [iU]/L (Normal) Range: 0-44 [...] Range: 65-99 :33 CBC W/Diff, Automated Comments: [facility] [address] [place], [place], [address] ; will review on 02/28 Absolute Lymph [...] Range: 4.4-11.0 :33 Comprehensive Metabolic Profil Comments: [facility] [address] [place], [place], [id number] GAP 4 (Abnormal) Range: 5-15 CO2 29.0 [...] 70-110 :33 CPK Total, Creatine Kinase Comments: [facility] [address] [place], [place], [phone] CPK TOTAL 176 U/L (Normal) Range: 39-308 :33 Homocysteine Comments: [facility] [address] [place], [place], [phone] HOMOCYSTEINE 7.1 umol/L (Normal) Range: 3.2-10.7 :33 [...] the US Food and Drug Administration.Performed at: [address] [id number] Director: Francois Davis MD, Phone: [phone] INS RES/DIAB RK . (Normal) LDL SIZE [...] mg/dL (Abnormal) Range: 100-199 LIPIDS . (Normal) 91-Jlv-36757:33 Testosterone Free Comments: [facility] (refer to report for specific site)refer to report for address and phone number TEST FR 983035 15.2 pg/mL (Normal) Range: 6.6-18.1 Comments: Performed at: [address] [id number] Director: Francois Davis MD, Phone: [phone] 17-May-20164:30 Pathology Report Comments: PERFORMED BY: [facility] Cvavm16498 [facility] [id number] Information: [id number] See MATER Comments: Material submitted: .PART A: [...] IN CASSETTE(S) B./LMSLMS/LMSPathologist provided ICD-10:D18.01, L98.9, D49.2CPT .084385, 771734 31-Bnc-253742:31 ESTRADIOL (35631) Comments: recheck in 3 months; PATIENT NOT FASTINGPERFORMED BY: CB [facility] Hhzkar1530 [facility] [id number] BY: BN [facility] Jcuwjovutr9363 [facility] [id number] Information: NURSE DRAW Estradiol 17.5 pg/mL (Normal) Range: 7.6-42.6 Comments: Tahir ECLIA methodology 21-Gxt-675028:31 TESTOSTERONE FREE (83179) Comments: recheck in 3 months; PATIENT NOT FASTINGPERFORMED BY: [employer] [facility] Itijkd7883 [facility] [id number] BY: Gro[address] [id number] Free Testosterone(Direct) 14.6 pg/mL (Normal) Range: 6.6-18.1 42-Whz-130421:31 PSA (Prostate Specific Comments: re check in 3 months; PATIENT NOT FASTINGPERFORMED BY: CB [facility] Iteuwb9204 [facility] [id number] BY: [facility] [id number]; fu 09-14 Antigen), Diagnostic (35062) Prostate Specific Ag, 0.6 ng/mL (Normal) Range: 0.0-4.0 Serum Comments: [employer] ECLIA methodology. .According to the [place]ese Urological Association, Serum PSA shoulddecrease and remain at undetectable levels after radicalprostatectomy. The AUA defines biochemical recurrence as an initialPSA value 0.2 ng/mL or greater followed by a subsequent confirmatoryPSA value 0.2 ng/mL or greater.Values obtained with d ifferent assay methods or kits cannot be usedinterchangeably. Results cannot be interpreted as absolute evidenceof the presence or absence of malignant disease. 88-Lbq-911982:05 FSH and LH Comments: PATIENT NOT FASTINGPERFORMED BY: [employer] Nueksd9327 [facility] [id number] Information: R93968, 819616; will f/u on 05/17 FSH 9.6 m[iU]/mL Range: 1.5-12.4 (Normal) LH 6.3 m[iU]/mL Range: 1.7-8.6 (Normal) Written Authorization WAR (Normal) Comments: PATIENT NOT FASTINGPERFORMED BY: Lookeryrp Ieavpf7841 [facility] [id number] 4:05 Comments: Written Authorization Received.Authorization received from SIGNATURE ON FILE 06-43-1562Lrtijq by Yanna Matos 21-Anp-218695:05 Methymalonic Acid, Serum Comments: PATIENT NOT FASTINGPERFORMED BY: GuidefitterAmanda [place] [address] [facility] [id number] BY: [facility]voCoVirtua [facility])Qebqst2943 Pedroza [facility] [place] [id number] ([address]) Methylmalonic Acid, Serum 202 nmol/L (Normal) Range: 0-378 97-Ndy-691517:05 Vitamin B-12 Comments: PATIENT NOT FASTINGPERFORMED BY: LabCoAmanda [place] [address] [facility] [id number] BY: GuidefitterVirtua Mt. [facility] ([facility])Nyisod4716 Pedroza [facility] [id number] (cyanocobalamin) (96320) Vitamin B12 724 pg/mL (Normal) Range: 211-946 99-Ypv-686033:05 TESTOSTERONE FREE (24511) Comments: in am; PATIENT NOT FASTINGPERFORMED BY: [place] [address] [facility] [id number] BY: LabFreeDriveVirtua [facility] ([facility])Tmrjls4045 [facility] [id number] Information: G86717, 922828 Free Testosterone(Direct) 5.6 pg/mL (Abnormal) Range: 6.6-18.1 :44 PSA (Prostate Specific Comments: PATIENT NOT FASTINGPERFORMED BY: [facility] Wbczik5513 Pedroza [facility] [place] [id number] Information: G93614,NURSE DRAW Antigen), Screening (51568) Prostate Specific Ag, 0.6 ng/mL (Normal) Range: 0.0-4.0 Serum Comments: Tahir ECLIA methodology. .According to the [place]ese Urological Association, Serum PSA shoulddecrease and remain [...] disease. :19 Lipid Profile Comments: Test performed at:[facility] [address]hv[address] [facility]. [place], [place] [address] VLDL 10 mg/dL (Normal) Range: 5-40 LDL [...] Risk :19 Liver Profile Comments: Test performed at:[facility] Iscspoidls8752 [place], [place] [address] D BILI 0.25 mg/dL (Normal) Range: 0.00-0.30 [...] Glyclated (HGB Comments: PATIENT NOT FASTINGPERFORMED BY: LabCoV[facility])Iihgxo0887 [facility] [id number] Information: 089318,B95922 A1C) (55979) Hemoglobin A1c 6.0 % (Abnormal) Range: 4.8-5.6 [...] CHOL 117 mg/dL (Normal) Comments: <200 mg/dL Cotujnomn628-252 mg/dL Borderline>240 mg/dL High Risk :03 LIVER [...] CHOL 145 mg/dL (Normal) Comments: <200 mg/dL Nhuubbgir499-839 mg/dL Borderline>240 mg/dL High Risk :43 LIVER [...] CHOL 100 mg/dL (Normal) Comments: <200 mg/dL Pckslraqd569-802 mg/dL Borderline>240 mg/dL High Risk HDL 37 [...] T PROT 7.0 g/dL (Normal) Range: 6.4-8.2 06-Fwb-315595:51 ACUTE ABDOMEN, INC CHEST (MT) Radiology Report See Note (Normal) Comments: Exam Number: [id number] ACUTE ABDOMINAL SERIES WITH PA CHEST INDICATIONSevere [...] of theabdomen. Reported By: DEVIN SANDHU M.D. 64-Atp-026841:55 ABDOMEN LIMITED US (HP) Radiology Report See Note (Normal) Comments: Exam Number: [id number] LIMITED ABDOMINAL ULTRASOUND HISTORYRight upper quadrant pain. [...] T PROT 7.4 g/dL (Normal) Range: 6.4-8.2 81-Arl-310431:25 D BILI 0.15 mg/dL (Normal) Comments: DR. MNEG ORDERED LIPID/LPDR.LIPID CMP CBCD PSA UA Range: 0.00-0.30 24-Kep-607851:25 LIPID Comments: DR. MENG ORDERED LIPID/LPDR.LIPID CMP [...] mg/dL VLDL 12 mg/dL (Normal) Range: 5-40 27-Vem-092570:25 PSA, SCREEN 0.3 ng/mL (Normal) Comments: DR. MENG ORDERED LIPID/LPDR.LIPID CMP CBCD PSA UA Range: 0.0-4.0 66-Jcp-349958:25 ROUTINE UA Comments: DR. MENG ORDERED LIPID/LPDR.LIPID [...] AMOUNT GROWTH 3+ ORGANISM 1: HAEMOPHILUS INFLUENZA 32-Vep-477765:46 Rapid Strep Test, Office (22179) Rapid Strep Test, Office Negative (Normal) 84-Vaq-38929:23 CBCD,SMEAR DIFF CELLS COUNTED 100 (Normal) LYMPH [...] was performed using the TPSA method for [employer] chemistry system.Values obtained with different assay methods [...] treatment Indication: Pharyngitis, acute Planned Observations CALCIFIDIOL (63479) VIT D 25Indication: Vitamin D insufficiency On: :44 Request METABOLIC PANEL, COMPREHENSIVE (59384)Indication: Hyperlipidemia, unspecified On: :43 Request LIPOPROTEIN, BLD, BY NMR (77120)Indication: Hyperlipidemia, unspecified On: :43 Request Homocysteine, Plasma (62763)Indication: Homozygous MTHFR mutation M3528O On: :40 Request METABOLIC PANEL, COMPREHENSIVE (62444)Indication: Hypercholesterolemia On: 1-Xuc-904650:55 Request TESTOSTERONE FREE (13186)Indication: Testosterone deficiency On: :27 Request CBC, Platelets & Auto Diff (14391)Indication: Testosterone deficiency On: :27 Request Creatine Kinase Total (00884)Indication: Hypercholesterolemia On: :18 Request LIPOPROTEIN, BLD, BY NMR (10290)Indication: Hypercholesterolemia On: :18 Request Homocysteine, Plasma (75332)Indication: Homozygous MTHFR mutation G8008V On: :17 Request CBC WITH MANUAL DIFF (05719)Indication: Testosterone deficiency On: :41 Request Comments: re check in 3 months CBC with auto diff (18279)Indication: Elevated LFTs On: :49 Request Comments: copy to Dr. sky URINALYSIS, W/ MICRO (08344)Indication: Coronary artery disease On: :39 Request METABOLIC PANEL, COMPREHENSIVE (25444)Indication: Elevated LFTs On: :38 Request LIPID PANEL (11155)Indication: Coronary artery disease On: :38 Request Hemoglobin Glyclated (HGB A1C) (62320)Indication: IFG (impaired fasting glucose) On: :06 Request Comments: recheck in 3 months LIPID PANEL (16748)Indication: Hypercholesterolemia On: : Request PSA (PROSTATE SPECIFIC ANTIGEN) (V76.44)Indication: Encounter for health maintenance examination with abnormal findings On: : Request CBC (Auto) (28716)Indication: Coronary artery disease On: : Request Metabolic Panel, Basic (67732)Indication: Coronary artery disease On: : Request TSH (94395)Indication: Anxiety On: : Request CBC & PLATELETS (AUTO) (81278)Indication: Hypercholesterolemia On: :56 Request LIPID PANEL (39218)Indication: Hypercholesterolemia On: :56 Request METABOLIC PANEL, COMPREHENSIVE (18341)Indication: Hypercholesterolemia On: :55 Request Metabolic Panel, Basic (59397)Indication: Hypercholesterolemia On: :31 Request Lipid Panel (92714)Indication: Hypercholesterolemia On: :30 Request PSA (PROSTATE SPECIFIC ANTIGEN) (V76.44)Indication: Encounter for health maintenance examination with abnormal findings On: :28 Request CBC (Auto) (75689)Indication: Coronary artery disease On: :28 Request Metabolic Panel, Basic (25049)Indication: Coronary artery disease On: :28 Request TSH (48838)Indication: Anxiety On: :28 Request PSA (PROSTATE SPECIFIC ANTIGEN) (V76.44)Indication: Encounter for health maintenance examination with abnormal findings On: :30 Request TSH (03020)Indication: Anxiety On: :30 Request METABOLIC PANEL, COMPREHENSIVE (73318)Indication: Hypercholesterolemia On: :30 Request LIPID PANEL (73839)Indication: Hypercholesterolemia On: :30 Request CBC WITH MANUAL DIFF (46049)Indication: Hypercholesterolemia On: :30 Request Lipase (16631)Indication: Epigastric pain On: 4-Aum-314989:24 Request Amylase (31626)Indication: Epigastric pain On: 9-Zqe-161469:24 Request Metabolic Panel, Comprehensive (90314)Indication: Epigastric pain On: 1-Rfm-795998:24 Request CBC with manual diff (12468)Indication: Epigastric pain On: 2-Ggw-542434:24 Request Metabolic Panel, Comprehensive (62232)Indication: Coronary artery disease On: 32-Nuq-545140:13 Request URINALYSIS (91039)Indication: Coronary artery disease On: 95-Vwl-728245:30 Request CBC (Auto) (18716)Indication: Coronary artery disease On: :30 Request Lipid Panel (41365)Indication: Coronary artery disease On: :30 Request Metabolic Panel, Comprehensive (08079)Indication: Coronary artery disease On: :30 Request PSA (PROSTATE SPECIFIC ANTIGEN) (V76.44)Indication: Screening for prostate cancer On: :29 Request JOANA CULTURE-OTHER (86022)Indication: Pharyngitis, acute On: 17-Gpq-549398:46 Request PSA (PROSTATE SPECIFIC ANTIGEN)Indication: Screening for prostate cancer On: 1-Myx-591062:05 Request CBC WITH MANUAL DIFF (08079)Indication: Coronary artery disease On: 1-Fne-245606:05 Request LIPID PANEL (69067)Indication: Coronary artery disease On: 9-Bwa-987846:05 Request METABOLIC PANEL, COMPREHENSIVE (98987)Indication: Coronary artery disease On: 0-Tcx-565991:05 Request Planned Encounters Medical; [facility] Pre Wellness Exam (DB Nurse) - On: 17-Aug-2018 8:15 [facility] JELANI Goodman; [facility] Wellness Exam (Doctor) - On: 04-Sep-2018 8:00 [facility] Ela Salgado MD, MD, Dana M Planned Procedures BLADDER ULTRASOUND SCAN WITH On: 19-Jun-2018 Intent MEASUREMENT OF POST-VOID RESIDUAL URINE VOLUME (24830)By: Ela Salgado MD, MD, Dana M Flu Vaccine (Quadrivalent) On: 12-Jun-2018 Intent 13439Iv: Ela Salgado MD Comments: Lot #[id number]-2/30/2019Site-L dltd, IMDose prefilled syringegiven by: CManchakVIS reviewed and ABN signed Ela Salgado MD Toradol Injection, 30 mg On: 12-Jun-2018 Intent (J1885)By: Ela Salgado MD Comments: lot: [id number]: 01/2020site/route: RGM/IMamt: 1mLVIS signed when applicableSAGE Becerra MD, Dana M Toradol Injection, 30 mg On: 04-Jan-2018 Intent (J1885)By: Ela Salgado MD, MD, Dana M Toradol Injection, 30 mg On: 12-Oct-2017 Intent (J1885)By: Zana LOOMIS, Aga PNEUM VAC ADLT/IMUMNOSPR, On: 10-Aug-2017 Intent SBC/INTRM (94618)By: Zackary HERNANDEZ, Comments: lot:[id number]:IM right deltoid dose:0.5ml given by:CORINE Oconnor MD, Dana M Radiology - Ankle - RightBy: On: 05-Jul-2017 Intent Ela Salgado MD, MD, Comments: call wet read [phone] Dr. zackary Lr EMGBy: Ela Salgado MD On: 17-Jan-2017 Intent Ela HERNANDEZ Nerve ConductionBy: Zackary HERNANDEZ, On: 17-Jan-2017 Intent Ela Galarza MD Comments: right leg Radiology - Wrist - RightBy: On: 14-Sep-2016 Intent Ela Salgado MD, MD, Comments: do scaphoid views Ela Lr US DOPPLER CAROTID BILATERAL On: 27-Apr-2016 Intent (35169)By: Ela Salgado MD, MD, Dana M ZOSTER VACC, [place] (96155)By: Zackary On: 27-Apr-2016 Intent Ela HERNANDEZ MD, Dana M Comments: lot:[id number]:34-04-0812kan:SC right arm dose:0.65mlgiven by:Praveen signedERCORINE TDAP VACCINE >7 IM (79661)By: On: 27-Apr-2016 Intent Zackary HERNANDEZ, Ela Salgado MD, Comments: lot:[id number]:09-05-18rte:IM left deltoid dose:0.5ml given by:mayra LUZ signedER, CORINE Lr FLU VAC, SPLIT, >3 YEARS, On: 22-May-2013 Intent INTRAMUSC (73032)By: Lizzie, Comments: lot [id number] 2014site/route R erik, IMamt 0.5mlVIS and ABN signed when applicableChelsea, SAGE Mariam IMMUNIZ ADMNIN, 1 VAC, SNGL/COMBO On: 22-May-2013 Intent ([id number])By: Mariam Samuel Toradol Injection, 30 mg On: [...] back pain, Testosterone deficiency, Homozygous MTHFR mutation [id number], Encounter for health maintenance examination with abnormal findings, BMI 28.0-28.9,adult , Pneumococcal vaccination given, Hyperlipidemia, unspecified, Vitamin D insufficiency, Verrucous keratosis [facility] Lab Order On: 13-Jul-2017 15:37 Encounter Diagnosis: Coronary artery disease, 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, Need for hepatitis C screening test, Testosterone [...] disease), Anxiety, Testosterone deficiency, Homozygous MTHFR mutation [id number], Wrist pain, acute, right, Hypercholesterolemia, BMI 31.0-31.9,adult, [...] right, Testosterone deficiency, Anxiety, Homozygous MTHFR mutation [id number] [facility] Office Visit On: 17-May-2016 [...] for Tdap vaccination (Renamed from Need for echswmrydl-mfrwxwd-vrrjwaump (Tdap) vaccine, adult/adolescent), Need for zoster vaccination, [...] [facility] End: 19-Dec-2006 16:40 Payers [facility] Mignon FORREST; randi guarantor
--- OUTSIDE RECORDS SUMMARY | 2018-11-07 17:11 | XMS RPT_ITS | Continuity of Care Document ---
:1955 Author Organization [facility] Address [address] [facility] [address] [place] [address] Phone Care Team Providers Name Role Phone Ela Salgado MD Unavailable Laureen HERNANDEZ, Franky Lindsay Unavailable Ela Salgado MD Unavailable Bienvenido Kelly Unavailable Mariam Samuel Unavailable Unavailable JELANI oGodman Unavailable Unavailable Unavailable Unavailable Problems Name Dates [...] to stretch. handout given on execises and yclhu9pij if not better rexray send PT Status: Active BMI 28.0-28.9,adult (Z68.28, V85.24) Status: Active Carotid stenosis, asymptomatic, bilateral (I65.23, 433.10) Comments: 04-30 mild Status: Active Cervical strain, acute (S16.1XXA, 847.0) Comments: discussed cervical xray and PT not wanting at this time but if not improved with meds, will call or come back Status: Active Coronary artery disease (I25.10, 414.00) Comments: had CP with URI found 1995. Cath at [place] 12-01-95 with coronary artery vasospasm (took adderall then), SC with PTCA, circ 2003, see Dr. 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) Comments: homocystiene slightly elevated so [...] for Tdap vaccination (Renamed from Need for ujuxhjokjn-gvkrhio-aiptjcdjb (Tdap) vaccine, adult/adolescent) (Z23, V06.1) Status: Active [...] days Quantity: 90 {Capsule} Refills: 0 Ordered:28-Mar-2018 Damian HERNANDEZ, Ela Quigley MD, Ela Lr Start : 28-Mar-2018 Active ASPIRIN LOW DOSE, 81MG (Oral Tablet) 1 QD for 0 days Refills: 0 Ordered:27-Jun-2009 Sunni Coates LPNAcpaulina Crestor 20 MG Oral Tablet 1 (one) Tablet qd for 0 days Quantity: 90 {Tablet} Refills: 0 Ordered:03-Apr-2018 Damian HERNANDEZ, Ela Pizano MD Start : 03-Apr-2018 Active Dispense as Written Comments: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 Cyclobenzaprine HCl 10 MG Oral Tablet 1 (one) Tablet tid prn for muscle relaxation for 0 days Quantity: 20 {Tablet} Refills: 0 Ordered:12-Jun-2018 Ela Salgado MD, MD, Dana M Start : 12-Jun-2018 Active Dicyclomine HCl 10 MG Oral Capsule 1 Capsule qid/prn for 0 days Quantity: 30 {Capsule} Refills: 1 Ordered:28-Mar-2018 Ela Salgado MD, MD, Dana M Start : 28-Mar-2018 Active Comments:thirty Medrol 4 MG Oral Tablet Therapy Pack 1 (one) Milligram Milligram TAD for 0 days Quantity: 1 {Package} Refills: 0 Ordered:12-Jun-2018 Ela Salgado MD, MD, Dana M Start : 12-Jun-2018 Active Comments:take with food Mobic 7.5 MG Oral Tablet 1 (one) Tablet Tablet bid prn for 0 days Quantity: 30 {Tablet} Refills: 1 Ordered:23-Jan-2018 Ela Salgado MD, MD, Dana M Start : 23-Jan-2018 Active Testosterone 25 MG/2.5GM (1%) Transdermal Gel uad Gel 2 pumps transdermally qd for 90 days Refills: 1 Ordered:05-Apr-2018 Ela Salgado MD, MD, Dana M Start : 05-Apr-2018 Active Comments:DX: E34.9 Toprol XL 25 MG Oral Tablet Extended [...] Start : 18-Oct-2017 End : 04-Jan-2018 Inactive , 16.2MG/5ML (Oral Elixir) 5-10 Elixir milliliters prn tid for 0 days Quantity: 1 {Bottle} Refills: 3 Ordered:23-Sep-2015 Zana CORINEGeoffn Eugenia Start : 22-Apr-2014 End : 23-Sep-2015 Inactive Flonase 50 MCG/ACT Nasal Suspension 1 (one) [place] 2 sprays each nostril daily for 0 days Quantity: 1 {[place]} Refills: 2 Ordered:04-Jan-2018 Antoni Kendrick Start : 18-Oct-2017 End : 04-Jan-2018 Inactive Lexapro 10 MG Oral Tablet 1/2 (one half) Tablet QD for 0 days Quantity: 90 {Tablet} Refills: 3 Ordered:04-Jan-2018 Antoni Kendrick Start : 14-Sep-2016 End : 04-Jan-2018 Inactive MEDROL (ALEX), 4MG (Oral Tablet) 1 Tablet TAD for 0 days Quantity: 1 {Package(s)} Refills: 0 Ordered:23-Sep-2015 Zana POOL Staci L Start : 14-Nov-2012 End : 23-Sep-2015 Inactive Comments:take with food Multivitamin Oral Liquid for 0 days Refills: 0 Ordered:27-Apr-2016 JELANI Goodman End : 27-Apr-2016 Inactive NASACORT AQ, 55MCG/ACT (Nasal Aerosol Solution) 2 (two) Aerosol Soln qd for 0 days Refills: 0 Ordered:01-Jan-2009 JELAIN Goodman Start : 01-Jan-2009 End : 07-May-2009 Inactive PredniSONE 20 MG Oral Tablet 1 (one) Tablet uad for 16 days Refills: 0 Ordered:18-Oct-2017 Damian HERNANDEZ, Ela Quigley MD, Ela Lr Start [...] QD for 0 days Refills: 0 Ordered:16-Aug-2007 Rex JELANI End : 16-Aug-2007 Discontinued Allergies and Adverse Reactions Name Dates Details [...] would need MRI and to orthosx seen gesler in past. would want someone else like [...] irritable bladder. if bother and want treated. check postvoid and do detrol Status: Inactive as of 11-Feb-2009 VASOSPASM, NOS Status: Inactive as of 22-Mar-2016 Wrist pain, acute, right (M25.531, 719.43) Comments: slept on wrong and been 2 weeks. not better. get wrist splint. Status: Resolved as of 10-Aug-2017 Procedures Procedure Dates Details COLONOSCOPY, NOS Completed Comments: 2003 Double Henia Repair Completed Comments: Inguinal Dr. Pretty Date Value Details 12-Apr-2018 Cardiology Visit Report Result: Comments: See Note; NOTES: [facility] 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 Chris Hematologic/Lymphatic: Negative for easy [...] PCI- Cx w/ 3.0 x 24 mm Compactor Driver Stent Plan He is status post coronary [...] Other Orders Orders: 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) Coding Level of Care Code Off vis,est,level [...] 3 Views Result: Comments: See Note; NOTES: [facility] Imaging Services [address] [place] [address] Foot min 3 Views MR#: [id number] Acct: [id number] Name: DRAGAN FORREST Rep #: [id number] : 1955 M 61 From: Vikas Hummel MD PCP: Ela Salgado MD Status: REG CLI Study: Foot min 3 Views Date of Exam: 07/06/17 Exam# [id number] Ordering Dr: Agapito Don DO STUDY: X-RAY [...] Vikas Hummel MD at 14:20 EST Tel [phone], Service support , Fax CC: Ela Salgado MD; Agapito Don DO 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 Supervisor: Signed 05-Jul-2017 Ankle min 3 Views Result: Comments: See Note; NOTES: [facility] Imaging Services [address] [place] [address] Ankle min 3 Views MR#: [id number] Acct: [id number] Name: DRAGAN FORREST Rep #: [id number] : 1955 61 From: Vikas Hummel MD PCP: Ela Salgado MD Status: REG CLI Study: Ankle min 3 Views Date of Exam: 07/05/17 Exam# [id number] Ordering Dr: Ela Salgado MD STUDY: X-RAY [...] Vikas Hummel MD at 15:29 EST Tel [phone], Service support [phone], CC: Ela Salgado MD Boatbuilder Supervisor: Signed 17-Feb-2017 NCS and/or EMG Patient Result: Comments: See Note; NOTES: [facility] Pulmonary Services/Neurology [address] [place] [address] NCS and/or EMG Patient MR#: [id number] Acct: [id number] Name: DRAGAN FORREST Rep #: [id number] : 1955 61 From: Donnie Smith Referring Dr: Ela Salgado MD Status: REG CLI Ordering Dr: Ela Salgado MD Date: 02/16/17 Location: [facility] Sex: M C DATE OF [...] Date Dictated: 02/17/17 Date Transcribed: 02/17/17 0710 Boatbuilder Supervisor: MB Signed 14-Sep-2016 Wrist min 3 Views Result: Comments: See Note; NOTES: [facility] Imaging Services [address] [place] [address] Verdana 4d Wrist min 3 Views MR#: [id number] Acct: [id number] Name: DRAGAN FORREST Rep #: [id number] : 1955 61 From: Vikas Hummel MD PCP: Ela Salgado MD Status: REG CLI Study: Wrist min 3 Views Date of Exam: 09/14/16 Exam# [id number] Ordering Dr: Ela Salgado MD STUDY : [...] Hummel MD at 12:[address] Tel [phone], Service support [phone], CC: Ela Salgado MD Boatbuilder Supervisor: Signed 12-May-2016 Carotid Duplex Ultrasound Result: Comments: See Note; NOTES: [facility] Cardiovascular Services [address] [place] [address] Carotid Duplex Ultrasound 05/05/16 1237 MR#: [id number] Acct: [id number] Name: DRAGAN FULLER Rep #: [id number] : 1955 60 From: Tyrone Daniels MD [...] the left vertebral artery. Procedure Carotid Duplex 05241. Exam performed in department. Interpreta tion Summary Mild (<50%) stenosis right extracranial internal carotid. Mild (<50%) stenosis left extracranial internal carotid. Flow within the vertebral arteries is antegrade bilaterall y. Ordering Physician: Ela Salgado Performed By: Elvia Wilson RVT 05/12/16 0843 Date Tyrone Daniels MD CC: Ela Salgado MD Date Dictated: 05/05/16 1237 Date Transcribed: 05/12/16 0843 Boatbuilder Supervisor: Signed Family History Unknown Family Member Name Dates Details Brother 1 Comments: lives in [facility], lives with parents hx. Drug addiction Status: Active Daughter 1 Comments: lives in [place] Status: Active Daughter 2 Comments: lives in [place] Status: Active Father Comments: after age 60 [...] Living Situation Comments: , heterosexual, grow apart. 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 18 years 11/2 pack stop at 36yo Status: Active Vital Signs Date Test Result Details :00 Pulse 72 /min Comments: Pattern: Regular [...] kg/m2 Body Surface Area Calculated 2.21 m2 7-Amk-139570:26 Temperature 97.8 f Comments: Method: Oral Pulse [...] Height 0 in Head Circumference 0.00 cm 64-Mkf-62349:51 Pulse 68 /min Comments: Pattern: Regular Respiration [...] 0.00 cm Results Date Description Value Details :43 Lipid Profile Comments: [facility] [address] [place], [address] VLDL 9 mg/dL (Normal) Range: 5-40 LDL [...] mg/dL High Risk :43 Liver Profile Comments: [facility] [address] [place], [address] D BILI 0.20 mg/dL (Normal) Range: 0.00-0.30 T BILI 0.70 mg/dL (Normal) Range: 0.20-1.00 ALT 36 U/L (Normal) Range: 16-61 ALK P 50 U/L (Normal) Range: 45-117 AST 35 U/L (Normal) Range: 15-37 GLOB 3.1 g/dL (Normal) Range: 2.2-4.2 ALB 3.7 g/dL (Normal) Range: 3.2-5.0 T PROT 6.8 g/dL (Normal) Range: 6.4-8.2 :22 Allergan with IGE Area 5 Comments: PATIENT NOT FASTINGPERFORMED BY: [facility] [id number] ([place]) ([address]) H276-NzT Mouse Urine <0.10 kU/L (Normal) D671-GhF Sheep [place] <0.10 kU/L (Normal) U475-RkF Pigweed, Common <0.10 kU/L (Normal) Y870-KiI Thistle, Gambian <0.10 kU/L (Normal) D001-FaU Ragweed, Short <0.10 kU/L (Normal) D731-MwW White [place] <0.10 kU/L (Normal) D809-BkZ Pecan, [place] <0.10 kU/L (Normal) D179-SpV Joshua, White <0.10 kU/L (Normal) E140-VlZ [place] <0.10 kU/L (Normal) C795-NaR Maple [place] <0.10 kU/L (Normal) W661-MqK [place] <0.10 kU/L (Normal) A590-ZfD Elm, Gambian <0.10 kU/L (Normal) I125-ZnX Burlington, White <0.10 kU/L (Normal) X470-LsC Bonneville, Mountain <0.10 kU/L (Normal) Q814-GtZ Common Silver Birch <0.10 kU/L (Normal) A687-KzL Maple/[place]clean <0.10 kU/L (Normal) A794-UuO Alternaria alternata <0.10 kU/L (Normal) J455-IoG Aspergillus fumigatus <0.10 kU/L (Normal) H874-JjI Cladosporium herbarum <0.10 kU/L (Normal) O582-JaP Penicillium chrysogen <0.10 kU/L (Normal) P710-IrO Cockroach, Swedish <0.10 kU/L (Normal) O849-FyO Soy Grass <0.10 kU/L (Normal) Y686-TzE Bermuda Grass <0.10 kU/L (Normal) N749-XfD Dog Dander <0.10 kU/L (Normal) S348-FhD Cat Dander <0.10 kU/L (Normal) H366-CjE D farinae <0.10 kU/L (Normal) D183-LmX D pteronyssinus <0.10 kU/L (Normal) Immunoglobulin E, [...] 100.00 V Very High >100.00 Very High 2-Vyi-782433:48 TESTOSTERONE FREE (70721) Comments: PATIENT NOT FASTINGPERFORMED BY: [facility] [place] [id number] [facility] [id number] BY: [address] [id number] Free Testosterone(Direct) 17.2 pg/mL (Normal) Range: 6.6-18.1 :48 HEPATITIS C ANTIBODY Comments: PATIENT NOT FASTINGPERFORMED BY: [address] [id number] BY: [address] [id number] ([address]) Hep C Virus Ab <0.1 {s/co_ratio} (Normal) Range: 0.0-0.9 Comments: Negative: < 0.8 Indeterminate: 0.8 - 0.9 Positive: > 0.9 . The CDC recommends that a positive HCV antibody result be followed up with a HCV Nucleic Acid Amplification test (563735). :48 URINALYSIS (06500) Comments: PATIENT NOT FASTINGPERFORMED BY: [place] [id number] [facility] [id number] BY: [address] [id number] Microscopic Examination MICNIP (Normal) Comments: Microscopic not indicated and not performed. Nitrite, Urine Negative (Normal) Urobilinogen,Semi-Qn 1.0 mg/dL (Normal) Range: 0.2-1.0 Bilirubin Negative (Normal) Occult Blood Negative (Normal) Ketones Negative (Normal) Glucose Negative (Normal) Protein Negative (Normal) WBC Esterase Negative (Normal) Appearance Clear (Normal) Urine-Color Yellow (Normal) pH 5.5 (Normal) Range: 5.0-7.5 Specific [place] 1.022 (Normal) Range: 1.005-1.030 :48 CBC WITH MANUAL DIFF Comments: PATIENT NOT FASTINGPERFORMED BY: [address] [id number] BY: [address] [id number] Inf ormation: NURSE DRAW (97764) Immature Grans (Abs) 0.0 {x10E3/uL} (Normal) Range: [...] 4.14-5.80 WBC 6.5 {x10E3/uL} (Normal) Range: 3.4-10.8 5-Oqu-132015:48 Metabolic Panel, Comments: PATIENT NOT FASTINGPERFORMED BY: CB [facility] Mqnqla6802 [facility] [id number] BY: BN [facility] [address] [id number] [facility] ([address]) ALT (SGPT) 29 [iU]/L (Normal) Range: 0-44 [...] Glucose, Serum 97 mg/dL (Normal) Range: 65-99 32-Axy-62208:33 CBC W/Diff, Automated Comments: [facility] [address] [place], [place], [address] ; will review on 02/28 Absolute Lymph [...] 4.6-6.2 WBC 5.5 K/mm3 (Normal) Range: 4.4-11.0 81-Ude-66990:33 Comprehensive Metabolic Profil Comments: [facility] [address] [place], [place], [address] GAP 4 (Abnormal) Range: 5-15 CO2 29.0 [...] 70-110 :33 CPK Total, Creatine Kinase Comments: [facility] [address] [facility] [place], [place], [address] CPK TOTAL 176 U/L (Normal) Range: 39-308 :33 Homocysteine Comments: [facility] [address] [facility] [place], [place], [address] HOMOCYSTEINE 7.1 umol/L (Normal) Range: 3.2-10.7 :33 [...] the [place] Food and Drug Administration.Performed at: [place] [id number] [place] [address] [id number] Director: Francois Davis MD, Phone: [phone] INS RES/DIAB RK . (Normal) LDL SIZE [...] LIPIDS . (Normal) :33 Testosterone Free Comments: [facility] (refer to report for specific site)refer to report for address and phone number TEST FR 652448 15.2 pg/mL (Normal) Range: 6.6-18.1 Comments: Performed at: [address] [id number] Director: Francois Davis MD, Phone: [phone] 17-May-20164:30 Pathology Report Comments: PERFORMED BY: KWCYT [facility] [place] Cyto Szpap23658 [facility] [id number] Information: [id number] See MATER Comments: Material submitted: .PART A: [...] IN CASSETTE(S) B./LMSLMS/LMSPathologist provided ICD-10:D18.01, L98.9, D49.2CPT .601104, 979211 :31 ESTRADIOL (64865) Comments: recheck in 3 months; PATIENT NOT FASTINGPERFORMED BY: [employer] Ryhdfr0345 Project Travelblin [place] [id number] BY: [address] [id number] Information: NURSE DRAW Estradiol 17.5 pg/mL (Normal) Range: 7.6-42.6 Comments: Tahir ECLIA methodology :31 TESTOSTERONE FREE (39162) Comments: recheck in 3 months; PATIENT NOT FASTINGPERFORMED BY: Nasty Gal Njkejz1308 PedrozaLion & Foster InternationalblMary Breckinridge Hospital [id number] BY: [address] [id number] Free Testosterone(Direct) 14.6 pg/mL (Normal) Range: 6.6-18.1 :31 PSA (Prostate Specific Comments: re check in 3 months; PATIENT NOT FASTINGPERFORMED BY: Risktail70 Project [facility]At[facility] [id number] BY: [address] [id number]; fu 1 Antigen), Diagnostic (49948) Prostate Specific Ag, 0.6 ng/mL (Normal) Range: 0.0-4.0 Serum Comments: TwoFishIA methodology. .According to the [place] Urological Association, Serum PSA shoulddecrease and remain at undetectable levels after radicalprostatectomy. The AUA defines biochemical recurrence as an initialPSA value 0.2 ng/mL or greater followed by a subsequent confirmatoryPSA value 0.2 ng/mL or greater.Values obtained with d ifferent assay methods or kits cannot be usedinterchangeably. Results cannot be interpreted as absolute evidenceof the presence or absence of malignant disease. 51-Cvl-074171:05 FSH and LH Comments: PATIENT NOT FASTINGPERFORMED BY: [employer] SHV LabKriyarirp Njvsfy2928 Project TravelAt[facility] [id number] Information: E75931, 837014; will f/u on 05/17 FSH 9.6 m[iU]/mL Range: 1.5-12.4 (Normal) LH 6.3 m[iU]/mL Range: 1.7-8.6 (Normal) Written Authorization WAR (Normal) Comments: PATIENT NOT FASTINGPERFORMED BY: [facility] Xukhoy1814 Pedroza RoadDublin [place] [id number] 4:05 Comments: Written Authorization Received.Authorization received from SIGNATURE ON FILE 52-53-1471Mmalzl by Yanna Matos 42-Fzr-152906:05 Methymalonic Acid, Serum Comments: PATIENT NOT FASTINGPERFORMED BY: [address] [id number] BY: [facility] Zuynec0874 Pedroza [facility] [place] [id number] ([address]) Methylmalonic Acid, Serum 202 nmol/L (Normal) Range: 0-378 63-Qez-530525:05 Vitamin B-12 Comments: PATIENT NOT FASTINGPERFORMED BY: [facility] [address] [id number] BY: [facility] Emxfzv9931 Pedroza [facility] [place] [id number] (cyanocobalamin) (97634) Vitamin B12 724 pg/mL (Normal) Range: 211-946 38-Ffi-567901:05 TESTOSTERONE FREE (35857) Comments: in am; PATIENT NOT FASTINGPERFORMED BY: [facility] [address] [id number] BY: [facility] Wdretx9358 [address]za [facility] [place] [id number] Information: I41189, 311665 Free Testosterone(Direct) 5.6 pg/mL (Abnormal) Range: 6.6-18.1 16-Xqa-83027:44 PSA (Prostate Specific Comments: PATIENT NOT FASTINGPERFORMED BY: [facility] Jimjfp3219 Pedroza [facility] Center[facility] [place] [id number] Information: D03816,NURSE DRAW Antigen), Screening (96195) Prostate Specific Ag, 0.6 ng/mL (Normal) Range: 0.0-4.0 Serum Comments: Tahir ECLIA methodology. .According to the [place] Urological Association, Serum PSA shoulddecrease and remain [...] disease. :19 Lipid Profile Comments: Test performed at:[facility] [address] [place], [place] [address] VLDL 10 mg/dL (Normal) Range: 5-40 LDL [...] Risk :19 Liver Profile Comments: Test performed at:[facility] [address] [place], [place] [address] D BILI 0.25 mg/dL (Normal) Range: 0.00-0.30 [...] Comments: PATIENT NOT FASTINGPERFORMED BY: EDNA [facility] Dpipeu1142 [place] [id number] Information: 258001,Q95765 A1C) (44754) Hemoglobin A1c 6.0 % (Abnormal) Range: 4.8-5.6 [...] CHOL 117 mg/dL (Normal) Comments: <200 mg/dL Ywafwjgra152-925 mg/dL Borderline>240 mg/dL High Risk :03 LIVER [...] CHOL 145 mg/dL (Normal) Comments: <200 mg/dL Prnrtoyav612-582 mg/dL Borderline>240 mg/dL High Risk :43 LIVER [...] CHOL 100 mg/dL (Normal) Comments: <200 mg/dL Jipnrsiag378-397 mg/dL Borderline>240 mg/dL High Risk HDL 37 mg/dL (Normal) Comments: Reference RangeHDL <40 mg/dL Low HDL CholesterolHDL >or= 60 mg/dL High HDL Cholesterol LDL 51 mg/dL (Normal) Range: 0-130 TRIG 59 mg/dL (Normal) Comments: Serum Triglycerides Reference IntervalNormal <150 mg/dLBorderline high 150 - 199 mg/dLHigh 200 - 499 mg/ dLVery High > or = 500 mg/dL 46-Ate-733007:50 LIVER ALT 49 U/L (Normal) Range: 12-78 D BILI 0.22 mg/dL (Normal) Range: 0.00-0.30 T BILI 0.80 mg/dL (Normal) Range: 0.00-1.00 ALB 3.7 g/dL (Normal) Range: 3.4-5.0 ALK P 49 U/L (Abnormal) Range: 50-136 AST 42 U/L (Abnormal) Range: 15-37 T PROT 7.0 g/dL (Normal) Range: 6.4-8.2 10-Qbr-041790:51 ACUTE ABDOMEN, INC CHEST (MT) Radiology Report See Note (Normal) Comments: Exam Number: [id number] ACUTE ABDOMINAL SERIES WITH PA CHEST INDICATIONSevere [...] of theabdomen. Reported By: DEVIN SANDHU M.D. 93-Sio-706058:55 ABDOMEN LIMITED US () Radiology Report See Note (Normal) Comments: Exam Number: [id number] LIMITED ABDOMINAL ULTRASOUND HISTORYRight upper quadrant pain. [...] :42 LIPASE 148 U/L (Normal) Range: 114-286 95-Tmg-596647:25 CBCD Comments: DR. MENG ORDERED LIPID/LPDR.LIPID CMP [...] LIPID/LPDR.LIPID CMP CBCD PSA UA Range: 0.00-0.30 50-Gux-716464:25 LIPID Comments: DR. MENG ORDERED LIPID/LPDR.LIPID CMP [...] AMOUNT GROWTH 3+ ORGANISM 1: HAEMOPHILUS INFLUENZA 02-Tcm-631972:46 Rapid Strep Test, Office (02913) Rapid Strep Test, Office Negative (Normal) :23 [...] was performed using the TPSA method for theKrillion chemistry system.Values obtained with different assay methods cannot be usedinterchangably.When changing PSA assays in the course of monito ring apatient, additional sequential testing should be carriedout to confirm baseline values. Plan of Care Name Dates Details Instructions Backache : Eprescribed prescriptions (G8553) Indication: Backache [...] treatment Indication: Pharyngitis, acute Planned Observations CALCIFIDIOL (19092) VIT D 25Indication: Vitamin D insufficiency On: :44 Request METABOLIC PANEL, COMPREHENSIVE (52886)Indication: Hyperlipidemia, unspecified On: :43 Request LIPOPROTEIN, BLD, BY NMR (15578)Indication: Hyperlipidemia, unspecified On: :43 Request Homocysteine, Plasma (94023)Indication: Homozygous MTHFR mutation J8106R On: 31-Isp-928624:40 Request METABOLIC PANEL, COMPREHENSIVE (42522)Indication: Hypercholesterolemia On: 8-Ixj-717479:55 Request TESTOSTERONE FREE (50724)Indication: Testosterone deficiency On: :27 Request CBC, Platelets & Auto Diff (43911)Indication: Testosterone deficiency On: :27 Request Creatine Kinase Total (77426)Indication: Hypercholesterolemia On: :18 Request LIPOPROTEIN, BLD, BY NMR (98805)Indication: Hypercholesterolemia On: :18 Request Homocysteine, Plasma (53318)Indication: Homozygous MTHFR mutation J1255Z On: :17 Request CBC WITH MANUAL DIFF (82819)Indication: Testosterone deficiency On: :41 Request Comments: re check in 3 months CBC with auto diff (16631)Indication: Elevated LFTs On: :49 Request Comments: copy to Dr. sky URINALYSIS, W/ MICRO (20321)Indication: Coronary artery disease On: :39 Request METABOLIC PANEL, COMPREHENSIVE (68928)Indication: Elevated LFTs On: :38 Request LIPID PANEL (15582)Indication: Coronary artery disease On: :38 Request Hemoglobin Glyclated (HGB A1C) (37520)Indication: IFG (impaired fasting glucose) On: :06 Request Comments: recheck in 3 months LIPID PANEL (85257)Indication: Hypercholesterolemia On: : Request PSA (PROSTATE SPECIFIC ANTIGEN) (V76.44)Indication: Encounter for health maintenance examination with abnormal findings On: : Request CBC (Auto) (79191)Indication: Coronary artery disease On: : Request Metabolic Panel, Basic (74129)Indication: Coronary artery disease On: : Request TSH (31896)Indication: Anxiety On: : Request CBC & PLATELETS (AUTO) (28625)Indication: Hypercholesterolemia On: 48-Egy-557729:56 Request LIPID PANEL (51390)Indication: Hypercholesterolemia On: :56 Request METABOLIC PANEL, COMPREHENSIVE (11570)Indication: Hypercholesterolemia On: 40-Qgw-682600:55 Request Metabolic Panel, Basic (07494)Indication: Hypercholesterolemia On: :31 Request Lipid Panel (71488)Indication: Hypercholesterolemia On: 92-Lwo-72339:30 Request PSA (PROSTATE SPECIFIC ANTIGEN) (V76.44)Indication: Encounter for health maintenance examination with abnormal findings On: :28 Request CBC (Auto) (86453)Indication: Coronary artery disease On: :28 Request Metabolic Panel, Basic (16564)Indication: Coronary artery disease On: :28 Request TSH ([id number])Indication: Anxiety On: :28 Request PSA (PROSTATE SPECIFIC ANTIGEN) (V76.44)Indication: Encounter for health maintenance examination with abnormal findings On: :30 Request TSH ([id number])Indication: Anxiety On: :30 Request METABOLIC PANEL, COMPREHENSIVE (85490)Indication: Hypercholesterolemia On: 3-Msi-549721:30 Request LIPID PANEL (46724)Indication: Hypercholesterolemia On: 9-Dwf-915446:30 Request CBC WITH MANUAL DIFF ([id number])Indication: Hypercholesterolemia On: 1-Mvt-844097:30 Request Lipase (00904)Indication: Epigastric pain On: 1-Ony-377669:24 Request Amylase (12746)Indication: Epigastric pain On: 3-Wss-026532:24 Request Metabolic Panel, Comprehensive ([id number])Indication: Epigastric pain On: 6-Gvu-836973:24 Request CBC with manual diff ([id number])Indication: Epigastric pain On: 8-Gbj-709388:24 Request Metabolic Panel, Comprehensive ([id number])Indication: Coronary artery disease On: 01-Xgq-911319:13 Request URINALYSIS (02084)Indication: Coronary artery disease On: 86-Ecg-549312:30 Request CBC (Auto) ([id number])Indication: Coronary artery disease On: 29-Oqr-139487:30 Request Lipid Panel (25559)Indication: Coronary artery disease On: 23-Hyg-023195:30 Request Metabolic Panel, Comprehensive (40346)Indication: Coronary artery disease On: 53-Rdn-553838:30 Request PSA (PROSTATE SPECIFIC ANTIGEN) (V76.44)Indication: Screening for prostate cancer On: 31-Cvo-783163:29 Request JOANA CULTURE-OTHER ([id number])Indication: Pharyngitis, acute On: 53-Csv-909466:46 Request PSA (PROSTATE SPECIFIC ANTIGEN)Indication: Screening for prostate cancer On: 3-Clk-535557:05 Request CBC WITH MANUAL DIFF ([id number])Indication: Coronary artery disease On: 8-Cfc-757379:05 Request LIPID PANEL ([id number])Indication: Coronary artery disease On: 2-Aik-937353:05 Request METABOLIC PANEL, COMPREHENSIVE ([id number])Indication: Coronary artery disease On: 9-Xgp-468826:05 Request Planned Encounters Medical; [facility] Wellness Exam (DB Nurse) - On: 17-Aug-2018 8:15 [facility] JELANI Goodman; [facility] Wellness Exam (Doctor) - On: 04-Sep-2018 8:00 [facility] Damian HERNANDEZ, Ela Salgado MD, Ela Lr Planned Procedures Flu Vaccine (Quadrivalent) On: 12-Jun-2018 Intent 70791Ri: Ela Salgado MD Comments: Lot #[id number]/30/2019Site-L dltd, IMDose prefilled syringegiven by: Geovany reviewed and ABN signed Ela Salgado MD Toradol Injection, 30 mg On: 12-Jun-2018 Intent (J1885)By: Ela Salgado MD Comments: lot: [id number]: 01/2020site/route: RGM/IMamt: 1mLVIS signed when applicableSAGE Becerra MD, Dana M Toradol Injection, 30 mg On: 04-Jan-2018 Intent (J1885)By: Ela Salgado MD, MD, Dana M Toradol Injection, 30 mg On: 12-Oct-2017 Intent (J1885)By: Zana LOOMIS, Aga PNEUM VAC ADLT/IMUMNOSPR, On: 10-Aug-2017 Intent SB/INTR ([id number])By: Damian Comments: lot:[id number]:2-17-0058ylt:IM right deltoid dose:0.5ml given by:mayra ABN signedER, Ela POOL MD, MD, Dana M Radiology - Ankle - RightBy: On: 05-Jul-2017 Intent Ela Salgado MD Comments: call wet read [phone] Ela Asencio MD EMGBy: Ela Salgado MD On: 17-Jan-2017 Intent Ela Salgado MD Nerve ConductionBy: Damian On: 17-Jan-2017 Intent Ela HERNANDEZ MD, Dana M Comments: right leg Radiology - Wrist - RightBy: On: 14-Sep-2016 Intent Ela Salgado MD Comments: do scaphoid views Ela HERNANDEZ US DOPPLER CAROTID BILATERAL On: 27-Apr-2016 Intent ([id number])By: Ela Salgado MD, MD, Dana M ZOSTER VACC, ID ([id number])By: On: 27-Apr-2016 Intent Ela Salgado MD Comments: lot:[id number]:SC right arm dose:0.65mlgiven by:Praveen signedER, Ela POOL MD TDAP VACCINE >7 IM ([id number])By: On: 27-Apr-2016 Intent Ela Salgado MD Comments: lot:[id number]:09-05-18rte:IM left deltoid dose:0.5ml given by:mayra LUZ signedER, Ela POOL MD FLU VAC, SPLIT, >3 YEARS, On: 22-May-2013 Intent INTRAMUSC ([id number])By: Lizzie, Comments: lot [id number] 2014site/route R erik, IMamt 0.5mlVIS and ABN signed when applicableSAGE Becerra Mariam IMMUNIZ ADMNIN, 1 VAC, On: 22-May-2013 Intent SNGL/COMBO ([id number])By: Mariam Samuel Toradol Injection, 30 mg On: 14-Nov-2012 Intent (J1885)By: Negar Spann CNP Ultrasound - GallbladderBy: On: 27-Jun-2009 Intent Cari Dupree DO Radiology - Abdomen SeriesBy: On: 27-Jun-2009 Intent Cari Dupree DO Planned Medications INJECTION, KETOROLAC TROMETHAMINE, PER 15 MG Ordered: 14-Nov-2012 Pending Negar Spann CNP INJECTION, KETOROLAC TROMETHAMINE, PER 15 MG Ordered: 12-Oct-2017 Pending Negar Spann CNP INJECTION, KETOROLAC TROMETHAMINE, PER 15 MG Ordered: 04-Jan-2018 Pending Ela Salgado MD, MD, Dana M INJECTION, KETOROLAC TROMETHAMINE, PER 15 MG Ordered: 12-Jun-2018 Pending Ela Salgado MD, MD, Dana M Instructions Name Dates Details Backache : How to access health information [...] Indication: Allergic rhinitis Encounters Office Visit On: 12-Jun-2018 8:57 Encounter Reason: [...] back pain, Testosterone deficiency, Homozygous MTHFR mutation [id number], Encounter for health maintenance examination with abnormal findings, BMI 28.0-28.9,adult , Pneumococcal vaccination given, Hyperlipidemia, unspecified, Vitamin D insufficiency, Verrucous keratosis [facility] Lab Order On: 13-Jul-2017 15:37 Encounter Diagnosis: Coronary artery disease, Homozygous MTHFR mutation [id number], Need for hepatitis C screening test, Testosterone [...] disease), Anxiety, Testosterone deficiency, Homozygous MTHFR mutation S7620B, Wrist pain, acute, right, Hypercholesterolemia, BMI 31.0-31.9,adult, [...] right, Testosterone deficiency, Anxiety, Homozygous MTHFR mutation [id number] [facility] Office Visit On: 17-May-2016 [...] for Tdap vaccination (Renamed from Need for ufoalmaslz-pbogupz-tdoxeostp (Tdap) vaccine, adult/adolescent), Need for zoster vaccination, [...] 16:40 [facility] End: 19-Dec-2006 16:40 [facility]; randi guarantor
--- OUTSIDE RECORDS SUMMARY | 2018-11-07 17:12 | XMS RPT_ITS ---
:1955 Author Organization OHIP Care Team Providers Name Role Phone Damian HERNANDEZ, Ela Lr Attending Unavailable Damian HERNANDEZ, Ela Lr Referring Unavailable Damian HERNANDEZ, Ela Lr Consulting Unavailable JAEL KHAN Attending Unavailable Bonezzi, Ela Primary Care Unavailable Bonezzi, Ela Attending Unavailable Bonezzi, Ela Referring Unavailable Bonezzi, Ela Primary Care Unavailable Carissa Garzon Attending Unavailable Kennedi, Barry Attending Unavailable Bonezzi, Ela Referring Unavailable Bonezzi, Ela Primary Care Unavailable Kennedi, Ellis Attending Unavailable Kennedi, Ellis Referring Unavailable Bonezzi, Ela Primary Care Unavailable Bonezzi, Ela Attending Unavailable Bonezzi, Ela Referring Unavailable Bonezzi, Ela Primary Care Unavailable PROBLEMS PROBLEMS DATE TYPE CONDITION / CODE ATTENDING STATUS SOURCE Unknown N40.1 - Benign prostatic Bonezzi, Ela Active [facility] hyperplasia with lower Community urinary tract symptoms / Hospital N40.1(ICD-10) Repository Unknown I25.810 - Atherosclerosis Kennedi, Ellis Active [facility] of coronary artery bypass Community graft(s) without angina Hospital pectoris / Repository I25.810(ICD-10) Unknown Z95.5 - Presence of Kennedi, Ellis Active [facility] coronary angioplasty Community implant and graft / Hospital Z95.5(ICD-10) Repository Unknown E78.5 - Hyperlipidemia, Kennedi, Barry Active [facility] unspecified / Community E78.5(ICD-10) Hospital Repository Unknown I10 - Essential (primary) Kennedi, Barry Active [facility] hypertension / Community I10(ICD-10) Hospital Repository Unknown E78.00 - Pure Kennedi, Barry Active [facility] hypercholesterolemia, Community unspecified / Hospital E78.00(ICD-10) Repository Unknown E78.0 - Pure Kennedi, Barry Active [facility] hypercholesterolemia / Community E78.0(ICD-10) Hospital Repository PROCEDURES PROCEDURES No Procedure Records FoundRESULTS RESULTS CAROTID DUPLEX Observed: 09/06/2018 Status: F Source: [place] ULTRASOUND 11:52 AM [facility] REPOSITORY [facility] Cardiovascular Services [address] [place] [address] Carotid Duplex Ultrasound 09/05/18 1303 MR#: [id number] Acct: [id number] Name: ANALY SUH Rep #: [id number] : 1955 63 From: Tyrone Daniels MD Attending Dr: Ela Salgado MD Status: REG CLI Ordering Dr: Ela Salgado MD Date: 09/05/18 Location: [facility] Sex: M C Admitted: Reason For Study: Carotid Stenosis Rt. Velocities/BP Lt. Velocities/BP Prox CCA 134/23.6 cm/sec. Prox CCA 137/25.9 cm/sec. Mid CCA 120/24.4 cm/sec. Mid CCA 127/31.4 cm/sec. Dist CCA 91.9/22 cm/sec. Dist CCA 109/33.8 cm/sec. Prox ICA 73.3/25.8 cm/sec. Prox ICA 50.3/16.9 cm/sec. Mid ICA 91.5/31.7 cm/sec. Mid ICA 84.4/31.7 cm/sec. Dist ICA 87.4/34 cm/sec. Dist ICA 85/34 cm/sec. Rt. ICA/CCA = 0.76. Lt. ICA/CCA = 0.67. Prox ECA 118/20.4 cm/sec. Prox ECA 125/33 cm/sec. Rt. Vert. 57/12.6 cm/sec. Lt. Vert. 54.6/17.7 cm/sec. Right Extracranial There is intimal thickening but no significant atherosclerotic plaque noted in the right common carotid artery. There is intimal thickening but no significant atherosclerotic plaque noted in the right internal carotid artery. There is intimal thickening but no significant atherosclerotic plaque noted in the right external carotid artery. Antegrade flow is noted in the right vertebral artery. Left Extracranial There is intimal thickening but no significant atherosclerotic plaque noted in the left common carotid artery. There is intimal thickening but no significant atherosclerotic plaque noted in the left internal carotid artery. There is no significant atherosclerotic plaque noted in the left external carotid artery. Antegrade flow is noted in the left vertebral artery. Procedure Carotid Duplex 25344. Exam performed in department. Interpretation Summary Mild (<50%) stenosis right extracranial internal carotid. Mild (<50%) stenosis left extracranial internal carotid. Flow within the vertebral arteries is antegrade bilaterally. Ordering Physician: Ela Salgado Referring Physician: Ela Salgado Performed By: Elvia Wilson RVT and Student 09/06/18 1152 Date Tyrone Daniels MD CC: Ela Salgado MD Date Dictated: 09/05/18 1303 Date Transcribed: 09/06/18 1152 Supply Chain Associate: Signed HIP, UNI W/ PELVIS Observed: 08/17/2018 Status: F Source: [facility] 2-3 VIEWS 9:19 AM [facility] REPOSITORY [facility] Imaging Services [address] [place] [address] HIP, UNI W/ Pelvis 2-3 Views MR#: [id number] Acct: [id number] Name: ANALY SUH Rep #: [id number] : 1955 M 63 From: Gopi Vera MD PCP: Ela Salgado MD Status: REG CLI Study: HIP, UNI W/ Pelvis 2-3 Views Date of Exam: 08/17/18 Exam# [id number] Ordering Dr: Ela Salgado MD STUDY: X-RAY - LEFT HIP REASON FOR EXAM: Male, 63 years old. Pain TECHNIQUE: 2 views of the hip. COMPARISON: None. FINDINGS: The sacroiliac joints are normal. Moderate osteoarthritis of both hips with buttressing of the femoral necks and narrowing of the joint spaces. There are no acute fractures. Numerous springlike metallic densities projecting over the pelvis. RAD/HIP, UNI W/ Pelvis 2-3 Views IMPRESSION: Osteoarthritis of the hips. No fractures Electronically Signed: Gopi Vera MD at 7:13 EST Tel , Service support , CC: Ela Salgado MD Supply Chain Associate: Signed KNEE 4 OR MORE Observed: 08/17/2018 Status: F Source: [place] VIEWS 9:19 AM [facility] REPOSITORY [facility] Imaging Services [address] [place] [address] Knee 4 or More Views MR#: [id number] Acct: [id number] Name: ANALY SUH Rep #: [id number] : 1955 63 From: Gopi Vera MD PCP: Ela Salgado MD Status: REG CLI Study: Knee 4 or More Views Date of Exam: 08/17/18 Exam# [id number] Ordering Dr: Ela Salgado MD STUDY: X-RAY - LEFT KNEE REASON FOR EXAM: Male, 63 years old. Pain TECHNIQUE: 4 view(s) of the knee. COMPARISON: None. FINDINGS: Normal visualized distal femur. Normal visualized proximal tibia and fibula. Normal proximal tibiofibular articulation. Normal medial femorotibial compartment. Normal lateral femorotibial compartment. Normal patellofemoral articulation. The soft tissue structures are unremarkable. RAD/Knee 4 or More Views IMPRESSION: Normal x-ray examination of the knee. No fracture. No osteoarthritis. Electronically Signed: Gopi Vera MD at 7:30 EST Tel , Service support , CC: Ela Salgado MD Supply Chain Associate: Signed KIDNEY AND BLADDER Observed: 06/20/2018 Status: F Source: [place] 12:24 PM [facility] REPOSITORY [facility] Imaging Services [address] [place] [address] Kidney and Bladder MR#: [id number] Acct: [id number] Name: ANALY SUH Rep #: [id number] : 1955 M 62 From: Luis F Rae PCP: Ela Salgado MD Status: REG CLI Study: Kidney and Bladder Date of Exam: 06/20/18 Exam# [id number] Ordering Dr: Ela Salgado MD STUDY: RENAL ULTRASOUND - COMPLETE REASON FOR EXAM: Male, 62 years old. Frequency. Benign prostatic hypertrophy. TECHNIQUE: Ultrasound evaluation of the kidneys was performed with real-time and static belle-scale imaging. COMPARISON: None. FINDINGS: RIGHT KIDNEY: Normal location of the right kidney, which is normal in size. The right kidney measures 13.1 x 5.6 x 6.6 cm. There is a normal cortex of the right kidney. The renal cortex measures 2.1 cm. Simple parapelvic cyst measuring 2.2 x 2.0 x 1.4 cm There are no right renal calculi. There is no right hydronephrosis. DISTAL RIGHT URETER: There is non-visualization of the distal right [...] There is no left renal mass or cyst. There are no left renal calculi. There is no left hydronephrosis. DISTAL LEFT URETER: There is non-visualization of the distal left ureter. There is no demonstrated left ureterovesical junction calculus. There is a visualized left ureteral jet. BLADDER: The distended urinary bladder has a volume of 211 ml. The empty urinary bladder has a volume of 70 ml. There is a normal wall thickness of the distended urinary bladder. There is no demonstrated mass within the urinary bladder. There are no demonstrated bladder calculi. US/Kidney and Bladder IMPRESSION: No hydronephrosis. Simple right renal cyst. No significant postvoid bladder residual. Electronically Signed: Luis F Rae MD at 6:05 EST , Service support , CC: Ela Salgado MD Supply Chain Associate: Signed LIVER PROFILE Collected: 04/20/2018 Status: F Source: [place] 7:43 AM [facility] REPOSITORY TYPE CODE TESTS RESULT OUT OF RANGE REFERENCE UNITS LAB L501.1500 6.4-8.2 g/dL Normal T PROT 6.8 LAB L501.1800 3.2-5.0 g/dL Normal ALB 3.7 LAB L501.1950 2.2-4.2 g/dL Normal GLOB 3.1 LAB L501.4100 15-37 U/L Normal AST 35 LAB L501.4305 45-117 U/L Normal ALK P 50 LAB L501.4405 16-61 U/L Normal ALT 36 LAB L501.4600 0.20-1.00 mg/dL Normal T BILI 0.70 LAB L501.4700 0.00-0.30 mg/dL Normal D BILI 0.20 Performed By: #### L500.3400, L500.4100 #### [facility] [address] [place], [address] LIPID PROFILE Collected: 04/20/2018 Status: F Source: [place] 7:43 AM [facility] REPOSITORY TYPE CODE TESTS RESULT OUT OF RANGE REFERENCE UNITS LAB L501.4900 200 mg/dL Normal CHOL 110 Result Comment: <200 mg/dL Desirable 200-240 mg/dL Borderline >240 mg/dL High Risk LAB L501.5000 mg/dL Normal TRIG 45 Result Comment: The drugs N-Acetylcysteine and Metamizole may falsely depress this assay. Serum Triglycerides Reference Interval Normal <150 mg/dL Borderline high 150 - 199 mg/dL High 200 - 499 mg/dL Very High > or = 500 mg/dL LAB L501.6400 mg/dL Normal HDL 46 Result Comment: The drugs N-Acetylcysteine and Metamizole may falsely depress this assay. Reference Range HDL <40 mg/dL Low HDL Cholesterol HDL >or= 60 mg/dL High HDL Cholesterol LAB L501.6500 0-130 mg/dL Normal LDL 55 LAB L501.6600 5-40 mg/dL Normal VLDL 9 Performed By: #### L500.3400, L500.4100 #### [facility] [address] [place], [address] CARDIOLOGY VISIT Observed: 04/12/2018 Status: F Source: [place] REPORT 4:15 PM [facility] REPOSITORY [facility] [address] [place] [address] OFFICE VISIT Date of Service: 04/12/18 MR#: [id number] Acct: [id number] Name: ANALY SUH Rep #: [id number] : 1955 Provider: Barry Kolb MD Age/Sex: 62/M Location: [facility] Status: Signed HPI [facility] Chief Complaint: Follow-up visit. Details: ANALY SUH, is a 62 M who presents to [...] Body Mass Index (BMI) 28.1 04/12/18 Blood Pressure 108/58 04/12/18 Respiratory Rate 16 04/12/18 Pulse [...] 0.4 mg sublingual tablet 0.4 mg SUBLINGUAL Q5- 15M PRN 04/11/18 [History Confirmed 04/12/18] ramipril 2.5 mg capsule 2.5 mg PO .QD 90 Days cap 04/11/18 [History Confirmed 04/12/18] metoprolol succinate ER 25 mg tablet,extended release 24 hr 25 mg PO QPM 90 Days #90 tab 04/12/18 [History Confirmed 04/12/18] rosuvastatin 20 mg tablet 20 mg PO DAILY 04/12/18 [History Confirmed 04/12/18] [facility] Medical History Hypertension (Chronic) Hyperlipidemia (Chronic) History of coronary artery stent placement (Resolved 05/29/04) Atherosclerosis of coronary artery bypass graft without angina pectoris (Chronic) Surgical History H/O bilateral inguinal hernia repair (Resolved) H/O hemorrhoidectomy (Resolved) Family History Father CAD (coronary artery disease) Mother CAD (coronary artery disease) Social History Smoking Status: Never smoker ROS Const Const: Negative for fatigue, weakness, difficulty sleeping, frequent falls, excessive sweating or headache(s) Eyes Eyes: Negative for loss of peripheral vision, transient loss of vision, blurry vision, tunnel vision [...] joint pain Skin Skin: Negative non-healing lesions, unusual bruising or rash Neuro Neuro: Negative for weakness, frequent falls, headache(s), blurry vision, double vision, dizziness, lightheadedness, orthostatic symptoms, near syncope, syncope or lack of coordination Chris Hematologic/Lymphatic: Negative for easy bruising or easy bleeding Endo Endo: Negative for fatigue, excessive sweating or increased thirst/drinking Psych Psych: Negative for anxiety or depression Allergy Allergy/Immunology: Negative for hives, Negative for rash Cardiology Exam Const Appearance: cooperative, healthy appearing, well developed, well groomed and no acute distress Nutritional Appearance: well nourished and average body habitus Orientation: alert, awake and oriented x3 Head Head: normal to inspection, normocephalic and atraumatic Ears: hearing grossly normal bilaterally and external ears normal Nose: external nose normal, nasal mucous membranes and turbinates normal, nares normal, septum normal, no nasal discharge Face and Sinus: face symmetric Mouth: oral mucosae normal, tongue normal, oropharynx normal and moist mucous membranes Teeth and gingiva: dentition normal Throat: posterior oropharynx normal, tonsils normal and uvula midline Eyes General: appearance normal, both eyes and all related structures Eyelids: eyelids normal Conjunctivae: conjunctivae normal Pupils: PERRL, normal by confrontation and accommodation normal EOM: EOM intact bilaterally Neck Neck: normal visual inspection, trachea midline and no JVD [...] Pulse, Left Dorsalis Pedis Pulse, Right Posterior Tibial Pulse, Left Posterior Tibial Pulse, Right Radial Pulse, Left Radial Pulse Lower Extremity Edema: None: Bilateral Musculoskel Musculoskeletal: No joint tenderness Psych Psychological: normal affect Assessment AND Plan 1. History of coronary artery stent placement Z95.5 PCI-Cx w/ 3.0 x 24 mm Compo Conveyor Operator Stent Plan He is status post coronary artery angioplasty and continues to do remarkably well I would not recommend that we make any changes [...] Plan He does have a history of hyperlipidemia and has been having lipid profiles performed through your office. He may however be prudent to obtain a more recent one. Overall he is doing remarkably well and I would not make any changes. Thank you for allowing me to participate in his care. Plan Detail Other Orders Orders: Follow Up 1 Year (ux engineer) Coding Level of Care Code Off vis,est,level 3 Diagnoses History of coronary artery stent placement Z95.5 Essential hypertension I10 Hypertension type: essential hypertension Pure hypercholesterolemia E78.00; E78.0 Hyperlipidemia type: pure hypercholesterolemia Coding Level of Care Code Off vis,est,level 3 Diagnoses History of coronary artery stent placement Z95.5 Essential hypertension I10 Hypertension type: essential hypertension Pure hypercholesterolemia E78.00; E78.0 Hyperlipidemia type: pure hypercholesterolemia 04/12/18 1615 <Electronically signed by Barry Kolb MD> Date Barry Kolb MD Cosigner Signature: Date (if applicable) CC: Ela Salgado MD ALLERGIES ALLERGIES DATE TYPE / CODE NAME / CODE REACTION SEVERITY SOURCE 04/12/2018 Drug morphine/F00 gi upset Unknown [facility] Allergy/4160 [id number]([facility] [address]83(SNOMED RM) Repository CT) 04/12/2018 Drug codeine/F006 gi upset Unknown [facility] Allergy/4160 726353([facility] 39218(SNOMED M) Repository CT) ENCOUNTERS ENCOUNTERS ADMIT/DISCHARGE ACCOUNT ADMITTING ENCOUNTER LOCATION SOURCE NUMBER CLASS 09/05/2018 [id number] Ambulatory [facility] ing:[facility] Repository 09/04/2018 3231 Ambulatory Building:[facility] [place] Practices Repository 08/17/2018 [id number] Ambulatory [place] [facility] [facility] ing:[facility] Repository 06/20/2018 [id number] Ambulatory [place] [facility] [facility] ing:[place] Repository 04/20/2018 [id number] Ambulatory [place] [facility] [facility] ing:LAB Repository 04/12/2018/ [id number] Ambulatory [facility]Building:B [facility] 5 [facility] Repository 04/11/2018 [id number] Ambulatory [facility]Building:B [facility] Repository PAYERS PAYERS ENCOUNTER GUARANTOR PAYER SUBSCRIBER SOURCE 09/05/2018 ANALY Bergman Primary ANALY Bergman [place] [id number] Insurance:MEDICAL EDINGTONDOB: [facility] MAIN [facility] BOX [facility] [id number] Number: Repository [id number]: [phone] [id number] [phone] () Date:[id number] [address]DA: 09/05/2018 Secondary NOT GIVENUNK [place] Insurance:SELF PAY [facility] Number: Effective Repository Date:2018-09-04 09/04/2018 ANALY A Primary ANALY A [facility] Practices EDINGTONDOB: Insurance:Medical EDINGTONDOB: Repository [id number] Box [facility] [id number] Number: [address] [place], [place] [address], [address]Cxn: [phone]) [id number] [place] [address]Hbq: [phone] Date:0078-90-15Ipzr ()Tel: (330) Name:FPO Box () [phone] () [address] [place] [id number]: 09/04/2018 Secondary ANALY A OH[facility] Practices Insurance:[place] EDINGTONDOB: Repository /[facility] Number: [id number] [address], Date:2005-07-15 - [place] [id number]: [id number] ~(3 Name:[address] () [id number], [place] [id number]: 08/17/2018 ANALY A Primary ANALY A [place] [id number] Insurance:MEDICAL EDINGTONDOB: [facility] [address] [facility] [id number] Number: Repository [phone]: [phone] [id number] [phone] () Date:2656-24-45OY [address] [address]KJ: 08/17/2018 Secondary NOT GIVENUNK [place] Insurance:SELF PAY [facility] Number: Effective Repository Date:2018-08-17 06/20/2018 ANALY A Primary ANALY A [place] [id number] Insurance:MEDICAL EDINGTONDOB: Community [address] [facility] [id number] Number: Repository [id number]: [phone] [id number] [phone] () Date:6077-78-60LI [address] [address]BB: 06/20/2018 Secondary NOT GIVENUNK [place] Insurance:SELF PAY [facility] Effective Repository Date:2018-06-19 04/20/2018 ANALY A Primary ANALY A [place] [id number] Insurance:MEDICAL EDINGTONDOB: Community [address] [facility] [id number], [place] Number: Repository [phone]: ([phone] [id number] [phone] () Date:2853-13-87ER [address] [address]AT: 04/20/2018 Secondary NOT GIVENUNK [place] Insurance:SELF PAY [facility] Number: Effective Repository Date:2018-04-20 04/12/2018 ANALY A Primary ANALY A [place] [id number] Insurance:MEDICAL EDINGTONDOB: Community [address] [facility] [id number], [place] Number: Repository [phone]: ([phone] [id number] [phone] () Date:0437-15-25HP [address] [address]OW: 04/12/2018 Secondary NOT GIVENUNK [place] Insurance:SELF PAY [facility] Number: Effective Repository Date:2018-03-17 04/11/2018 ANALY A Primary NOT GIVENUNK [place] [id number] S Insurance:SELF PAY [facility] [address] Number: Effective Repository [id number]: [phone] Date:2018-04-11 56 ()
--- OUTSIDE RECORDS SUMMARY | 2018-11-07 17:12 | XMS RPT_ITS | Continuity of Care Document ---
:1955 Author Organization [facility] Address [address] [facility] [address] [place] [address] Phone Care Team Providers Name Role Phone [...] to stretch. handout given on execises and mohhz6eeu if not better rexray send PT Status: [...] CP with URI found 1995. Cath at [facility] 12-01-95 with coronary artery vasospasm (took adderall then), OR with PTCA, circ 2003, see Dr. 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[employer]) Coding Level of Care Code Off vis,est,level [...] 3 Views Result: Comments: See Note; NOTES: [facility] Imaging Services [address] [place] [address] Foot min 3 Views MR#: [id number] Acct: [id number] Name: DRAGAN FORREST Rep #: [id number] : 1955 M 61 From: Vikas Hummel MD PCP: Ela Salgado MD Status: REG CLI Study: Foot min 3 Views Date of Exam: 07/06/17 Exam# [id number] Ordering Dr: Agapito Don DO STUDY: X-RAY [...] Vikas Hummel MD at 14:20 EST Tel [phone], Service support , Fax CC: Ela Salgado MD; Agapito Don DO Slat Basket Maker: Signed 05-Jul-2017 Ankle min 3 Views Result: Comments: See Note; NOTES: [facility] Imaging Services [address] [place] [address] Ankle min 3 Views MR#: [id number] Acct: [id number] Name: DRAGAN FORREST Rep #: [id number] : 1955 61 From: Vikas Hummel MD PCP: Ela Salgado MD Status: REG CLI Study: Ankle min 3 Views Date of Exam: 07/05/17 Exam# [id number] Ordering Dr: Ela Salgado MD STUDY: X-RAY [...] Vikas Hummel MD at 15:29 EST Tel [phone], Service support [phone], CC: Ela Salgado MD Slat Basket Maker: Signed 17-Feb-2017 NCS and/or EMG Patient Result: Comments: See Note; NOTES: [facility] Pulmonary Services/Neurology [address] [place] [address] NCS and/or EMG Patient MR#: [id number] Acct: [id number] Name: DRAGAN FORREST Rep #: [id number] : 1955 61 From: Donnie Smith Referring Dr: Ela Salgado MD Status: REG CLI Ordering Dr: Ela Salgado MD Date: 02/16/17 Location: [facility] Sex: M C DATE OF SERVICE: [...] Date Dictated: 02/17/17 Date Transcribed: 02/17/17 0710 Slat Basket Maker: MB Signed 14-Sep-2016 Wrist min 3 Views Result: Comments: See Note; NOTES: [facility] Imaging Services [address] [place] [address] Verdana 4d Wrist min 3 Views MR#: [id number] Acct: [id number] Name: DRAGAN FORREST Rep #: [id number] : 1955 61 From: Vikas Hummel MD PCP: Ela Salgado MD Status: REG CLI Study: Wrist min 3 Views Date of Exam: 09/14/16 Exam# [id number] Ordering Dr: Ela Salgado MD STUDY : [...] Hummel MD at 12:[address] Tel [phone], Service support [phone], CC: Ela Salgado MD Slat Basket Maker: Signed 12-May-2016 Carotid Duplex Ultrasound Result: Comments: See Note; NOTES: [facility] Cardiovascular Services [address] [place] [address] Carotid Duplex Ultrasound 05/05/16 1237 MR#: [id number] Acct: [id number] Name: DRAGAN FULLER Rep #: [id number] : 1955 60 From: Tyrone Daniels MD Attending Dr: Ela Salgado MD Status: REG CLI Ordering Dr: Ela Salgado MD Date: 05/05/16 Location: [facility] Sex: M C Admitted: Reason For Study: [...] the left vertebral artery. Procedure Carotid Duplex 51123. Exam performed in department. Interpreta tion Summary Mild (<50%) stenosis right extracranial internal carotid. Mild (<50%) stenosis left extracranial internal carotid. Flow within the vertebral arteries is antegrade bilaterall y. Ordering Physician: Ela Salgado Performed By: Elvia Wilson RVT 05/12/16 0843 Date Tyrone Daniels MD CC: Ela Salgado MD Date Dictated: 05/05/16 1237 Date Transcribed: 05/12/16 0843 Slat Basket Maker: Signed Family History Unknown Family Member Name Dates Details Brother 1 Comments: lives in [facility], lives with parents hx. Drug addiction Status: Active Daughter 1 Comments: lives in [place] Status: Active Daughter 2 Comments: lives in [place] Status: Active Father Comments: after age 60 [...] Living Situation Comments: , heterosexual, grow apart. sikh important Status: Active Most Recent Primary Occupation [...] kg/m2 Body Surface Area Calculated 2.21 m2 7-Pjk-438121:26 Temperature 97.8 f Comments: Method: Oral Pulse [...] Height 0 in Head Circumference 0.00 cm 30-Min-88013:51 Pulse 68 /min Comments: Pattern: Regular Respiration [...] Description Value Details :43 Lipid Profile Comments: [facility] [address] [place], [address] VLDL 9 mg/dL (Normal) Range: 5-40 LDL [...] mg/dL High Risk :43 Liver Profile Comments: [facility] [address] [place], [address] D BILI 0.20 mg/dL (Normal) Range: 0.00-0.30 T BILI 0.70 mg/dL (Normal) Range: 0.20-1.00 ALT 36 U/L (Normal) Range: 16-61 ALK P 50 U/L (Normal) Range: 45-117 AST 35 U/L (Normal) Range: 15-37 GLOB 3.1 g/dL (Normal) Range: 2.2-4.2 ALB 3.7 g/dL (Normal) Range: 3.2-5.0 T PROT 6.8 g/dL (Normal) Range: 6.4-8.2 :22 Allergan with IGE Area 5 Comments: PATIENT NOT FASTINGPERFORMED BY: [facility] [id number] ([place]) ([address]) C228-WaU Mouse Urine <0.10 kU/L (Normal) K593-YkB Sheep [place] <0.10 kU/L (Normal) Q032-MeJ Pigweed, Common <0.10 kU/L (Normal) Z187-ZbF Thistle, Nepalese <0.10 kU/L (Normal) S337-PoQ Ragweed, Short <0.10 kU/L (Normal) Q595-JaP White [place] <0.10 kU/L (Normal) V113-UqP Pecan, [place] <0.10 kU/L (Normal) I634-QuX Joshua, White <0.10 kU/L (Normal) O393-ArG [place] <0.10 kU/L (Normal) U196-YmV Maple Shelly [place] <0.10 kU/L (Normal) D425-WtE [place] <0.10 kU/L (Normal) G211-RqX Elm, Sao Tomean <0.10 kU/L (Normal) V796-EkT Preston, White <0.10 kU/L (Normal) Z570-TjM [place], Mountain <0.10 kU/L (Normal) E126-JlA Common Silver Birch <0.10 kU/L (Normal) T302-QuO Maple/Chase <0.10 kU/L (Normal) U136-FxB Alternaria alternata <0.10 kU/L (Normal) I132-LgR Aspergillus fumigatus <0.10 kU/L (Normal) R076-KoN Cladosporium herbarum <0.10 kU/L (Normal) E046-IqF Penicillium chrysogen <0.10 kU/L (Normal) X109-UiE Cockroach, Slovenian <0.10 kU/L (Normal) A307-KbC Soy Grass <0.10 kU/L (Normal) H119-BmG Bermuda Grass <0.10 kU/L (Normal) T540-LeG Dog Dander <0.10 kU/L (Normal) N200-FaR Cat Dander <0.10 kU/L (Normal) H772-XiR D farinae <0.10 kU/L (Normal) U229-TuS D pteronyssinus <0.10 kU/L (Normal) Immunoglobulin E, [...] 100.00 V Very High >100.00 Very High 4-Jhw-312570:48 TESTOSTERONE FREE (25668) Comments: PATIENT NOT FASTINGPERFORMED BY: [facility] [place] [id number] [facility] [id number] BY: [address] [id number] Free Testosterone(Direct) 17.2 pg/mL (Normal) Range: 6.6-18.1 :48 HEPATITIS C ANTIBODY Comments: PATIENT NOT FASTINGPERFORMED BY: [address] [id number] BY: [address] [id number] (07520) Hep C Virus Ab <0.1 {s/co_ratio} (Normal) Range: 0.0-0.9 Comments: Negative: < 0.8 Indeterminate: 0.8 - 0.9 Positive: > 0.9 . The CDC recommends that a positive HCV antibody result be followed up with a HCV Nucleic Acid Amplification test (064453). :48 URINALYSIS (89300) Comments: PATIENT NOT FASTINGPERFORMED BY: [place] [id number] [facility] [id number] BY: [address] [id number] Microscopic Examination MICNIP (Normal) Comments: Microscopic not indicated and not performed. Nitrite, Urine Negative (Normal) Urobilinogen,Semi-Qn 1.0 mg/dL (Normal) Range: 0.2-1.0 Bilirubin Negative (Normal) Occult Blood Negative (Normal) Ketones Negative (Normal) Glucose Negative (Normal) Protein Negative (Normal) WBC Esterase Negative (Normal) Appearance Clear (Normal) Urine-Color Yellow (Normal) pH 5.5 (Normal) Range: 5.0-7.5 Specific [place] 1.022 (Normal) Range: 1.005-1.030 :48 CBC WITH MANUAL DIFF Comments: PATIENT NOT FASTINGPERFORMED BY: [address] [id number] BY: [address] [id number] Inf ormation: NURSE DRAW (94479) Immature Grans (Abs) 0.0 {x10E3/uL} (Normal) Range: [...] 4.14-5.80 WBC 6.5 {x10E3/uL} (Normal) Range: 3.4-10.8 0-Ahc-464586:48 Metabolic Panel, Comments: PATIENT NOT FASTINGPERFORMED BY: CB [facility] Yainmg1555 [facility] [id number] BY: BN [facility] [address] [id number] [facility] (15256) ALT (SGPT) 29 [iU]/L (Normal) Range: 0-44 [...] Glucose, Serum 97 mg/dL (Normal) Range: 65-99 33-Ebl-16382:33 CBC W/Diff, Automated Comments: [facility] [address] [place], [place], [address] ; will review on 02/28 Absolute Lymph [...] 4.6-6.2 WBC 5.5 K/mm3 (Normal) Range: 4.4-11.0 42-Izo-09586:33 Comprehensive Metabolic Profil Comments: [facility] [address] [place], [place], [address] GAP 4 (Abnormal) Range: 5-15 CO2 29.0 [...] 70-110 :33 CPK Total, Creatine Kinase Comments: [facility] L[address] [facility]. [place], [place], [address] CPK TOTAL 176 U/L (Normal) Range: 39-308 :33 Homocysteine Comments: [facility] [address] [facility] [place], [place], [id number] HOMOCYSTEINE 7.1 umol/L (Normal) Range: 3.2-10.7 :33 [...] the US Food and Drug Administration.Performed at: [place] [id number] [place] [address] [id number] Director: Francois Davis MD, Phone: [phone] INS RES/DIAB RK . (Normal) LDL SIZE [...] LIPIDS . (Normal) :33 Testosterone Free Comments: [facility] (refer to report for specific site)refer to report for address and phone number TEST FR 550434 15.2 pg/mL (Normal) Range: 6.6-18.1 Comments: Performed at: [address] [id number] Director: Francois Davis MD, Phone: [phone] 17-May-20164:30 Pathology Report Comments: PERFORMED BY: KWCYT [facility] [place] Cyto Xqibt79553 [facility] [id number] Information: [id number] See MATER Comments: Material submitted: .PART A: [...] IN CASSETTE(S) B./LMSLMS/LMSPathologist provided ICD-10:D18.01, L98.9, D49.2CPT .667110, 362882 :31 ESTRADIOL (73473) Comments: recheck in 3 months; PATIENT NOT FASTINGPERFORMED BY: Kwicr Gwcikj4595 [place] [id number] BY: [address] [id number] Information: NURSE DRAW Estradiol 17.5 pg/mL (Normal) Range: 7.6-42.6 Comments: Tahir ECLIA methodology :31 TESTOSTERONE FREE (46604) Comments: recheck in 3 months; PATIENT NOT FASTINGPERFORMED BY: [employer] Mgjnrd8939 [facility] [id number] BY: [facility] [id number] Free Testosterone(Direct) 14.6 pg/mL (Normal) Range: 6.6-18.1 :31 PSA (Prostate Specific Comments: re check in 3 months; PATIENT NOT FASTINGPERFORMED BY: Fiix70 [facility] [id number] BY: [address] [id number]; fu 1 Antigen), Diagnostic (70724) Prostate Specific Ag, 0.6 ng/mL (Normal) Range: 0.0-4.0 Serum Comments: Move In HistoryIA methodology. .According to the [place] Urological Association, Serum PSA shoulddecrease and remain at undetectable levels after radicalprostatectomy. The AUA defines biochemical recurrence as an initialPSA value 0.2 ng/mL or greater followed by a subsequent confirmatoryPSA value 0.2 ng/mL or greater.Values obtained with d ifferent assay methods or kits cannot be usedinterchangeably. Results cannot be interpreted as absolute evidenceof the presence or absence of malignant disease. 04-Gbd-588423:05 FSH and LH Comments: PATIENT NOT FASTINGPERFORMED BY: [employer] LabShellcatchrp Imvpaq7418 [facility] [id number] Information: S67718, 718762; will f/u on 05/17 FSH 9.6 m[iU]/mL Range: 1.5-12.4 (Normal) LH 6.3 m[iU]/mL Range: 1.7-8.6 (Normal) Written Authorization WAR (Normal) Comments: PATIENT NOT FASTINGPERFORMED BY: [facility] Cagxey6780 Pedroza RoadDublin [place] [id number] 4:05 Comments: Written Authorization Received.Authorization received from SIGNATURE ON FILE [id number] by Yanna Matos 29-Qku-585216:05 Methymalonic Acid, Serum Comments: PATIENT NOT FASTINGPERFORMED BY: [facility] [id number] BY: [facility] [address] [facility] [place] [id number] ([address]36) Methylmalonic Acid, Serum 202 nmol/L (Normal) Range: 0-378 65-Hdh-344528:05 Vitamin B-12 Comments: PATIENT NOT FASTINGPERFORMED BY: [facility] [address] [id number] BY: [facility] Whuyvs2752 Pedroza [facility] [place] [id number] (cyanocobalamin) (06057) Vitamin B12 724 pg/mL (Normal) Range: 211-946 28-Omb-429831:05 TESTOSTERONE FREE (10479) Comments: in am; PATIENT NOT FASTINGPERFORMED BY: [facility] [address] [id number] BY: [facility] Ulvdbu3613 [address] [facility] [place] [id number] Information: [id number], 470904 Free Testosterone(Direct) 5.6 pg/mL (Abnormal) Range: 6.6-18.1 19-Yuw-11318:44 PSA (Prostate Specific Comments: PATIENT NOT FASTINGPERFORMED BY: [facility] [address] [facility] [place] [id number] Information: [id number],NURSE DRAW Antigen), Screening (70597) Prostate Specific Ag, 0.6 ng/mL (Normal) Range: 0.0-4.0 Serum Comments: Tahir ECLIA methodology. .According to the [place] Urological Association, Serum PSA shoulddecrease and remain [...] disease. :19 Lipid Profile Comments: Test performed at:[facility] [address] [place], [place] [address] VLDL 10 mg/dL (Normal) Range: 5-40 LDL [...] Risk :19 Liver Profile Comments: Test performed at:[facility] [address] [place], [place] [address] D BILI 0.25 mg/dL (Normal) Range: 0.00-0.30 [...] Comments: PATIENT NOT FASTINGPERFORMED BY: EDNA [facility] Pcgwjx8790 [place] [id number] Information: [id number] A1C) (38272) Hemoglobin A1c 6.0 % (Abnormal) Range: 4.8-5.6 [...] CHOL 117 mg/dL (Normal) Comments: <200 mg/dL Nsdtkbwbp517-053 mg/dL Borderline>240 mg/dL High Risk :03 LIVER [...] CHOL 145 mg/dL (Normal) Comments: <200 mg/dL Apkbljtzr445-691 mg/dL Borderline>240 mg/dL High Risk :43 LIVER [...] CHOL 100 mg/dL (Normal) Comments: <200 mg/dL Ergmvrlfu387-366 mg/dL Borderline>240 mg/dL High Risk HDL 37 mg/dL (Normal) Comments: Reference RangeHDL <40 mg/dL Low HDL CholesterolHDL >or= 60 mg/dL High HDL Cholesterol LDL 51 mg/dL (Normal) Range: 0-130 TRIG 59 mg/dL (Normal) Comments: Serum Triglycerides Reference IntervalNormal <150 mg/dLBorderline high 150 - 199 mg/dLHigh 200 - 499 mg/ dLVery High > or = 500 mg/dL 92-Bhy-583326:50 LIVER ALT 49 U/L (Normal) Range: 12-78 D BILI 0.22 mg/dL (Normal) Range: 0.00-0.30 T BILI 0.80 mg/dL (Normal) Range: 0.00-1.00 ALB 3.7 g/dL (Normal) Range: 3.4-5.0 ALK P 49 U/L (Abnormal) Range: 50-136 AST 42 U/L (Abnormal) Range: 15-37 T PROT 7.0 g/dL (Normal) Range: 6.4-8.2 01-Dzk-436129:51 ACUTE ABDOMEN, INC CHEST (MT) Radiology Report See Note (Normal) Comments: Exam Number: [id number] ACUTE ABDOMINAL SERIES WITH PA CHEST INDICATIONSevere [...] of theabdomen. Reported By: DEVIN SANDHU M.D. 62-Rrv-029748:55 ABDOMEN LIMITED US () Radiology Report See Note (Normal) Comments: Exam Number: [id number] LIMITED ABDOMINAL ULTRASOUND HISTORYRight upper quadrant pain. [...] :42 LIPASE 148 U/L (Normal) Range: 114-286 73-Vgb-291765:25 CBCD Comments: DR. MENG ORDERED LIPID/LPDR.LIPID CMP [...] LIPID/LPDR.LIPID CMP CBCD PSA UA Range: 0.00-0.30 06-Xbj-457483:25 LIPID Comments: DR. MENG ORDERED LIPID/LPDR.LIPID CMP [...] AMOUNT GROWTH 3+ ORGANISM 1: HAEMOPHILUS INFLUENZA 85-Rji-276160:46 Rapid Strep Test, Office (17165) Rapid Strep Test, Office Negative (Normal) :23 [...] was performed using the TPSA method for the[employer] chemistry system.Values obtained with different assay methods [...] treatment Indication: Pharyngitis, acute Planned Observations CALCIFIDIOL (07896) VIT D 25Indication: Vitamin D insufficiency On: :44 Request METABOLIC PANEL, COMPREHENSIVE (57489)Indication: Hyperlipidemia, unspecified On: :43 Request LIPOPROTEIN, BLD, BY NMR (61255)Indication: Hyperlipidemia, unspecified On: :43 Request Homocysteine, Plasma (97515)Indication: Homozygous MTHFR mutation T6023Y On: 29-Slq-062379:40 Request METABOLIC PANEL, COMPREHENSIVE (60818)Indication: Hypercholesterolemia On: 2-Imt-166461:55 Request TESTOSTERONE FREE (22607)Indication: Testosterone deficiency On: :27 Request CBC, Platelets & Auto Diff (49617)Indication: Testosterone deficiency On: :27 Request Creatine Kinase Total (55397)Indication: Hypercholesterolemia On: :18 Request LIPOPROTEIN, BLD, BY NMR (43682)Indication: Hypercholesterolemia On: :18 Request Homocysteine, Plasma (46649)Indication: Homozygous MTHFR mutation M5262F On: :17 Request CBC WITH MANUAL DIFF (28352)Indication: Testosterone deficiency On: :41 Request Comments: re check in 3 months CBC with auto diff (93401)Indication: Elevated LFTs On: :49 Request Comments: copy to Dr. sky URINALYSIS, W/ MICRO (35227)Indication: Coronary artery disease On: :39 Request METABOLIC PANEL, COMPREHENSIVE (02097)Indication: Elevated LFTs On: :38 Request LIPID PANEL (78273)Indication: Coronary artery disease On: :38 Request Hemoglobin Glyclated (HGB A1C) (03242)Indication: IFG (impaired fasting glucose) On: :06 Request Comments: recheck in 3 months LIPID PANEL (53969)Indication: Hypercholesterolemia On: : Request PSA (PROSTATE SPECIFIC ANTIGEN) (V76.44)Indication: Encounter for health maintenance examination with abnormal findings On: : Request CBC (Auto) (93127)Indication: Coronary artery disease On: : Request Metabolic Panel, Basic (35636)Indication: Coronary artery disease On: : Request TSH (85400)Indication: Anxiety On: : Request CBC & PLATELETS (AUTO) (63036)Indication: Hypercholesterolemia On: 01-Odl-482137:56 Request LIPID PANEL (83574)Indication: Hypercholesterolemia On: :56 Request METABOLIC PANEL, COMPREHENSIVE (61433)Indication: Hypercholesterolemia On: 78-Nnn-400116:55 Request Metabolic Panel, Basic (49691)Indication: Hypercholesterolemia On: :31 Request Lipid Panel (59360)Indication: Hypercholesterolemia On: 48-Mpf-68762:30 Request PSA (PROSTATE SPECIFIC ANTIGEN) (V76.44)Indication: Encounter for health maintenance examination with abnormal findings On: :28 Request CBC (Auto) (77250)Indication: Coronary artery disease On: :28 Request Metabolic Panel, Basic (22803)Indication: Coronary artery disease On: :28 Request TSH (49244)Indication: Anxiety On: :28 Request PSA (PROSTATE SPECIFIC ANTIGEN) (V76.44)Indication: Encounter for health maintenance examination with abnormal findings On: :30 Request TSH (27485)Indication: Anxiety On: :30 Request METABOLIC PANEL, COMPREHENSIVE (38702)Indication: Hypercholesterolemia On: 7-Wnb-792118:30 Request LIPID PANEL (79159)Indication: Hypercholesterolemia On: 3-Rmm-624288:30 Request CBC WITH MANUAL DIFF (50845)Indication: Hypercholesterolemia On: 3-Uhx-659581:30 Request Lipase (83834)Indication: Epigastric pain On: 3-Ybo-174144:24 Request Amylase (92873)Indication: Epigastric pain On: 9-Gbs-423437:24 Request Metabolic Panel, Comprehensive (06737)Indication: Epigastric pain On: 5-Htc-838099:24 Request CBC with manual diff (03803)Indication: Epigastric pain On: 3-Jqi-486869:24 Request Metabolic Panel, Comprehensive (58853)Indication: Coronary artery disease On: 87-Vaq-698619:13 Request URINALYSIS (05102)Indication: Coronary artery disease On: 37-Odz-734746:30 Request CBC (Auto) (62088)Indication: Coronary artery disease On: 04-Mak-828086:30 Request Lipid Panel (49559)Indication: Coronary artery disease On: 68-Hoo-635093:30 Request Metabolic Panel, Comprehensive (77208)Indication: Coronary artery disease On: 50-Hsg-859465:30 Request PSA (PROSTATE SPECIFIC ANTIGEN) (V76.44)Indication: Screening for prostate cancer On: 00-Ays-461975:29 Request JOANA CULTURE-OTHER (96433)Indication: Pharyngitis, acute On: 60-Vdq-790959:46 Request PSA (PROSTATE SPECIFIC ANTIGEN)Indication: Screening for prostate cancer On: 4-Zem-108047:05 Request CBC WITH MANUAL DIFF (04567)Indication: Coronary artery disease On: 4-Dkw-821641:05 Request LIPID PANEL (59116)Indication: Coronary artery disease On: 7-Kae-572001:05 Request METABOLIC PANEL, COMPREHENSIVE (68970)Indication: Coronary artery disease On: 5-Ctu-685076:05 Request Planned Encounters Medical; [facility] Pre Wellness Exam (DB Nurse) - On: 17-Aug-2018 8:15 [facility] JELANI Goodman; SANTOS[facility] Wellness Exam (Doctor) - On: 04-Sep-2018 8:00 [facility] Damian HERNANDEZ, Ela Salgado MD, Ela Lr Planned Procedures Flu Vaccine (Quadrivalent) On: 12-Jun-2018 Intent 29893Bd: Ela Salgado MD Comments: Lot #[id number]-2/30/2019Site-L dltd, IMDose prefilled syringegiven by: Geovany reviewed and ABN signed Ela Salgado MD Toradol Injection, 30 mg On: 12-Jun-2018 Intent (J1885)By: Ela Salgado MD Comments: lot: [id number]: 01/2020site/route: RGM/IMamt: 1mLVIS signed when applicableSAGE Becerra MD, Dana M Toradol Injection, 30 mg On: 04-Jan-2018 Intent (J1885)By: Ela Salgado MD, MD, Dana M Toradol Injection, 30 mg On: 12-Oct-2017 Intent (J1885)By: Zana LOOMIS, Aga PNEUM VAC ADLT/IMUMNOSPR, On: 10-Aug-2017 Intent SB/INTR (62129)By: Damian Comments: lot:[id number]:8-02-0007sls:IM right deltoid dose:0.5ml given by:mayra ABN signedER, Ela POOL MD, MD, Dana M Radiology - Ankle - RightBy: On: 05-Jul-2017 Intent Ela Salgado MD Comments: call wet read [phone] Ela Asencio MD EMGBy: Ela Salgado MD On: 17-Jan-2017 Intent Ela Salgado MD Nerve ConductionBy: Damian On: 17-Jan-2017 Intent Ela HERNANDEZ MD, Dana M Comments: right leg Radiology - Wrist - RightBy: On: 14-Sep-2016 Intent Ela Salgado MD Comments: do scaphoid views Ela HERANNDEZ US DOPPLER CAROTID BILATERAL On: 27-Apr-2016 Intent (17166)By: Ela Salgado MD, MD, Dana M ZOSTER VACC, [place] (07096)By: On: 27-Apr-2016 Intent Ela Salgado MD Comments: lot:[id number]:82-40-1823zxi:SC right arm dose:0.65mlgiven by:Praveen signedER, Ela POOL MD TDAP VACCINE >7 IM (61554)By: On: 27-Apr-2016 Intent Ela Salgado MD Comments: lot:[id number]:09-05-18rte:IM left deltoid dose:0.5ml given by:mayra LUZ signedER, Ela POOL MD FLU VAC, SPLIT, >3 YEARS, On: 22-May-2013 Intent INTRAMUSC (58570)By: Lizzie, Comments: lot [id number] 2014site/route R erik, IMamt 0.5mlVIS and ABN signed when applicableSAGE Becerra Mariam IMMUNIZ ADMNIN, 1 VAC, On: 22-May-2013 Intent SNGL/COMBO (25264)By: Mariam Samuel Toradol Injection, 30 mg On: [...] back pain, Testosterone deficiency, Homozygous MTHFR mutation O8264E, Encounter for health maintenance examination with abnormal findings, BMI 28.0-28.9,adult , Pneumococcal vaccination given, Hyperlipidemia, unspecified, Vitamin D insufficiency, Verrucous keratosis [facility] Lab Order On: 13-Jul-2017 15:37 Encounter Diagnosis: Coronary artery disease, Homozygous MTHFR mutation [id number], Need for hepatitis C screening test, Testosterone [...] disease), Anxiety, Testosterone deficiency, Homozygous MTHFR mutation [id number], Wrist pain, acute, right, Hypercholesterolemia, BMI 31.0-31.9,adult, [...] right, Testosterone deficiency, Anxiety, Homozygous MTHFR mutation [id number] [facility] Office Visit On: 17-May-2016 [...] for Tdap vaccination (Renamed from Need for sxsekorxhk-zocoicc-clcueobgs (Tdap) vaccine, adult/adolescent), Need for zoster vaccination, [...] 16:40 [facility] End: 19-Dec-2006 16:40 [facility]; randi guarantor
== END ==
PROVIDERS: Family Provider Internal Medicine; PCP Internal Medicine; Referring Provider Internal Medicine; Visit Provider Internal Medicine
DX: I65.23 Occlusion and stenosis of bilateral carotid arteries (principal)
CPT/HCPCS: 93880

== ENCOUNTER 2018-09-11 14:16 | Outpatient (RCR) | payer OTHER, SELFPAY | END 2018-09-11 19:00 | disposition home or self-care (01) | LOC: PT 14:16 | PROVIDERS: Family Provider Internal Medicine; PCP Internal Medicine; Referring Provider Internal Medicine; Visit Provider Internal Medicine | DX: M25.562 Pain in left knee (principal) ==

== ENCOUNTER → 2019-08-27 05:31 | Outpatient (CLI) | payer OTHER, SELFPAY ==
--- NOTE | 2019-08-27 17:40 | STRESSREP ---
Stress Test Report Exercise myocardial perfusion stress test. 64-year-old man with a history of coronary artery disease status post angioplasty and stenting of the circumflex artery. Stress protocol: Resting EKG demonstrates normal sinus rhythm with a rate of 61 bpm normal intervals are noted resting blood pressures 132/84 mmHg. The patient exercised according to the regular Robbin protocol for a total duration of 12 minutes. The maximum heart rate attained was 155 bpm which was 99% of maximum predicted heart rate the maximum workload was 13.4 metabolic equivalents. At rest there were no ST or T wave changes noted suggest ischemia and at peak exercise upsloping ST changes only were noted with no meet the criteria for ischemia. During recovery nonspecific ST changes were noted. The resting blood pressure was 132/84 mmHg with a peak blood pressure 198/70 mmHg. No clinical angina was noted the test was terminated due to dyspnea and attainment of target heart rate. Myocardial perfusion protocol. 14.4 mCi of technetium 99m sestamibi was injected at rest. The patient exercised for a total duration of 12 minutes and at peak exercise 44.6 mCi of technetium 99m sestamibi was injected stress images were obtained stress and rest images were reconstructed in comparing the short axis vertical long horizontal long axis. Gated images were also obtained Perfusion SPECT analysis: Review of the stress images demonstrate normal uptake of tracer noted in all areas of myocardium the resting images similar demonstrate normal uptake of tracer noted in all areas of the myocardium. No reversibility is noted suggest ischemia. Gated SPECT analysis: The gated ejection fraction is noted to be 75%. Conclusion: Normal exercise myocardial perfusion stress test at a high workload. No clinical angina noted. Good functional aerobic capacity.
== END ==
PROVIDERS: Family Provider Internal Medicine; PCP Internal Medicine; Referring Provider Internal Medicine Cardiovascular Disease; Visit Provider Internal Medicine Cardiovascular Disease
DX: I25.10 Atherosclerotic heart disease of native coronary artery without angina pectoris (principal); Z95.5 Presence of coronary angioplasty implant and graft
CPT/HCPCS: 78452; 93017; A9500; A4216

== ENCOUNTER → 2019-10-22 | Outpatient (CLI) | payer OTHER, SELFPAY ==
--- NOTE | 2019-10-22 12:55 | CDU_ITS ---
Reason For Study: STENOSIS Rt. Velocities/BP Lt. Velocities/BP Prox CCA 113.8/22.6 cm/sec. Prox CCA 116.2/32.1 cm/sec. Mid CCA 81.2/19.9 cm/sec. Mid CCA 107.0/21.2 cm/sec. Dist CCA 76.4/20.3 cm/sec. Dist CCA 81.5/24.8 cm/sec. Prox ICA 53.3/12.9 cm/sec. Prox ICA 71.0/21.7 cm/sec. Mid ICA 57.2/20.7 cm/sec. Mid ICA 58.2/21.7 cm/sec. Dist ICA 70.3/24.6 cm/sec. Dist ICA 96.6/32.7 cm/sec. Rt. ICA/CCA = 70.3/113.8=0.6. Lt. ICA/CCA = 96.6/116.2=0.8. Prox ECA 101.2/20.3 cm/sec. Prox ECA 85.6/19.9 cm/sec. Rt. Vert. 31.7/10.9 cm/sec. Lt. Vert. 41.6/14.2 cm/sec. Right Extracranial There is intimal thickening but no significant atherosclerotic plaque noted in the right common carotid artery. There is intimal thickening but no significant atherosclerotic plaque noted in the right internal carotid artery. There is no significant atherosclerotic plaque noted in the right external carotid artery. Antegrade flow is noted in the right vertebral artery. Left Extracranial There is homogeneous, smooth atherosclerotic plaque noted in the left common carotid artery. There is intimal thickening but no significant atherosclerotic plaque noted in the left internal carotid artery. There is intimal thickening but no significant atherosclerotic plaque noted in the left external carotid artery. Antegrade flow is noted in the left vertebral artery. Interpretation Summary No significant atherosclerotic plaque or stenosis noted in the internal carotid arteries bilaterally. Flow within the vertebral arteries is antegrade bilaterally. Ordering Physician: Ela Salgado Referring Physician: Ela Salgado Performed By: Hattie Reese RDCS, RVT
== END | disposition home or self-care (01) ==
PROVIDERS: PCP Internal Medicine; Referring Provider Internal Medicine; Visit Provider Internal Medicine
DX: I65.23 Occlusion and stenosis of bilateral carotid arteries (principal)
CPT/HCPCS: 93880

== ENCOUNTER 2020-11-07 14:30 | Outpatient (RCR) | payer MEDICARE, OTHER, SELFPAY ==
[2020-07-03 15:14] VITALS: BMI 30.4
--- NOTE | 2020-09-08 18:37 | HP.PTEVAL_ITS ---
Patient's Visit Information ANALY SUH is a 65 year old M referred to Physical Therapy by Dr. Ela Nunes MD with a diagnosis of LBP AND L RADICULOPATHY. Date of Evaluation: 09/08/20 Physical Therapist: Concepcion Ferreira PT, Cert MDT - Visit Plan Frequency: 2-3x /Week Duration: 4-6 Weeks Plan: AQUATIC THERAPY FOR PAIN RELIEF, POSTURE CORRECTION/STRENGTHENING, INSTRUCTION IN APPROPRIATE BODY MECHANICS AND ACTIVITY MODIFICATIONS. DLS STARTING WITH A NEUTRAL SPINE PROGRESSING ROM TOLERATED. JESSIKA LE ROM, STRETCHING AND STRENGTHENING. HEP INSTRUCTION. 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 CURRENTLY WORK INVOLVES WALKING. NO LIFTING. ABOUT 4 HOURS A DAY SITTING. Present symptoms: JESSIKA LOW BACK. JESSIKA THIGH NUMBNESS. JESSIKA FOOT PLANTAR FASCITIS - JESSIKA FOOT PAIN. LEFT HIP PAIN. Present since: CHRONIC LBP - I'VE ALWAYS HAD BACK SPASMS. THIGH NUMBNESS FOR A LONG TIME TOO. THIGH NUMBNESS WORSENED WITH INCREASED BACK PROBLEMS. FOOT PAIN FOR ABOUT 2 YEARS. Pain Scale: WORST 8/10, LEAST 1/10. Currently: /10. Commenced as a result of: LIFTING - 1976. Symptoms at onset: LOW BACK PAIN - HERNIATED DISC. Worse: STANDING, PROLONGED WALKING BOTHERS HIP AND CAUSES LIMP. Better: SITTING, LYING DOWN, BACK BRACE FROM [facility]. Disturbed sleep: YES. Previous history/Previous treatment: APR 2020 - ONLY BACK SURGERY - LUMBAR MICRODISCECTOMY BY DR. ROCIO MAYORGA. NO FUSION. 1976 - TRACTION. CHIROPRACTOR OFF AND ON SINCE ABOUT 1976 NEEDED. LAST CHIROPRACTIC VISIT - ABOUT 3 YEARS AGO OR SO. NO PHYSICAL THERAPY FOR BACK. NO BRYCE'S. TRAMADOL SHOTS AND MUSCLE RELAXERS NEEDED. Coughing/sneezing/straining: SOMETIMES. Gait: DISTANCE LIMITED DUE TO L HIP PAIN. Difficulty initiating urinatin: ENLARGED PROSTATED BEING TREATED BY DR. NUNES. Accidents: NO. Unexplained weight loss: NO. Imaging: NO IMAGING SINCE LBP APR 2020. PMH: HEART ATTACK AND STENT ABOUT 15 YEARS AGO, HTN, HIGH CHOLESTEROL. 2 HERNIA OPERATIONS. OTHER: IN THE SPRING LEG SX'S GOT WORSE FOR NO APPARENT REASON AND GOT TO THE POINT HE COULD HARDLY WALK. SURGERY HELPED TREMENDOUSLY AND HAS NOT TAKEN PAIN MEDICINE SINCE. L FOOT NUMBNESS PRETTY MUCH WENT AWAY BUT THE THIGH NUMBNESS HAS STAYED. MUSCLE SPASMS IN BACK ARE STARTING TO COME MORE FREQUENTLY AND STATES HE CAN'T DO ANYTHING ON HIS FEET FOR VERY LONG. LAST FOLLOW UP WITH DR. ROCIO MAYORGA WAS MAY [address] MAYORGA'S ASSIST IS AWARE OF THIGH NUMBNESS PER PATIENT REPORT. HAS RELEASED BY DR. MAYORGA. SINCE GOING BACK TO WORK APPROX JUN 2020 BACK SPASMS HAVE INCREASED AND STANDING IS VERY LIMITED. STATES HE REQUESTED HELP WITH EXERCISE AND WAS REFERRED TO PT. - Objective Sitting/Standing Posture: POOR. Lordosis: REDUCED. Lateral shift: NO. Relevant shift: N/A. Active Correction of posture: NE. Other Observations: INDEP GAIT AND TRANSFERS. Motor deficit: JESSIKA LE STRENGTH GROSSLY 5/5 WITH MMT'ING EXCEPT LEFT HIP 4-/5. Sensory deficit: JESSIKA LE LIGHT TOUCH SENSATION INTACT AND SYMMETRICAL DESPITE C/O THIGH NUMBNESS. ROM deficit: TIGHT JESSIKA HIP FLEXORS, HS'S AND GASTROC SOLEUS COMPLEX'S ALONG WITH L HIP IR. Reflexes: UNABLE TO ELICIT JESSIKA LE'S. Dural Signs: POSITIVE JESSIKA LE'S. Lumbar mvmt loss: flex - MOD. ext - BILL. R SG - BILL. L SG - BILL. Core strength: POOR. Palpation: NO ACUTE TENDERNESS WITH PALPATION OF LOWER THORACIC, LUMBAR OR HIP REGIONS. TREATMENT: NEUROMUSCULAR REEDUCATION - RETRAINING OF MVMT AND POSTURE FOR SITTING, LYING AND STANDING ACTIVITIES. - Goals Goal 1:: DECREASE C/O LOW BACK AND JESSIKA LE SX'S. Goal Time Frame: 4-6 Weeks Goal 2:: IMPROVE LIFTING, WALKING, SITTING, STANDING, SLEEP, SOCIAL LIFE, TRAVEL AND HOMEMAKING AND WORK FUNCTION. Goal Time Frame: 4-6 Weeks Goal 3:: INSTRUCT IN PROPHYLAXIS Goal Time Frame: 4-6 Weeks - Anticipated Interventions Patient/Client Instruction: Educate patient on: Condition, Plan of Care, Risk Factors, Benefits of Fitness Program For the Purpose of:: To improve self management Therapeutic Exercise to Include: Strength training, Body mechanics, Postural training, Flexibilty training, Gait and locomotor training, Neuromotor de velopment, In an aquatic setting, Dynamic Lumbar Stabilization Comment: PATIENT REPORTS HE NEEDS A L THR PER DR. ROCIO MAYORGA. For the Purpose of:: To decrease pain, To improve muscle performance and motor function, To increase tolerance to activity/condition/position, To improve ability of physical actions for home/community/work/leisure, To improve gait and locomotor functions Thank you for the opportunity to evaluate your patient. For Medicare and Medicare HMO plans, please review the plan of care and approve it. It will need to be FAXED BACK to us at [phone] for Medicare purposes. For Medicare only, by signing this I certify the plan of care. Please let me know if there are questions or concerns regarding this plan of care. Physician Signature: Date:
--- NOTE | 2020-09-30 14:36 | HP.PTREVAL ---
Dr. Ela Salgado MD, It has been my pleasure to treat ANALY SUH over the last 10 visits for LBP AND L RADICULOPATHY. Please see the progress note below for an update on the physical therapy plan of care! Subjective: PATIENT REPORTS HIS BACK SPASMS ARE MUCH MORE MILD AND INFREQUENT. PATIENT REPORTS THE NUMBNESS IN HIS LEGS IS GETTING BETTER TOO. HE STATES HE IS LEARNING TO ADJUST HIS POSTURE TO HELP CONTROL HIS PAIN. PATIENT REPORTS HE CAN STAND BETTER BUT HIS L HIP IS STILL LIMITING HIS WALKING. PATIENT ALSO REPORTS HIS PAIN IS STILL CONSTANT BUT THE INTENSITY HAS IMPROVED. PATIENT REPORTS HE HAS LEARNED A LOT IN THERAPY. PATIENT REPORTS THE WATER THERAPY IS HELPING AND HE FEELS REALLY GOOD AFTER THE SESSIONS AND WANTS TO CONTINUE. PATIENT REPORTS THIS THERAPY IS WHEN HE THINKS HE NEEDS. Objective/Function: PATIENT WAS SEEN TODAY FOR RE-ASSESSMENT OF PROGRESS TOWARD THE SET PT GOALS AND THE NEED FOR FURTHER PHYSICAL THERAPY VS READINESS FOR DISCHARGE. HE IS MAKING SLOW PROGRESS TOWARD ALL PT GOALS AND IS A GOOD CANDIDATE TO CONTINUE SKILLED PT. PATIENT AGREEABLE. UPON EXAM TODAY: Motor deficit: JESSIKA LE STRENGTH GROSSLY 5/5 WITH MMT'ING EXCEPT LEFT HIP 4/5. Sensory deficit: JESSIKA LE LIGHT TOUCH SENSATION INTACT AND SYMMETRICAL DESPITE C/O THIGH NUMBNESS. ROM deficit: TIGHT JESSIKA HIP FLEXORS, HS'S AND GASTROC SOLEUS COMPLEX'S ALONG WITH L HIP IR. Dural Signs: NEGATIVE JESSIAK LE'S. Lumbar mvmt loss: flex - MOD - IMPROVING. ext - BILL. R SG - BILL. L SG - BILL. Core strength: POOR Plan Plan: WOULD RECOMMEND CONTINUATION PER POC BASED ON PROGRESS MADE AND ROOM FOR FURTHER IMPROVEMENT. PATIENT IS AGREEABLE. CONTINUE AQUATIC THERAPY FOR PAIN RELIEF, POSTURE CORRECTION/STRENGTHENING, INSTRUCTION IN APPROPRIATE BODY MECHANICS AND ACTIVITY MODIFICATIONS. DLS STARTING WITH A NEUTRAL SPINE PROGRESSING ROM TOLERATED. JESSIKA LE ROM, STRETCHING AND STRENGTHENING. HEP INSTRUCTION. Goals Goal 1:: DECREASE C/O LOW BACK AND JESSIKA LE SX'S. Goal Time Frame: 4-6 Weeks Goal Progress: Progressing Goal 2:: IMPROVE LIFTING, WALKING, SITTING, STANDING, SLEEP, SOCIAL LIFE, TRAVEL AND HOMEMAKING AND WORK FUNCTION. Goal Time Frame: 4-6 Weeks Goal Progress: Progressing Goal 3:: INSTRUCT IN PROPHYLAXIS Goal Time Frame: 4-6 Weeks Goal Progress: Progressing Anticipated Interventions Patient/Client Instruction: Educate patient on: Condition, Plan of Care, Risk Factors, Benefits of Fitness Program For the Purpose of:: To improve self management Therapeutic Exercise to Include: Strength training, Body mechanics, Postural training, Flexibilty training, Gait and locomotor training, Neuromotor development, In an aquatic setting, Dynamic Lumbar Stabilization Comment: PATIENT REPORTS HE NEEDS A L THR PER DR. ROCIO MAYORGA. For the Purpose of:: To decrease pain, To improve muscle performance and motor function, To increase tolerance to activity/condition/position, To improve ability of physical actions for home/community/work/leisure, To improve gait and locomotor functions Please do not hesitate to contact me at [phone] by phone or if you have questions or concerns regarding this new plan of care! Sincerely, Concepcion Ferreira, PT, Cert MDT
--- NOTE | 2020-11-07 15:13 | HP.PTDCSUM ---
It has been my pleasure to treat ANALY SUH referred by Dr. Ela Salgado MD, with the diagnosis of LBP AND L RADICULOPATHY for a total of 23 visit(s). Discharge Date: 11/07/20 Please see the following information for a summary of their discharge status. Subjective: PATIENT REPORTS HE IS NO LONGER GETTING THE MUSCLE SPASMS THAT WERE INCOMPASITATING HIM. PATIENT REPORTS HE HAS GOT MORE OUT OF PT THAN HE WAS EVEN EXPECTING TOO. PATIENT REPORTS HE IS REALLY GLAD HE HAS HAD THIS THERAPY AND NOW HE HAS TOOLS TO USE TO MANAGE HIS PAIN. Lumbar Spine Pain Intensity (Out of 10): 0 LLE Pain Intensity (Out of 10): 3 RIGHT HIP/THIGH Pain Intensity (Out of 10): 0 % Improvement: 70 Objective/Function: PATIENT WAS SEEN TODAY FOR RE-ASSESSMENT OF PROGRESS TOWARD THE SET PT GOALS AND THE NEED FOR FURTHER PHYSICAL THERAPY VS READINESS FOR DISCHARGE. HE IS MAKING SLOW PROGRESS TOWARD ALL PT GOALS AND IS A GOOD CANDIDATE TO CONTINUE SKILLED PT. PATIENT AGREEABLE. UPON EXAM TODAY: Motor deficit: JESSIKA LE STRENGTH GROSSLY 5/5. Sensory deficit: JESSIKA LE LIGHT TOUCH SENSATION INTACT AND SYMMETRICAL DESPITE C/O THIGH NUMBNESS. ROM deficit: TIGHT JESSIKA HIP FLEXORS, HS'S AND GASTROC SOLEUS COMPLEX'S ALONG WITH L HIP IR. Dural Signs: NEGATIVE JESSIKA LE'S. Lumbar mvmt loss: flex - MOD - IMPROVING. ext - BILL. R SG - BILL. L SG - BILL. PATIENT DENIES PAIN WITH LUMBAR ROM TESTING ALL PLANES TODAY. Core strength: POOR. OTHER: PATIENT HAS A POOL AT HOME. Goal 1:: DECREASE C/O LOW BACK AND JESSIKA LE SX'S. Goal Progress: Goal Met Goal 2:: IMPROVE LIFTING, WALKING, SITTING, STANDING, SLEEP, SOCIAL LIFE, TRAVEL AND HOMEMAKING AND WORK FUNCTION. Goal Progress: Goal Met Goal 3:: INSTRUCT IN PROPHYLAXIS Goal Progress: Goal Met Plan: D/C TO INDEP POOL EX. PATIENT AGREEABLE. If there are questions or concerns regarding this patient's physical therapy, please feel free to call me at [phone]. Thank you for the referral of this patient. Sincerely, Concepcion Ferreira, PT, Cert MDT
== END 2020-11-07 19:00 | disposition home or self-care (01) ==
LOC: PT 14:30
PROVIDERS: PCP Internal Medicine; Referring Provider Internal Medicine; Visit Provider Internal Medicine
DX: M54.5 Low back pain (principal)
CPT/HCPCS: 97112; 97113; 97162; 97164; 97530

== ENCOUNTER → 2020-11-19 | Outpatient (CLI) | payer MEDICARE, OTHER, SELFPAY ==
[2020-07-03 15:14] VITALS: BMI 30.4
[2020-11-19 13:03] LABS: D-Dimer Quantitative (DVT/PE) 0.47 FEU/ug/m (0.27-0.49)
[2020-11-19 13:20] LABS: ALB/GLOB Ratio 1.1 RATIO (0.9-2.4); AST(SGOT) 27 U/L (15-37); Alanine Aminotransfer ALT/SGPT 38 U/L (16-61); Alkaline Phosphatase 60 U/L (45-117); Anion Gap 6 (5-15); BUN 18 mg/dL (7-18); BUN/Creat Ratio 17.8 RATIO (10-20); CPK Total, Creatine Kinase 199 U/L (39-308); Calcium,Total 9.7 mg/dL (8.5-10.1); Chloride 108 mmol/L (98-107); Creatinine, Serum 1.01 mg/dL (0.70-1.30); EST Glomerular Filtration Rate 79 mL/min (>60); Est Glom Filt Rate - Afr Amer 95 mL/min (>60); Globulin 3.5 g/dL (2.2-4.2); Glucose 86 mg/dL (74-106); Potassium 4.3 mmol/L (3.5-5.1); Protein, Total 7.5 g/dL (6.4-8.2); Sodium Level 140 mmol/L (136-145)
[2020-11-19 14:21] LABS: Specimen Processing Control PASS
[2020-11-19 14:22] LABS: Probe Check PASS
[2020-11-19 15:51] LABS: BNP,B-Type NATRIURETIC PEPTIDE 25.3 pg/mL (0-100)
[2020-11-20 08:43] LABS: Myoglobin, Serum 49 ng/mL (28-72)
== END | disposition home or self-care (01) ==
PROVIDERS: PCP Internal Medicine; Referring Provider Nurse Practitioner; Visit Provider Nurse Practitioner
DX: R06.02 Shortness of breath (principal); I10 Essential (primary) hypertension
CPT/HCPCS: 36415; 80053; 82550; 83874; 83880; 84443; 84484; 85379; 87635; U0002

== ENCOUNTER → 2022-08-18 | Outpatient (CLI) | payer MEDICARE, OTHER, SELFPAY ==
--- NOTE | 2022-08-22 15:57 | STRESSREP ---
Stress Test Report Exercise myocardial perfusion stress test. 67-year-old man with a history of chest pain. Stress protocol: Rest EKG demonstrates normal sinus rhythm with a rate of 71 bpm normal intervals are noted resting blood pressure is 148/86 mmHg. The patient exercised according to regular Robbin protocol for total duration of 9 minutes completing stage III of the Robbin protocol the maximum heart rate attained was 136 bpm which was 88% of max impacted heart rate the maximum workload was 10.1 metabolic equivalents. At rest there were no ST or T wave changes noted suggest ischemia at peak exercise upsloping ST changes were noted we did not meet the criteria for ischemia. No clinical angina was noted the test was terminated due to target heart rate noted and exaggerated BP response to exercise of 222/90 mmHg. No clinical angina was noted. Myocardial perfusion protocol. 14.8 mCi of technetium 99m sestamibi was injected at rest. The patient exercised according to regular Robbin protocol for total duration of 9 minutes and at peak exercise 44.6 mCi of technetium 99m sestamibi was injected stress images were obtained stress and rest images were reconstructed in comparing the short axis vertical and horizontal long axis. Perfusion Spect analysis. Review of the images demonstrate normal uptake of tracer noted in all areas of the myocardium. The resting images similar demonstrate normal uptake of tracer noted in all areas of the myocardium. No areas of reversibility are noted to suggest ischemia and no previous infarct is noted. Gated SPECT analysis: The gated ejection fraction is 71%. Conclusion: Normal exercise myocardial perfusion stress test at a high workload. Preserved ejection fraction.
== END | disposition home or self-care (01) ==
LOC: CVS 06:49
PROVIDERS: PCP Internal Medicine; Visit Provider Physician Assistant Medical
DX: R07.9 Chest pain, unspecified (principal)
CPT/HCPCS: 78452; 93017; A9500; A4216

== ENCOUNTER → 2023-10-26 | Outpatient (CLI) | payer MEDICARE, OTHER, SELFPAY | END | disposition home or self-care (01) | LOC: SL 19:46 | PROVIDERS: PCP Internal Medicine; Referring Provider Internal Medicine; Visit Provider Internal Medicine | DX: G47.10 Hypersomnia, unspecified (principal) | CPT/HCPCS: 95810 ==

== ENCOUNTER → 2023-11-07 | Outpatient (CLI) | payer MEDICARE, OTHER, SELFPAY ==
--- NOTE | 2023-11-07 13:56 | CDU_ITS ---
Reason For Study: Lightheaded Rt. Velocities/BP Lt. Velocities/BP Prox CCA 127/21 cm/sec. Prox CCA 91/16 cm/sec. Mid CCA 118/25 cm/sec. Mid CCA 103/23 cm/sec. Dist CCA 70/17 cm/sec. Dist CCA 86/20 cm/sec. Prox ICA 53/14 cm/sec. Prox ICA 58/20 cm/sec. Mid ICA 81/32 cm/sec. Mid ICA 74/27 cm/sec. Dist ICA 92/33 cm/sec. Dist ICA 73/31 cm/sec. Rt. ICA/CCA = 0.8. Lt. ICA/CCA = 0.7. Prox ECA 75/12 cm/sec. Prox ECA 86/16 cm/sec. Rt. Vert. 36/11 cm/sec. Lt. Vert. 47/14 cm/sec. Right Extracranial There is heterogeneous, irregular atherosclerotic plaque noted in the right common carotid artery. There is intimal thickening but no significant atherosclerotic plaque noted in the right internal carotid artery. There is no significant atherosclerotic plaque noted in the right external carotid artery. Antegrade flow is noted in the right vertebral artery. Left Extracranial There is intimal thickening but no significant atherosclerotic plaque noted in the left common carotid artery. There is intimal thickening but no significant atherosclerotic plaque noted in the left internal carotid artery. There is intimal thickening but no significant atherosclerotic plaque noted in the left external carotid artery. Antegrade flow is noted in the left vertebral artery. Procedure Carotid Duplex [id number]. This is a Carotid Duplex examination using B-mode, color flow and specral Doppler. Exam performed in department. VL/Carotid Duplex Ultrasound Interpretation Summary Intimal thickening at the proximal right internal carotid artery with less than 50% stenosis Less than 50% stenosis right external carotid artery Intimal thickening at the proximal left internal carotid artery with less than 50% stenosis Less than 50% stenosis left external carotid artery Patent and antegrade vertebral arteries bilaterally No change from the previous examination of October 22, 2019 Ordering Physician: Ela Salgado Referring Physician: Ela Salgado Performed By: Marce Tang, JAMI, RVT
== END | disposition home or self-care (01) ==
LOC: CVS 13:55
PROVIDERS: PCP Internal Medicine; Referring Provider Internal Medicine; Visit Provider Internal Medicine
DX: R42 Dizziness and giddiness (principal)
CPT/HCPCS: 93880

== ENCOUNTER → 2023-11-08 | Outpatient (CLI) | payer MEDICARE, OTHER, SELFPAY | END | disposition home or self-care (01) | PROVIDERS: PCP Internal Medicine; Visit Provider Internal Medicine | DX: G47.33 Obstructive sleep apnea (adult) (pediatric) (principal) | CPT/HCPCS: 95811 ==

== ENCOUNTER → 2023-11-30 | Outpatient (CLI) | payer MEDICARE, OTHER, SELFPAY ==
--- NOTE | 2023-11-30 14:03 | ECHOD_ITS ---
Reason For Study: EXERCISE INTOLERANCE Procedure This was a 2D Doppler, Color Flow transthoracic echocardiogram. Exam performed in department. Left Ventricle Normal LV size. Left ventricular systolic function is normal. The estimated ejection fraction is 70 %. No regional wall motion abnormalities noted. Right Ventricle Normal RV size. Normal systolic function. Atria Normal left atrium. Normal right atrium. Mitral Valve Normal mitral valve. Tricuspid Valve Normal tricuspid valve. Unable to estimate RV systolic pressure due to insufficient tricuspid regurgitant envelope. Aortic Valve Trisinus/trileaflet aortic valve. Pulmonic Valve Normal pulmonic valve. Great Vessels Normal aortic root. The pulmonary artery is normal size. Normal inferior vena cava. Pericardium/Pleural No pericardial effusion. MMode/2D Measurements & Calculations LVIDd: 4.4 cm IVSd: 1.1 cm LVOT diam: 2.1 cm LVIDs: 2.3 cm LVPWd: 1.1 cm LVOT area: 3.6 cm2 RVDd: 3.2 cm FS: 48.6 % Ao root diam: 3.6 cm LAV(MOD-bp): 45.9 ml LVAd ap4: 27.1 cm2 LAV(MOD-bp) Indexed: 21.3 ml/m2 LVLd ap4: 7.5 cm LAV(MOD-sp2): 61.0 ml EDV(MOD-sp4): 80.0 ml LAV(MOD-sp4): 32.1 ml EDV(sp4-el): 83.7 ml LVAs ap4: 13.9 cm2 LVLs ap4: 6.6 cm ESV(MOD-sp4): 26.6 ml ESV(sp4-el): 25.0 ml EF(MOD-sp4): 66.7 % EF(sp4-el): 70.1 % LVAd ap2: 30.2 cm2 SV(MOD-sp4): 53.4 ml SV(MOD-sp2): 63.6 ml LVLd ap2: 8.3 cm EDV(MOD-sp2): 89.7 ml EDV(sp2-el): 93.0 ml LVAs ap2: 14.2 cm2 LVLs ap2: 6.7 cm ESV(MOD-sp2): 26.1 ml ESV(sp2-el): 25.5 ml EF(MOD-sp2): 70.9 % SV(sp4-el): 58.7 ml LA dimension(2D): 3.9 cm LA A4 area: 14.4 cm2 RA A4 area: 12.2 cm2 TAPSE: 2.1 cm Time Measurements MV dec time: 0.18 sec Doppler Measurements & Calculations MV E max carlos: 77.4 cm/sec Lat Peak E' Carlos: 12.4 cm/sec Med Peak E' Carlos: 12.3 cm/sec MV A max carlos: 58.5 cm/sec E/E' lat: 6.2 E/E' med: 6.3 MV E/A: 1.3 Ao V2 max: 124.7 cm/sec LV V1 max: 90.6 cm/sec MV dec slope: 422.4 cm/sec2 Ao max P.2 mmHg LV V1 max P.3 mmHg Ao V2 mean: 81.6 cm/sec LV V1 mean P.8 mmHg Ao mean P.0 mmHg LV V1 mean: 63.1 cm/sec Ao V2 VTI: 28.3 cm LV V1 VTI: 22.3 cm AV (velocity ratio): 0.79 CARMEN(I,D): 2.8 cm2 CARMEN(V,D): 2.6 cm2 SV(LVOT): 80.2 ml PA V2 max: 102.4 cm/sec PA max PG (full): 1.6 mmHg ECHO/Echo Complete Interpretation Summary Normal LV size. Left ventricular systolic function is normal. The estimated ejection fraction is 70 %. Structurally normal valves. Ordering Physician: Ela Salgado Referring Physician: Ela Salgado Performed By: Viktoriya Gallardo RDCS and Student
== END | disposition home or self-care (01) ==
LOC: CVS 14:00
PROVIDERS: PCP Internal Medicine; Referring Provider Internal Medicine; Visit Provider Internal Medicine
DX: R68.89 Other general symptoms and signs (principal); E78.00 Pure hypercholesterolemia, unspecified; E66.9 Obesity, unspecified; I65.23 Occlusion and stenosis of bilateral carotid arteries; I25.10 Atherosclerotic heart disease of native coronary artery without angina pectoris
CPT/HCPCS: 93306

== ENCOUNTER 2024-08-27 06:35 | Emergency (ER) | payer MEDICARE, OTHER, SELFPAY ==
[2024-08-27 06:35] VITALS: BP 138/76; PULSE 58; RESP 16; TEMP 36.8; O2SAT 96; BMI 29.2
--- NOTE | 2024-08-27 07:07 | CT_ITS ---
INDICATION: Injury/Pain -- Per [place] CT head rule meets criteria for CAT s EXAMINATION: CT BRAIN - CT Head or Brain W/O Contrast Injection TECHNIQUE: Multiple axial images were obtained of the head without intravenous contrast. The protocol utilizes one or more of the following dose reduction techniques: automated exposure control, adjustment of mA and/or kV according to patient size,and/or use of iterative reconstruction technique. IV Contrast dosage and agent: None. RADIATION DOSAGE (If Supplied By Facility): CTDIvol = ( 44.99 ) mGy, DLP = ( 796.11 ) mGycm COMPARISON: No relevant prior comparison study available FINDINGS: BRAIN PARENCHYMA: No intra- or extra-axial hemorrhage. No evidence of acute infarct. There is a calcification within the right frontal lobe that appears to be vascular. No intracranial mass or mass effect. There is preservation of the galvan/white matter interface. Posterior fossa structures are unremarkable. CSF SPACES: Appropriate for age. No hydrocephalus. Basal cisterns are patent. CALVARIUM, SKULL BASE, PARANASAL SINUSES AND MASTOID AIR CELLS: Clear. No discrete lytic or blastic abnormalities. ORBITS: Both globes, extraocular muscles, optic nerves and retrobulbar fat appear unremarkable. ASPECTS Score for Acute Strokes: 10 CT/Brain/Head without Contrast IMPRESSION: No acute intracranial process. Vascular appearing calcification within the right frontal lobe, consider MRI with contrast for cannot exclude an underlying vascular malformation. Electronically Signed: Rosemarie Blunt MD at 8:19 EST ,
--- NOTE | 2024-08-27 07:17 | EX.ED.GENINJ ---
HPI History of Present Illness Chief Complaint: Fall Detail of Chief Complaint: Slipped on ice striking head and injuring right great toe Informant: patient and spouse/S.O. Onset/Context/Timing Onset: Hours (1 to 2 hours prior to arrival) Mechanism/Context: Blunt Injury and Fall Location of pain/injuries: - (Occiput and right great toe) Quality of Pain: Dull and Aching Location: Head and right foot Current Severity: Mild Maximum Severity: Severe Worsened by: Toe pain worse with palpation Relieved by: Nothing Associated Symptoms Associated Symptoms: Positive for Loss of consciousness (Dazed, transient); Negative for Parasthesias, Weakness, Loss of function, Inability to ambulate or Amnesia Narrative Narrative: Patient is a 69-year-old male. He is on a baby aspirin a day. He has history of hypertension, hyperlipidemia, coronary artery disease with placement of stent 2004 who presents after fall. He slipped on the ice. He fell backwards hitting his head on the concrete. She states he was going out to get donuts. He also injured his right foot not ankle as documented in triage. He is not on an anticoagulant. He does complain of headache. Denies double vision, blurred vision loss of vision. He denies neck pain. He denies paresthesia, anesthesia or motor weakness upper or lower extremity. He denies problems with balance or coordination. He denies abdominal pain. He denies nausea or vomiting. He denies upper or lower back pain. He denies buttocks pain. Prior similar symptoms: No Recent Illness/Hospitalization: No PFSH PFSH Medical History Atherosclerotic heart disease of [place] coronary artery without angina pectoris BPH (benign prostatic hyperplasia) Essential (primary) hypertension Hyperlipidemia History of coronary artery stent placement (05/29/04) Home Medications ?Medication ?Instructions ?Recorded ?Last Taken ?Type ramipril 2.5 mg capsule 2.5 mg PO DAILY 90 days 04/11/18 Unknown History rosuvastatin 20 mg tablet 20 mg PO DAILY 04/12/18 Unknown History metoprolol succinate 25 mg 25 mg PO DAILY 07/03/19 Unknown History tablet,extended release 24 hr nitroglycerin 0.4 mg sublingual 0.4 mg sublingual Q5-15M PRN chest 08/17/19 Unknown Rx tablet pain #25 tabs cholecalciferol (vitamin D3) 25 25 mcg PO DAILY 07/03/20 Unknown History mcg (1,000 unit) capsule tamsulosin 0.4 mg capsule 0.4 mg PO DAILY 07/03/20 Unknown History aspirin 81 mg capsule 81 mg PO DAILY 08/27/24 Unknown History Allergy/AdvReac Type Severity Reaction Status Date / Time codeine AdvReac GI Upset Verified 08/27/24 06:42 morphine AdvReac GI Upset Verified 08/27/24 06:42 Family History Father CAD (coronary artery disease) Mother CAD (coronary artery disease) Surgical History History of lumbar surgery (2019) H/O hemorrhoidectomy H/O bilateral inguinal hernia repair Social History (Updated 08/27/24 @ 07:[address] Alfonso Delgado MD) household members: spouse Smoking Status: Never smoker ROS ROS ED Constitutional Constitutional ED: Denies chills, fever(s) or subjective Eyes Eyes: Denies blurry vision or change in vision ENT ENT ED: Denies ear pain, rhinorrhea or sore throat Cardiovascular Cardiovascular: Denies chest pain or palpitations Respiratory/Chest Respiratory/Chest: Denies cough, dyspnea or dyspnea on exertion Gastrointestinal Gastrointestinal: Denies abdominal pain, nausea or vomiting Musculoskeletal Musculoskeletal: Reports other Details: Complains of right foot pain. Patient complained of pain localized to great toe when I removed his shoe. ; Denies arthralgias, back pain, myalgias or neck pain Integumentary Denies Abrasions or rash Neurologic Neurologic: Reports headache(s); Denies paresthesias or weakness Hematologic/Lymphatic Hematologic/Lymphatic: Denies easy bleeding or easy bruising EXAM Physical Exam Const Vital Signs: 08/27/24 06:35 08/27/24 06:38 Temperature 98.2 F Temperature Source Oral Pulse Rate 58 L Respiratory Rate 16 Respiratory Effort Non-Labored Short of Breath Respiratory Depth Normal Respiratory Pattern Normal Blood Pressure 138/76 H Blood Pressure Mean 96 Pulse Ox 96 Oxygen Delivery Method Room Air Room Air Positive well nourished and well developed General Appearance ED: well developed and NAD HEENT Reports TM's clear HEENT Narrative: There is no clinical findings of basilar skull fracture. There is no palpable depression. trauma and tenderness Nose: Negative for septum abnormal Tympanic Membrane ED: Yes TM's clear Eyes PERRL and EOMs intact bilaterally General Eye ED: Yes other Other Details: There is no nystagmus. There is no subconjunctival hemorrhage. Neck full ROM General: tenderness Chest Wall inspection of chest normal and palpation of chest normal Resp normal respiratory effort and clear to auscultation bilaterally Cardio regular rhythm, S1 normal heart sound, S2 normal heart sound and no murmurs GI GI Narrative: There is no pain the patient in the pelvis, Palpation: soft and tender Back/Spine no thoracic nor lumbar tenderness General Back: Negative for CVA tenderness Extremity full ROM; Negative for normal to inspection Extremity Narrative: There is no pain ovation of the lateral or medial malleolus of the right ankle. There is no pain the patient of the base of fifth metatarsal. There is pain palpation over the distal and proximal phalanx of the right great toe. DP and PT pulse are palpable. Neuro oriented x3, CN's II-XII intact bilaterally, moves all extremities, no focal motor deficits and no sensory deficits noted Jose Alfredo Coma Scale: document GCS findings Spontaneous Obeys Commands Oriented 15 Sensorium / Orientation: alert Plantar Reflex: Downgoing: bilateral (There is no clonus.) Psych mental status grossly normal and thought process normal Skin no rashes or lesions noted, no wounds, skin turgor normal and no jaundice MDM MDM MDM Narrative Medical decision making narrative: With head trauma in a 65-year-old and the fact that he was dazed transient loss of consciousness per the [place] CT head rule imaging is indicated. C-spine was cleared per Nexus criteria. Since patient has localized pain to the right great toe and causes him discomfort with walking and removal of his shoe will obtain x-ray to rule out fracture versus contusion versus strain. CT of the head was obtained to rule out epidural hematoma, subdural hematoma, traumatic subarachnoid hemorrhage and intraparenchymal bleed. History & Record Review Additional record(s) reviewed:: Prior outpatient record (Sleep study October 2023 reveals abnormality. He was prescribed BiPAP machine. Only other outpatient records are March 2013 for impaired fasting glucose test.) and Other (There are no ER records.) Radiography Chest X-Ray - ED: Read by ED Physician (Three-view x-ray of the right great toe independent reviewed interpreted by me at 0723 reveals degenerative changes. There is no fracture, subluxation or dislocation.) Diagnostic Testing: Clinical Impression(s) from Imaging Studies Brain CT 08/27/24 07:07 IMPRESSION: No acute intracranial process. Vascular appearing calcification within the right frontal lobe, consider MRI with contrast for cannot exclude an underlying vascular malformation. Electronically Signed: Rosemarie Blunt MD at 8:19 EST , CT of the head without contrast reveals no obvious hemorrhage. There is an area which appears to have a calcification that is seen on all 3 views. It is round the size of a BB. Awaiting formal read by radiologist to determine if he is in agreement. There is slight fluid noted in the right maxillary sinus. Management Discussion w/another healthcare provider: PCP (Spoke with Dr. Melendrez regarding interpretation of CT of the head by radiologist. Patient reports severe claustrophobia. She will make arrangements for open outpatient MRI with contrast to evaluate this vascular appearing calcification within the right frontal lobe. This could be done as an outpati) Discharge Plan Triage Chief Complaint: Fall ED Provider: Alfonso Delgado Dx/Rx/DC Orders Clinical Impression: Concussion with loss of consciousness, Atherosclerotic heart disease of [place] coronary artery without angina pectoris, Hyperlipidemia, Essential (primary) hypertension, Contusion of right great toe without damage to nail, initial encounter, Abnormal CT scan of head Instructions: ED Concussion, ED Finger or Toe Contusion Prescriptions: No Action rosuvastatin 20 mg tablet 20 mg PO DAILY ramipril 2.5 mg capsule 2.5 mg PO DAILY 90 Days Patient Comments: metoprolol succinate 25 mg tablet extended release 24 hr 25 mg PO DAILY cholecalciferol (vitamin D3) 25 mcg (1,000 unit) capsule 25 mcg PO DAILY tamsulosin 0.4 mg capsule 0.4 mg PO DAILY aspirin 81 mg capsule 81 mg PO DAILY nitroglycerin 0.4 mg tablet, sublingual 0.4 mg SUBLINGUAL Q5-15M PRN (Reason: chest pain) Qty: 25 3RF Primary Care Provider: Ela Salgado Referrals: Ela Salgado MD [Primary Care Provider] - As soon as possible Activity Restrictions/Additional Instructions: Contact Dr. Bonezzi. She is aware of the CAT scan findings and will make appropriate arrangements for outpatient MRI with contrast. Print Language: Faroese Disposition Disposition: Home, Self Care
--- NOTE | 2024-08-27 07:22 | RAD_ITS ---
INDICATION: Blunt trauma and pain -- Great toe EXAMINATION/TECHNIQUE: X-RAY - RIGHT FOOT XR Toes Min 2 Views 3 VIEWS COMPARISON: July 06, 2017 FINDINGS: SOFT TISSUES: No soft tissue swelling or gas. No radiopaque foreign body. BONES/JOINTS: No acute fracture or subluxation.. Normal alignment. There are degenerative changes of the first metatarsophalangeal joint. There are degenerative changes of the interphalangeal joints as well. No sclerotic or destructive changes observed. RAD/Toe(s) Min 2 Views IMPRESSION: No acute osseous injury. Degenerative changes. Electronically Signed: Rosemarie Blunt MD at 9:46 EST ,
[2024-08-27 08:56] VITALS: PULSE 84; RESP 18; O2SAT 100
== END 2024-08-27 08:56 | disposition home or self-care (01) ==
PROVIDERS: Emergency Provider Emergency Medicine; PCP Internal Medicine; Visit Provider Emergency Medicine
DX: S06.0X9A Concussion with loss of consciousness of unspecified duration, initial encounter (principal); I25.10 Atherosclerotic heart disease of native coronary artery without angina pectoris; Z79.82 Long term (current) use of aspirin; E78.5 Hyperlipidemia, unspecified; S90.111A Contusion of right great toe without damage to nail, initial encounter; W00.0XXA Fall on same level due to ice and snow, initial encounter; I10 Essential (primary) hypertension; Z95.5 Presence of coronary angioplasty implant and graft
CPT/HCPCS: 70450; 73660; 99282

== ENCOUNTER → 2024-09-19 | Outpatient (CLI) | payer MEDICARE, OTHER, SELFPAY ==
--- NOTE | 2024-09-19 13:02 | US_ITS ---
PROCEDURE: THYROID REASON FOR EXAM: Multiple thyroid nodules. TECHNIQUE: REAL-TIME GRAYSCALE AND COLOR-FLOW IMAGING WAS PERFORMED ALONG WITH ROUTINE IMAGE DOCUMENTATION. COMPARISON: No relevant prior. FINDINGS: Right thyroid lobe measures 5.3 x 1.7 x 1.8 cm.. Left thyroid lobe measures 4.0 x 1.4 x 0.9.cm. Isthmus thickness is0.21 cm.. Thyroid Size: Normal Background Echotexture: Homogeneous. Thyroid Nodules: Right lobe. Midpole, cystic, 0.3 x 0.3 x 0.2 cm, rounded, anechoic, TR 1. US/Thyroid IMPRESSION: A benign cystic micronodule in the right thyroid lobe. Reading Location: [facility]
== END | disposition home or self-care (01) ==
LOC: US 13:02
PROVIDERS: PCP Internal Medicine; Referring Provider Internal Medicine; Visit Provider Internal Medicine
DX: E04.1 Nontoxic single thyroid nodule (principal)
CPT/HCPCS: 76536